=== PATIENT | female | born 1955 | race Caucasian/White ===

== ENCOUNTER → 2016-08-23 | Outpatient (CLI) | payer OTHER ==
[~2016-08-23] MED LIST: BACL10TA PO; DIPH25CA37 PO; DIPH25CA65 PO; LRT5 PO; NAPR-1169 PO
--- NOTE | 2016-08-23 15:37 | MAMMOGRAPHY REPORT ---
UNILATERAL RIGHT DIGITAL SCREENING MAMMOGRAM TOMOSYNTHESIS WITH CAD: 08/23/2016 CLINICAL HISTORY: Asymptomatic. Personal history of breast cancer. TECHNIQUE: Breast tomosynthesis in addition to standard 2D mammography was performed. Current study was also evaluated with a Computer Aided Detection (CAD) system. Right CC and MLO 2-D and tomosynthe sis images were obtained. COMPARISON: Comparison is made to exams dated: 08/19/2015 mammogram, 08/20/2014 mammogram, 08/14/2014 mamm ogram, 06/24/2013 mammogram, 06/13/2012 mammogram, and 05/17/2011 mammogram - [facility] . BREAST COMPOSITION: The tissue of the right breast is heterogeneously dense, which may obscure small masses. FINDINGS: There are no suspicious masses, calcifications, or areas of architectural distortion noted in the right breast. There has been no significant interval change compared to prior exams. IMPRESSION: ACR BI-RADS CATEGORY 1: NEGATIVE There is no mammographic evidence of malignancy. A 1 year screening mammogram is recommended. The pa tient will receive written notification of the results. Approximately 10% of breast cancers are not detected with mammography. A negative mammographic report should not delay biopsy if a clinically suggestive mass is present. Eda Zavala M.D. ah/:08/23/2016 07:44:38 Marine Architect: Joan SUNSHINE)([place]), [facility] letter sent: Normal 1/2 BI-RADS Code: ACR BI-RADS Category 1: Negative
== END | disposition home or self-care (01) ==
LOC: C.MAMM 07:22
PROVIDERS: ATTEND Internal Medicine Hematology
DX: Z12.31 Encounter for screening mammogram for malignant neoplasm of breast (principal); Z85.3 Personal history of malignant neoplasm of breast; Z90.12 Acquired absence of left breast and nipple

== ENCOUNTER 2023-03-21 00:29 | Inpatient (IN) ==
--- NOTE | 2023-03-21 00:58 | Emergency Department Note ---
History of Present Illness General Chief complaint: Shortness of Breath/Dyspnea Stated complaint: SHORTNESS OF BREATH,WHEEZING Time Seen by Provider: 03/21/23 00:46 History of Present Illness This 67-year-old female on Plaquenil for rheumatoid arthritis and takes naproxen presents ER complaining of cough and shortness of breath today. Patient denies chest pain, leg pain or swelling, fever, chills, flulike illness, recent travel, history of blood clots. She does not smoke. No family history of blood clots or heart disease. She states she is very healthy and exercises daily. Home Medications Medication Instructions Recorded Confirmed Type naproxen 500 mg tablet 500 mg PO BID PRN Pain #0 tabs 07/16/12 12/06/19 History cyclobenzaprine 5 mg tablet 5 mg PO DAILY 12/06/19 12/06/19 History oxycodone-acetaminophen 5 mg-325 1 tab PO Q6H PRN pain #30 tabs 12/06/19 Rx mg tablet (Percocet) hydroxychloroquine 200 mg tablet 200 mg PO UD 03/21/23 03/21/23 History Allergies Allergy/AdvReac Type Severity Reaction Status Date / Time No Known Allergies Allergy Unknown Verified 07/31/06 14:46 indomethacin AdvReac Unknown SEVERE SYLVESTER Verified 03/15/12 07:07 LOCALANESTHETIC AdvReac Unknown MARCAINE Uncoded 03/19/09 02:48 -STRANGE RXN TO IT? Past Med/Surg History Social History Smoking Status: Never smoker Tobacco Type: Cigarettes Preferred Language: Mongolian Feels Safe at Home: Yes Review of Systems A total of 10 systems reviewed and were otherwise negative Physical Exam Vital Signs Vital Signs - 24 hr 03/21/23 00:34 03/21/23 00:55 03/21/23 01:09 Temperature 36.5 C Temperature Source Temporal Artery Scan Pulse Rate 107 H 105 H Pulse Rate [Apical] Pulse Rhythm Pulse Rhythm [Apical] Pulse Strength [Apical] Respiratory Rate 20 Respiratory Effort / Characteristics Non-Labored Respiratory Depth Normal Respiratory Pattern Regular Blood Pressure 133/89 Blood Pressure [Right Arm] Blood Pressure Mean 103 Blood Pressure Mean [Right Arm] Pulse Oximetry 98 Oxygen Delivery Method Room Air Room Air Sepsis Recent Fever Within 48 Hours No Sepsis New/Unexplained Change in Mental Status No Sepsis Action Taken by Nursing No Action Required 03/21/23 01:09 03/21/23 01:09 03/21/23 01:09 Temperature Temperature Source Pulse Rate 99 H Pulse Rate [Apical] 100 H Pulse Rhythm Regular Pulse Rhythm [Apical] Regular Pulse Strength [Apical] Normal Respiratory Rate 18 16 Respiratory Effort / Characteristics Non-Labored Respiratory Depth Normal Respiratory Pattern Regular Blood Pressure Blood Pressure [Right Arm] 116/82 Blood Pressure Mean Blood Pressure Mean [Right Arm] 93 Pulse Oximetry 97 97 97 Oxygen Delivery Method Room Air Room Air Room Air Sepsis Recent Fever Within 48 Hours Sepsis New/Unexplained Change in Mental Status Sepsis Action Taken by Nursing VITALS: Vitals are noted on the nurse's note and reviewed by myself. Vital signs stable. GENERAL: Pleasant female with present, in no acute distress, nondiaphoretic, well-developed well-nourished. SKIN: Capillary reflex less than 2 seconds. HEENT: Normocephalic. PERRLA. EOMI. Nares patent. Mucous membranes moist. Neck is supple without nuchal rigidity. HEART: Regular rate and rhythm LUNGS: Mild diffuse end expiratory wheeze. No retractions or accessory muscle use. ABDOMEN: Positive bowel sounds x 4. Normal tympanic percussion. Soft, nontender, without masses or organomegaly. Thomas sign negative. No guarding or rebound tenderness. no CVA tenderness MUSCULOSKELETAL: No gross musculoskeletal defects. NEURO: Patient was alert and oriented to person place and time. No focal neurological deficits. Course Administered Medications Discontinued Medications Albuterol (Albut/Ipratrop 3mg/0.5mg Neb 3 Ml Vial) 3 ml INH NOW STA Stop: 03/21/23 00:55 Last Admin: 03/21/23 01:25 Dose: 3 ml Documented By: RINKU Furosemide (Furosemide 40 Mg/4 Ml Vial) 40 mg IV ONE ONE Stop: 03/21/23 01:39 Last Admin: 03/21/23 01:49 Dose: 40 mg Documented By: RINKU Ioversol (Optiray 320 125ml) 116 ml IV ONCE ONE Stop: 03/21/23 01:19 Last Admin: 03/21/23 01:20 Dose: 116 ml Documented By: SANTINO Medical Decision Making Medical Records Attestation: I reviewed the patient's medical records. Home Medications Current Medication List: was personally reviewed by nm Laboratory Data Attestation: I reviewed the patient's lab results. 03/21/23 01:00 03/21/23 01:00 Lab Results 03/21/23 03/21/23 Range/Units 01:00 01:04 WBC 5.49 (4.8-10.8) K/ul RBC 4.96 (4.20-5.40) M/uL Hgb 14.0 (12.0-16.0) g/dl POC Hgb 15.0 (12.0-16.0) g/dl Hct 44.3 (37.0-47.0) % POC Hct 44 (37-47) % MCV 89.3 (80.0-100.0) fL MCH 28.2 (25.0-34.0) pg MCHC 31.6 L (32.0-36.0) g/dL RDW Std Deviation 46.7 H (36.4-46.3) fL RDW Coeff of Laz 14.3 (11.5-14.5) % Plt Count 281 (130-400) K/uL MPV 9.8 (9.4-12.4) fL Immature Gran % (Auto) 0.2 % Neut % (Auto) 52.7 % Lymph % (Auto) 35.9 % Childress % (Auto) 7.7 % Eos % (Auto) 2.6 % Baso % (Auto) 0.9 % Neut # (Auto) 2.90 (1.40-6.50) K/uL Lymph # (Auto) 1.97 (1.20-3.40) K/uL Childress # (Auto) 0.42 (0.11-0.59) K/uL Eos # (Auto) 0.14 (0.00-0.50) K/uL Baso # (Auto) 0.05 (0.00-0.20) K/uL Immature Gran # (Auto) 0.01 (0.01-0.20) K/uL POC Sodium 141 (135-144) mmol/L Sodium 138 (136-145) mmol/L POC Potassium 4.5 (3.3-5.0) mmol/L Potassium 4.4 (3.5-5.1) mmol/L POC Chloride 106 (101-112) mmol/L Chloride 107 (98-107) mmol/L Carbon Dioxide 25 (21-32) mmol/L POC Total CO2 23 L (24-31) mmol/L Anion Gap 6 (3-11) POC Anion Gap 17.0 (16-25) mmol/L POC BUN 19 H (7-18) mg/dl BUN 19 (6-23) mg/dl Creatinine 0.80 (0.6-1.2) mg/dl POC Creatinine 0.7 (0.6-1.3) mg/dl Est Cr Clr Drug Dosing 67.3 ml/min Est GFR ( Amer) 89.0 ml/min Est GFR (Non-Af Amer) 76.8 ml/min BUN/Creatinine Ratio 23.8 H (10-20) Glucose 119 H (70-99(Fasting)) mg/dl POC Glucose (other) 118 H (70-99) mg/dl Calcium 9.3 (8.6-10.3) mg/dl POC Ioniz Calcium Edwin 1.18 (1.12-1.32) mmol/l Magnesium 2.1 (1.7-2.4) mg/dl Total Bilirubin 0.4 (0.2-1.0) mg/dl AST 26 (13-39) U/L ALT 10 (7-52) U/L Alkaline Phosphatase 63 (34-104) U/L Troponin I High Sens 19.7 H (0-14) pg/ml B-Natriuretic Peptide 726 H (0-100) pg/ml Total Protein 7.0 (6.0-8.3) gm/dl Albumin 4.2 (3.4-5.0) gm/dl Globulin 2.8 (2.5-4.0) gm/dl Albumin/Globulin Ratio 1.5 (0.9-2) Imaging Data Attestation: I personally reviewed and interpreted this imaging study as follows: Radiologist's Impression: Chest CTA 03/21/23 00:54 Exam(s): CTA CHEST IV Amt: 116 cc opti 320 EXAM: CT Angiography Chest With Intravenous Contrast CLINICAL HISTORY: Reason for exam: Dyspnea. TECHNIQUE: Axial computed tomographic angiography images of the chest with intravenous contrast. Automated exposure control was utilized for the study. A dose lowering technique was utilized adhering to the principles of ALARA. MIP reconstructed images were created and reviewed. COMPARISON: January 10, 2007 CT chest. FINDINGS: Pulmonary arteries: Unremarkable. No pulmonary embolism. Aorta: No acute findings. No thoracic aortic aneurysm. Lungs: Extensive peribronchial thickening, particularly in the lower lobes. There is also very extensive thickening of interlobular septa. No mass. No consolidation. Pleural space: Small bilateral pleural effusions. No pneumothorax. Heart: Unremarkable. No cardiomegaly. No significant pericardial effusion. No evidence of RV dysfunction. Bones/joints: No acute fracture. No dislocation. Soft tissues: Unremarkable. Lymph nodes: Unremarkable. No enlarged lymph nodes. IMPRESSION: No evidence of pulmonary emboli. Marked peribronchial thickening as well as a diffuse abnormal thickening of interlobular septa. These findings are nonspecific. Thickening of interlobular septa can sometimes be seen in CHF. Electronically signed by: Julius Corea MD 03/21/23 01:35 AM [facility] Narrative Prior records/ancillary studies reviewed. Triage Nursing notes reviewed. Additional history obtained from the family. The patient's history was concerning for respiratory difficulties. Differential diagnosis: Etiologies such as infections, reactive airway disease, pneumonia, pneumothorax, COPD, CHF, cardiac ischemia, pulmonary embolism, musculoskeletal, gastrointestinal, as well as others were entertained. Physical examination: As above. ER treatment provided: An order was placed for continuous cardiac monitoring. The monitor shows a rate of 60-1 20 with a sinus rhythm per my interpretation. Nebulizer, Lasix On reassessment the patient felt better. Diagnostic interpretation by me: The electrocardiogram was ordered for SOB. ECG: Normal sinus, left axis, T wave inversions in lead I and aVL, rate of 112. Impression sinus tachycardia with left axis independently interpreted by myself The labs Independently Interpreted by myself revealed elevated troponin and BNP Imaging studies: Chest x-ray with pulmonary congestion per my independent interpretation CT was reviewed and read by radiology as above. HEART SCORE: Hx: high/mod/low suspicion: 0 ECG: ST depression/nonspecific changes/normal: 1 Age: Greater than 65/45-64/less than 45: 2 Risk factors: (Hypertension, hyperlipidemia, diabetes, coronary disease, tobacco use, cocaine use): 0 Troponin: Greater than 2 times normal limits/1-2 times normal limits/normal: 1 Total: 4 Consultation: A consultation was placed with the hospitalist. The case was discussed and diagnostics were reviewed. The patient was evaluated in the ER for further treatment. This appears to be consistent with new onset heart failure. Patient was medicated as above. She was not hypoxic. Medicine is consulted and case was discussed. Patient will be admitted to the medical service for further evaluation and workup. By the evaluation outlined above emergent etiologies such as pulmonary embolism, reactive airway disease, pneumonia, pneumothorax, musculoskeletal, serious bacterial infections, as well as others were deemed relatively unlikely. The pt informed about the findings as listed above. All questions were answered and pleased with the treatment. The chart was completed utilizing [employer] Speech voice recognition software. Grammatical errors, random word insertions, pronoun errors, and incomplete sentences are an occassional consequence of this system due to software limitations, ambient noise, and hardware issues. Any formal questions or concerns about the content, text, or information contained within the body of this dictation should be directly addressed to the physician furniture removalist's assistant for clarification. Impression & Plan Acute congestive heart failure Discharge Plan Visit Data Chief Complaint: Shortness of Breath/Dyspnea Stated Complaint: SHORTNESS OF BREATH,WHEEZING ED Provider: [facility] ED Midlevel Provider: Albina Joyner Discharge Problem: Acute congestive heart failure Patient Disposition: Admitted As Inpatient Condition: Good Forms Stand Alone Forms: Trellise Prescriptions Prescriptions: No Action naproxen 500 mg Tablet 500 mg PO BID PRN (Reason: Pain) Qty: 0 Patient Comments: PRN PAIN cyclobenzaprine 5 mg tablet 5 mg PO DAILY oxycodone-acetaminophen [Percocet] 5-325 mg tablet 1 tab PO Q6H PRN (Reason: pain) Qty: 30 0RF Referrals Referrals: Jian Vaz MD [Primary Care Provider] - Discharge Problem: Acute congestive heart failure Qualifiers: Heart failure type: unspecified Qualified Code(s): I50.9 - Heart failure, unspecified
[2023-03-21 01:18] LABS: Basophils # (auto) 0.05 K/uL (0.00-0.20); Basophils % (auto) 0.9 %; Eosinophils # (auto) 0.14 K/uL (0.00-0.50); Eosinophils % (auto) 2.6 %; Hematocrit (blood only) 44.3 % (37.0-47.0); Immature Granulocytes # (auto) 0.01 K/uL (0.01-0.20); Immature Granulocytes % (auto) 0.2 %; Lymphocytes # (auto) 1.97 K/uL (1.20-3.40); Lymphocytes % (auto) 35.9 %; Mean Corpuscular Hemoglobin 28.2 pg (25.0-34.0); Mean Corpuscular Hgb Conc 31.6 g/dL (32.0-36.0); Mean Corpuscular Volume 89.3 fL (80.0-100.0); Mean Platelet Volume 9.8 fL (9.4-12.4); Monocytes # (auto) 0.42 K/uL (0.11-0.59); Monocytes % (auto) 7.7 %; Neutrophils % (auto) 52.7 %; Platelet Count 281 K/uL (130-400); RDW Coefficient of Variation 14.3 % (11.5-14.5); RDW Standard Deviation 46.7 fL (36.4-46.3); Red Blood Count 4.96 M/uL (4.20-5.40); White Blood Count 5.49 K/ul (4.8-10.8)
[2023-03-21 01:20] LABS: iSTAT Creatinine 0.7 mg/dl (0.6-1.3); iSTAT Ionized Calcium 1.18 mmol/l (1.12-1.32); iSTAT Potassium 4.5 mmol/L (3.3-5.0)
[2023-03-21] MEDS: OPTIRAY 320 125ml IV ONE (01:20)
[2023-03-21] MEDS: ALBUT/IPRATROP 3MG/0.5MG NEB 3 ML VIAL INH STA (01:25)
[2023-03-21 01:31] LABS: Albumin Globulin Ratio 1.5 (0.9-2); Albumin Level 4.2 gm/dl (3.4-5.0); BUN Creatinine Ratio 23.8 (10-20); Bilirubin,Total 0.4 mg/dl (0.2-1.0); Calcium 9.3 mg/dl (8.6-10.3); Creatinine Clr Calc Pharmacy 67.3 ml/min; Est GFR (Non-African American) 76.8 ml/min; Globulin 2.8 gm/dl (2.5-4.0); Magnesium 2.1 mg/dl (1.7-2.4); Potassium 4.4 mmol/L (3.5-5.1)
--- NOTE | 2023-03-21 01:36 | CT Scan Report ---
Exam(s): CTA CHEST IV Amt: 116 cc opti 320 EXAM: CT Angiography Chest With Intravenous Contrast CLINICAL HISTORY: Reason for exam: Dyspnea. TECHNIQUE: Axial computed tomographic angiography images of the chest with intravenous contrast. Automated exposure control was utilized for the study. A dose lowering technique was utilized adhering to the principles of ALARA. MIP reconstructed images were created and reviewed. COMPARISON: January 10, 2007 CT chest. FINDINGS: Pulmonary arteries: Unremarkable. No pulmonary embolism. Aorta: No acute findings. No thoracic aortic aneurysm. Lungs: Extensive peribronchial thickening, particularly in the lower lobes. There is also very extensive thickening of interlobular septa. No mass. No consolidation. Pleural space: Small bilateral pleural effusions. No pneumothorax. Heart: Unremarkable. No cardiomegaly. No significant pericardial effusion. No evidence of RV dysfunction. Bones/joints: No acute fracture. No dislocation. Soft tissues: Unremarkable. Lymph nodes: Unremarkable. No enlarged lymph nodes. IMPRESSION: No evidence of pulmonary emboli. Marked peribronchial thickening as well as a diffuse abnormal thickening of interlobular septa. These findings are nonspecific. Thickening of interlobular septa can sometimes be seen in CHF. Electronically signed by: Julius Corea MD 03/21/23 01:35 AM
[2023-03-21 01:37] LABS: Troponin I High Sensitivity 19.7 pg/ml (0-14)
--- NOTE | 2023-03-21 01:43 | Emergency Department Note ---
ED Visit Note I was consulted by the Advanced Practice Provider. I personally made/approved the management plan and take responsibility for the patient management. I performed a substantive portion of the visit. This includes the aspects of: [-History/Physical] [-MDM] .
[2023-03-21] MEDS: FUROSEMIDE 40 MG/4 ML VIAL IV ONE (01:49)
[2023-03-21 02:12] LABS: Adenovirus PCR Not Detected (NotDetected); Bordetella parapertussis PCR Not Detected (NotDetected); Bordetella pertussis PCR Not Detected (NotDetected); Chlamydia pneumoniae PCR Not Detected (NotDetected); Coronavirus 229E PCR Not Detected (NotDetected); Coronavirus CoV-2 (COVID19)PCR Not Detected (NotDetected); Coronavirus HKU1 PCR Not Detected (NotDetected); Coronavirus NL63 PCR Not Detected (NotDetected); Coronavirus OC43PCR Not Detected (NotDetected); Human Metapneumovirus PCR Not Detected (NotDetected); Influenza A PCR Not Detected (NotDetected); Influenza B PCR Not Detected (NotDetected); Mycoplasma pneumoniae PCR Not Detected (NotDetected); Parainfluenza Virus 1 PCR Not Detected (NotDetected); Parainfluenza Virus 2 PCR Not Detected (NotDetected); Parainfluenza Virus 3 PCR Not Detected (NotDetected); Parainfluenza Virus 4 PCR Not Detected (NotDetected); Respiratory Syncytial VirusPCR Not Detected (NotDetected); Rhinovirus/Enterovirus PCR Not Detected (NotDetected)
[2023-03-21 02:13] LABS: INR 0.9 (0.9-1.1); Partial Thromboplastin Ratio 1.1; Partial Thromboplastin Time 32 Seconds (21-31); Prothrombin Time 10.1 Seconds (9.0-12.0)
--- NOTE | 2023-03-21 02:45 | History & Physical Report ---
Date of Service March 21, 2023 Assessment & Plan (1) Acute congestive heart failure: Plan: 67-year-old female with past med history significant for thoracic outlet syndrome, left arm pain. Dupuytren disease of the right palm. Osteoarthritis. History of breast cancer. Rheumatoid arthritis diagnosed in fall 2022 comes with shortness of breath for last few days. Patient lately walking 1 flight of steps making her short of breath. Today sob was worse. Today when she laid down in the bed she felt very short of breath and when checked her pulse ox was 85%. It happened a couple of times and she decided come to the ER. Last couple of nights she woke up in the night gasping for breath. In the ER after Lasix is feeling slightly better. Denies any chest pain. No cough. No fevers. No nausea /vomiting. No abdominal pain. No headaches. No runny nose or sore throat. Appetite is okay. Normal bowel and bladder movements. Presents with shortness of breath Orthopnea and PND CTA chest possible CHF Possible acute CHF Received IV dose of Lasix 40 mg in the ER Will continue with IV Lasix 40 mg daily Daily weights and and I's and O's Will follow the response Will follow echo Telemetry Cardiology consult in a.m. Rheumatoid arthritis On Plaquenil on pain meds History of breast cancer left side s/p surgery and chemo Currently under observation with heme-onc DVT prophylaxis Lovenox Disposition Telemetry floor Full code History of Present Illness Chief Complaint: Shortness of breath Primary Care Provider: Jian Vaz MD 67-year-old female with past med history significant for thoracic outlet syndrome, left arm pain. Dupuytren disease of the right palm. Osteoarthritis. History of breast cancer. Rheumatoid arthritis diagnosed in fall 2022 comes with shortness of breath for last few days. Patient lately walking 1 flight of steps making her short of breath. Today sob was worse. Today when she laid down in the bed she felt very short of breath and when checked her pulse ox was 85%. It happened a couple of times and she decided come to the ER. Last couple of nights she woke up in the night gasping for breath. In the ER after Lasix is feeling slightly better. Denies any chest pain. No cough. No fevers. No nausea /vomiting. No abdominal pain. No headaches. No runny nose or sore throat. Appetite is okay. Normal bowel and bladder movements. Past medical history. As mentioned above Past surgical history. Breast biopsy. Bilateral breast reconstruction. Colonoscopy. Meniscal repair bilateral. Injection of lumbo cervical spine. Ligation oviducts. Left modified radical mastectomy. Appendectomy. Social history. . Quit smoking 1990s. Smoked half pack a day for 16 years. Alcohol wine daily. No drug use. Family history. Paternal aunt had breast cancer. Mother had breast cancer. Brother had prostate cancer. Father had prostate cancer. Father had idiopathic peripheral neuropathy. Mother had rheumatoid arthritis. Allergies Allergy/AdvReac Type Severity Reaction Status Date / Time indomethacin AdvReac Unknown SEVERE SYLVESTER Verified 03/15/12 07:07 [email or web address] [From Marcaine] AdvReac strange Verified 03/21/23 03:26 reaction Home Medications Medication Instructions Recorded Confirmed Type naproxen 500 mg tablet 500 mg PO BID PRN Pain #0 tabs 07/16/12 03/21/23 History cyclobenzaprine 5 mg tablet 5 mg PO DAILY 12/06/19 03/21/23 History oxycodone-acetaminophen 5 mg-325 1 tab PO Q6H PRN pain #30 tabs 12/06/19 03/21/23 Rx mg tablet (Percocet) hydroxychloroquine 200 mg tablet 200 mg PO UD 03/21/23 03/21/23 History Past Med/Surg History Social History Smoking Status: Never smoker Tobacco Type: Cigarettes Hx Alcohol Use: No Hx Substance Use: No Preferred Language: [place] Communication Ability: Effective 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 ENT- oropharynx clear Neck- supple, no JVD. Lungs- clear to auscultation mild bibasilar crackles, no wheezing. Heart- regular rhythm; no murmur, no gallop. Abdomen- normal bowel sounds, soft, nontender, no distension. Extremities- no pretibial edema, no erythema seen. Neuro- alert, oriented x 3; PERRL, no facial palsy; no dysarthria; moves extremities Skin- warm & dry Results & Data Results & Data Vital Signs (Past 12 Hours) Vital Signs Temp Pulse Pulse Resp BP BP Pulse Ox 03/21/23 02:20 102 H 19 106/68 98 03/21/23 02:00 96 03/21/23 01:30 98 H 15 118/82 100 03/21/23 01:24 74 H 122/85 98 03/21/23 01:09 99 H 16 97 03/21/23 01:09 100 H 18 116/82 97 03/21/23 01:09 97 03/21/23 01:09 03/21/23 00:55 105 H 03/21/23 00:34 36.5 C 107 H 20 133/89 98 O2 Del Method 03/21/23 02:20 Room Air 03/21/23 02:00 03/21/23 01:30 03/21/23 01:24 03/21/23 01:09 Room Air 03/21/23 01:09 Room Air 03/21/23 01:09 Room Air 03/21/23 01:09 Room Air 03/21/23 00:55 03/21/23 00:34 Room Air Diagnostic Findings Laboratory Results WBC 5.49 K/ul (4.8-10.8) 03/21/23 01:00 RBC 4.96 M/uL (4.20-5.40) 03/21/23 01:00 Hgb 14.0 g/dl (12.0-16.0) 03/21/23 01:00 POC Hgb 15.0 g/dl (12.0-16.0) 03/21/23 01:04 Hct 44.3 % (37.0-47.0) 03/21/23 01:00 POC Hct 44 % (37-47) 03/21/23 01:04 MCV 89.3 fL (80.0-100.0) 03/21/23 01:00 MCH 28.2 pg (25.0-34.0) 03/21/23 01:00 MCHC 31.6 g/dL (32.0-36.0) L 03/21/23 01:00 RDW Std Deviation 46.7 fL (36.4-46.3) H 03/21/23 01:00 RDW Coeff of Laz 14.3 % (11.5-14.5) 03/21/23 01:00 Plt Count 281 K/uL (130-400) 03/21/23 01:00 MPV 9.8 fL (9.4-12.4) 03/21/23 01:00 Immature Gran % (Auto) 0.2 % 03/21/23 01:00 Neut % (Auto) 52.7 % 03/21/23 01:00 Lymph % (Auto) 35.9 % 03/21/23 01:00 [place] % (Auto) 7.7 % 03/21/23 01:00 Eos % (Auto) 2.6 % 03/21/23 01:00 Baso % (Auto) 0.9 % 03/21/23 01:00 Neut # (Auto) 2.90 K/uL (1.40-6.50) 03/21/23 01:00 Lymph # (Auto) 1.97 K/uL (1.20-3.40) 03/21/23 01:00 [place] # (Auto) 0.42 K/uL (0.11-0.59) 03/21/23 01:00 Eos # (Auto) 0.14 K/uL (0.00-0.50) 03/21/23 01:00 Baso # (Auto) 0.05 K/uL (0.00-0.20) 03/21/23 01:00 Immature Gran # (Auto) 0.01 K/uL (0.01-0.20) 03/21/23 01:00 PT 10.1 Seconds (9.0-12.0) 03/21/23 01:00 INR 0.9 (0.9-1.1) 03/21/23 01:00 APTT 32 Seconds (21-31) H 03/21/23 01:00 PTT Ratio 1.1 03/21/23 01:00 POC Sodium 141 mmol/L (135-144) 03/21/23 01:04 Sodium 138 mmol/L (136-145) 03/21/23 01:00 POC Potassium 4.5 mmol/L (3.3-5.0) 03/21/23 01:04 Potassium 4.4 mmol/L (3.5-5.1) 03/21/23 01:00 POC Chloride 106 mmol/L (101-112) 03/21/23 01:04 Chloride 107 mmol/L (98-107) 03/21/23 01:00 Carbon Dioxide 25 mmol/L (21-32) 03/21/23 01:00 POC Total CO2 23 mmol/L (24-31) L 03/21/23 01:04 Anion Gap 6 (3-11) 03/21/23 01:00 POC Anion Gap 17.0 mmol/L (16-25) 03/21/23 01:04 POC BUN 19 mg/dl (7-18) H 03/21/23 01:04 BUN 19 mg/dl (6-23) 03/21/23 01:00 Creatinine 0.80 mg/dl (0.6-1.2) 03/21/23 01:00 POC Creatinine 0.7 mg/dl (0.6-1.3) 03/21/23 01:04 Est Cr Clr Drug Dosing 67.3 ml/min 03/21/23 01:00 Est GFR ( Amer) 89.0 ml/min 03/21/23 01:00 Est GFR (Non-Af Amer) 76.8 ml/min 03/21/23 01:00 BUN/Creatinine Ratio 23.8 (10-20) H 03/21/23 01:00 Glucose 119 mg/dl (70-99(Fasting)) H 03/21/23 01:00 POC Glucose (other) 118 mg/dl (70-99) H 03/21/23 01:04 Calcium 9.3 mg/dl (8.6-10.3) 03/21/23 01:00 POC Ioniz Calcium Edwin 1.18 mmol/l (1.12-1.32) 03/21/23 01:04 Magnesium 2.1 mg/dl (1.7-2.4) 03/21/23 01:00 Total Bilirubin 0.4 mg/dl (0.2-1.0) 03/21/23 01:00 AST 26 U/L (13-39) 03/21/23 01:00 ALT 10 U/L (7-52) 03/21/23 01:00 Alkaline Phosphatase 63 U/L (34-104) 03/21/23 01:00 Troponin I High Sens 19.7 pg/ml (0-14) H 03/21/23 01:00 B-Natriuretic Peptide 726 pg/ml (0-100) H 03/21/23 01:00 Total Protein 7.0 gm/dl (6.0-8.3) 03/21/23 01:00 Albumin 4.2 gm/dl (3.4-5.0) 03/21/23 01:00 Globulin 2.8 gm/dl (2.5-4.0) 03/21/23 01:00 Albumin/Globulin Ratio 1.5 (0.9-2) 03/21/23 01:00 Adenovirus (PCR) Not Detected (NotDetected) 03/21/23 01:09 B. pertussis DNA (PCR) Not Detected (NotDetected) 03/21/23 01:09 B.parapertussis DNA PCR Not Detected (NotDetected) 03/21/23 01:09 C. pneumoniae DNA (PCR) Not Detected (NotDetected) 03/21/23 01:09 Coronavirus OC43 (PCR) Not Detected (NotDetected) 03/21/23 01:09 Coronavirus HKU1 (PCR) Not Detected (NotDetected) 03/21/23 01:09 Coronavirus 229E (PCR) Not Detected (NotDetected) 03/21/23 01:09 SARS-CoV-2 (PCR) Not Detected (NotDetected) 03/21/23 01:09 Coronavirus NL63 (PCR) Not Detected (NotDetected) 03/21/23 01:09 Human Metapneumovir PCR Not Detected (NotDetected) 03/21/23 01:09 Influenza Type A (PCR) Not Detected (NotDetected) 03/21/23 01:09 Influenza Type B (PCR) Not Detected (NotDetected) 03/21/23 01:09 M. pneumoniae (PCR) Not Detected (NotDetected) 03/21/23 01:09 Parainfluenza 1 (PCR) Not Detected (NotDetected) 03/21/23 01:09 Parainfluenza 2 (PCR) Not Detected (NotDetected) 03/21/23 01:09 Parainfluenza 3 (PCR) Not Detected (NotDetected) 03/21/23 01:09 Parainfluenza 4 (PCR) Not Detected (NotDetected) 03/21/23 01:09 RSV (PCR) Not Detected (NotDetected) 03/21/23 01:09 Entero/Rhino (PCR) Not Detected (NotDetected) 03/21/23 01:09 Impressions Chest CTA 03/21/23 00:54 Exam(s): CTA CHEST IV Amt: 116 cc opti 320 EXAM: CT Angiography Chest With Intravenous Contrast CLINICAL HISTORY: Reason for exam: Dyspnea. TECHNIQUE: Axial computed tomographic angiography images of the chest with intravenous contrast. Automated exposure control was utilized for the study. A dose lowering technique was utilized adhering to the principles of ALARA. MIP reconstructed images were created and reviewed. COMPARISON: January 10, 2007 CT chest. FINDINGS: Pulmonary arteries: Unremarkable. No pulmonary embolism. Aorta: No acute findings. No thoracic aortic aneurysm. Lungs: Extensive peribronchial thickening, particularly in the lower lobes. There is also very extensive thickening of interlobular septa. No mass. No consolidation. Pleural space: Small bilateral pleural effusions. No pneumothorax. Heart: Unremarkable. No cardiomegaly. No significant pericardial effusion. No evidence of RV dysfunction. Bones/joints: No acute fracture. No dislocation. Soft tissues: Unremarkable. Lymph nodes: Unremarkable. No enlarged lymph nodes. IMPRESSION: No evidence of pulmonary emboli. Marked peribronchial thickening as well as a diffuse abnormal thickening of interlobular septa. These findings are nonspecific. Thickening of interlobular septa can sometimes be seen in CHF. Electronically signed by: Julius Corea MD 03/21/23 01:35 AM ECG Additional Comments: ECG. Sinus tachycardia 112. Possible left atrial enlargement. Left axis deviation. Code Status & VTE Plan VTE Prophylaxis Plan VTE Prophylaxis will be ordered: Yes (1) Acute congestive heart failure Heart failure type: unspecified Qualified Code(s): I50.9 - Heart failure, unspecified
[2023-03-21] MEDS ORDERED: LEVALBUTEROL 1.25 MG/3 ML NEB NEB PRN (03:19)
[2023-03-21] MEDS ORDERED: POLYETHYLENE (MIRALAX) 17 GM PACK PO PRN (03:19)
--- NOTE | 2023-03-21 06:46 | XRay Report ---
XR chest 1V portable CLINICAL HISTORY: Shortness of breath. COMPARISON STUDY: Chest radiograph and right rib series December 06, 2019. FINDINGS: Lung volumes are normal. No pneumothorax. Small bilateral pleural effusions. Moderate inter lobular septal thickening is evident. Mild cardiomegaly. No consolidation to suggest pneumonia. IMPRESSION: Cardiomegaly with moderate interstitial pulmonary edema and small bilateral pleural effu sions. ACT 112: Negative or not required by law. Electronically signed by: Harpreet Howell M.D. 03/21/2023 6:44 AM
[2023-03-21 07:19] LABS: Basophils # (auto) 0.06 K/uL (0.00-0.20); Basophils % (auto) 0.9 %; Eosinophils # (auto) 0.04 K/uL (0.00-0.50); Eosinophils % (auto) 0.6 %; Hematocrit (blood only) 40.1 % (37.0-47.0); Hemoglobin 13.3 g/dl (12.0-16.0); Immature Granulocytes # (auto) 0.01 K/uL (0.01-0.20); Immature Granulocytes % (auto) 0.2 %; Lymphocytes # (auto) 1.49 K/uL (1.20-3.40); Mean Corpuscular Hemoglobin 28.9 pg (25.0-34.0); Mean Corpuscular Hgb Conc 33.2 g/dL (32.0-36.0); Mean Corpuscular Volume 87.2 fL (80.0-100.0); Mean Platelet Volume 9.5 fL (9.4-12.4); Monocytes # (auto) 0.59 K/uL (0.11-0.59); Monocytes % (auto) 9.1 %; Neutrophils # (auto) 4.28 K/uL (1.40-6.50); Neutrophils % (auto) 66.2 %; Platelet Count 261 K/uL (130-400); RDW Coefficient of Variation 14.4 % (11.5-14.5); RDW Standard Deviation 46.1 fL (36.4-46.3); White Blood Count 6.47 K/ul (4.8-10.8)
[2023-03-21 07:34] LABS: BUN Creatinine Ratio 20.9 (10-20); Calcium 8.9 mg/dl (8.6-10.3); Creatinine Clr Calc Pharmacy 59.1 ml/min; Est GFR (African American) 76.2 ml/min; Est GFR (Non-African American) 65.7 ml/min; Potassium 4.2 mmol/L (3.5-5.1)
[2023-03-21 07:42] LABS: Troponin I High Sensitivity 20.8 pg/ml (0-14)
--- OUTSIDE RECORDS SUMMARY | 2023-03-21 08:15 | External Medical Summary | Summary of Care ---
Author Name Unknown Organization [facility] Address [address] [place] [address] Phone [phone] Care Team Providers Care Supply Chain Technician Name Role Phone Jian Vaz MD Primary Care Provider + Reason for Visit * Reason Onset Date Comments Physical-Exam 1 year physical exam. Patient denied any new concerns. Medication Administration 01/22/2023 Flu an d/or Pneumo Inj Encounter Details Date Type Department Care Team (Late st Contact Info) Description 01/22/2023 9:00 AM EST Office Visit General Internal Medicine [facility] [address] [facility] [address] [place], [place] [id number] Jian Vaz MD [address] [place] [address] Rheumatoid arthritis involving multiple sites with positive rheumatoid factor (HCC)*; DDD (degenerative disc disease), cervical; History of breast cancer; Need for prophylactic vaccination and inoculation against influenza; Risk and functional assessment; Chronic narcotic use; Encounter for screening mammogram for breast cancer Allergies Active Allergy Reactions Criticality Noted Date Comments Indomethacin 01/31/2002 Severe headache documented as of this encounter (statuses as of 01/22/2023) Medications Medication Sig Dispensed Refills Start Date End Date Status Naproxen 500 MG Oral Tablet (Naprosyn)Indic ations:Fall, initial encounter,Rib pain on left side 1 pill twice a day by mouth with food as needed for pain 180 Tablet 3 2 Active Cyclobenzaprine HCl 5 MG Oral Tablet (Flexeril)Indic ations:Left arm pain,Cervical spinal stenosis TAKE 1 TABLET BY MOUTH AT BEDTIME - may take an extra tablet at night for severe pain 120 Tablet 0 3 Active HYDROcodone-Jeyson taminophen 5-325 MG Oral Tablet Take 1 Tablet by mouth every 6 hours as needed for Pain, Mild. 0 Active Hydroxychloroqu ine Sulfate 200 MG Oral Tablet (Plaquenil)Dana cations:Rheumat oid arthritis involving multiple sites with positive rheumatoid factor (HCC) Take 2 Tablets by mouth daily. With food. 60 Tablet 11 3 Active Additional Information Patient taking differently:400 mg Oral Daily(Non-Specified),With food. Alternating every other 200mg and 400mg the next day., Reported on 01/22/2023 Doxycycline Hyclate 100 MG Oral CapsuleIndicati ons:Acute maxillary sinusitis, recurrence not specified Take 1 Capsule by mouth in the morning and 1 Capsule before bedtime. Do all this for 7 days. Take for 7 days. 14 Capsule 0 3 01/23/20 23 Discontinued(Pat ient preference/disco ntinuation) predniSONE 10 MG Oral Tablet (Deltasone)Dana cations:Acute maxillary sinusitis, recurrence not specified Take 4 Tablets by mouth daily, THEN 3 Tablets daily, THEN 2 Tablets daily, THEN 1 Tablet daily. 0 3 01/23/20 23 Discontinued documented as of this encounter (statuses as of 01/22/2023) Active Problems Problem Noted Date Diagnosed Date DDD (degenerative disc disease), cervical 2022 Encounter for long-term (current) use of medicat ions 11/07/2022 Rheumatoid arthritis involvi ng multiple sites with positive rheumatoid factor 10/20/2022 Dupuytren's disease of palm of right hand 2020 Primary osteoarthritis of fi rst carpometacarpal joint of right hand 04/16/2020 Fibrous cortical defect 04/16/2020 MEDICATION USE AGREEMENT 01/19/2020 History of breast cancer 01/15/2017 Left arm pain 12/28/2015 Family hx-breast malignancy 06/18/2007 THORACIC OUTLET SYNDROME 01/31/2002 documented as of this encounter (statuses as of 01/22/2023) Resolved Problems Problem Noted Date Diagnosed Date Resolved Date Prediabetes 05/20/2018 01/26/2022 Overview: Per Prediabetes protocol #1 ADVANCE DIRECTIVE INFORMATION 06/12/2007 01/18/2018 Overview: No, Advance Directive brochure offered , patient declined. Malignant neoplasm of lower- outer quadrant of female breast 05/02/2007 01/15/2017 Cancer Staging:Clinical: Unsigned Pathologic:Stage I(T1c, N0, M0) - Signed by Marc Chance MD on 01/27/2013 Overview: Left breast Giant cell arteritis 09/18/2002 003 Female genital symptoms 01/31/200212/13 Overview: ICD-10 update of inactive term BACK PAIN 01/31/2002 12/28/2015 documented as of this encounter (statuses as of 01/22/2023) Immunizations Name Administration Dates Next Due COVID-19 mRNA, LNP-s, No Pre serve, 2-Dose Series (Moderna) 04/17/2020,03/20/2020 Hepatitis B, 20+ yrs 11/20/1994,06/30/1994,06/01 Pneumococcal Conjugate Vacci ne, 20-valent ([id number]) 01/07/2022 SEASONAL INFLUENZA, PF, 6 M & Above, IM , (FLULAVAL or FLUZONE) 11/30/2020,12/03/2019 Seasonal Influenza Virus Vac cine, Unspecified Formulation 12/24/2013,11/27/2012 Seasonal Influenza, Quadriva lent Hd (Fluzone Hd) 01/22/2023,01/07/2022 Seasonal Influenza, Quadriva lent, No Preserve, IM 11/27/2018,12/17/2017 Seasonal Influenza, Split, I IV3, With Preserve, Inj 01/07/2022,11/23/2016,11/11/2015,2013,11/27/2012 TD - Tetanus/Diptheria (ADULT) 10/10/2005,2004,06/01/1994 TD, Preservative Free 08/06/2015 TDAP (age 11 and older)(Adacel) 12/13/2004 Tetanus Toxid Adsorbed 06/01/1994 Zoster Vaccine Recombinant (Shingrix) 04/23/2019 ,01/21/2019 documented as of this encounter Social History Tobacco Use Types Packs/Day Years Used Date Smoking Tobacco: Former Cigarettes 0.5 16 Q uit: 02/12/1989 Smokeless Tobacco: Never Tobacco Cessation:Counseling Given: Not Answered Alcohol Use Standard Drinks/Week Comments Yes 7 (1 standard drink = 0.6 oz pur e alcohol) wine daily PHQ-2 Answer Date Recorded PHQ Adult Total Score 0 01/07/2022 Hunger Vital Sign Answer Date Recorded Within the past 12 months, y ou worried that your food would run out before you got the money to buy more. Never true 07/20/19 23 Within the past 12 months, t he food you bought just didn't last and you didn't have money to get more. Never true 07/19/2022 Sex and Gender Information Value Date Recorded Sex Assigned at Female 01/21/2019 8:17 AM EST Gender Identity Female 01/21/2019 8:17 AM EST Sexual Orientation Straight 01/21/2019 8: 17 AM EST Job Start Date Occupation Industry Not on file Not on file Not on file documented as of this encounter Last Filed Vital Signs Vital Sign Reading Time Taken Comments Blood Pressure 100/68 01/22/2023 9:00 AM EST Pulse 88 01/22/2023 9:00 AM EST Temperature 36.7 C (98.1 F) 01/22/2023 9:00 AM ES T Respiratory Rate - - Oxygen Saturation 100% 01/22/2023 9:00 AM EST Inhaled Oxygen Concentration - - Weight 66.5 kg (146 lb 9.6 oz) 01/22/2023 9:00 A M EST Height 171.5 cm (5' 7.5") 01/22/2023 9:00 AM EST Body Mass Index 22.62 01/22/2023 9:00 AM EST documented in this encounter Patient Instructions * Patient Instructions* Karson Kunz CMA - 01/22/2023 9:02 AM EST Patient Instructions - Fall Prevention (This education is for all patients over 65 regardless of symptoms) Remember to take your current medications as prescribed. In order to prevent falls, you are encouraged to: Exercise Utilize assistive/adaptive devices Avoid multifocal lenses when walking Avoid hazards in home Maintain a regular toileting schedule Any questions please contact our office. Preventing Falls in the Home (This education is for all patients over 65 regardless of symptoms) As you get older, falls are more likely. Thats because your reaction time slows. Your muscles and joints may also get stiffer, making them less flexible. Illness, medications, and vision changes can also affect your balance. A fall could leave you unable to live on your own. To make your home safer, follow these tips: Floors Put nonskid pads under area rugs Remove throw rugs Replace worn floor coverings Tack carpets firmly to each step on carpeted stairs. Put nonskid strips on the edges of uncarpeted stairs Keep floors and stairs free of clutter and cords Arrange furniture so there are clear pathways Clean up any spills right away Bathrooms Install grab bars in the tub or shower Apply nonskid strips or put a nonskid rubber mat in the tub or shower Sit on a bath chair to bathe Use bathmats with nonskid backing Lighting Keep a flashlight in each room Put a nightlight along the pathway between the bedroom and the bathroom Leila Patient Education Copyright 2008 - 2010 Leila except where otherwise noted Preventing Falls: Exercises to Improve Balance, Flexibility, Strength, and Staying Power (This education is for all patients over 65 regardless of symptoms) Certain types of exercises may help make you less likely to fall. Try the ones below. Or do other exercises that your healthcare provider suggests. Depending on your health, you may need to start slowly. Dont let that stop you. Even small amounts of exercise can help you. Be sure to talk to yourhealthcare provider before starting any exercise program. Improve Balance Many types of exercise can help improve balance. Celestine chi and yoga are good examples. Heres another one to try. You can do it anytime and almost anywhere. Stand next to a counter or solid support. Push yourself up onto your tiptoes. Hold for 5 seconds. If you start to lose your balance, hold on to the counter. Rest and repeat 5 times. Work up to holding for 20 to 30 seconds, if you can. Increase Flexibility Being more flexible makes it easier for you to move around safely. Try exercises like the seated hamstring stretch. Sit in a chair and put one foot on a stool. Straighten your leg and reach with both hands down either side of your leg. Reach as far down your leg as you can. Hold for about 20 seconds. Go back to the starting position. Then repeat 5 times. Switch legs. Build Strength Resistance exercises help build strength. You can do them without equipment. Or you can use weights, elastic bands, or special machines. One such exercise is called the biceps curl. You can hold a 1 pound weight or even a can of soup. Do this exercise at least 3 times a week. Strive for everyday. Sit up straight in a chair. Keep your elbow close to your body and your wrist straight. Bend your arm, moving your hand up to your shoulder. Then slowly lower your arm. Repeat 5 times. Switch to the other arm. Build Your Staying Power Aerobic exercises make your heart and lungs stronger so you can keep moving longer. Walking and swimming are two of the best types of exercises you can do. Using a stationary bike is great, too. Find an aerobic exercise that you enjoy. Start slowly and build up. Even 5 minutes is helpful. Aimfor a goal of 30 minutes, at least 3 times a week. You dont have to do 30 minutes in one session. Break it up and walk a little throughout the day. More Helpful Tips Start easy. Slowly work up to doing more. Talk with your healthcare provider about the best exercises for you. Call senior centers or health clubs about exercise programs. If needed, have a family member watch you walk every so often to check your stability. Exercise with a friend. Choose an activity you both enjoy. Try exercises that you can do anytime, anywhere. Here are two examples. Have someone with you when you first try these: Practice walking by placing one foot right in front of the other. Stand up and sit down 10 times. Repeat this throughout the day. Leila Patient Education Copyright 2009 - 2010 Leila except where otherwise noted. Preventing Falls: Moving Safely Using a Cane or Walker (This education is for all patients over 65 regardless of symptoms) Keep the cane away from your feet so you dont trip. A walking aid, such as a cane or walker, can help you stay more independent and avoid falls. Remember to keep your walking aid within easy reach when youre in a chair or in bed. And learn how to use it safely so you dont injure yourself. Using a Cane If you have a stronger side, hold the cane on that side. Get your balance. Move the cane and your weaker leg forward. Support your weight on both the cane and your weaker side. Step with your stronger leg. Start again from step 1. If youre using a folding walker, be sure you know how to lock it open. Check that its locked open before each use. Using a Walker Roll the walker (or lift it, if youre using one without wheels) forward about 12 inches. Step forward with your weaker leg first. Use the walker to help keep your balance. Bring your other foot forward to the center of the walker. Start again from step 1. Helpful Tips Check with your healthcare provider about the right walking aid to use. Ask about a walker with a seat attached. Check the tips of your cane or walker to make sure they have nonskid covers. Move slowly from room to room. Dont day. Sit down to get dressed. Use a emmy pack or backpack to keep your hands free. Get help for jobs that mean climbing, even on a stepstool. Leila Patient Education Copyright 2008 - 2010 Leila except where otherwise noted. Urinary Incontinence Plan of Care Documentation: (This education is for all patients over 65 regardless of symptoms) Current medications reconciled. Patient encouraged to: Practice kegal exercises Provide education materials Use the restroom every 2 hours throughout the day Limit caffeine, alcohol, spicy foods and acidic foods Keep a bladder diary Limit fluid intake 3-4 hours before bed Lose weight Prevent constipation Take fluid pills at a time when you can get to the bathroom quickly Control sugar better if diabetic Limit fluid intake to 60 oz. per day Wear support stockings (TEDs)if you have edema Karson Kunz CMA 01/22/2023 Kegel Exercises Kegel exercises dont require special clothing or equipment. Theyre easy to learn and simple to do. And if you do them right, no one can tell youre doing them, so they can be done almost anywhere. Your doctor, nurse, or physical therapist can answer any questions you have and help you get started. A Weak Pelvic Floor The pelvic floor muscles may weaken due to aging, and vaginal childbirth, injury, surgery, chronic cough, or lack of exercise. If the pelvic floor is weak, your bladder and other pelvic organs may sag out of place. The urethra may also open too easily and allow urine to leak out. Kegel exercises can help you strengthen your pelvic floor muscles so they can better support the pelvic organs and control urine flow. How Kegel Exercises Are Done Try each of the Kegel exercises described below. When youre doing them, try not to move your leg, buttock, or stomach muscles. While youre urinating, try to stop the flow of urine. Start and stop it as often as you can. Contract as if you were stopping your urine stream, but do it when youre not urinating. Tighten your rectum as if trying not to pass gas. Contract your anus, but dont move your buttocks. Helpful Hints Do your Kegels as often as you can. The more you do them, the faster youll feel the results. Pick an activity you do often as a reminder. For instance, do your Kegels every time you sit down. Tighten your pelvic floor before you sneeze, get up from a chair, cough, laugh, or lift. This protects your pelvic floor from injury and can help prevent urine leakage. Try to hold each Kegel for a slow count to five. You probably wont be able to hold them for thatlong at first, but keep practicing. It will get easier as your pelvic floor gets stronger. Eventually, special weights that you place in your vagina may be recommended to help make your Kegels even more effective. Leila Patient Education Copyright 2008 - 2010 Leila except where otherwise noted. Here are some helpful tips for your urinary incontinence: (This education is for all patients over 65 regardless of symptoms) Practice Kegel exercises Use the restroom every 2 hours throughout the day Limit caffeine, alcohol, spicy foods, and acidic foods Keep a bladder diary Limit fluid intake 3-4 hours before bed Lose weight Prevent constipation Take fluid pills at a time when can get to the bathroom quickly Control sugar better if diabetic Limit fluid intake to 60 oz. per day Any questions, please feel free to contact our office. documented in this encounter Progress Notes * Jian Vaz MD - 01/22/2023 9:27 AM EST Chief Complaint Patient presents with Physical-Exam 1 year physical exam. Patient denied any new concerns. Medication Administration Flu and/or Pneumo Inj SUBJECTIVE: Elena Coulter is a 67 year old female with PMH as below who presents for yearly check, f/u RA, chronic neck pain. Feels well overall. Got over sinusitis fine, back to singing. No cp, sob, ring. Active on farm. Feels RA controlled overall, some pains in joints, hips, plans to discuss with rheum 02/01/23 when sees. Chronic neck pain to left arm stable, still can ride horse, throw hay bails. Mood isgood. Patient Active Problem List Diagnosis Code THORACIC OUTLET SYNDROME G54.0 Family hx-breast malignancy Z80.3 Left arm pain M79.602 History of breast cancer Z85.3 MEDICATION USE AGREEMENT [id number] Dupuytren's disease of palm of right hand M72.0 Primary osteoarthritis of first carpometacarpal joint of right hand M18.11 Fibrous cortical defect M89.8X9 Rheumatoid arthritis involving multiple sites with positive rheumatoid factor (HCC) M05.79 DDD (degenerative disc disease), cervical M50.30 Encounter for long-term (current) use of medications Z79.899 Current Outpatient Medications Medication Sig Dispense Refill Naproxen 500 MG Oral Tablet (Naprosyn) 1 pill twice a day by mouth with food as needed for pain 180Tablet 3 Cyclobenzaprine HCl 5 MG Oral Tablet (Flexeril) TAKE 1 TABLET BY MOUTH AT BEDTIME - may take an extra tablet at night for severe pain 120 Tablet 0 HYDROcodone-Acetaminophen 5-325 MG Oral Tablet Take 1 Tablet by mouth every 6 hours as needed for Pain, Mild. Hydroxychloroquine Sulfate 200 MG Oral Tablet (Plaquenil) Take 2 Tablets by mouth daily. With food.(Patient taking differently: Take 2 Tablets by mouth daily. With food. Alternating every other 200mg and 400mg the next day.) 60 Tablet 11 No current facility-administered medications for this visit. Review of patient's allergies indicates: Allergen Reactions Indomethacin Severe headache Health Maintenance Due Topic Date Due COVID-19 Vaccine (3 - Moderna risk series) 05/15/2020 Depression Screening 01/07/2023 ROS: CONSTITUTIONAL: No change in weight, No weakness, and No fevers, sweats, or chills EYE: No recent significant change in vision, No eye pain, redness, discharge, and No diplopia EARS: No ear pain, No drainage, No tinnitus or vertigo, and No recent change in hearing PULMONARY: No cough, sputum, or hemoptysis, No wheezing, No rales, No shortness of breath, and No recent change in breathing CARDIOVASCULAR: No chest pain, No shortness of breath, No dyspnea on exertion, No orthopnea, No paroxysmal nocturnal dyspnea, No edema, No palpitations, and No syncope GASTROINTESTINAL: No abdominal pain, No change in bowel habits, No significant heartburn, No significant change in appetite, No nausea, vomiting, diarrhea, or constipation, No hematemesis, No blood in stools or black tarry stools, No abdominal bloating or early satiety, and No dysphagia ALL OTHER SYSTEMS NEGATIVE I reviewed social, PMH, PSH, and family history and updated where needed. Social History Socioeconomic History Marital status: Spouse name: Not on file Number of children: 3 Years of education: Not on file Highest education level: Not on file Occupational History Occupation: retired! Tobacco Use Smoking status: Former Packs/day: 0.50 Years: 16.00 Additional pack years: 0.00 Total pack years: 8.00 Types: Cigarettes Quit date: 02/12/1989 Years since quittin.9 Smokeless tobacco: Never Vaping Use Vaping Use: Never used Substance and Sexual Activity Alcohol use: Yes Alcohol/week: 7.0 standard drinks of alcohol Types: 7 5 oz of wine per week Comment: wine daily Drug use: No Sexual activity: Yes Other Topics Concern Not on file Social History Narrative Not on file Social Determinants of Health Financial Resource Strain: Not on file Food Insecurity: No Food Insecurity (07/19/2022) Hunger Vital Sign Worried About Running Out of Food in the Last Year: Never true Ran Out of Food in the Last Year: Never true Transportation Needs: Not on file Physical Activity: Not on file Stress: Not on file Social Connections: Not on file Intimate Partner Violence: Not on file Housing Stability: Not on file Past Medical History: Diagnosis Date BRCA1 gene mutation negative 2007 BRCA2 gene mutation negative 2007 Breast cancer (HCC) 2007 left breast with mastectomy DDD (degenerative disc disease), cervical Giant cell arteritis (HCC) 09/18/2002 History of breast cancer 01/15/2017 Left arm pain 12/28/2015 MEDICATION USE AGREEMENT 01/19/2020 OTHER breast cancer Rheumatoid arthritis involving multiple sites with positive rheumatoid factor (HCC) 10/20/2022 THORACIC OUTLET SYNDROME Past Surgical History: Procedure Laterality Date BREAST BIOPSY Left 03/09/2006 Malignant BREAST RECONSTRUCTION Bilateral 2009 gluteal flap COLONOSCOPY, DIAGNOSTIC (RECTUM) 12/18/2022 diverticulosis/biopsies normal/recall 10 years/COLONOSCOPY FLEXIBLE PROXIMAL DIAGNOSTIC performed by Katt Lujan DO at [facility] INFORMATION Bilateral mensical repair INJECT DX/THER SUBSTANCE INTERLAMINAR CERVICAL/THORACIC W IMAGE GUIDE 05/09/2018 INJECTION SPINE LUMBAR CERVICAL OR THORACIC performed by Eleno Aguilar, DO at OR [facility] INJECT DX/THER SUBSTANCE INTERLAMINAR CERVICAL/THORACIC W IMAGE GUIDE 03/01/2020 INJECTION SPINE LUMBAR CERVICAL OR THORACIC performed by Eleno Aguilar, DO at OR [facility] INJECT DX/THER SUBSTANCE INTERLAMINAR CERVICAL/THORACIC W IMAGE GUIDE 12/23/2020 INJECTION SPINE LUMBAR CERVICAL OR THORACIC performed by Eleno Aguilar, DO at OR [facility] LIGATE/CUT OVIDUCT(S) 1993 MASTECTOMY, MODIFIED RADICAL Left 03/2006 Mast, Mod Rad,inc axil lymph no, Left breast REMOVAL OF APPENDIX 1968 SENTINEL LYMPH NODE BIOPSY PERFORMED Left 2006 negative Family History Problem Relation Age of Onset Breast Cancer Mother Rheum arthritis Mother Neurological Disorder Father Idiopathic peripheral neuropathy-- also 2 aunts and 1 uncle have same problem Cancer Father prostate Other (MSA) Brother Cancer Brother prostate cancer No Known Problems Daughter No Known Problems Daughter No Known Problems Daughter Breast Cancer Aunt (Paternal) Breast Cancer Aunt (Paternal) Breast Cancer Aunt (Paternal) OBJECTIVE: PHYSICAL EXAM: BP 100/68 | Pulse 88 | Temp 36.7 C (98.1 F) | Ht 1.715 m (5' 7.5") | Wt 66.5 kg (146 lb 9.6 oz)| LMP 04/12/2006 | SpO2 100% | BMI 22.62 kg/m | BSA 1.78 m General: alert, healthy, and no distress Head: Normocephalic, No masses, lesions, or abnormalities Eye Exam: conjunctiva are pink and non-injected, sclera clear Ears: External ears normal, Canals clear, TM's Normal Heart: regular rate & rhythm, no murmur, no gallops, PMI non-displaced, S-1 normal, and S-2 normal Lungs: normal respiratory rate and rhythm, lungs clear to auscultation Extremities: no edema, no clubbing, no cyanosis Neuro Exam: alert with fluent speech, gait normal Psych: normal affect, no flight of ideas or tangential thought, good eye contact, no pressured speech Neck: supple, full rom, no masses 11/07/2022 rheum: She is a new diagnosis of rheumatoid arthritis and was started on hydroxychloroquine by an outside provider. Reasonable thing continue with this treatment and would take 200 mg alternating with 400 mg daily. Will update labs in 1 month. Await eye exam. Return to clinic in 3 months and 9 months. I reviewed last lipid, gfr, glucose, lft ASSESSMENT: M05.79 Rheumatoid arthritis involving multiple sites with positive rheumatoid factor (HCC) (primaryencounter diagnosis) M50.30 DDD (degenerative disc disease), cervical Z85.3 History of breast cancer Z23 Need for prophylactic vaccination and inoculation against influenza Z13.9 Risk and functional assessment F11.90 Chronic narcotic use Z12.31 Encounter for screening mammogram for breast cancer PLAN: Rheumatoid arthritis involving multiple sites with positive rheumatoid factor (HCC) (Primary) Cnt med per rheum DDD (degenerative disc disease), cervical Has hydrocodone, flexeril which still help, takes prior at night sparingly, no ill effects History of breast cancer Cnt mammo Need for prophylactic vaccination and inoculation against influenza - INFLUENZA VACC, QUAD, HIGH DOSE (FLUZONE HD) Risk and functional assessment Chronic narcotic use - PAIN MANAGEMENT DRUG PANEL, URINE W/ INTERPRETATION; Future; Expected date: 01/22/2023 Encounter for screening mammogram for breast cancer - MAMMOGRAM SCREENING MARY RIGHT; Future; Expected date: 09/13/2023 Follow Up: Return in about 1 year (around 01/23/2024), or if symptoms worsen or fail to improve, for Labs Today. | For: Labs Today Discussed rsv vaccine Jian Vaz MD * Karson Kunz CMA - 01/22/2023 8:57 AM EST PRE - ADMINISTRATION DOCUMENTATION Are you experiencing any cold symptoms or fever? No Have you had Guillain-Firestone Syndrome (an illness that causes paralysis) within the last 6 weeks? No Have you had the flu shot in the past? YES Have you ever had a reaction to the flu shot? No Karson Kunz CMA, 01/22/2023 8:57 AM Immunization Administration Documentation Time Out Procedure Performed: Yes Patient Identified (Ask Name/Date of ): Yes Does the patient have a fever greater than 101 degrees today? No Patient allergic to latex? No VFC Stock: Yes, Does this patient qualify for immunization through the [facility] program because he/she (check only one): No-this child does not qualify for [facility] program; refer patient to a [facility] Immunization(s) verified: Yes, Immunization Name: Flu, VIS Sheet(s) given: Yes Verified Side and Site: Yes Verified Shot(s) with Parent(s)/Patient: Yes Fall Risk Plan of Care Documentation: - Current medications reconciled Patient encouraged to: - Exercise - Provide education materials for Core strengthening - Utilize assistive/adaptive devices - Provide education materials - Avoid multifocal lenses when walking - Avoid hazards in home - Provide education materials - Maintain a regular toileting schedule Karson Kunz CMA 01/22/2023 Urinary Incontinence Plan of Care Documentation: (This education is for all patients over 65 regardless of symptoms) Current medications reconciled. Patient encouraged to: Practice kegal exercises Provide education materials Use the restroom every 2 hours throughout the day Limit caffeine, alcohol, spicy foods and acidic foods Keep a bladder diary Limit fluid intake 3-4 hours before bed Lose weight Prevent constipation Take fluid pills at a time when you can get to the bathroom quickly Control sugar better if diabetic Limit fluid intake to 60 oz. per day Wear support stockings (TEDs)if you have edema Karson Kunz CMA 01/22/2023 documented in this encounter Nursing Notes * Karson Kunz CMA - 01/22/2023 8:58 AM EST Chief Complaint Patient presents with Physical-Exam 1 year physical exam. Patient denied any new concerns. Medication Administration Flu and/or Pneumo Inj documented in this encounter Plan of Treatment Upcoming Encounters Date Type Department Care Team (Late st Contact Info) Description 01/22/2023 10:00 AM EST Laboratory Laboratory [facility] [place] [address] [place] [id number] [facility] [address] [place] [address] Chronic narcotic use 02/01/2023 9:40 AM EST Office Visit Rheumatology [address] [place] [address] Javi Sexton MD [address] [place] [address] [place] [address] [address] 04/05/2023 2:30 PM EST Office Visit Ophthalmology, [facility] [address] [address] Servando Rdz MD [address] [address] Nurse [facility] Ophthalmology [address] [place] [address] [address] 08/01/2023 8:40 AM EDT Office Visit Rheumatology [place] [address] [place] [address] Javi Sexton MD [address] [place] [address] [place] [address] [address] 10/11/2023 9:00 AM EDT Imaging Radiology [address], [place] [address] [facility] [place] [address] 01/24/2024 8:40 AM EST Office Visit General Internal Medicine [facility] [place] [address] [place] [address] [address] Jian Vaz MD [address] [place] [address] Pending Results Name Type Priority Associated Diagnoses Date /Time PAIN MANAGEMENT DRUG PANEL, URINE W/ INTERPRETATION Lab Routine Chronic narcotic use 01/22/2023 9:31 AM EST Scheduled Orders Name Type Priority Associated Diagnoses Order Schedule PAIN MANAGEMENT DRUG PANEL, URINE W/ INTERPRETATION Lab Routine Chronic narcotic use Expected: 01/22/2023, Expires: 01/23/2024 MAMMOGRAM SCREENING MARY RIGHT Medical Imaging Routine Encounter for screening mammogram for breast cancer Expected: 09/13/2023, Expires: 02/23/2024 Scheduled Procedures Name Priority Associated Diagnoses Date/Ti me COLONOSCOPY FLEXIBLE PROXIMA L DIAGNOSTIC Recall Screening for colon cancer Health Maintenance Due Date Last Done Comments Cologuard 2001 Fecal Occult Blood Test 2001 Sigmoidoscopy 2001 COVID-19 Vaccine (3 - Moderna risk series) 05/15/2020 04/17/2020, 03/20/2020 Depression Screening 01/07/2023 01/07/2022 Mammogram 10/10/2023 10/09/2022, 08/12, 08/12/2020, Additional history exists DXA Scan 11/07/2024 11/07/2021 DTaP,Tdap,and Td Vaccines (4 - Td or Tdap) 08/05/2025 08/06/2015, 10/10/2005, 12/13/2004, Additional history exists Lipid Panel 10/20/2027 10/19/2022, 09/2021, 02/09/2021, Additional history exists Colonoscopy 12/18/2032 12/18/2022, 07/2022, 07/17/2012 Colorectal Cancer Screening 12/18/2032 Hepatitis B Completed 11/20/1994, 06/12, 06/01/1994 Pap Smear Discontinued 02/02/2017, 06/11/2008 Zoster Vaccines Completed 04/23/2019, 01/21/2019 Pneumococcal Vaccine: 65+ Years Completed 01/07/2022 Influenza Vaccine (FLU shot) Completed 01/22/2023, 01/07/2022, 01/07/2022, Additional history exists GARDASIL-HPV IMMUNIZATION SERIES Aged Out No longer eligible based on patient's age to complete this topic MENINGOCOCCAL (MENACTRA/MENVEO) Aged Out No longer eligible based on patient's age to complete this topic documented as of this encounter Medical Devices Not on filedocumented as of this encounter Visit Diagnoses Diagnosis Rheumatoid arthritis involving multiple sites with positive rheumatoid factor (HCC)- Primary DDD (degenerative disc disease), cervical Degeneration of cervical intervertebral disc History of breast cancer Personal history of malignant neoplasm of breast Need for prophylactic vaccination and inoculation against influenza Risk and functional assessment Screening for unspecified condition Chronic narcotic use Encounter for screening mammogram for breast cancer Chronic narcotic use documented in this encounter Care Teams Supply Chain Technician Relationship Specialty Start Date End Date Jian Vaz MD [address] [place] [id number] PCP - General Internal Medicine 01/15/17 documented as of this encounter
--- OUTSIDE RECORDS SUMMARY | 2023-03-21 08:15 | External Medical Summary | Summary of Care ---
Author Name Unknown Organization [facility] Address [address] [place] [address] Phone [phone] Care Team Providers Care Director Foundation Name Role Phone Jian Teran MD Primary Care Provider + Reason for Visit * Reason Onset Date Comments Medication Refill 01/24/2023 Encounter Details Date Type Department Care Team (Late st Contact Info) Description 01/24/2023 Refill General Internal Medicine [facility] [place] [address] [facility] [place] [address] Jian Teran MD [address] [place] [address] Fall, initial encounter; Rib pain on left side Allergies Active Allergy Reactions Criticality Noted Date Comments Indomethacin 01/31/2002 Severe headache documented as of this encounter (statuses as of 01/24/2023) Medications Medication Sig Dispensed Refills Start Date End Date Status Cyclobenzaprine HCl 5 MG Oral Tablet (Flexeril)Indica tions:Left arm pain,Cervical spinal stenosis TAKE 1 TABLET BY MOUTH AT BEDTIME - may take an extra tablet at night for severe pain 120 Tablet 0 05/11/2022 Active HYDROcodone-Acet aminophen 5-325 MG Oral Tablet Take 1 Tablet by mouth every 6 hours as needed for Pain, Mild. 0 Active Hydroxychloroqui ne Sulfate 200 MG Oral Tablet (Plaquenil)Indic ations:Rheumatoi d arthritis involving multiple sites with positive rheumatoid factor (HCC) Take 2 Tablets by mouth daily. With food. 60 Tablet 11 10/23/2022 Active Additional Information Patient taking differently:400 mg Oral Daily(Non-Specified),With food. Alternating every other 200mg and 400mg the next day., Reported on 01/22/2023 Naproxen 500 MG Oral Tablet (Naprosyn)Indica tions:Fall, initial encounter,Rib pain on left side 1 pill twice a day by mouth with food as needed for pain 180 Tablet 3 01/24/2023 Active Naproxen 500 MG Oral Tablet (Naprosyn)Indica tions:Fall, initial encounter,Rib pain on left side 1 pill twice a day by mouth with food as needed for pain 180 Tablet 3 05/19/2021 Discontinue d(Refill) documented as of this encounter (statuses as of 01/24/2023) Active Problems Problem Noted Date Diagnosed Date [...] as of this encounter (statuses as of 01/24/2023) Resolved Problems Problem Noted Date Diagnosed Date [...] as of this encounter (statuses as of 01/24/2023) Immunizations Name Administration Dates Next Due COVID-19 mRNA, LNP-s, No Pre serve, 2-Dose Series (Moderna) 04/17/2020,03/20/2020 Hepatitis B, 20+ yrs 11/20/1994,06/30/1994,06/01 Pneumococcal Conjugate Vacci ne, 20-valent ([id number]) 01/07/2022 Seasonal Influenza Virus Vac cine, Unspecified Formulation 12/24/2013,11/27/2012 Seasonal Influenza, PF, 6 M & above, IM , (FluLaval or Fluzone) 11/30/2020,12/03/2019 Seasonal Influenza, Quadriva lent Hd (Fluzone Hd) [...] 16 Q uit: 02/12/1989 Smokeless Tobacco: Never Alcohol Use Standard Drinks/Week Comments Yes 7 (1 standard drink = 0.6 oz pur e alcohol) wine daily PHQ-2 Answer Date Recorded PHQ Adult Total Score 0 01/22/2023 Hunger Vital Sign Answer Date Recorded Within [...] on file documented as of this encounter Miscellaneous Notes * Telephone Encounter - Jayson Santos [facility] - 01/24/2023 5:08 PM ESTSigned Prescriptions: Disp Refills Naproxen 500 MG Oral Tablet (Naprosyn) 180 Ta*3 Si pill twice a day by mouth with food as needed for painAuthorizing Provider: JIAN TERAN User: JAYSON SANTOS documented in this encounter Plan of Treatment Upcoming Encounters Date Type Department Care Team (Late st Contact Info) Description 02/01/2023 9:40 AM EST Office Visit Rheumatology [address] [place], [place] [address] Jayson Sexton MD [address] [place] [address] [place] [address] 04/05/2023 2:30 PM EST Office Visit OphthalmologyJah [address] [address] Servando Rdz MD [address] [address] Nurse Jah Ophthalmology [address] [place] [address] 08/01/2023 8:40 AM EDT Office Visit Rheumatology [facility] [address] [place] [address] Jayson Sexton MD [address] [email or web address] [place] [address] 10/11/2023 9:00 AM EDT Imaging Radiology [address] [place] [address] 01/24/2024 8:40 AM EST Office Visit General Internal Medicine [facility] [address] [facility] [place] [address] Jian Teran MD [address] [facility] [place] [address] Scheduled Procedures Name Priority Associated Diagnoses Date/Ti me COLONOSCOPY FLEXIBLE PROXIMA L DIAGNOSTIC Recall Screening for colon cancer Health Maintenance Due Date Last Done Comments Cologuard 2001 Fecal Occult Blood Test 2001 Sigmoidoscopy 2001 COVID-19 Vaccine (3 - Moderna risk series) 05/15/2020 04/17/2020, 03/20/2020 Mammogram 10/10/2023 10/09/2022, 08/12, 08/12/2020, Additional history exists Depression Screening 01/23/2024 01/22/2023 DXA Scan 11/07/2024 11/07/2021 DTaP,Tdap,and Td Vaccines [...] as of this encounter Visit Diagnoses Diagnosis Fall, initial encounter Rib pain on left side Chest pain, unspecified documented in this encounter Care Teams Director Foundation Relationship Specialty Start Date End Date Jian Teran MD [address] [facility] [address] PCP - General Internal Medicine 01/15/17 documented as of this encounter
--- OUTSIDE RECORDS SUMMARY | 2023-03-21 08:15 | External Medical Summary | Summary of Care ---
Author Name Unknown Organization [facility] Address [address] [place] [address] Phone [phone] Care Team Providers Care Fixture Repairer Fabricator Name Role Phone Jian Vaz MD Primary Care Provider + Reason for Visit * Auth/Cert Specialty Diagnoses / Procedures Referred By Cornelius t Referred To Contact Diagnoses Screen for colon cancer Screen for colon cancer [Z12.11] Procedures COLONOSCOPY, DIAGNOSTIC (RECTUM) COLONOSCOPY FLEXIBLE PROXIMAL DIAGNOSTIC Referral ID Status Reason Start Date Expiration Date Visits Re quested Visits Authorized [id number] Encounter Details Date Type Department Care Team (Latest Contact Info) Description 12/18/2022 9:21 AM [facility] - 12/18/2022 11:12 AM [facility] Hospital Encounter ENDO [facility], Endoscopy Room [facility] [address] [place] [place] [id number] Katt Lujan DO [address] [place] [address] Colonoscopy Discharge Disposition: Home - Self Care Allergies Active Allergy Reactions Criticality Noted Date Comments Amitriptyline 11/07/2022 Other Reaction(s): "fuzzy brained" Gabapentin 11/07/2022 Other Reaction(s): forgetfulness Indomethacin 01/31/2002 Severe headache Nortriptyline 11/07/2022 Other Reaction(s): disorganized Trazodone 11/07/2022 Other Reaction(s): 'thick-headed" documented as of this encounter (statuses as of 12/18/2022) Medications Medication Sig Dispensed Refills Start Date End Date Status Naproxen 500 MG Oral Tablet (Naprosyn)Indication s:Fall, initial encounter,Rib pain on left side 1 pill twice a day by mouth with food as needed for pain 180 Tablet 3 05/19/2021 Active Cyclobenzaprine HCl 5 MG Oral Tablet (Flexeril)Indication s:Left arm pain,Cervical spinal stenosis TAKE 1 TABLET BY MOUTH AT BEDTIME - may take an extra tablet at night for severe pain 120 Tablet 0 05/11/2022 Active HYDROcodone-Acetamin ophen 5-325 MG Oral Tablet Take 1 Tablet by mouth every 6 hours as needed for Pain, Mild. 0 Active Hydroxychloroquine Sulfate 200 MG Oral Tablet (Plaquenil)Indicatio ns:Rheumatoid arthritis involving multiple sites with positive rheumatoid factor (HCC) Take 2 Tablets by mouth daily. With food. 60 Tablet 11 10/23/2022 Active Amoxicillin-Pot Clavulanate 875-125 MG Oral Tablet (Augmentin)Indicatio ns:Acute maxillary sinusitis, recurrence not specified Take 1 Tablet by mouth in the morning and 1 Tablet before bedtime. Do all this for 7 days. 14 Tablet 0 12/11/2022 12/18/2022 Active documented as of this encounter (statuses as of 12/18/2022) Active Problems Problem Noted Date Diagnosed Date [...] as of this encounter (statuses as of 12/18/2022) Resolved Problems Problem Noted Date Diagnosed Date [...] as of this encounter (statuses as of 12/18/2022) Immunizations Name Administration Dates Next Due COVID-19 mRNA, LNP-s, No Pre serve, 2-Dose Series (Moderna) 04/17/2020,03/20/2020 Hepatitis B, 20+ yrs 11/20/1994,06/30/1994,06/01 Pneumococcal Conjugate Vacci ne, 20-valent ([id number]) 01/07/2022 SEASONAL INFLUENZA, PF, 6 M & Above, IM , (FLULAVAL or FLUZONE) 11/30/2020,12/03/2019 Seasonal Influenza Virus Vac cine, Unspecified Formulation 12/24/2013,11/27/2012 Seasonal Influenza, Quadriva lent Hd (Fluzone Hd) 01/07/2022 Seasonal Influenza, Quadriva lent, No Preserve, IM [...] Sign Reading Time Taken Comments Blood Pressure 106/69 12/18/2022 10:45 AM EST Pulse 84 12/18/2022 10:45 AM EST Temperature 36.1 C (97 F) 12/18/2022 10:21 AM EST Respiratory Rate 16 12/18/2022 10:45 AM EST Oxygen Saturation 100% 12/18/2022 10:45 AM EST Inhaled Oxygen Concentration - - Weight 62.6 kg (138 lb) 12/18/2022 9:50 AM EST Height 170.2 cm (5' 7.01") 12/18/2022 9:50 AM ES T Body Mass Index 21.61 12/18/2022 9:50 AM EST documented in this encounter H&P Notes * Katt Lujan DO - 12/18/2022 9:39 AM EST Endoscopy Pre-Procedure Assessment Name: Elena Coulter Date: 12/18/2022 Time: 9:39 AM Procedure: Colonoscopy; with Indication(s) of average risk screening Endoscopy Pre-Procedure Assessment: Prior to the procedure, the patient was identified. The patient's history, medications and allergies were reviewed as per the Anesthesia Assessment. The patient is competent. The risks and benefits of the proposed procedure and the planned sedation were discussed with the patient. All questions were answered and informed consent for the procedure was obtained. This patient has undergone a preprocedural evaluation. A determination has been made to proceed with the planned procedure under [facility] procedural guidelines and the [facility] Non-Emergent, Elective Medical Services and Treatment Recommendations (published on 05-20-19). The community and hospital prevalence of COVID-19 has been discussed as well as this patient's specific risks associated with SARS-CoV-19 infection. Based upon the clinical acuity and patient-specific care considerations, this procedure is deemed a Tier II - Intermediate acuity treatment or service with either progression or the threat of progressive disease related to the delay in treatment. Not providing the service has the potential for increasing morbidity or mortality. Ht 1.702 m (5' 7") | Wt 62.6 kg (138 lb) | LMP 04/12/2006 | BMI 21.61 kg/m | BSA 1.72 m Prior to Admission medications Medication Sig Last Dose Discont. Amoxicillin-Pot Clavulanate 875-125 MG Oral Tablet (Augmentin) Take 1 Tablet by mouth in the morning and 1 Tablet before bedtime. Do all this for 7 days. 12/17/2022 Hydroxychloroquine Sulfate 200 MG Oral Tablet (Plaquenil) Take 2 Tablets by mouth daily. With food.12/17/2022 HYDROcodone-Acetaminophen 5-325 MG Oral Tablet Take 1 Tablet by mouth every 6 hours as needed for Pain, Mild. Past Week Cyclobenzaprine HCl 5 MG Oral Tablet (Flexeril) TAKE 1 TABLET BY MOUTH AT BEDTIME - may take an extra tablet at night for severe pain 12/17/2022 Naproxen 500 MG Oral Tablet (Naprosyn) 1 pill twice a day by mouth with food as needed for pain Past Week predniSONE 10 MG Oral Tablet (Deltasone) Take 4 Tablets by mouth daily for 3 days, THEN 3 Tablets daily for 3 days, THEN 2 Tablets daily for 3 days, THEN 1 Tablet daily for 3 days. Review of patient's allergies indicates: Allergen Reactions Amitriptyline Other Reaction(s): "fuzzy brained" Gabapentin Other Reaction(s): forgetfulness Indomethacin Severe headache Nortriptyline Other Reaction(s): disorganized Trazodone Other Reaction(s): 'thick-headed" Physical Exam: Mental Status Examination: alert and oriented. General: nad, calm Airway Examination: normal oropharyngeal airway and neck mobility. Respiratory Examination: symmetrical excursion Abd:soft/ntd ASA Grade: II - A patient with mild systemic disease. After reviewing the risks and benefits, the patient was deemed in satisfactory condition to undergothe procedure. The anesthesia plan was to use general anesthesia. Katt Lujan DO Gastroenterology and Hepatology 12/18/2022 documented in this encounter Procedure Notes * Jian Vaz MD - 12/18/2022 9:46 AM ESTAssociated Order(s): COLONOSCOPY [facility] Patient Name: Elena Coulter Procedure Date: 12/18/2022 9:46 AM Date of : 1955 Admit Type: Outpatient Note Status: Finalized Date of : 1955 Admit Type: Outpatient Age: 67 Room: [facility] Gender: Female Note Status: Finalized Procedure: Colonoscopy Indications: Screening for colorectal malignant neoplasm Providers: Katt Lujan DO (Doctor) Patient Profile: This is a 67 year old female. Refer to note in patient chart for documentation of history and physical. Referring MD: Jian Vaz MD (Referring MD) Medicines: General Anesthesia Complications: No immediate complications. Procedure: Pre-Anesthesia Assessment: - Prior to the procedure, a History and Physical was performed, and patient medications and allergies were reviewed. The risks and benefits of the procedure and the sedation options and risks were discussed with the patient. All questions were answered and informed consent was obtained. Patient identification and proposed procedure were verified by the physician, the nurse and the typesetting machine operator/tender in the procedure room. Mental Status Examination: alert and oriented. Airway Examination: Mallampati Class II (the uvula but not tonsillar pillars visualized). Respiratory Examination: clear to auscultation. CV Examination: RRR, no murmurs, no S3 or S4. Prophylactic Antibiotics: The patient does not require prophylactic antibiotics. Prior Anticoagulants: The patient has taken no anticoagulant or antiplatelet agents. ASA Grade Assessment: II - A patient with mild systemic disease. After reviewing the risks and benefits, the patient was deemed in satisfactory condition to undergo the procedure. The anesthesia plan was to use general anesthesia. Immediately prior to administration of medications, the patient was re-assessed for adequacy to receive sedatives. The physical status of the patient was re-assessed after the procedure. After I obtained informed consent, the scope was passed under direct vision. All instruments were visually inspected immediately before and after removal from the patient to ensure they are fully intact. Throughout the procedure, the patient's blood pressure, pulse, and oxygen saturations were monitored continuously. The [id number]-H180AL [id number] was introduced through the anus and advanced to the cecum, identified by appendiceal orifice and ileocecal valve. The colonoscopy was performed without difficulty. The patient tolerated the procedure well. The quality of the bowel preparation was good. Findings & Specimens: The perianal and digital rectal examinations were normal. Multiple small-mouthed diverticula were found in the sigmoid colon. A 2 mm polyp was found in the cecum. The polyp was sessile. The polyp was removed with a cold snare. Resection and retrieval were complete. Verification of patient identification for the specimen was done by the physician and nurse using the patient's name and date. The pathology specimen was placed into Bottle Number 1. Anal papilla(e) were hypertrophied. Impression: - Diverticulosis in the sigmoid colon. - One 2 mm polyp in the cecum, removed with a cold snare. Resected and retrieved. - Anal papilla(e) were hypertrophied and seen during retroflexion in the rectum. Recommendation: - Patient has a contact number available for emergencies. The signs and symptoms of potential delayed complications were discussed with the patient. Return to normal activities tomorrow. Written discharge instructions were provided to the patient. - The patient will be observed post-procedure, until all discharge criteria are met. - Discharge patient to home (with escort). - Resume previous diet. - Continue present medications. - Await pathology results. - Repeat colonoscopy date to be determined after pending pathology results are reviewed for surveillance. Katt Lujan DO 12/18/2022 10:17:44 AM This report has been signed electronically. documented in this encounter Nursing Notes * Peters, Rachael, RN - 12/18/2022 10:52 AM EST Patient is alert, pain free, passing flatus and tolerating po fluids prior to discharge. Patient has been visited by Dr. Lujan. Patient has received and demonstrates understanding of discharge instructions. Patient is transported via w/c to private auto accompanied by endo staff. * Rachael Peters RN - 12/18/2022 10:44 AM EST D/C instructions given to pt verbalized understanding. * Rachael Peters RN - 12/18/2022 10:30 AM EST Pt sitting up tolerating PO fluids. Dr Lujan in with pt discussing results of procedure. * Rachael Peters RN - 12/18/2022 10:21 AM EST Received pt awake, VSS, CM shows NSR. Report given by Juan ZUNIGA. * Christie Hutchinson RN - 12/18/2022 10:20 AM EST Mid abdominal pressure given per Dr. Lujan to assist with scope advancement. Pt tolerated well Specimen(s) and location(s) verified with physician post procedure 10:20 AM Christie Hutchinson RN See anesthesia record for medication administered during procedure. Christie Hutchinson RN Post-procedure scope cleaning began at bedside by endo gas plant technician Pt. Tolerated colonoscopy well, no complications, soundly asleep, abdomen soft, transported to postendoscopy via stretcher by POWDER SHOVELER. * Letty Ferrara RN - 12/18/2022 9:52 AM EST The following pt discharge instructions reviewed with pt prior to prodedure: No driving today. No alcohol today. No signing of legal documents. Rest as much as possible today and can return to normal activities tomorrow. No operating any heavy equipment today. Diet as tolerated. Pt verbalized understanding. Patient prepped, call rivera within reach of patient. documented in this encounter Plan of Treatment Upcoming Encounters Date Type Department Care Team (Late st Contact Info) Description 12/20/2022 9:15 AM EST [place] [place] [address] Servando Rdz MD [address] [place] [address] 01/22/2023 9:00 AM EST Office Visit General Internal Medicine [facility] [address] [place] [address] Jian Vaz MD [address] [place] [address] 02/01/2023 9:40 AM EST Office Visit Rheumatology [place] [address] [place] [address] Javi Sexton MD [facility] [place] [address] 08/01/2023 8:40 AM EDT Office Visit Rheumatology [place] [address] [place] [address] Javi Sexton MD [facility] [place] [address] Pending Results Name Type Priority Associated Diagnoses Date /Time SURGICAL PATHOLOGY Pathology Routine Screen for colon cancer 12/18/2022 10:19 AM EST Scheduled Orders Name Type Priority Associated Diagnoses Orde r Schedule SURGICAL PATHOLOGY Pathology Routine Screen for colon cancer Release Upon Ordering for 1 Occurrences starting 12/18/2022, 1 completed Scheduled Procedures Name Priority Associated Diagnoses Date/Ti me COLONOSCOPY FLEXIBLE PROXIMAL DIAGNOSTIC Screen for colon cancer 12/18/2022 9:59 AM EST Health Maintenance Due Date Last Done Comments Cologuard 2001 Fecal Occult Blood Test 2001 Sigmoidoscopy 2001 COVID-19 Vaccine (3 - Moderna risk series) 05/15/2020 04/17/2020, 03/20/2020 Influenza Vaccine (FLU shot) (#1) 2022 01/07/2022, 01/07/2022, 11/30/2020, Additional history exists Depression Screening 01/07/2023 01/07/2022 Mammogram 10/10/2023 10/09/2022, 08/12, 08/12/2020, Additional history exists DXA Scan 11/07/2024 11/07/2021 DTaP,Tdap,and Td Vaccines (4 - Td or Tdap) 08/05/2025 08/06/2015, 10/10/2005, 12/13/2004, Additional history exists Lipid Panel 10/20/2027 10/19/2022, 09/2021, 02/09/2021, Additional history exists Colonoscopy 12/18/2032 12/18/2022, 07/17/2012 Colorectal Cancer Screening 12/18/2032 Hepatitis B Completed 11/20/1994, 06/12, 06/01/1994 Pap Smear Discontinued 02/02/2017, 06/11/2008 Zoster Vaccines Completed 04/23/2019, 01/21/2019 Pneumococcal Vaccine: 65+ Years Completed 01/07/2022 GARDASIL-HPV IMMUNIZATION SERIES Aged Out No longer eligible based on patient's age to complete this topic MENINGOCOCCAL (MENACTRA/MENVEO) Aged Out No longer eligible based on patient's age to complete this topic documented as of this encounter Medical Devices Not on filedocumented as of this encounter Procedures Procedure Name Priority Date/Time Associated Diagnosis Comments COLONOSCOPY 12/18/2022 9:46 AM EST documented in this encounter Results * COLONOSCOPY (12/18/2022 9:46 AM EST) 12/18/2022 9:46 AM EST Narrative Procedure Note Jian Vaz MD - 12/18/2022 9:46 AM EST [facility] Patient Name: Elena Coulter Procedure Date: 12/18/2022 9:46 AM Date of : 1955 Admit Type: Outpatient Note Status:Finalized Date of : 1955 Admit Type: Outpatient Age: 67 Room: Endo 4 Gender: Female Note Status: Finalized Procedure: Colonoscopy Indications: Screening for colorectal malignant neoplasm Providers: Katt Lujan DO (Doctor) Patient Profile: This is a 67 year old female. Refer to note inpatient chart for documentation of history and physical. Referring MD: Jian Vaz MD (Referring MD) Medicines: General Anesthesia Complications: No immediate complications. Procedure: Pre-Anesthesia Assessment: - Prior to the procedure, a History and Physicalwas performed, and patient medications and allergies were reviewed. The risksand benefits of the procedure and the sedation options and risks were discussed withthe patient. All questions were answered and informed consent was obtained. Patientidentification and proposed procedure were verified by the physician, the nurseand the typesetting machine operator/tender in the procedure room. Mental Status Examination: alertand oriented. Airway Examination: Mallampati Class II (the uvula but not tonsillarpillars visualized). Respiratory Examination: clear to auscultation. CV Examination:RRR, no murmurs, no S3 or S4. Prophylactic Antibiotics: The patient does notrequire prophylactic antibiotics. Prior Anticoagulants: The patient has taken noanticoagulant or antiplatelet agents. ASA Grade Assessment: II - A patient with mildsystemic disease. After reviewing the risks and benefits, the patient was deemed insatisfactory condition to undergo the procedure. The anesthesia plan was to use generalanesthesia. Immediately prior to administration of medications, the patient wasre-assessed for adequacy to receive sedatives. The physical status of the patient wasre-assessed after the procedure. After I obtained informed consent, the scope waspassed under direct vision. All instruments were visually inspected immediatelybefore and after removal from the patient to ensure they are fully intact. Throughout the procedure, the patient's bloodpressure, pulse, and oxygen saturations were monitored continuously. The PCF-H180AL [id number] introduced through the anus and advanced to the cecum, identified byappendiceal orifice and ileocecal valve. The colonoscopy was performed without difficulty. Thepatient tolerated the procedure well. The quality of the bowel preparation wasgood. Findings & Specimens: The perianal and digital rectal examinations were normal. Multiple small-mouthed diverticula were found in the sigmoid colon. A 2 mm polyp was found in the cecum. The polyp was sessile. The polypwas removed with a cold snare. Resection and retrieval were complete. Verification of patientidentification for the specimen was done by the physician and nurse using the patient's name and date.The pathology specimen was placed into Bottle Number 1. Anal papilla(e) were hypertrophied. Impression: - Diverticulosis in the sigmoid colon. - One 2 mm polyp in the cecum, removed with a coldsnare. Resected and retrieved. - Anal papilla(e) were hypertrophied and seenduring retroflexion in the rectum. Recommendation: - [facility] The signs and symptoms of potential delayed complications were discussed withthe patient. Return to normal activities tomorrow. Written discharge instructionswere provided to the patient. - The patient will be observed post-procedure,until all discharge criteria are met. - Discharge patient to home (with escort). - Resume previous diet. - Continue present medications. - Await pathology results. - Repeat colonoscopy date to be determined afterpending pathology results are reviewed for surveillance. Katt Lujan DO 12/18/2022 10:17:44 AM This report has been signed electronically. Jian Vaz MD [facility] documented in this encounter Visit Diagnoses Diagnosis Screen for colon cancer Special screening for malignant neoplasms, colon documented in this encounter Administered Medications Inactive Administered Medications - up to 3 most recent administrations Medication Order MAR Action Action Date Dose Rate Site Acetaminophen (Tylenol) tab 650 mg 650 mg, Oral, PRN Pain, Mild, Starting on Sun12/18/22 at 1030, Until Sun12/18/22 at 1513, For 1 dose, Maximum of 4 grams (4000 mg) per day., Post-op isolyte-S pH 7.4 infusion Intravenous, at 100 mL/hr, Plasma-LYTE 148, isolyte-S, and isolyte-S pH 7.4 are considered equivalent - including for MAR barcode scanning., CONTINUOUS, Starting on Sun12/18/22 at 1000, Until 12/18/22 at 1513, Pre-Op Continue from Pre-Op 12/18/2022 9:57 AM EST 100 mL/hr New Bag 12/18/2022 9:53 AM EST 100 mL/hr documented in this encounter Active and Recently Administered Medications Due to Daylight Saving Time, this section may contain times in both EDT and EST. Continuous Medication Order 12/16/2022 12/17/2022 12/18/2022 isolyte-S pH 7.4 infusion Intravenous, at 100 mL/hr, Plasma-LYTE 148, isolyte-S, and isolyte-S pH 7.4 are considered equivalent - including for MAR barcode scanning., CONTINUOUS, Starting on Sun12/18/22 at 1000, Until Sun12/18/22 at 1513, Pre-Op 0953 (New Bag - Prov ider: Letty Ferrara RN)0957 (Continue from Pre-Op - Provider: Jaun Simon CRNA)1000 (Due)1016 (Anes Intra-Op Fluid - Provider: Juan Simon CRNA) PRN Medication Order 12/16/2022 12/17/2022 12/18/2022 Acetaminophen (Tylenol) tab 650 mg 650 mg, Oral, PRN Pain, Mild, Starting on Sun12/18/22 at 1030, Until Sun12/18/22 at 1513, For 1 dose, Maximum of 4 grams (4000 mg) per day., Post-op documented in this encounter Care Teams Fixture Repairer Fabricator Relationship Specialty Start Date End Date Jian Vaz MD [address] [place] [address] PCP - General Internal Medicine 01/15/17 documented as of this encounter
--- OUTSIDE RECORDS SUMMARY | 2023-03-21 08:15 | External Medical Summary | Summary of Care ---
Author Name Unknown Organization [facility] Address [address] [place] [address] Phone [phone] Care Team Providers Care [employer] Flatbed Driver Name Role Phone Jian Vaz MD Primary Care Provider + Reason for Visit * Reason Comments Rheum Follow Up Recheck RA Encounter Details Date Type Department Care Team (Late st Contact Info) Description 02/01/2023 9:40 AM EST Office Visit Rheumatology [place] [id number] [place] [address] Javi Sexton MD [facility] [email or web address] [address] Rheumatoid arthritis involving multiple sites with positive rheumatoid factor (HCC)*; Encounter for long-term (current) use of medications Allergies Active Allergy Reactions Criticality Noted Date Comments Indomethacin 01/31/2002 Severe headache documented as of this encounter (statuses as of 02/01/2023) Medications Medication Sig Dispensed Refills Start Date End Date Status Cyclobenzaprine HCl 5 MG Oral Tablet (Flexeril)Indicat ions:Left arm pain,Cervical spinal stenosis TAKE 1 TABLET BY MOUTH AT BEDTIME - may take an extra tablet at night for severe pain 120 Tablet 0 05/11/2022 Active HYDROcodone-Aceta minophen 5-325 MG Oral Tablet Take 1 Tablet by mouth every 6 hours as needed for Pain, Mild. 0 Active Hydroxychloroquin e Sulfate 200 MG Oral Tablet (Plaquenil)Indica tions:Rheumatoid arthritis involving multiple sites with positive rheumatoid factor (HCC) Take 2 Tablets by mouth daily. With food. 60 Tablet 11 10/23/2022 Active Additional Information Patient taking differently:400 mg Oral Daily(Non-Specified),With food. Alternating every other 200mg and 400mg the next day., Reported on 01/22/2023 Naproxen 500 MG Oral Tablet (Naprosyn)Indicat ions:Fall, initial encounter,Rib pain on left side 1 pill twice a day by mouth with food as needed for pain 180 Tablet 3 01/24/2023 Active predniSONE 10 MG Oral Tablet (Deltasone) Take 4 Tablets by mouth daily for 4 days, THEN 3 Tablets daily for 4 days, THEN 2 Tablets daily for 4 days, THEN 1 Tablet daily for 4 days. 40 Tablet 0 02/01/2023 02/17/2023 Active documented as of this encounter (statuses as of 02/01/2023) Active Problems Problem Noted Date Diagnosed Date [...] as of this encounter (statuses as of 02/01/2023) Resolved Problems Problem Noted Date Diagnosed Date [...] as of this encounter (statuses as of 02/01/2023) Immunizations Name Administration Dates Next Due COVID-19 mRNA, LNP-s, No Pre serve, 2-Dose Series (Moderna) 04/17/2020,03/20/2020 Hepatitis B, 20+ yrs 11/20/1994,06/30/1994,06/01 Pneumococcal Conjugate Vacci ne, 20-valent ([id number]) 01/07/2022 Seasonal Influenza Virus Vac cine, Unspecified [...] Sign Reading Time Taken Comments Blood Pressure 104/60 02/01/2023 9:39 AM EST Pulse - - Temperature 36.6 C (97.8 F) 02/01/2023 9:39 AM ES T Respiratory Rate - - Oxygen Saturation - - Inhaled Oxygen Concentration - - Weight 66.2 kg (146 lb) 02/01/2023 9:39 AM EST Height - - Body Mass Index 22.53 01/22/2023 9:00 AM EST documented in this encounter Progress Notes * Javi Sexton MD - 02/01/2023 9:48 AM EST Images from the original note were not included. Assessment and Plan Rheumatoid arthritis involving multiple sites with positive rheumatoid factor (HCC) Encounter for long-term (current) use of medications Has had a flare of her rheumatoid arthritis after flu vaccine. First will treat with a longer prednisone taper and follow. If symptoms start to flare again after this prednisone taper will need to add methotrexate to Plaquenil. Will keep appointment in July. Rheumatology Synopsis: [facility] RA SYNOPSIS Date of RA Diagnosis: 09/12/22 (11/07/2022 10:00 AM) Current Treatment: HCQ (11/07/2022 10:00 AM) 2009 Classification Criteria: Y (11/07/2022 10:00 AM) Seropositive or seronegative: Seropositive (11/07/2022 10:00 AM) RF and/or CCP: Dual Positive (11/07/2022 10:00 AM) Disease activity: Uncontrolled Patient History History of Present Illness HPI:67 year old female presented to rheumatology clinic for Rheum Follow Up (Recheck RA) She has had increased arthritis over the last 1 week. Prior to that she was dong better. She has been on plaquenil 200mg x 3 days and 400mg x 4 days each week. She reports that prior to this recent flare she had the flu vaccine. She started pred 15mg on Sunday with some benefit. She has pictures onher phone with more dactylitis of the 2-3 left fingers then today. Her left hand is worse than right ROS: Review of Systems was asked and the following other significant symptoms are present: joint pain, swelling, fatigue Rheumatology History Subjective Patient's past history, medications, and allergies were reviewed. Objective Physical Exam BP 104/60 | Temp 36.6 C (97.8 F) (Infrared ) | Wt 66.2 kg (146 lb) | LMP 04/12/2006 | BMI 22.53kg/m | BSA 1.78 m Constitutional: no acute distress HEENT: normal: normocephalic, atraumatic; no masses, tenderness, or adenopathy Eyes: PERRLA, sclera and conjunctiva normal Neck: supple, no adenopathy CV: normal rate and rhythm, no murmur, gallops or rub Chest: normal respiratory effort, lungs clear to auscultation and percussion Abdomen: normal: soft, bowel sounds normal, no masses, tenderness or organomegaly Musculoskeletal: Synovitis noted at the left 2nd and 3rd PIP and right 3rd PIP with tenderness at all PIP ease, right 3rd MCP and bilateral thumb MCP. MSK/Joint exam (Homunculus) MSK Exam findings: Homunculus exam Studies: Labs and Imaging studies reviewed with pertinent findings noted below: Disease Treatment Response CDAI Scoring Patient Global: 50 mm Provider Global: 40 mm Tender (WILSON-28): Swollen (WILSON-28): CDAI: 23 CDAI (Clinical Disease Activity Index) [facility] Outcomes measures: Serial CDAI: Synopsis SmartLink 02/01/2023 09:40 11/07/2022 10:00 CDAI CDAI 23 22 - Serial CDAI: - Yes - Remission: - No - low disease activity Currently on csDMARD: Yes Currently on Biologic DMARD: No Vaccination status: COVID: Vaccine and/or Health maintenance status Incomplete Influenza:Vaccine complete for this season Pneumococcal:Vaccine Series complete Zoster:Vaccine Series Complete Last Hepatitis and TB testing: Hepatitis B: Tested, result reviewed Hepatitis C: Tested, result reviewed PPD or TB-Gold: Tested, result reviewed Lab Results Component Value Date HBSAG Negative 10/25/2022 HEPB Negative 10/25/2022 HEPB 23.5 10/25/2022 HEPB Positive 10/25/2022 HEPB Immune to Hepatitis B Virus 10/25/2022 HCVAB Negative 10/25/2022 QUANTIFERON-TB PLUS,1T Date/Time Value Ref Range Status 10/25/2022 10:10 AM NEGATIVE NEGATIVE Final Comment: Negative test result. M. tuberculosis complex infection unlikely. Wrap-Up documented in this encounter Plan of Treatment Upcoming Encounters Date Type Department Care Team (Late st Contact Info) Description 04/05/2023 2:30 PM EST Office Visit Ophthalmology, [place] [address] [place] [address] [id number] Servando Rdz MD [address] [place] [address] Nurse Jah Ophthalmology [address] [place] [address] [address] 08/01/2023 8:40 AM EDT Office Visit Rheumatology [address] [place] [address] Javi Sexton MD [facility][note 3] [employer] [place] [address] 10/11/2023 9:00 AM EDT Imaging Radiology [facility] [address] [place] [address] 01/24/2024 8:40 AM EST Office Visit General Internal Medicine [facility] [address] [facility] [place] [address] Jian Vaz MD 200 [facility] [place] [address] Scheduled Procedures Name Priority Associated Diagnoses Date/Ti [...] sites with positive rheumatoid factor (HCC)- Primary Encounter for long-term (current) use of medications Encounter for long-term (current) use of other medications documented in this encounter Care Teams [employer] Flatbed Driver Relationship Specialty Start Date End Date Jian Vaz MD [address] [place] [address] PCP - General Internal Medicine 01/15/17 documented as of this encounter"
--- OUTSIDE RECORDS SUMMARY | 2023-03-21 08:15 | External Medical Summary | Summary of Care ---
Author Name Unknown Organization [facility] Address [address] [place] [address] Phone [phone] Care Team Providers Care Labor Supervisor Name Role Phone Jian Vaz MD Primary Care Provider + Reason for Visit * Reason Comments Outpatient Testing Encounter Details Date Type Department Care Team (Late st Contact Info) Description 01/02/2023 10:00 AM EST Laboratory Laboratory [facility] [address] [place] [id number] [place] [address] [place] [address] Rheumatoid arthritis involving multiple sites with positive rheumatoid factor (HCC) Allergies Active Allergy Reactions Criticality Noted Date Comments Indomethacin 01/31/2002 Severe headache documented as of this encounter (statuses as of 01/02/2023) Medications Medication Sig Dispensed Refills Start Date [...] With food. 60 Tablet 11 10/23/2022 Active predniSONE 10 MG Oral Tablet (Deltasone)Indicatio ns:Acute maxillary sinusitis, recurrence not specified Take 4 Tablets by mouth daily, THEN 3 Tablets daily, THEN 2 Tablets daily, THEN 1 Tablet daily. 0 12/25/2022 Active documented as of this encounter (statuses as of 01/02/2023) Active Problems Problem Noted Date Diagnosed Date [...] as of this encounter (statuses as of 01/02/2023) Resolved Problems Problem Noted Date Diagnosed Date [...] as of this encounter (statuses as of 01/02/2023) Immunizations Name Administration Dates Next Due COVID-19 mRNA, LNP-s, No Pre serve, 2-Dose Series (Moderna) 04/17/2020,03/20/2020 Hepatitis B, 20+ yrs 11/20/1994,06/30/1994,06/01 Pneumococcal Conjugate Vacci ne, 20-valent ([id number]) 01/07/2022 SEASONAL INFLUENZA, PF, 6 M & [...] on file documented as of this encounter Plan of Treatment Upcoming Encounters Date Type Department Care Team (Late st Contact Info) Description 01/22/2023 9:00 AM EST Office Visit General Internal Medicine [facility] 200 [facility] [place] [address] Jian Vaz MD 200 [facility] [place] [address] 02/01/2023 9:40 AM EST Office Visit Rheumatology [address] [place] [address] Javi Sexton MD [facility] [employer] [place] [address] 04/05/2023 2:30 PM EST Office Visit OphthalmologyJah [address] [place] [address] [address] Servando Rdz MD [address] [place] [address] Nurse Jah Ophthalmology [address] [place] [address] 08/01/2023 8:40 AM EDT Office Visit Rheumatology [address] [place] [address] Javi Sexton MD [facility] [employer] [place] [address] Scheduled Procedures Name Priority Associated Diagnoses Date/Ti [...] Procedure Name Priority Date/Time Associated Diagnosis Comments DIFFERENTIAL, AUTOMATED Routine 01/02/2023 9:37 AM EST Rheumatoid arthritis involving multiple sites with positive rheumatoid factor (HCC) CBC Routine 01/02/2023 9:37 AM EST Rheumatoid arthritis involving multiple sites with positive rheumatoid factor (HCC) CBC Routine 01/02/2023 9:37 AM EST Rheumatoid arthritis involving multiple sites with positive rheumatoid factor (HCC) documented in this encounter Results * DIFFERENTIAL, AUTOMATED (01/02/2023 9:37 AM EST) WBC 5.79 4.00 - 10.80 K/uL 01/02/2023 9:43 AM EST [facility] 56-02 Neutrophils % 52.4 40.0 - 75.0 % 01/02/2023 9:43 AM EST [facility] 56-02 Lymphocytes % 34.5 18.0 - 42.0 % 01/02/2023 9:43 AM EST [facility] 56-02 Monocytes % 10.9 1.0 - 11.0 % 01/02/2023 9:43 AM EST [facility] 56-02 Eosinophils % 1.7 0.0 - 6.0 % 01/02/2023 9:43 AM [facility] 56-02 Basophils % 0.5 0.0 - 2.0 % 01/02/2023 9:43 AM [facility] 56-02 Absolute Neutrophils 3.03 1.80 - 7.70 K/uL 01/02/2023 9:43 AM [facility] 56-02 Absolute Lymphocytes 2.00 1.00 - 4.80 K/ul 01/02/2023 9:43 AM [facility] 56-02 Absolute Monocytes 0.63 0.00 - 1.10 K/uL 01/02/2023 9:43 AM [facility] 56-02 Absolute Eosinophils 0.10 0.00 - 0.70 K/uL 01/02/2023 9:43 AM [facility] 56-02 Absolute Basophils 0.03 0.00 - 0.20 K/uL 01/02/2023 9:43 AM [facility] 56-02 Blood Venous blood specimen / Unknown Venipuncture / Unknown 01/02/2023 9:37 AM EST 01/02/2023 9:38 AM EST Javi Sexton MD LAB BLOOD ORDERABLE S [facility] 56-[address] [place] [address] * CBC (01/02/2023 9:37 AM EST) WBC 5.79 4.00 - 10.80 K/uL 01/02/2023 9:43 AM [facility] 56 RBC 4.50 3.85 - 5.15 M/uL 01/02/2023 9:43 AM [facility] 56- HGB 13.1 12.0 - 15.3 g/dL 01/02/2023 9:43 AM [facility] 56 HCT 40.1 36.0 - 45.2 % 01/02/2023 9:43 AM [facility] 56 MCV 89.1 81.5 - 97.5 fL 01/02/2023 9:43 AM [facility] 56 MCH 29.1 27.0 - 34.0 pg 01/02/2023 9:43 AM [facility] 56 MCHC 32.7 32.0 - 36.0 g/dL 01/02/2023 9:43 AM [facility] 56 RDW 14.1 11.5 - 15.5 % 01/02/2023 9:43 AM [facility] 56 PLT 310 140 - 400 K/uL 01/02/2023 9:43 AM [facility] 56 MPV 8.9 6.6 - 11.1 fL 01/02/2023 9:43 AM [facility] 56 Blood Venous blood specimen / Unknown Venipuncture / Unknown 01/02/2023 9:37 AM EST 01/02/2023 9:38 AM EST Javi Sexton MD LAB BLOOD ORDERABLE S [facility] 56 [facility] [address] documented in this encounter Visit Diagnoses Diagnosis Rheumatoid arthritis involving multiple sites with positive rheumatoid factor (HCC) documented in this encounter Care Teams Labor Supervisor Relationship Specialty Start Date End Date [facility] [address] PCP - General Internal Medicine 01/15/17 documented as of this encounter
--- OUTSIDE RECORDS SUMMARY | 2023-03-21 08:15 | External Medical Summary | Summary of Care ---
Author Name Unknown Organization [facility] Address [address] [place] [address] Phone [phone] Care Team Providers Care Manager Image Name Role Phone Jian Vaz MD Primary Care Provider + Reason for Visit * Reason Comments Acute Encounter Details Date Type Department Care Team (Late st Contact Info) Description 12/25/2022 3:00 PM EST Telemedicine General Internal Medicine [facility] [address] [place] [address] Jian Vaz MD [address] [place] [address] Acute maxillary sinusitis, recurrence not specified*; Rheumatoid arthritis involving multiple sites with positive rheumatoid factor (HCC) Allergies Active Allergy Reactions Criticality Noted Date Comments Indomethacin 01/31/2002 Severe headache documented as of this encounter (statuses as of 12/25/2022) Medications Medication Sig Dispensed Refills Start Date End Date Status Naproxen 500 MG Oral Tablet (Naprosyn)Indicati ons:Fall, initial encounter,Rib pain on left side 1 pill twice a day by mouth with food as needed for pain 180 Tablet 3 05/19/2021 Active Cyclobenzaprine HCl 5 MG Oral Tablet (Flexeril)Indicati ons:Left arm pain,Cervical spinal stenosis TAKE 1 TABLET BY MOUTH AT BEDTIME - may take an extra tablet at night for severe pain 120 Tablet 0 05/11/2022 Active HYDROcodone-Acetam inophen 5-325 MG Oral Tablet Take 1 Tablet by mouth every 6 hours as needed for Pain, Mild. 0 Active Hydroxychloroquine Sulfate 200 MG Oral Tablet (Plaquenil)Indicat ions:Rheumatoid arthritis involving multiple sites with positive rheumatoid factor (HCC) Take 2 Tablets by mouth daily. With food. 60 Tablet 11 10/23/2022 Active Doxycycline Hyclate 100 MG Oral CapsuleIndications :Acute maxillary sinusitis, recurrence not specified Take 1 Capsule by mouth in the morning and 1 Capsule before bedtime. Do all this for 7 days. Take for 7 days. 14 Capsule 0 12/25/2022 01/01/2023 Active predniSONE 10 MG Oral Tablet (Deltasone)Indicat ions:Acute maxillary sinusitis, recurrence not specified Take 4 Tablets by mouth daily, THEN 3 Tablets daily, THEN 2 Tablets daily, THEN 1 Tablet daily. 0 12/25/2022 Active predniSONE 10 MG Oral Tablet (Deltasone)Indicat ions:Rheumatoid arthritis involving multiple sites with positive rheumatoid factor (HCC) Take 4 Tablets by mouth daily for 3 days, THEN 3 Tablets daily for 3 days, THEN 2 Tablets daily for 3 days, THEN 1 Tablet daily for 3 days. 30 Tablet 0 10/23/2022 12/25/2022 Discontinued (Refill) Amoxicillin-Pot Clavulanate 875-125 MG Oral Tablet (Augmentin)Indicat ions:Acute maxillary sinusitis, recurrence not specified Take 1 Tablet by mouth in the morning and 1 Tablet before bedtime. Do all this for 7 days. 14 Tablet 0 12/11/2022 12/25/2022 Discontinued (Patient preference/d iscontinuati on) documented as of this encounter (statuses as of 12/25/2022) Active Problems Problem Noted Date Diagnosed Date [...] as of this encounter (statuses as of 12/25/2022) Resolved Problems Problem Noted Date Diagnosed Date [...] as of this encounter (statuses as of 12/25/2022) Immunizations Name Administration Dates Next Due COVID-19 mRNA, LNP-s, No Pre serve, 2-Dose Series (Moderna) 04/17/2020,03/20/2020 Hepatitis B, 20+ yrs 11/20/1994,06/30/1994,06/01 Pneumococcal Conjugate Vacci ne, 20-valent ([id number]) 01/07/2022 SEASONAL INFLUENZA, PF, 6 M & [...] on file documented as of this encounter Progress Notes * Jian Vaz MD - 12/25/2022 2:42 PM EST Patient location: HOME. I was in a hospital or clinic location. After connecting through televideo,patient was verified with two unique identifiers. Patient (or authorized legal outside sales representative) was then informed that this was a Telemedicine visit and being conducted confidentially over secure lines. Methods to assure confidentiality were taken. Patient acknowledged consent and understanding of pr ivacy and security of the Telemedicine visit. The patient agreed to participate. Chief Complaint Patient presents with Acute SUBJECTIVE: Elena Coulter is a 67 year old female with PMH as below who presents for acute. Has ongoing sinus congestion. She was seen 12/11/22 for this, given abx. Symptoms improved, but not gone. Has lingering nasal congestion, discharge from left nare that is green. 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 Do all this for 7 days. Take for 7 days. 14 Capsule 0 predniSONE 10 MG Oral Tablet (Deltasone) Take 4 Tablets by mouth daily, THEN 3 Tablets daily, THEN 2 Tablets daily, THEN 1 Tablet daily. Naproxen 500 MG Oral Tablet (Naprosyn) 1 [...] Take 2 Tablets by mouth daily. With food.60 Tablet 11 No current facility-administered medications for this visit. Review of patient's allergies indicates: Allergen Reactions Indomethacin Severe headache Health Maintenance Due Topic Date Due COVID-19 Vaccine (3 - Moderna risk series) 05/15/2020 Influenza Vaccine (FLU shot) (1) 10/13/2022 Depression Screening 01/07/2023 ROS: CONSTITUTIONAL: No change in weight, No weakness, and No fevers, sweats, or chills EYE: No recent significant change in vision, No eye pain, redness, discharge, and No diplopia EARS: No ear pain, No drainage, No tinnitus or vertigo, and No recent change in hearing NOSE: No significant epistaxis MOUTH: No bleeding gums or No thrush ALL OTHER SYSTEMS NEGATIVE I reviewed social, [...] Types: Cigarettes Quit date: 02/12/1989 Years since quittin.8 Smokeless tobacco: Never Vaping Use Vaping Use: [...] History: Diagnosis Date BRCA1 gene mutation negative 2008 BRCA2 gene mutation negative 2008 Breast cancer (HCC) 2007 left breast with mastectomy DDD (degenerative disc disease), cervical Giant cell arteritis (HCC) 09/18/2002 History of breast cancer 01/15/2017 Left arm pain 12/28/2015 MEDICATION USE AGREEMENT 01/19/2020 OTHER breast cancer Rheumatoid arthritis involving multiple sites with positive rheumatoid factor (HCC) 10/20/2022 THORACIC OUTLET SYNDROME Past Surgical History: Procedure Laterality Date BREAST BIOPSY Left 03/09/2006 Malignant BREAST RECONSTRUCTION Bilateral 2010 gluteal flap COLONOSCOPY, DIAGNOSTIC (RECTUM) 12/18/2022 diverticulosis/biopsies normal/recall 10 years/COLONOSCOPY FLEXIBLE PROXIMAL DIAGNOSTIC performed by Katt Lujan DO at ENDOSCOPY [facility] INFORMATION Bilateral mensical repair INJECT DX/THER SUBSTANCE INTERLAMINAR CERVICAL/THORACIC W IMAGE GUIDE 05/09/2018 INJECTION SPINE LUMBAR CERVICAL OR THORACIC performed by Eleno Aguilar DO at OR [facility] INJECT DX/THER SUBSTANCE INTERLAMINAR CERVICAL/THORACIC W IMAGE GUIDE 03/01/2020 INJECTION SPINE LUMBAR CERVICAL OR THORACIC performed by Eleno Aguilar DO at OR [facility] INJECT DX/THER SUBSTANCE INTERLAMINAR CERVICAL/THORACIC W IMAGE GUIDE 12/23/2020 INJECTION SPINE LUMBAR CERVICAL OR THORACIC performed by Eleno Caldwell Cousins, DO at OR [facility] LIGATE/CUT OVIDUCT(S) 1993 MASTECTOMY, MODIFIED RADICAL Left 03/2006 Mast, Mod Rad,inc axil lymph no, Left breast REMOVAL OF APPENDIX 1969 SENTINEL LYMPH NODE BIOPSY PERFORMED Left 2006 [...] Breast Cancer Aunt (Paternal) OBJECTIVE: PHYSICAL EXAM: LMP 04/12/2006 General: alert, healthy, and no distress Head: Normocephalic, No masses, lesions, or abnormalities Eye Exam: conjunctiva are pink and non-injected, sclera clear Lungs: normal respiratory rate and rhythm ASSESSMENT: J01.00 Acute maxillary sinusitis, recurrence not specified (primary encounter diagnosis) M05.79 Rheumatoid arthritis involving multiple sites with positive rheumatoid factor (HCC) PLAN: Acute maxillary sinusitis, recurrence not specified (Primary) - Doxycycline Hyclate 100 MG Oral Capsule; Take 1 Capsule by mouth in the morning and 1 Capsule before bedtime. Do all this for 7 days. Take for 7 days. Perhaps lingering infection, immunosuppressed with autoimmune. Start doxy discussed how to take med Start prednisone, has at home, added to chart Add nasal saline Rheumatoid arthritis involving multiple sites with positive rheumatoid factor (HCC) Sees rheum Follow Up: Return if symptoms worsen or fail to improve and as scheduled.. Jian Vaz MD documented in this encounter Plan of Treatment Upcoming Encounters Date Type Department Care Team (Late st Contact Info) Description 01/22/2023 9:00 AM EST Office Visit General Internal Medicine [facility] [place] [address] [place] [address] Jian Vaz MD [address] [place] [address] 02/01/2023 9:40 AM EST Office Visit Rheumatology [address] [place], [place] [address] Javi Sexton MD [address] [place] [address] [place] [address] 04/05/2023 2:30 PM EST Office Visit Ophthalmology, [place] [address] [place] [address] [address] Servando Rdz MD [address] [place] [address] [address] Nurse Jah Ophthalmology [address] [place] [address] [address] 08/01/2023 8:40 AM EDT Office Visit Rheumatology [address] [place] [address] Javi Sexton MD [address] [place] [place] [address] [place] [address] Scheduled Procedures Name Priority Associated Diagnoses Date/Ti [...] as of this encounter Visit Diagnoses Diagnosis Acute maxillary sinusitis, recurrence not specified- Primary Rheumatoid arthritis involving multiple sites with positive rheumatoid factor (HCC) documented in this encounter Care Teams Manager Image Relationship Specialty Start Date End Date Jian Vaz MD [address] [place] [address] PCP - General Internal Medicine 01/15/17 documented as of this encounter
--- OUTSIDE RECORDS SUMMARY | 2023-03-21 08:15 | External Medical Summary ---
Author Name Unknown Address Unknown Organization [id number]:[facility] - [address] [facility] [address] Laboratory Report Ordering Provider Test Date Status STEFANJEFFRY 01/22/2023 09:31:38 Final Drugs that require complianc e testing:

Opioids:
Hydrocodone: Sunday

Benzodiazepines
None

Cutoff Concentrations:
Drug Level
Amphetamines 500 ng/mL
Benzodiazepines 100 ng/mL
Cannabinoids 50 ng/mL
Cocaine Metabolite 150 ng/mL
Fentanyl 1 ng/mL
Hydrocodone / Hydromorphone 300 ng/mL
Methadone Metabolite 100 ng/mL
Morphine / Codeine 300 ng/mL
Oxycodone / Oxymorphone 100 ng/mL

Screening results are presumptive and can only be used for medical purposes. Confirmatory testing is available upon request. Observation Date Value Abnormality Reference (Units) Status COMPLIANCE INTERPRETATION 01/22/2023 09:31:38 Based on the medication information provided: Final COMPLIANCE INTERPRETATION 01/22/2023 09:31:38 The negative hydrocodone screening result is CONSISTENT with hydrocodone last taken a few days prior to urine drug testing. If clinically indicated, confirmatory testing is available upon request. Final Changed Report: Previously r eported on 01/23/2023 at 1225 EST. See Results History in EPIC for previous versions of the report. Amphetamines, Urine screen 01/22/2023 09:31:38 Negative Negative Final Benzodiazepines, Urine screen 01/22/2023 09:31:38 Negative Negative Final Cannabinoids, Urine screen 01/22/2023 09:31:38 Negative Negative Final Cocaine Metabolite, Urine screen 01/22/2023 09:31:38 Negativ e Negative Final fentaNYL [Presence] in Urine by Screen method 01/22/2023 09:31:38 Negative Negative Final HYDROcodone [Presence] in Ur ine by Screen method 01/22/2023 09:31:38 Negative Negative Final 9-Jequdaeggg-8,2-Uwukchda-5, 3-Diphenylp yrrolidine (EDDP) [Presence] in Urine 01/22/2023 09:31:38 Negative Negative Final Opiates, Urine screen 01/22/2023 09:31:38 Negative Negative Final oxyCODONE [Presence] in Urin e by Screen method 01/22/2023 09:31:38 Negative Negative Final FORENSIC VALID INTERPRETATION 01/22/2023 09:31:38 Normal Final Creatinine, Urine 01/22/2023 09:31:38 48 (m g/dL) Final Performing Location [facility] - [facility] [address]. [facility] [address]
--- OUTSIDE RECORDS SUMMARY | 2023-03-21 08:15 | External Medical Summary | Summary of Care ---
Author Name Unknown Organization [facility] Address [address] [place] [address] Phone [phone] Care Team Providers Care Mainstreaming Facilitator Name Role Phone Jian Vaz MD Primary Care Provider + Reason for Visit * Reason Comments Outpatient Testing Encounter Details Date Type Department Care Team (Late st Contact Info) Description 01/22/2023 10:00 AM EST Laboratory Laboratory [facility] [address] [place] [phone] [place], Lab Scenery [address] [place] [address] Chronic narcotic use Allergies Active Allergy Reactions Criticality Noted Date [...] yrs 11/20/1994,06/30/1994,06/01 Pneumococcal Conjugate Vacci ne, 20-valent ([id number]) 01/07/2022 Seasonal Influenza Virus Vac cine, Unspecified [...] 02/01/2023 9:40 AM EST Office Visit Rheumatology [place] [address] [place] [address] Javi Sexton MD [address] [place] [address] [place] [address] 04/05/2023 2:30 PM EST Office Visit Ophthalmology, Jah 21 [facility] [place] [address] Servando Rdz MD 21 [place] [address] Nurse Jah Ophthalmology [address] [place] [address] 08/01/2023 8:40 AM EDT Office Visit Rheumatology [place] [address] [place] [address] Javi Sexton MD [facility] [place] [address] 10/11/2023 9:00 AM EDT Imaging Radiology [address] [facility] [address] 01/24/2024 8:40 AM EST Office Visit General Internal Medicine [place] [address] [place] [address] Jian Vaz MD [address] [place] [address] Scheduled Procedures Name Priority Associated Diagnoses Date/Ti [...] Procedure Name Priority Date/Time Associated Diagnosis Comments PAIN MANAGEMENT DRUG PANEL, URINE W/ INTERPRETATION Routine 01/22/2023 9:31 AM EST Chronic narcotic use documented in this encounter Results * PAIN MANAGEMENT DRUG PANEL, URINE W/ INTERPRETATION (01/22/2023 9:31 AM EST) Compliance Interpretation Based on the medication information provided: The negative hydrocodone screening result is CONSISTENT with hydrocodone last taken a few days prior to urine drug testing. If clinically indicated, confirmatory testing is available upon request. 01/23/2023 2:09 PM EST [facility] Comment:Changed Report: Prev iously reported on 01/23/2023 at 1225 EST. See Results History in EPIC for previous versions of the report. Amphetamine Negative Negative 01/23/2023 2:09 PM EST [facility] Benzodiazepines Negative Negative 2:09 PM EST [facility] Cannabinoids Negative Negative 01/23/2023 2:09 PM EST [facility] Cocaine Metabolite Negative Negative 2022 2:09 PM EST [facility] Fentanyl Negative Negative 01/23/2023 2:09 PM EST [facility] Hydrocodone / Hydromorphone Negative Negative 01/23/2023 2:09 PM EST [facility] Methadone Metabolite Negative Negative 01/23/2023 2:09 PM EST [facility] Morphine / Codeine Negative Negative 2022 2:09 PM EST [facility] Oxycodone / Oxymorphone Negative Negative 01/23/2023 2:09 PM EST [facility] Valid Interpretation Normal 01/23/2023 2:09 PM EST [facility] Creatinine JOCELINE 48 mg/dL 01/23/2023 2:09 PM EST [facility] Urine Urine specimen obtained by clean catch procedure / Unknown Non-blood Collection / Unknown 01/22/2023 9:31 AM EST 01/22/2023 9:31 AM EST Narrative [facility] - 01/23/2023 2:09 PM EST Cutoff Concentrations: Drug Level Amphetamines 500 ng/mL Benzodiazepines 100 ng/mL Cannabinoids 50 ng/mL Cocaine Metabolite 150 ng/mL Fentanyl 1 ng/mL Hydrocodone / Hydromorphone 300 ng/mL Methadone Metabolite 100 ng/mL Morphine / Codeine 300 ng/mL Oxycodone / Oxymorphone 100 ng/mL Screening results are presumptive and can only be used for medical purposes. Confirmatory testing is available upon request. Jian Vaz MD LAB URINE ORDERA BLES [facility] [address] [place] [address] documented in this encounter Visit Diagnoses Diagnosis Chronic narcotic use documented in this encounter Care Teams Mainstreaming Facilitator Relationship Specialty Start Date End Date Jian Vaz MD 200 [place] [address] PCP - General Internal Medicine 01/15/17 documented as of this encounter
--- OUTSIDE RECORDS SUMMARY | 2023-03-21 08:15 | External Medical Summary | Summary of Care ---
Author Name Unknown Organization [facility] Address [address] [place] [address] Phone [phone] Care Team Providers Care Taco Maker Name Role Phone Jian Vaz MD Primary Care Provider + Reason for Visit * Reason Comments Outpatient Testing Encounter Details Date Type Department Care Team (Late st Contact Info) Description 01/22/2023 10:00 AM EST Laboratory Laboratory [facility] [address] [place] [id number] [place], Lab Scenery [address] [place] [address] Chronic narcotic use Allergies Active Allergy Reactions [...] 400mg the next day., Reported on 01/22/2023 documented as of this encounter (statuses as [...] yrs 11/20/1994,06/30/1994,06/01 Pneumococcal Conjugate Vacci ne, 20-valent ([id number]) 01/07/2022 SEASONAL INFLUENZA, PF, 6 M & [...] 02/01/2023 9:40 AM EST Office Visit Rheumatology [place] [address] [place] [address] Javi Sexton MD [address] [place] [address] [place] [address] 04/05/2023 2:30 PM EST Office Visit Ophthalmology, Jah 21 [place] [address] Servando Rdz MD [address] [place] [address] Nurse Jah [facility] [place] [address] 08/01/2023 8:40 AM EDT Office Visit Rheumatology [place] [address] [place] [address] Javi Sexton MD [address] [place] [address] [place] [address] 10/11/2023 9:00 AM EDT Imaging Radiology [address] 132 [facility] [place] [address] 01/24/2024 8:40 AM EST Office Visit General Internal Medicine [facility] Shanika [place] [address] [place] [address] Jian Vaz MD [address] [place] [address] Pending Results Name Type Priority Associated Diagnoses Date /Time PAIN MANAGEMENT DRUG PANEL, URINE W/ INTERPRETATION Lab Routine Chronic narcotic use 01/22/2023 9:31 AM EST Scheduled Procedures Name Priority Associated Diagnoses Date/Ti [...] as of this encounter Visit Diagnoses Diagnosis Chronic narcotic use documented in this encounter Care Teams Taco Maker Relationship Specialty Start Date End Date Jian Vaz MD [address] [place] [address] PCP - General Internal Medicine 01/15/17 documented as of this encounter
--- OUTSIDE RECORDS SUMMARY | 2023-03-21 08:15 | External Medical Summary | Summary of Care ---
Author Name Unknown Organization [facility] Address [address] [place] [address] Phone [phone] Care Team Providers Care Plate Glass Grinder Name Role Phone Jian Vaz MD Primary Care Provider + Reason for Visit * Reason Onset Date Comments Patient Instructions 12/12/2022 colonoscopy Encounter Details Date Type Department Care Team (Late st Contact Info) Description 12/12/2022 Telephone OR [facility], Operating Room [facility] [address] [place] [address] Fiona Stern, RN Patient Instructions (colonoscopy) Allergies Active Allergy Reactions Criticality Noted Date Comments Amitriptyline 11/07/2022 Other Reaction(s): "fuzzy brained" Gabapentin 11/07/2022 Other Reaction(s): forgetfulness Indomethacin 01/31/2002 Severe headache Nortriptyline 11/07/2022 Other Reaction(s): disorganized Trazodone 11/07/2022 Other Reaction(s): 'thick-headed" documented as of this encounter (statuses as of 12/12/2022) Medications Medication Sig Dispensed Refills Start Date [...] as of this encounter (statuses as of 12/12/2022) Active Problems Problem Noted Date Diagnosed Date [...] as of this encounter (statuses as of 12/12/2022) Resolved Problems Problem Noted Date Diagnosed Date [...] as of this encounter (statuses as of 12/12/2022) Immunizations Name Administration Dates Next Due COVID-19 mRNA, LNP-s, No Pre serve, 2-Dose Series (Moderna) 04/17/2020,03/20/2020 Hepatitis B, 20+ yrs 11/20/1994,06/30/1994,06/01 Pneumococcal Conjugate Vacci ne, 20-valent ([id number]) 01/07/2022 SEASONAL INFLUENZA, PF, 6 M & [...] Care Team (Late st Contact Info) Description 12/18/2022 10:15 AM EST Hospital Encounter ENDO [facility], Endoscopy Room [facility] [address] [place] [phone] Katt Lujan DO [address] [place] [address] 12/18/2022 10:15 AM EST - 12/18/2022 10:45 AM EST Surgery ENDO [facility], Endoscopy Room [facility] [address] [place] [phone] Katt Lujan DO [address] [place] [address] COLONOSCOPY FLEXIBLE PROXIMAL DIAGNOSTIC 12/20/2022 9:15 AM EST Office Visit OphthalmologyJah 21 [place] [address] Servando Rdz MD [address] [place] [address] 01/22/2023 9:00 AM EST Office Visit General Internal Medicine [place] [address] [place] [address] Jian Vaz MD [address] [place] [address] 02/01/2023 9:40 AM EST Office Visit Rheumatology [place] [address] [place], [place] [address] Javi Sexton MD [facility] [place] [address] 08/01/2023 8:40 AM EDT Office Visit Rheumatology [place] [address] [place] [address] Javi Sexton MD [facility]0 [address] [place] [address] Scheduled Procedures Name Priority Associated Diagnoses Date/Ti me COLONOSCOPY FLEXIBLE PROXIMAL DIAGNOSTIC Screen for colon cancer 12/18/2022 10:15 AM EST Health Maintenance Due Date Last Done Comments Cologuard 2001 Fecal Occult Blood Test 2001 Sigmoidoscopy 2001 COVID-19 Vaccine (3 - Moderna risk series) 05/15/2020 04/17/2020, 03/20/2020 Colonoscopy 07/17/2022 07/17/2012 Colorectal Cancer Screening 07/17/2022 Influenza Vaccine (FLU shot) (#1) 2022 01/07/2022, 01/07/2022, 11/30/2020, Additional history exists Depression Screening 01/07/2023 01/07/2022 Mammogram 10/10/2023 10/09/2022, 08/12, 08/12/2020, Additional history exists DXA Scan 11/07/2024 11/07/2021 DTaP,Tdap,and Td Vaccines (4 - Td or Tdap) 08/05/2025 08/06/2015, 10/10/2005, 12/13/2004, Additional history exists Lipid Panel 10/20/2027 10/19/2022, 12/09/2021, 02/09/2021, Additional history exists Hepatitis B Completed 11/20/1994, 06/12, 06/01/1994 Pap [...] Not on filedocumented as of this encounter Care Teams Plate Glass Grinder Relationship Specialty Start Date End Date Jian Vaz MD 200 [place] [address] PCP - General Internal Medicine 01/15/17 documented as of this encounter
--- OUTSIDE RECORDS SUMMARY | 2023-03-21 08:15 | External Medical Summary ---
Author Name Unknown Address Unknown Organization K09:[facility] [place] [address] Laboratory Report Ordering Provider Test Date Status JAYSONLUCIA 01/02/2023 09:37:24 Final Observation Date Value Abnormality Reference (Units ) Status SYNC LEUKOCYTES IN BLOOD BY AUTOMATED COUNT 01/02/2023 09:37:24 5.79 4.00-10.80 (K/uL) Final Segs 01/02/2023 09:37:24 52.4 40.0-75.0 (%) Final Lymphs % 01/02/2023 09:37:24 34.5 18.0-42.0 (%) Final Monos 01/02/2023 09:37:24 10.9 1.0-11.0 (%) Final Eosinophils 01/02/2023 09:37:24 1.7 0.0-6.0 (%) Final Basos 01/02/2023 09:37:24 0.5 0.0-2.0 (%) Final Absolute Segs 01/02/2023 09:37:24 3.03 1.80-7.70 (K/uL) Final Lymphs, absolute 01/02/2023 09:37:24 2.00 1.00-4.80 (K/ul) Final Monos, Abs 01/02/2023 09:37:24 0.63 0.00-1.10 (K/uL) Final Eos, Abs 01/02/2023 09:37:24 0.10 0.00-0.70 (K/uL) Final Basos, Abs 01/02/2023 09:37:24 0.03 0.00-0.20 (K/uL) Final Performing Location [facility] [place] [address]
--- OUTSIDE RECORDS SUMMARY | 2023-03-21 08:15 | External Medical Summary | Summary of Care ---
Author Name Unknown Organization [facility] Address [address] [place] [address] Phone [phone] Care Team Providers Care Vinyl Dipper Name Role Phone Jian Vaz MD Primary Care Provider + Reason for Visit * Reason Comments NEW PATIENT * Evaluate & Treat - Unlimited Visits (Within 30 days (routine)) - Authorized Specialty Diagnoses / Procedures Referred By Cornelius more Referred To Contact Ophthalmology Diagnoses Rheumatoid arthritis involving multiple sites with positive rheumatoid factor (HCC) Jian Vaz MD [address] [place] [address] Referral ID Status Reason Start Date Expiration Date Visits Requested Visits Authorized [id number] Authorized Specialty Services Required 10/31/2022 11/01/2023 [id number] Encounter Details Date Type Department Care Team (Late st Contact Info) Description 12/20/2022 9:15 AM EST Office Visit Ophthalmology, Jah [place] [address] Servando Rdz MD 21 [place] [address] Long-term use of Plaquenil*; Diplopia; Presbyopia Allergies Active Allergy Reactions Criticality Noted Date Comments Indomethacin 01/31/2002 Severe headache documented as of this encounter (statuses as of 12/20/2022) Medications Medication Sig Dispensed Refills Start Date [...] With food. 60 Tablet 11 10/23/2022 Active documented as of this encounter (statuses as of 12/20/2022) Active Problems Problem Noted Date Diagnosed Date [...] as of this encounter (statuses as of 12/20/2022) Resolved Problems Problem Noted Date Diagnosed Date [...] as of this encounter (statuses as of 12/20/2022) Immunizations Name Administration Dates Next Due COVID-19 mRNA, LNP-s, No Pre serve, 2-Dose Series (Moderna) 04/17/2020,03/20/2020 Hepatitis B, 20+ yrs 11/20/1994,06/30/1994,06/01 Pneumococcal Conjugate Vacci ne, 20-valent ([id number]) 01/07/2022 SEASONAL INFLUENZA, PF, 6 M & [...] as of this encounter Progress Notes * Servando Rdz MD - 12/20/2022 9:41 AM EST [facility] DEPARTMENT OF OPHTHALMOLOGY OUTPATIENT CLINIC NOTES PATIENT NAME: Elena Coulter (67 year old female) PRIMARY CARE PHYSICIAN: Jian Vaz MD CC: Plaquenil HPI: here for above; taking 400/200 QD in alternation ROS: no eye pain POH: see below Past Medical History: Diagnosis Date BRCA1 gene mutation negative 2007 BRCA2 gene mutation negative 2008 Breast cancer ([facility]) 2006 left breast with mastectomy DDD (degenerative disc disease), cervical Giant cell arteritis ([facility]) 09/18/2002 History of breast cancer 01/15/2017 Left arm pain 12/28/2015 MEDICATION USE AGREEMENT 01/19/2020 OTHER breast cancer Rheumatoid arthritis involving multiple sites with positive rheumatoid factor ([facility]) 10/20/2022 THORACIC OUTLET SYNDROME MEDS: Current Outpatient Medications Medication Sig Dispense Refill [...] No current facility-administered medications for this visit. ALL: Review of patient's allergies indicates: Allergen Reactions Indomethacin Severe headache PSH: Past Surgical History: Procedure Laterality Date BREAST BIOPSY Left 03/09/2006 Malignant BREAST RECONSTRUCTION Bilateral 2009 gluteal flap COLONOSCOPY, DIAGNOSTIC (RECTUM) 12/18/2022 COLONOSCOPY FLEXIBLE PROXIMAL DIAGNOSTIC performed by Katt Lujan [...] LYMPH NODE BIOPSY PERFORMED Left 2006 negative FH: Family History Problem Relation Age of Onset Breast Cancer Mother Rheum arthritis Mother Neurological Disorder Father Idiopathic peripheral neuropathy-- also 2 aunts and 1 uncle have same problem Cancer Father prostate Other (MSA) Brother Cancer Brother prostate cancer No Known Problems Daughter No Known Problems Daughter No Known Problems Daughter Breast Cancer Aunt (Paternal) Breast Cancer Aunt (Paternal) Breast Cancer Aunt (Paternal) SH: Social History Tobacco Use Smoking status: Former Packs/day: 0.50 Years: 16.00 Additional pack years: 0.00 Total pack years: 8.00 Types: Cigarettes Quit date: 02/12/1989 Years since quittin.8 Smokeless tobacco: Never Substance Use Topics Alcohol use: Yes Alcohol/week: 7.0 standard drinks of alcohol Types: 7 5 oz of wine per week Comment: wine daily Vaping/E-Cigarette Use Vaping/E-Cigarette Use Never User Vaping/E-Cigarette Substances Nicotine No Other No Flavoring No THC No Cannabidiol (CBD) No Vaping/E-Cigarette Devices Disposable No Pre-filled or Refillable Cartridge No Refillable Tank No Pre-filled Pod No EXAM VA cc OD (D) 20/20; VA cc OD (N) 20/40 VA cc OS (D) 20/20; VA cc OS (N) 20/40 PC OD: sph +0.75 cyl +0.25 axis 9 PC OS: sph plano cyl +0.50 axis 168 Add OD +2.50 Add OS +2.50 Prism: 2 down OD; 1 up OS (for left hypo) MR OD: sph +0.50 cyl +0.50 axis 180 20/25 MR OS: sph -0.25 cyl +0.25 axis 170 20/20 EXTERNAL: CVF: Full OU Lids: WNL Conjunctiva: WNL OU Pupils: PERRL; no APD EOM: Full; subtle left hypo by ACT SLIT LAMP Cornea: clear OU Tear Film: WNL OU A/C: D/Q OU Lens: trace NS OD; trace NS OS Iris: WNL OU TA OD:14; OS: 12; 9:41 AM DILATED EXAM: Dilated with Mydriacyl 1% and Mydfrin 2.5%; advised re driving Lens used: 28 D and 90 D Vitreous: clear OU C/D: 0.5 OD; 0.4 OS Macula: WNL OD; WNL OS Periphery: WNL OD; WNL OS ASSESSMENT/PLAN Plaquenil - no overt toxicity --schedule VF and OCT Left hypophoria - prism in glasses RTC: 6 mo Servando Rdz MD 12/20/2022 9:41 AM documented in this encounter Nursing Notes * Maritza Shelton COA - 12/20/2022 9:13 AM EST Pt presents to the clinic today as a new patient. Last eye exam in May at [facility] Pt recently started plaquenil and has cataracts. VA cc OD (D) 20/20; VA cc OD (N) 20/40 VA cc OS (D) 20/20; VA cc OS (N) 20/40 PC OD: sph +0.75 cyl +0.25 axis 9 PC OS: sph plano cyl +0.50 axis 168 Add OD +2.50 Add OS +2.50 documented in this encounter Plan of Treatment Upcoming Encounters Date Type Department Care Team (Late st Contact Info) Description 01/22/2023 9:00 AM EST Office Visit General Internal Medicine [facility] [address] [facility] [facility] [place] [address] Jian Vaz MD 200 [facility] [place] [address] 02/01/2023 9:40 AM EST Office Visit Rheumatology [place] [address] [facility] [place] [address] Javi Sexton MD [facility] [place], [place] [address] 04/05/2023 2:30 PM EST Office Visit Ophthalmology, [place] [address] Servando Rdz MD [address] [place] [address] Nurse Jah Ophthalmology [address] [place] [address] 08/01/2023 8:40 AM EDT Office Visit Rheumatology [facility] [address] [place] [address] Javi Sexton MD [address] [place] [address] Scheduled Orders Name Type Priority Associated Diagnoses Orde r Schedule DETERMINATION OF REFRACTIVE STATE Procedures Routine Presbyopia Ordered: 12/20/2022 Health Maintenance Due Date Last Done Comments [...] as of this encounter Visit Diagnoses Diagnosis Long-term use of Plaquenil- Primary Encounter for long-term (current) use of other medications Diplopia Presbyopia documented in this encounter Care Teams Vinyl Dipper Relationship Specialty Start Date End Date Jian Vaz MD 200 [facility] [place] [address] PCP - General Internal Medicine 01/15/17 documented as of this encounter
--- OUTSIDE RECORDS SUMMARY | 2023-03-21 08:15 | External Medical Summary ---
Author Name Unknown Address Unknown Organization K09:[facility] [place] [address] Laboratory Report Ordering Provider Test Date Status LUCIA TYLER 01/02/2023 09:37:24 Final Observation Date Value Abnormality Reference (Units ) Status WBC, Total 01/02/2023 09:37:24 5.79 4.00-10.8 0 (K/uL) Final RBC 01/02/2023 09:37:24 4.50 3.85-5.15 (M/uL) Final Hemoglobin 01/02/2023 09:37:24 13.1 12.0-15.3 (g/dL) Final HCT 01/02/2023 09:37:24 40.1 36.0-45.2 (%) Final MCV 01/02/2023 09:37:24 89.1 81.5-97.5 (fL) Final MCH 01/02/2023 09:37:24 29.1 27.0-34.0 (pg) Final MCHC 01/02/2023 09:37:24 32.7 32.0-36.0 (g/dL) Final RDW 01/02/2023 09:37:24 14.1 11.5-15.5 (%) Final Platelets 01/02/2023 09:37:24 310 140-400 (K /uL) Final MPV 01/02/2023 09:37:24 8.9 6.6-11.1 ( fL) Final Performing Location [facility] [place] [address]
--- OUTSIDE RECORDS SUMMARY | 2023-03-21 08:15 | External Medical Summary | Summary of Care ---
Author Name Unknown Organization [facility] Address [address] [place] [address] Phone [phone] Care Team Providers Care Practical Nursing Faculty Name Role Phone Jian Vaz MD Primary Care Provider + Reason for Visit * Reason Comments Acute Pt being seen for ba ck injury, had fall and someone fell on her and still has back pain. Is already on prednisone and has flexeril as well. Encounter Details Date Type Department Care Team (Late st Contact Info) Description 02/03/2023 2:40 PM EST Office Visit Family Practice [facility] [address] [place] [address] JuneCas MD [address], [place] [id number] Fall, initial encounter*; Lumbar back pain Allergies Active Allergy Reactions Criticality Noted Date Comments Indomethacin 01/31/2002 Severe headache documented as of this encounter (statuses as of 02/03/2023) Medications Medication Sig Dispensed Refills Start Date [...] as of this encounter (statuses as of 02/03/2023) Active Problems Problem Noted Date Diagnosed Date [...] as of this encounter (statuses as of 02/03/2023) Resolved Problems Problem Noted Date Diagnosed Date [...] as of this encounter (statuses as of 02/03/2023) Immunizations Name Administration Dates Next Due COVID-19 mRNA, LNP-s, No Pre serve, 2-Dose Series (Moderna) 04/17/2020,03/20/2020 Hepatitis B, 20+ yrs 11/20/1994,06/30/1994,06/01 Pneumococcal Conjugate Vacci ne, 20-valent ([id number]) 01/07/2022 Seasonal Influenza Virus Vac cine, Unspecified [...] the money to buy more. Never true 02/04/20 Within the past 12 months, t he food you bought just didn't last and you didn't have money to get more. Never true 02/03/2023 Sex and Gender Information Value Date Recorded Sex Assigned at Female 01/21/2019 8:17 AM EST Gender Identity Female 01/21/2019 8:17 AM EST Sexual Orientation Straight 01/21/2019 8: 17 AM EST Job Start Date Occupation Industry Not on file Not on file Not on file documented as of this encounter Last Filed Vital Signs Vital Sign Reading Time Taken Comments Blood Pressure 110/68 02/03/2023 2:31 PM EST Pulse 93 02/03/2023 2:31 PM EST Temperature 36.9 C (98.5 F) 02/03/2023 2:31 PM ES T Respiratory Rate 16 02/03/2023 2:31 PM EST Oxygen Saturation - - Inhaled Oxygen Concentration - - Weight 66.2 kg (146 lb) 02/03/2023 2:31 PM EST Height - - Body Mass Index 22.53 01/22/2023 9:00 AM EST documented in this encounter Progress Notes * Cas Jenkins MD - 02/03/2023 2:56 PM EST Images from the original note were not included. Assessment and Plan Patient's seems to be optimized on her pain regimen. I do not believe based on exam today she needsany type of imaging. Continue prednisone taper, Flexeril, naproxen, as needed Vicodin. Can add heat/ice, lidocaine patch, Voltaren gel. 1. Fall, initial encounter 2. Lumbar back pain Wrap-Up Follow up as needed. History of Present Illness The patient is a 67 year old female with past medical history of primary OA, DDD, rheumatoid arthritis who presents for follow up of fall. The patient is a 67-year-old female who presents to be evaluated after a fall. She was assisting a friend who was ill and required to assist when this person fell over and landed on her right leg andabdomen. She would immediate pain in the lumbar spine and the right leg. The day prior to this incident she was put on a prednisone taper for rheumatoid arthritis in addition to naproxen and Flexeril. She notes that pain has been about stable over the last few days. She denies any saddle anesthesiaor new incontinence of urine or stool. Physical Exam Vitals: 02/03/23 1431 Temp: 36.9 C (98.5 F) Pulse: 93 Resp: 16 BP: 110/68 Physical Exam Physical Exam Vitals reviewed. Constitutional: General: She is not in acute distress. Pulmonary: Effort: Pulmonary effort is normal. No respiratory distress. Musculoskeletal: Comments: No pain to palpation over the thoracic or lumbar spinous processes. There is no bruising noted. She was ambulating with minimal difficulty. Neurological: General: No focal deficit present. Mental Status: She is alert. Psychiatric: Mood and Affect: Mood normal. Behavior: Behavior normal. documented in this encounter Plan of Treatment Upcoming Encounters Date Type Department Care Team (Late st Contact Info) Description 04/05/2023 2:30 PM EST Office Visit Ophthalmology, Jah [address] [place] [address] Servando Rdz MD [address] [address] Nurse Jah Ophthalmology [address] [place] [address] 08/01/2023 8:40 AM EDT Office Visit Rheumatology [place] [address] [place] [address] Javi Sexton MD [address] [place] [address] 10/11/2023 9:00 AM EDT Imaging Radiology [address] 132 [facility] [place] [address] 01/24/2024 8:40 AM EST Office Visit General Internal Medicine [facility] [address] [facility] [address] [address] [place] [address] Jian Vaz MD [address] [facility] [place] [address] Scheduled Procedures Name Priority Associated Diagnoses Date/Ti [...] this encounter Visit Diagnoses Diagnosis Fall, initial encounter- Primary Lumbar back pain Lumbago documented in this encounter Care Teams Practical Nursing Faculty Relationship Specialty Start Date End Date Jian Vaz MD 200 [facility], [place] [phone] PCP - General Internal Medicine 01/15/17 documented as of this encounter
--- OUTSIDE RECORDS SUMMARY | 2023-03-21 08:15 | External Medical Summary | Summary of Care ---
Author Name Unknown Organization [facility] Address [address] [place] [address] Phone [phone] Care Team Providers Care Watch Guard Gate Name Role Phone Jian Vaz MD Primary Care Provider + Reason for Visit * Reason Onset Date Comments Health Maintenance 01/02/2023 Encounter Details Date Type Department Care Team (Late st Contact Info) Description 01/02/2023 Telephone General Internal Medicine [facility] 200 [facility] [place] [address] Jian Vaz MD [address] [place] [address] Health Maintenance Allergies Active Allergy Reactions Criticality Noted Date [...] yrs 11/20/1994,06/30/1994,06/01 Pneumococcal Conjugate Vacci ne, 20-valent ([id number]) 01/07/2022 SEASONAL INFLUENZA, PF, 6 M & [...] encounter Miscellaneous Notes * Telephone Encounter - Marina Ramirez LPN - 01/02/2023 10:38 AM EST Care Gaps Comprehensive Care Outreach Last Office/Telemedicine Visit: 12/11/2022 (in office), 12/25/2022 (telemedicine) Next Office Visit: 01/22/2023 Hemoglobin AIC Results: Lab Results Component Value Date/Time HEMOGLOBIN A1C - [facility] 5.6 01/19/2022 09:22 AM HEMOGLOBIN A1C - [facility] 5.6 02/24/2019 07:51 AM HEMOGLOBIN A1C - [facility] 5.7 (H) 05/03/2018 10:07 AM HEMOGLOBIN A1C - [facility] 5.6 01/18/2018 08:24 AM Reviewed Health Maintenance below: Health Maintenance Topic Date Due COVID-19 Vaccine (3 - Moderna risk series) 05/15/2020 Influenza Vaccine (FLU shot) (1) 10/13/2022 Depression Screening 01/07/2023 Care Gap Outreach Action Taken: Outreach not indicated documented in this encounter Plan of Treatment Upcoming Encounters Date Type Department Care Team (Late st Contact Info) Description 01/22/2023 9:00 AM EST Office Visit General Internal Medicine [facility] [place] [address] [facility] [address] [place] [address] Jian Vaz MD 200 [facility] [place], [place] [address] 02/01/2023 9:40 AM EST Office Visit Rheumatology [place] [address] [place] [address] Javi Sexton MD [facility] [place] [address] 04/05/2023 2:30 PM EST Office Visit OphthalmologyJah [address] [address] Servando Rdz MD [address] [place] [address] Nurse Jah Ophthalmology [address] [address] 08/01/2023 8:40 AM EDT Office Visit Rheumatology [place] [phone] [employer] [place] [address] Javi Sexton MD [address] [facility] [place] [address] Scheduled Procedures Name Priority Associated Diagnoses Date/Ti [...] filedocumented as of this encounter Care Teams Watch Guard Gate Relationship Specialty Start Date End Date Jian Vaz MD 200 [facility] [place] [address] PCP - General Internal Medicine 01/15/17 documented as of this encounter
--- OUTSIDE RECORDS SUMMARY | 2023-03-21 08:16 | External Medical Summary ---
Author Name Unknown Address Unknown Organization [id number][place] [facility] [place] [address] [facility] [address] Laboratory Report Ordering Provider Test Date Status SCOT MEDEIROS 10/25/2022 10:28:48 Final Observation Date Value Abnormality Reference (Units ) Status Color of Urine by Auto 10/25/2022 10:28:48 Colorless Colorless, Light Yellow, Yellow, Dark Yellow Final Clarity, Urine 10/25/2022 10:28:48 Clear Clear Final Glucose [Mass/volume] in Urine by Automated test strip 10/25/2022 10:28:48 Negative Negative (mg/dL) Final Bilirubin.total [Presence] in Urine by Automated test strip 10/25/2022 10:28:48 Negative Negative Final Ketones [Mass/volume] in Urine by Automated test strip 10/25/2022 10:28:48 Negative Negative (mg/dL) Final Specific gravity, Urine 10/25/2022 10:28:48 1.008 1.003-1.030 Final Hemoglobin [Presence] in Urine by Automated test strip 10/25/2022 10:28:48 Negative Negative Final pH, Urine 10/25/2022 10:28:48 6.0 5.0-7.5 (Units) Final Protein [Mass/volume] in Urine by Automated test strip 10/25/2022 10:28:48 Negative Negative (mg/dL) Final Urobilinogen [Mass/volume] in Urine by Automated test strip 10/25/2022 10:28:48 Normal Normal (mg/dL) Final Nitrite [Presence] in Urine by Automated test strip 10/25/2022 10:28:48 Negative Negative Final Leukocyte esterase [Presence] in Urine by Automated test strip 10/25/2022 10:28:48 Negative Negative Final RBC, Urine 10/25/2022 10:28:48 0-2 0-2 (/HPF) Final WBC, Urine 10/25/2022 10:28:48 0-2 0-2 (/HPF) Final Bacteria [#/area] in Urine sediment by Microscopy high power field 10/25/2022 10:28:48 0-25 0-25 (/HPF) Final Performing Location [place] [facility] [place] [facility] [place] [address] [facility] [address]
--- OUTSIDE RECORDS SUMMARY | 2023-03-21 08:16 | External Medical Summary ---
Author Name Unknown Address Unknown Organization [id number][place] [facility] [place] [facility] [place] [address] Laboratory Report Ordering Provider Test Date Status JEFFRY AVILES 10/19/2022 09:42:09 Final Observation Date Value Abnormality Reference (Units ) Status Cyclic citrullinated peptide IgG Ab [Presence] in Serum 10/19/2022 09:42:09 Positive Abnormal Negative Final Cyclic citrullinated peptide IgA+IgG Ab [Units/volume] in Serum or Plasma by Immunoassay 10/19/2022 09:42:09 96.0 <7 (U/mL) Final Performing Location [place] [facility] [place] [facility] [place] [address]
--- OUTSIDE RECORDS SUMMARY | 2023-03-21 08:16 | External Medical Summary | Summary of Care ---
Author Name Unknown Organization [facility] Address [address] [facility] [place] [address] Care Team Providers Care [employer] Officer Name Role Phone Jian Vaz MD Primary Care Provider + Reason for Visit * Reason Comments Rheum Consultation Encounter Details Date Type Department Care Team Description 10/23/2022 [facility] [address] [facility] [address] [place] [phone] Kyra Morales CRNP [address] [facility] [place] [address] Rheumatoid arthritis involving multiple sites with positive rheumatoid factor (HCC)* Allergies Active Allergy Reactions Severity Noted Date Comments Indomethacin 01/31/2002 Severe headache documented as of this encounter (statuses as of 10/23/2022) Medications Medication Sig Dispensed Refills Start Date End Date Status Naproxen 500 MG Oral Tablet (Naprosyn)Indicatio ns:Fall, initial encounter,Rib pain on left side 1 pill twice a day by mouth with food as needed for pain 180 Tablet 3 05/19/2021 Active Cyclobenzaprine HCl 5 MG Oral Tablet (Flexeril)Indicatio ns:Left arm pain,Cervical spinal stenosis TAKE 1 TABLET BY MOUTH AT BEDTIME - may take an extra tablet at night for severe pain 120 Tablet 0 05/11/2022 Active HYDROcodone-Acetami nophen 5-325 MG Oral Tablet Take 1 Tablet by mouth every 6 hours as needed for Pain, Mild. 0 Active Hydroxychloroquine Sulfate 200 MG Oral Tablet (Plaquenil)Indicati ons:Rheumatoid arthritis involving multiple sites with positive rheumatoid factor (HCC) Take 2 Tablets by mouth daily. With food. 60 Tablet 11 10/23/2022 Active predniSONE 10 MG Oral Tablet (Deltasone)Indicati ons:Rheumatoid arthritis involving multiple sites with positive rheumatoid factor (HCC) Take 4 Tablets by mouth daily for 3 days, THEN 3 Tablets daily for 3 days, THEN 2 Tablets daily for 3 days, THEN 1 Tablet daily for 3 days. 30 Tablet 0 10/23/2022 11/03/2022 Active predniSONE 5 MG Oral Tablet (Deltasone)Indicati ons:Rheumatoid arthritis involving multiple sites with positive rheumatoid factor (HCC) Take one tablet daily 100 Tablet 2 10/23/2022 Active documented as of this encounter (statuses as of 10/23/2022) Active Problems Problem Noted Date Rheumatoid arthritis involvi ng multiple sites with positive rheumatoid factor 10/20/2022 Dupuytren's disease of palm of right lamar d 04/16/2020 Primary osteoarthritis of first carpomet acarpal joint of right hand 04/16/2020 Fibrous cortical defect 04/16/2020 MEDICATION USE AGREEMENT 01/19/2020 History of breast cancer 01/15/2017 Left arm pain 12/28/2015 Family hx-breast malignancy 06/18/2007 THORACIC OUTLET SYNDROME 01/31/2002 documented as of this encounter (statuses as of 10/23/2022) Resolved Problems Problem Noted Date Resolved Date Prediabetes 05/20/2018 01/26/2022 Overview: Per Prediabetes protocol #1 ADVANCE DIRECTIVE INFORMATION 06/12/2007 Overview: No, Advance Directive brochure offered , patient declined. Malignant neoplasm of lower-outer quadrant of fe male breast 05/02/2007 01/15/2017 Cancer Staging:Clinical: Unsigned Pathologic:Stage I(T1c, N0, M0) - Signed by Marc Chance MD on 01/27/2013 Overview: Left breast Giant cell arteritis 09/18/2002 09/25/2002 Female genital symptoms 01/31/2002 12/28/19 16 Overview: ICD-10 update of inactive term BACK PAIN 01/31/2002 12/28/2015 documented as of this encounter (statuses as of 10/23/2022) Immunizations Name Administration Dates Next Due COVID-19 mRNA, LNP-s, No Pre serve, 2-Dose Series (Moderna) 04/17/2020,03/20/2020 Hepatitis B, 20+ yrs 11/20/1994,06/30/1994,06/01 Pneumococcal Conjugate Vacci ne, 20-valent ([id number]) 01/07/2022 Seasonal Influenza Virus Vac cine, Unspecified Formulation 12/24/2013,11/27/2012 Seasonal Influenza, PF, 6 mo ns & Above, IM , (Flulaval) 11/30/2020,12/03/2019 Seasonal Influenza, Quadriva lent Hd (Fluzone [...] 0.6 oz pur e alcohol) wine daily Food Insecurity Answer Date Recorded Within the past 12 months, y ou worried that your food would run out before you got money to buy more. Never true 07/19/2022 Within the past 12 months, t he food you bought just didn't last and you didn't have money to get more. Never true 07/19/2022 Sex Assigned at Date Recorded Female 01/21/2019 8:[address] Job Start Date Occupation Industry Not on file Not on file Not on file documented as of this encounter Last Filed Vital Signs Vital Sign Reading Time Taken Comments Blood Pressure 120/70 10/23/2022 3:04 PM EDT Pulse - - Temperature - - Respiratory Rate - - Oxygen Saturation - - Inhaled Oxygen Concentration - - Weight 69.4 kg (153 lb) 10/23/2022 3:04 PM EDT Height - - Body Mass Index 23.61 07/20/2022 11:18 AM EDT documented in this encounter Nursing Notes * JERO Barragan - 10/23/2022 3:04 PM EDT Patient stated she is having stiffness and swelling in both hands. Patient stated she also had a recent elevated SATNAM results. documented in this encounter Plan of Treatment Upcoming Encounters Date Type Specialty Care Team Description 12/18/2022 Hospital Encounter Endoscopy Katt Lujan DO [address] [place] [address] 12/18/2022 Surgery Endoscopy Katt Lujan DO [address] [place] [address] COLONOSCOPY FLEXIBLE PROXIMAL DIAGNOSTIC 01/22/2023 Office Visit Internal Medicine Jian Vaz MD [address] [place], [place] [address] [address] 02/26/2023 Office Visit Rheumatology Kyra Morales CRNP [address] [place] [address] Scheduled Orders Name Type Priority Associated Diagnoses Orde r Schedule XR C SPINE 4-5 VIEWS Medical Imaging Routine Rheumatoid arthritis involving multiple sites with positive rheumatoid factor (HCC) Ordered: 10/23/2022 Scheduled Procedures Name Priority Associated Diagnoses Date/Ti me COLONOSCOPY FLEXIBLE PROXIMAL DIAGNOSTIC Screen for colon cancer 12/18/2022 10:15 AM EST Health Maintenance Due Date Last Done Comments Cologuard 2001 Fecal Occult Blood Test 2001 Sigmoidoscopy 2001 COVID-19 Vaccine (3 - Moderna series) 06/12/2020 04/17/2020, 03/20/2020 Colonoscopy 07/17/2022 07/17/2012 Colorectal Cancer Screening 07/17/2022 Influenza Vaccine (FLU shot) (#1) 2022 01/07/2022, 01/07/2022, 11/30/2020, Additional history exists Depression Screening 01/07/2023 01/07/2022 Mammogram 10/10/2023 10/09/2022, 08/12, 08/12/2020, Additional history exists DXA Scan 11/07/2024 11/07/2021 DTaP,Tdap,and Td Vaccines (4 - Td or Tdap) 08/05/2025 08/06/2015, 10/10/2005, 12/13/2004, Additional history exists Lipid Panel 10/20/2027 10/19/2022, 1209/2021, 02/09/2021, Additional history exists Hepatitis B Completed [...] sites with positive rheumatoid factor (HCC)- Primary Screen for colon cancer Special screening for malignant neoplasms, colon documented in this encounter Care Teams Special Forces Officer Relationship Specialty Start Date End Date Jian Vaz MD [address] [facility] [place] [address] PCP - General Internal Medicine 01/15/17 documented as of this encounter
--- OUTSIDE RECORDS SUMMARY | 2023-03-21 08:16 | External Medical Summary ---
Author Name Unknown Address Unknown Organization [id number]:[place] [facility] [place] [address] [facility] [facility] [address] [place] [address] Laboratory Report Ordering Provider Test Date Status SCOT MEDEIROS 10/25/2022 10:10:01 Final Observation Date Value Abnormality Reference (Units ) Status Hepatitis B virus core Ab [Presence] in Serum 10/25/2022 10:10:01 Negative Negative Final Performing Location [facility] [facility] [place] [address] [place] [address]
--- OUTSIDE RECORDS SUMMARY | 2023-03-21 08:16 | External Medical Summary ---
Author Name Unknown Address Unknown Organization [id number][place] [facility] [place] [address] [place] [address] Laboratory Report Ordering Provider Test Date Status QAMAR LESLIE 10/25/2022 10:10:01 Final Observation Date Value Abnormality Reference (Units ) Status MYCODE SPECIMEN-SST 10/25/2022 10:10:01 Freezing of extracted DNA, whole blood and/or serum. Final Performing Location [place] [facility] [place] [address] [facility] [address]
--- OUTSIDE RECORDS SUMMARY | 2023-03-21 08:16 | External Medical Summary ---
Author Name Unknown Address Unknown Organization [id number]:[facility] [facility] [place] [address] [place] [address] Laboratory Report Ordering Provider Test Date Status SCOT MEDEIROS 10/19/2022 09:42:09 Final Observation Date Value Abnormality Reference (Units ) Status CRP, low-sensitivity 10/19/2022 09:42:09 <3 <=5 (mg/L) Final Performing Location LABORATORY [facility] - [address] [place] [address]
--- OUTSIDE RECORDS SUMMARY | 2023-03-21 08:16 | External Medical Summary ---
Author Name Unknown Address Unknown Organization [id number]:[place] [facility] [place] [address] [place] [address] Laboratory Report Ordering Provider Test Date Status SCOT MEDEIROS 10/25/2022 10:10:01 Final Observation Date Value Abnormality Reference (Units ) Status Hep C Ab 10/25/2022 10:10:01 Negative Negative Final Further HCV quantitative lilly ting not performed per protocol. Performing Location [facility] [place] [address] [place] [address]
--- OUTSIDE RECORDS SUMMARY | 2023-03-21 08:16 | External Medical Summary | Summary of Care ---
Author Name Unknown Organization [facility] Address [address] [place] [address] Phone [phone] Care Team Providers Care Entry Level Manager Name Role Phone Jian Vaz MD Primary Care Provider + Reason for Visit * Reason Comments Acute Patient presents wit h concerns for coughing, sore throat, sinus congestions, and body aches. Patient states sx's have been on going for 1 week but seems to worsen. Patient took home covid test 3 days after sx's began and states it was negative. Encounter Details Date Type Department Care Team (Late st Contact Info) Description 12/11/2022 12:00 PM EDT Office Visit General Internal Medicine [facility] [address] [place] [address] Jian Vaz MD [address] [place] [address] Acute maxillary sinusitis, recurrence not specified*; Rheumatoid arthritis involving multiple sites with positive rheumatoid factor (HCC) Allergies Active Allergy Reactions Criticality Noted Date Comments Amitriptyline 11/07/2022 Other Reaction(s): "fuzzy brained" Gabapentin 11/07/2022 Other Reaction(s): forgetfulness Indomethacin 01/31/2002 Severe headache Nortriptyline 11/07/2022 Other Reaction(s): disorganized Trazodone 11/07/2022 Other Reaction(s): 'thick-headed" documented as of this encounter (statuses as of 12/11/2022) Medications Medication Sig Dispensed Refills Start Date End Date Status Naproxen 500 MG Oral Tablet (Naprosyn)Indicat ions:Fall, initial encounter,Rib pain on left side 1 pill twice a day by mouth with food as needed for pain 180 Tablet 3 05/19/2021 Active Cyclobenzaprine HCl 5 MG Oral Tablet (Flexeril)Indicat [...] Active Amoxicillin-Pot Clavulanate 875-125 MG Oral Tablet (Augmentin)Indica tions:Acute maxillary sinusitis, recurrence not specified Take 1 Tablet by mouth in the morning and 1 Tablet before bedtime. Do all this for 7 days. 14 Tablet 0 12/11/2022 12/18/2022 Active predniSONE 5 MG Oral Tablet (Deltasone)Indica tions:Rheumatoid arthritis involving multiple sites with positive rheumatoid factor (HCC) Take one tablet daily 100 Tablet 2 10/23/2022 12/11/2022 Discontinued documented as of this encounter (statuses as of 12/11/2022) Active Problems Problem Noted Date Diagnosed Date [...] as of this encounter (statuses as of 12/11/2022) Resolved Problems Problem Noted Date Diagnosed Date [...] as of this encounter (statuses as of 12/11/2022) Immunizations Name Administration Dates Next Due COVID-19 mRNA, LNP-s, No Pre serve, 2-Dose Series (Moderna) 04/17/2020,03/20/2020 Hepatitis B, 20+ yrs 11/20/1994,06/30/1994,06/01 Pneumococcal Conjugate Vacci ne, 20-valent ([id number]) 01/07/2022 SEASONAL INFLUENZA, PF, 6 M & [...] Sign Reading Time Taken Comments Blood Pressure 108/68 12/11/2022 11:59 AM EDT Pulse 94 12/11/2022 11:59 AM EDT Temperature 37.3 C (99.2 F) 12/11/2022 11:59 AM E DT Respiratory Rate - - Oxygen Saturation 100% 12/11/2022 11:59 AM EDT Inhaled Oxygen Concentration - - Weight 65.3 kg (144 lb) 12/11/2022 11:59 AM EDT Height 171.5 cm (5' 7.5") 12/11/2022 11:59 AM ED T Body Mass Index 22.22 12/11/2022 11:59 AM EDT documented in this encounter Progress Notes * Jian Vaz MD - 12/11/2022 12:14 PM EDT Chief Complaint Patient presents with Acute Patient presents with concerns for coughing, sore throat, sinus congestions, and body aches. Patient states sx's have been on going for 1 week but seems to worsen. Patient took home covid test 3 daysafter sx's began and states it was negative. SUBJECTIVE: Elena Coulter is a 67 year old female with PMH as below who presents for 1 week sinus pressure, pain, green thick nasal drip, low grade temp. Covid negative day 3-4. Grandkids ill. 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 With food.60 Tablet 11 Amoxicillin-Pot Clavulanate 875-125 MG Oral Tablet (Augmentin) Take 1 Tablet by mouth in the morning and 1 Tablet before bedtime. Do all this for 7 days. 14 Tablet 0 No current facility-administered medications for this visit. Review of patient's allergies indicates: Allergen Reactions Amitriptyline Other Reaction(s): "fuzzy brained" Gabapentin Other Reaction(s): forgetfulness Indomethacin Severe headache Nortriptyline Other Reaction(s): disorganized Trazodone Other Reaction(s): 'thick-headed" Health Maintenance Due Topic Date Due COVID-19 Vaccine (3 - Moderna risk series) 05/15/2020 Colorectal Cancer Screening 07/17/2022 Influenza Vaccine (FLU shot) (1) 10/13/2022 Depression Screening 01/07/2023 ROS: CONSTITUTIONAL: No change in weight and No weakness EYE: No recent significant change in vision, No eye pain, redness, discharge, and No diplopia EARS: No ear pain, No drainage, No tinnitus or vertigo, and No recent change in hearing NOSE: No significant epistaxis PULMONARY: No wheezing, No rales, No shortness of breath, and No recent change in breathing CARDIOVASCULAR: No chest pain, No shortness of breath, No dyspnea on exertion, No orthopnea, No paroxysmal nocturnal dyspnea, No edema, No palpitations, and No syncope ALL OTHER SYSTEMS NEGATIVE I reviewed social, [...] with mastectomy DDD (degenerative disc disease), cervical History of breast cancer 01/15/2017 Left arm pain 12/28/2015 MEDICATION USE AGREEMENT 01/19/2020 OTHER breast cancer Rheumatoid arthritis involving multiple sites with positive rheumatoid factor (HCC) 10/20/2022 THORACIC OUTLET SYNDROME Past Surgical History: Procedure Laterality Date BREAST BIOPSY Left 03/09/2006 Malignant BREAST RECONSTRUCTION Bilateral 2010 gluteal flap INFORMATION Bilateral mensical repair INJECT DX/THER SUBSTANCE INTERLAMINAR CERVICAL/THORACIC W IMAGE GUIDE 05/09/2018 INJECTION SPINE LUMBAR CERVICAL OR THORACIC performed by Eleno Mendezs, DO at OR [facility] INJECT DX/THER SUBSTANCE INTERLAMINAR CERVICAL/THORACIC W IMAGE GUIDE 03/01/2020 INJECTION SPINE LUMBAR CERVICAL OR THORACIC performed by Eleno Bustossins, DO at OR [facility] INJECT DX/THER SUBSTANCE INTERLAMINAR CERVICAL/THORACIC W IMAGE GUIDE 12/23/2020 INJECTION SPINE LUMBAR CERVICAL OR THORACIC performed by Eleno Mendezs, DO at OR [facility] LIGATE/CUT OVIDUCT(S) 1993 [...] Cancer Aunt (Paternal) OBJECTIVE: PHYSICAL EXAM: BP 108/68 | Pulse 94 | Temp 37.3 C (99.2 F) | Ht 1.715 m (5' 7.5") | Wt 65.3 kg (144 lb) | LMP 04/12/2006 | SpO2 100% | BMI 22.22 kg/m | BSA 1.76 m General: alert, healthy, and no distress Head: Normocephalic, No masses, lesions, tenderness or abnormalities Eye Exam: conjunctiva are pink and non-injected, sclera clear Ears: External ears normal, Canals clear, TM's Normal Nose: no purulent discharge, mucosal edema, mucosal erythema Oropharynx: no exudate, no erythema, lips, buccal mucosa, and tongue normal, and mucous membranes are moist Lungs: CTAB I reviewed last gfr, glucose ASSESSMENT: J01.00 Acute maxillary sinusitis, recurrence not specified (primary encounter diagnosis) M05.79 Rheumatoid arthritis involving multiple sites with positive rheumatoid factor (HCC) PLAN: Acute maxillary sinusitis, recurrence not specified (Primary) - Amoxicillin-Pot Clavulanate 875-125 MG Oral Tablet (Augmentin); Take 1 Tablet by mouth in the morning and 1 Tablet before bedtime. Do all this for 7 days. Fluids, rest Rheumatoid arthritis involving multiple sites with positive rheumatoid factor (HCC) Cont f/u rheum Follow Up: Return if symptoms worsen or fail to improve and as scheduled.. Jian Vaz MD documented in this encounter Nursing Notes * Karson Kunz CMA - 12/11/2022 11:58 AM EDT Chief Complaint Patient presents with Acute Patient presents with concerns for coughing, sore throat, sinus congestions, and body aches. Patient states sx's have been on going for 1 week but seems to worsen. Patient took home covid test 3 daysafter sx's began and states it was negative. documented in this encounter Plan of Treatment Upcoming Encounters Date Type Department Care Team (Late st Contact Info) Description 12/18/2022 10:15 AM EST Hospital Encounter [facility]O [facility], Endoscopy Room [facility] [address] [place] [phone] Katt Lujan DO [address] [place] [address] 12/18/2022 10:15 AM EST - 12/18/2022 10:45 AM EST Surgery ENDO [facility], Endoscopy Room [facility] [address] [place] [phone] Katt Lujan DO [address] [place] [address] COLONOSCOPY FLEXIBLE PROXIMAL DIAGNOSTIC 12/20/2022 9:15 AM EST Office Visit Ophthalmology, [address] [place] [phone] Servando Rdz MD [address] [place] [address] 01/22/2023 9:00 AM EST Office Visit General Internal Medicine [facility] [address] [facility] [place], [place] [address] Jian Vaz MD [address] [facility] [place] [address] 02/01/2023 9:40 AM EST Office Visit Rheumatology [place] [address] [employer] [place] [address] Javi Sexton MD [facility] [employer] [place] [address] 08/01/2023 8:40 AM EDT Office Visit Rheumatology [place] [address] [employer] [place] [address] Javi Sexton MD [facility] [employer] [place], [place] [address] Scheduled Procedures Name Priority Associated Diagnoses Date/Ti [...] 10/20/2027 10/19/2022, 09/2021, 02/09/2021, Additional history exists Hepatitis B Completed [...] multiple sites with positive rheumatoid factor (HCC) Screen for colon cancer Special screening for malignant neoplasms, colon documented in this encounter Care Teams Entry Level Manager Relationship Specialty Start Date End Date Jian Vaz MD [address] [place] [address] PCP - General Internal Medicine 01/15/17 documented as of this encounter
--- OUTSIDE RECORDS SUMMARY | 2023-03-21 08:16 | External Medical Summary | Summary of Care ---
Author Name Unknown Organization [facility] Address [address] [place] [address] Phone [phone] Care Team Providers Care Waste Handling Technician Name Role Phone Jian Vaz MD Primary Care Provider + Reason for Visit * Reason Comments Outpatient Testing Encounter Details Date Type Department Care Team Description 10/25/2022 Laboratory Laboratory, [facility] [address] [place] [address] [facility] [address] [place], [place] [id number] [employer] Other*[id number]; Rheumatoid arthritis involving multiple sites with positive rheumatoid factor (HCC) Allergies Active Allergy Reactions Severity Noted Date Comments Indomethacin 01/31/2002 Severe headache documented as of this encounter (statuses as of 10/25/2022) Medications Medication Sig Dispensed Refills Start Date [...] as of this encounter (statuses as of 10/25/2022) Active Problems Problem Noted Date Rheumatoid arthritis [...] as of this encounter (statuses as of 10/25/2022) Resolved Problems Problem Noted Date Resolved Date [...] as of this encounter (statuses as of 10/25/2022) Immunizations Name Administration Dates Next Due COVID-19 mRNA, LNP-s, No Pre serve, 2-Dose Series (Moderna) 04/17/2020,03/20/2020 Hepatitis B, 20+ yrs 11/20/1994,06/30/1994,06/01 Pneumococcal Conjugate Vacci ne, 20-valent ([id number]) 01/07/2022 Seasonal Influenza Virus Vac cine, Unspecified [...] Lujan DO [address] [place] [address] 12/18/2022 Surgery Endoscopy Katt Lujan DO [address] [place] [address] COLONOSCOPY FLEXIBLE PROXIMAL DIAGNOSTIC 01/22/2023 Office Visit Internal Medicine Jian Vaz MD [address] [place], [place] [address] [address] 02/26/2023 Office Visit Rheumatology Kyra Morales CRNP [address] [place] [address] [place] [phone] Pending Results Name Type Priority Associated Diagnoses Date /Time MYCODE SUBSEQUENT ADULT Lab Routine [employer] Other*[id number] 10/25/2022 10:10 AM EDT CBC WITH WBC DIFFERENTIAL Lab Routine Rheumatoid arthritis involving multiple sites with positive rheumatoid factor ([facility]) 10/25/2022 10:10 AM EDT ERYTHROCYTE SEDIMENTATION RATE (ESR) Lab Routine Rheumatoid arthritis involving multiple sites with positive rheumatoid factor ([facility]) 10/25/2022 10:10 AM EDT HEPATITIS B CORE ANTIBODIES IGG AND IGM Lab Routine Rheumatoid arthritis involving multiple sites with positive rheumatoid factor ([facility]) 10/25/2022 10:10 AM EDT HEPATITIS B SURFACE ANTIBODY Lab Routine Rheumatoid arthritis involving multiple sites with positive rheumatoid factor ([facility]) 10/25/2022 10:10 AM EDT HEPATITIS B SURFACE ANTIGEN Lab Routine Rheumatoid arthritis involving multiple sites with positive rheumatoid factor ([facility]) 10/25/2022 10:10 AM EDT HEPATITIS C ANTIBODY SCREEN WITH PROGRESSION TO HEPATITIS C RNA QUANTITATIVE Lab Routine Rheumatoid arthritis involving multiple sites with positive rheumatoid factor ([facility]) 10/25/2022 10:10 AM EDT QUANTIFERON TB GOLD PLUS Lab Routine Rheumatoid arthritis involving multiple sites with positive rheumatoid factor ([facility]) 10/25/2022 10:10 AM EDT MYCODE SST1 Lab Routine [employer] Other*[id number] 10/25/2022 10:10 AM EDT MYCODE SST2 Lab Routine [employer] Other*[id number] 10/25/2022 10:10 AM EDT CBC Lab Routine Rheumatoid arthritis involving multiple sites with positive rheumatoid factor (HCC) 10/25/2022 10:10 AM EDT DIFFERENTIAL, AUTOMATED Lab Routine Rheumatoid arthritis involving multiple sites with positive rheumatoid factor (HCC) 10/25/2022 10:10 AM EDT HEPATITIS C ANTIBODY Lab Routine Rheumatoid arthritis involving multiple sites with positive rheumatoid factor (HCC) 10/25/2022 10:10 AM EDT HEPATITIS C RNA ADD ON Lab Routine Rheumatoid arthritis involving multiple sites with positive rheumatoid factor ([facility]) 10/25/2022 10:10 AM EDT URINALYSIS WITH MICROSCOPIC EXAM Lab Routine Rheumatoid arthritis involving multiple sites with positive rheumatoid factor ([facility]) 10/25/2022 10:28 AM EDT PROTEIN/ CREATININE RATIO, URINE Lab Routine Rheumatoid arthritis involving multiple sites with positive rheumatoid factor ([facility]) 10/25/2022 10:28 AM EDT Scheduled Procedures Name Priority Associated Diagnoses Date/Ti [...] as of this encounter Visit Diagnoses Diagnosis [employer] Other*[id number] Rheumatoid arthritis involving multiple sites with positive rheumatoid factor (HCC) Screen for colon cancer Special screening for malignant neoplasms, colon documented in this encounter Care Teams Waste Handling Technician Relationship Specialty Start Date End Date Jian Vaz MD [address] [place] [address] PCP - General Internal Medicine 01/15/17 documented as of this encounter
--- OUTSIDE RECORDS SUMMARY | 2023-03-21 08:16 | External Medical Summary ---
Author Name Unknown Address Unknown Organization K01:[facility] [address] [place] [address] Laboratory Report Ordering Provider Test Date Status SCOT MEDEIROS 10/25/2022 10:10:01 Final Observation Date Value Abnormality Reference (Units) Status Hepatitis B virus surface Ab [Units/volume] in Serum or Plasma by Immunoassay 10/25/2022 10:10:01 23.5 (mIU/mL) Final Hepatitis B virus surface Ab [Presence] in Serum by Immunoassay 10/25/2022 10:10:01 Positive Final HEPATITIS B SURFACE ANTIBODY, INTERPRETATION 10/25/2022 10:10:01 Immune to Hepatitis B Virus Final POSITIVE: >=11.5 mIU/mL
INDETERMINATE: 8.5-<11.5 mIU/mL
NEGATIVE: <8.5 mIU/mL Performing Location [facility] [address] [place] [address]
--- OUTSIDE RECORDS SUMMARY | 2023-03-21 08:16 | External Medical Summary ---
Author Name Unknown Address Unknown Organization K01:[facility] - [address] [place] [address] Laboratory Report Ordering Provider Test Date Status JEFFRY AVILES 10/19/2022 09:42:09 Final Observation Date Value Abnormality Reference (Units ) Status Rheumatoid Factor 10/19/2022 09:42:09 20 Above high normal <14 (IU/mL) Final Performing Location [facility] - [address] [place] [address]
--- OUTSIDE RECORDS SUMMARY | 2023-03-21 08:16 | External Medical Summary | Summary of Care ---
Author Name Unknown Organization [facility] Address [address] [place] [address] Phone [phone] Care Team Providers Care President [employer] Name Role Phone Jian Vaz MD Primary Care Provider + Reason for Visit * Reason Onset Date Comments Referral 10/20/2022 rheum Encounter Details Date Type Department Care Team Description 10/20/2022 Telephone General Internal Medicine [facility] [place] [address] [facility] [place], [place] [phone] Jian Vaz MD [address] [place] [address] Referral (rheum) Allergies Active Allergy Reactions Severity Noted Date Comments Indomethacin 01/31/2002 Severe headache documented as of this encounter (statuses as of 10/20/2022) Medications Medication Sig Dispensed Refills Start Date [...] as needed for Pain, Mild. 0 Active documented as of this encounter (statuses as of 10/20/2022) Active Problems Problem Noted Date Rheumatoid arthritis [...] as of this encounter (statuses as of 10/20/2022) Resolved Problems Problem Noted Date Resolved Date [...] as of this encounter (statuses as of 10/20/2022) Immunizations Name Administration Dates Next Due COVID-19 mRNA, LNP-s, No Pre serve, 2-Dose Series (Moderna) 04/17/2020,03/20/2020 Hepatitis B, 20+ yrs 11/20/1994,06/30/1994,06/01 Pneumococcal Conjugate Vacci ne, 20-valent ([id number]) 01/07/2022 Seasonal Influenza Virus Vac cine, Unspecified Formulation 12/24/2013,11/27/2012 Seasonal Influenza, PF, 6 mo ns & Above, IM , (Flulaval) 11/30/2020,12/03/2019 Seasonal Influenza, Quadriva lent Hd (Fluzone Hd) 01/07/2022 Seasonal Influenza, Quadriva lent, No Preserve, IM 11/27/2018,12/17/2017 Seasonal Influenza, Split, I IV3, With Preserve, Inj 11/23/2016,11/11/2015,12/24/2013,2012 TD - Tetanus/Diptheria (ADULT) 10/10/2005,2004,06/01/1994 TD, Preservative [...] encounter Miscellaneous Notes * Telephone Encounter - BIBI Mendoza - 10/20/2022 11:47 AM EDT Faxed rheum ref to Dr Grace per laron 10/20 ZACHT documented in this encounter Plan of Treatment Upcoming Encounters Date Type Specialty Care Team Description 12/18/2022 Hospital Encounter Endoscopy Katt Lujan DO [address] [place] [address] 12/18/2022 Surgery Endoscopy Katt Lujan, DO [address] [place] [address] COLONOSCOPY FLEXIBLE PROXIMAL DIAGNOSTIC 01/22/2023 Office Visit Internal Medicine Jian Vaz MD [address] [facility] [place] [address] Scheduled Procedures Name Priority Associated Diagnoses Date/Ti [...] Additional history exists Lipid Panel 10/20/2027 10/19/2022, 12/0 09/2021, 02/09/2021, Additional history exists Hepatitis B [...] filedocumented as of this encounter Care Teams President [employer] Relationship Specialty Start Date End Date Jian Vaz MD [address] [place] [address] PCP - General Internal Medicine 01/15/17 documented as of this encounter
--- OUTSIDE RECORDS SUMMARY | 2023-03-21 08:16 | External Medical Summary | Summary of Care ---
Author Name Unknown Organization [facility] Address [address] [place] [address] Phone [phone] Care Team Providers Care Critical Care Cns Name Role Phone Jian Teran MD Primary Care Provider + Reason for Referral * Evaluate & Treat - Unlimited Visits (Within 10 days (routine)) - Pending Review Specialty Diagnoses / Procedures Referred By Cornelius more Referred To Contact Rheumatology Diagnoses Bilateral hand pain Rheumatoid arthritis involving multiple sites with positive rheumatoid factor (HCC) Jian Teran MD [address] [place] [facility] [address] Referral ID Status Reason Start Date Expiration Date Visits Requested Visits Authorized [id number] Pending Review Specialty Services Required 10/20/[phone] Question Answer Referral Priority Within 10 days (routine) Reason for referral: Inflammatory arthritis/Autoimmune or Connective Tissue Diseases Comments New onset ra Reason for Visit * Reason Comments Acute Patient presents wit h concerns for arthritis in both hands, right is worse than left. States when she wakes up in the morning they are stiff and hard to move. Encounter Details Date Type Department Care Team Description 10/18/2022 Telemedicine General Internal Medicine [place] [employer] [facility] [address] Jian Teran MD [address] [place] [address] Bilateral hand pain*; Rheumatoid arthritis involving multiple sites with positive [...] as needed for Pain, Mild. 0 Active Benzonatate 100 MG Oral Capsule (Testy Bunch)Indication s:Lung infection Take 1 Capsule by mouth 3 times a day as needed for Cough. Do not cut, crush, or chew. 50 Capsule 1 07/20/2022 10/18/2022 Discontinued Mucinex DM 30-600 MG Oral Tablet Extended Release 12 HourIndications:L karlos infection Take 1 Tablet by mouth 2 times a day as needed for Cough. Take with plenty of water. Do not cut, crush or chew 40 Tablet 2 07/20/2022 10/18/2022 Discontinued documented as of this encounter (statuses [...] (Moderna) 04/17/2020,03/20/2020 Hepatitis B, 20+ yrs 11/20/1994,06/30/1994,06/01 PPD 07/05/1999 Pneumococcal Conjugate Vacci ne, 20-valent ([id number]) 01/07/2022 Seasonal Influenza Virus Vac cine, Unspecified Formulation 12/24/2013,11/27/2012 Seasonal Influenza, PF, 6 mo ns & Above, IM , (Flulaval) 11/30/2020,12/03/2019 Seasonal Influenza, Quadriva lent Hd (Fluzone Hd) 01/07/2022 Seasonal Influenza, Quadriva lent, No Preserve, IM 11/27/2018,12/17/2017 Seasonal Influenza, Split, I IV3, With Preserve, Inj 11/23/2016,11/11/2015,12/24/2013,2012,11/22/1998 TD - Tetanus/Diptheria (ADULT) 10/10/2005,2004,06/01/1994 TD, Preservative [...] Sign Reading Time Taken Comments Blood Pressure - - Pulse - - Temperature - - Respiratory Rate - - Oxygen Saturation - - Inhaled Oxygen Concentration - - Weight 61.7 kg (136 lb) 10/18/2022 5:53 PM EDT Height - - Body Mass Index 20.99 07/20/2022 11:18 AM EDT documented in this encounter Progress Notes * Jian Teran MD - 10/18/2022 6:41 PM EDT Patient location: HOME. I was in a hospital or clinic location. After connecting through [facility] [employer],patient was verified with two unique identifiers. Patient (or authorized legal new accounts banking representative) was then informed that this was a Telemedicine visit and being conducted confidentially over secure lines. Methods to assure confidentiality were taken. Patient acknowledged consent and understanding of pr ivacy and security of the Telemedicine visit. The patient agreed to participate. Chief Complaint Patient presents with Acute Patient presents with concerns for arthritis in both hands, right is worse than left. States when she wakes up in the morning they are stiff and hard to move. SUBJECTIVE: Elena Coulter is a 67 year old female with PMH as below who presents for acute. C/o bilateral hands stiffness and pain which is markedly worse past week. Usually worse in am when awakens usually PIPhurts, taking aleve for this. Fingers also swell. No fevers, chills, rash. 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 No current facility-administered medications for this visit. Review of patient's allergies indicates: Allergen Reactions Indomethacin Severe headache Health Maintenance Due Topic Date Due COVID-19 Vaccine (3 - Moderna series) 06/12/2020 Colorectal Cancer Screening 07/17/2022 Influenza Vaccine (FLU shot) (1) 10/13/2022 ROS: CONSTITUTIONAL: No change in weight, No weakness, and No fevers, sweats, or chills EXTREMITIES: as per hpi ALL OTHER SYSTEMS NEGATIVE I reviewed social, PMH, PSH, and family history and updated where needed. Social History Socioeconomic History Marital status: Spouse name: Not on file Number of children: 3 Years of education: Not on file Highest education level: Not on file Occupational History Occupation: retired! Tobacco Use Smoking status: Former Packs/day: 0.50 Years: 16.00 Pack years: 8.00 Types: Cigarettes Quit date: 02/12/1989 Years since quittin.7 Smokeless tobacco: Never Vaping Use Vaping Use: Never used Substance and Sexual Activity Alcohol use: Yes Alcohol/week: 7.0 standard drinks Types: 7 5 oz of wine per week Comment: wine daily Drug use: No Sexual activity: Yes Other Topics Concern Not on file Social History Narrative Not on file Social Determinants of Health Financial Resource Strain: Not on file Food Insecurity: No Food Insecurity Worried About Running Out of Food in [...] gene mutation negative 2008 Breast cancer (HCC) 2006 left breast with mastectomy History of breast cancer 01/15/2017 Left arm pain 12/28/2015 MEDICATION USE AGREEMENT 01/19/2020 OTHER breast cancer THORACIC OUTLET SYNDROME Past Surgical History: Procedure [...] Relation Age of Onset Breast Cancer Mother Other (MSA) Brother Cancer Brother prostate cancer Neurological Disorder Father Idiopathic peripheral neuropathy-- also 2 aunts and 1 uncle have same problem Cancer Father prostate Breast Cancer Aunt (Paternal) Breast Cancer Aunt (Paternal) Breast Cancer Aunt (Paternal) OBJECTIVE: PHYSICAL EXAM: Wt 61.7 kg (136 lb) | LMP 04/12/2006 | BMI 20.99 kg/m | BSA 1.71 m General: alert, healthy, and no distress Head: Normocephalic, No masses, lesions, or abnormalities Extremities: no edema, no clubbing, no cyanosis +swelling bilateral digits ASSESSMENT: M79.641,M79.642 Bilateral hand pain (primary encounter diagnosis) PLAN: Bilateral hand pain (Primary) - RHEUMATOID FACTOR; Future; Expected date: 10/18/2022 - CYCLIC CITRULLINATED PEPTIDE IGG ANTIBODY; Future; Expected date: 10/18/2022 - XR HAND 3 OR MORE VIEWS - LYME DISEASE ANTIBODY SCREEN WITH REFLEX TO CONFIRMATION; Future; Expected date: 10/18/2022 Check labs as above, would try to exclude ra, has fh of this. Will also update x-rays Further recs pending labs, image Follow Up: Return if symptoms worsen or fail to improve and as scheduled.. Jian Teran MD documented in this encounter Nursing Notes * Karson Kunz CMA - 10/18/2022 5:52 PM EDT Chief Complaint Patient presents with Acute Patient presents with concerns for arthritis in both hands, right is worse than left. States when she wakes up in the morning they are stiff and hard to move. documented in this encounter Miscellaneous Notes * Addendum Note - Jian Teran MD - 10/20/2022 11:26 AM EDTAddended by: JIAN TERAN on: 10/20/2022 11:26 AM Modules accepted: Orders documented in this encounter Plan of Treatment Upcoming Encounters Date Type Specialty Care Team Description 12/18/2022 Hospital Encounter Endoscopy Katt Lujan DO [address] [place] [address] 12/18/2022 Surgery Endoscopy Katt Lujan DO [address] [place] [address] COLONOSCOPY FLEXIBLE PROXIMAL DIAGNOSTIC 01/22/2023 Office Visit Internal Medicine Jian Teran MD [address] [place], [place] [address] [address] Pending Results Name Type Priority Associated Diagnoses Date /Time XR HAND 3 OR MORE VIEWS Medical Imaging Routine Bilateral hand pain 10/19/2022 9:37 AM EDT Scheduled Procedures Name Priority Associated Diagnoses Date/Ti md COLONOSCOPY FLEXIBLE PROXIMAL DIAGNOSTIC Screen for colon cancer 12/18/2022 10:15 AM EST Scheduled Referrals Name Type Priority Associated Diagnoses Order Schedule RHEUMATOLOGY REFERRAL OP Referral Within 10 days (routine) Bilateral hand pain Rheumatoid arthritis involving multiple sites with positive rheumatoid factor (HCC) Ordered: 10/20/2022 Health Maintenance Due Date Last Done Comments [...] Not on filedocumented as of this encounter Results * (ABNORMAL) CYCLIC CITRULLINATED PEPTIDE IGG ANTIBODY (10/19/2022 9:42 AM EDT) Pathologist [facility] Cyclic Citrullinated Peptide IgG Antibody Interpretation Positive( A) Negative 10/20/2022 11:16 AM EDT [facility] Cyclic Citrullinated Peptide IgG Antibody Value 96.0 <7 U/mL 10/20/2022 11:16 AM EDT [facility] Blood Venous blood specimen / Unknown Venipuncture / Unknown 10/19/2022 9:42 AM EDT 10/19/2022 9:42 AM EDT Jian Teran MD LAB BLOOD ORDERA BLES [facility] [address] [place] [address] * (ABNORMAL) RHEUMATOID FACTOR (10/19/2022 9:42 AM EDT) Rheumatoid Factor 20(H) <14 IU/mL 10/19/2022 7:28 PM EDT [facility] Blood Venous blood specimen / Unknown Venipuncture / Unknown 10/19/2022 9:42 AM EDT 10/19/2022 9:42 AM EDT Jian Teran MD LAB BLOOD ORDERA BLES Performing Organization Address City/[facility]/ZIP Co de Phone Number [facility] [place] [address] [place] [address] documented in this encounter Visit Diagnoses Diagnosis Bilateral hand pain- Primary Pain in limb Rheumatoid arthritis involving multiple sites with positive rheumatoid factor (HCC) Screen for colon cancer Special screening for malignant neoplasms, colon documented in this encounter Care Teams Critical Care Cns Relationship Specialty Start Date End Date Jian Teran MD [address] [place] [address], [place] [address] PCP - General Internal Medicine 01/15/17 documented as of this encounter"
--- OUTSIDE RECORDS SUMMARY | 2023-03-21 08:16 | External Medical Summary ---
Author Name Unknown Address Unknown Organization [id number]:[facility] [place] [address] [place] [address] Laboratory Report Ordering Provider Test Date Status SCOT MEDEIROS 10/25/2022 10:10:01 Final Observation Date Value Abnormality Reference (Units ) Status Erythrocyte sedimentation rate by Photometric method 10/25/2022 10:10:01 10 <30 (mm/hour) Final Performing Location [facility] [place] [address] [facility] [address]
--- OUTSIDE RECORDS SUMMARY | 2023-03-21 08:16 | External Medical Summary ---
Author Name Unknown Address Unknown Organization [id number]:LABORATORY [facility] [place] - [address] [place] [address] Laboratory Report Ordering Provider Test Date Status SCOT MEDEIROS 10/25/2022 10:10:01 Final Observation Date Value Abnormality Reference (Units ) Status Hep B surface Ag 10/25/2022 10:10:01 Negative Neg ative Final Performing Location [facility] - [address] [place] [address]
--- OUTSIDE RECORDS SUMMARY | 2023-03-21 08:16 | External Medical Summary | Summary of Care ---
Author Name Unknown Organization [facility] Address [address] [place] [address] Phone [phone] Care Team Providers Care Interlocking Machine Operator Name Role Phone Jian Vaz MD Primary Care Provider + Reason for Visit * Reason Comments NEW PATIENT Referred by Dr. Blaise huff for possible RA * Evaluate & Treat - Unlimited Visits (Within 10 days (routine)) - Pending Review Specialty Diagnoses / Procedures Referred By Cornelius more Referred To Contact Rheumatology Diagnoses Bilateral hand pain Rheumatoid arthritis involving multiple sites with positive rheumatoid factor (HCC) Jian Vaz MD [address] [place] [address] Referral ID Status Reason Start Date Expiration Date Visits Requested Visits Authorized [id number] Pending Review Specialty Services Required 10/20/[phone] Encounter Details Date Type Department Care Team Description 11/07/2022 Office Visit Rheumatology [address] [place] [address] [facility] [place], [place] [address] Rheumatoid arthritis involving multiple sites with positive rheumatoid factor (HCC)*; Encounter for long-term (current) use of medications Allergies Active Allergy Reactions Severity Noted Date Comments Amitriptyline 11/07/2022 Other Reaction(s): "fuzzy brained" Gabapentin 11/07/2022 Other Reaction(s): forgetfulness Indomethacin 01/31/2002 Severe headache Nortriptyline 11/07/2022 Other Reaction(s): disorganized Trazodone 11/07/2022 Other Reaction(s): 'thick-headed" documented as of this encounter (statuses as of 11/07/2022) Medications Medication Sig Dispensed Refills Start Date [...] food. 60 Tablet 11 10/23/2022 Active predniSONE 5 MG Oral Tablet (Deltasone)Indicatio ns:Rheumatoid arthritis involving multiple sites with positive rheumatoid factor (HCC) Take one tablet daily 100 Tablet 2 10/23/2022 Active documented as of this encounter (statuses as of 11/07/2022) Active Problems Problem Noted Date DDD (degenerative disc disease), cervica l 11/07/2022 Encounter for long-term (current) use of medications 11/07/2022 Rheumatoid arthritis involvi ng multiple sites [...] as of this encounter (statuses as of 11/07/2022) Resolved Problems Problem Noted Date Resolved Date [...] 09/18/2002 09/25/2002 Female genital symptoms 01/31/2002 12/28/19 Overview: ICD-10 update of inactive term BACK PAIN 01/31/2002 12/28/2015 documented as of this encounter (statuses as of 11/07/2022) Immunizations Name Administration Dates Next Due COVID-19 mRNA, LNP-s, No Pre serve, 2-Dose Series (Moderna) 04/17/2020,03/20/2020 Hepatitis B, 20+ yrs 11/20/1994,06/30/1994,06/01 Pneumococcal Conjugate Vacci ne, 20-valent ([id number]) 01/07/2022 Seasonal Influenza Virus Vac cine, Unspecified [...] Pressure - - Pulse - - Temperature 36.8 C (98.2 F) 11/07/2022 10:23 AM E DT Respiratory Rate - - Oxygen Saturation - - Inhaled Oxygen Concentration - - Weight - - Height - - Body Mass Index - - documented in this encounter Progress Notes * Javi Sexton MD - 11/07/2022 10:25 AM EDT Images from the original note were not included. Assessment and Plan Rheumatoid arthritis involving multiple sites with positive rheumatoid factor (HCC) - CBC with WBC Differential; Future Encounter for long-term (current) use of medications She is a new diagnosis of rheumatoid arthritis and was started on hydroxychloroquine by an outside provider. Reasonable thing continue with this treatment and would take 200 mg alternating with 400 mg daily. Will update labs in 1 month. Await eye exam. Return to clinic in 3 months and 9 months. Rheumatology Synopsis: [facility] RA SYNOPSIS Date of RA Diagnosis: 09/12/22 (11/07/2022 10:00 AM) Current Treatment: HCQ (11/07/2022 10:00 AM) 2009 Classification Criteria: Y (11/07/2022 10:00 AM) Seropositive or seronegative: Seropositive (11/07/2022 10:00 AM) RF and/or CCP: Dual Positive (11/07/2022 10:00 AM) Disease activity: Uncontrolled-just started treatment Patient History History of Present Illness HPI:67 year old female presented to rheumatology clinic for NEW PATIENT (Referred by Dr. Vazfor possible RA) She reports that in September started to note issues with her hands that was new. She had pain, swelling, stiffness. She saw her PCP and had labs that showed RF 20 and CCP 96. She reports that the pain and stiffness lasted for several hrs. Dr Vaz sent an ask a doc and Dr Snyder stated likely RA. Esr/crp were noted elevated/. She was given steroid taper But did not take it. She could not get in here so was seen at [facility]. I can see that note. She reports her mother had severe RA that started in her 30's. No other family members with RA. Her mother was on MTX as well. She was started on hydroxychloroquine at 400 mg daily and has been taking this for a few weeks. She is tolerating it. Her PCP is getting her set up with Ophthalmology for Plaquenil toxicity screen. No other joints are involved like her hands. Prior this she she did deal with [facility]MC arthritis as well as neck disease. ROS: Review of Systems was asked and the following other significant symptoms are present: joint pains, swelling, no other issues Subjective Patient's past history, medications, and allergies were reviewed. Medications: Current Outpatient Medications Medication Instructions Cyclobenzaprine HCl 5 MG Oral Tablet (Flexeril) TAKE 1 TABLET BY MOUTH AT BEDTIME - may take an extra tablet at night for severe pain HYDROcodone-Acetaminophen 5-325 MG Oral Tablet 1 Tablet, Oral, Q6H PRN hydroxychloroquine (PLAQUENIL) 400 mg, Oral, Daily(Non-Specified), With food. Naproxen 500 MG Oral Tablet (Naprosyn) 1 pill twice a day by mouth with food as needed for pain predniSONE 5 MG Oral Tablet (Deltasone) Take one tablet daily Objective Physical Exam Temp 36.8 C (98.2 F) (Tympanic) | LMP 04/12/2006 Constitutional: no acute distress HEENT: normal: normocephalic, atraumatic; no masses, tenderness, or adenopathy Eyes: PERRLA, sclera and conjunctiva normal Neck: supple, no adenopathy CV: normal rate and rhythm, no murmur, gallops or rub Chest: normal respiratory effort, lungs clear to auscultation and percussion Abdomen: normal: soft, bowel sounds normal, no masses, tenderness or organomegaly Musculoskeletal: Trace synovitis at the PIPs 2 through 5 both hands with tenderness. Mildly decreased bmx rider strength bilaterally MSK/Joint exam (Homunculus) MSK Exam findings: Homunculus exam Studies: Labs and other studies reviewed with pertinent findings noted below: Disease Treatment Response CDAI Scoring - Patient Global: 20 mm Provider Global: 40 mm Tender: 8 Swollen: 8 CDAI: 22 CDAI (Clinical Disease Activity Index) [facility] [place] Outcomes measures: Serial CDAI: Synopsis SmartLink 11/07/2022 10:00 CDAI CDAI 22 - Serial CDAI: - No - Remission: - No - low disease activity - Disease Activity: Worse/Uncontrolled On csDMARD: Yes On Biologic DMARD: No Vaccination status: COVID: Vaccine and/or Health maintenance status Incomplete Influenza:Flu Vaccine pending for this season Pneumococcal:Vaccine Series complete Zoster:Vaccine Series Complete Last Hepatitis and TB testing: Hepatitis B: Tested, result reviewed Hepatitis C: Tested, result reviewed PPD or TB-Gold: Not Tested, results not available Lab Results Component Value Date HBSAG Negative 10/25/2022 HEPB Negative 10/25/2022 HEPB 23.5 10/25/2022 HEPB Positive 10/25/2022 HEPB Immune to Hepatitis B Virus 10/25/2022 HCVAB Negative 10/25/2022 No results found for: TB GOLD AG NIL, TB GOLD MITOGEN NIL, PPD INDURATION - Follow Up: Return in about 6 months (around 05/08/2023). documented in this encounter Nursing Notes * Brooklynn Guevara LPN - 11/07/2022 10:22 AM EDT Chief Complaint Patient presents with NEW PATIENT Referred by Dr. Vaz for possible RA documented in this encounter Plan of Treatment Upcoming Encounters Date Type Specialty Care Team Description 12/18/2022 Hospital Encounter Endoscopy Katt Lujan DO [address] [place] [address] 12/18/2022 Surgery Endoscopy Katt Lujan, [address] [place] [address] COLONOSCOPY FLEXIBLE PROXIMAL DIAGNOSTIC 12/20/2022 Office Visit Ophthalmology Servando Rdz MD [address] [facility] [place] [id number] 01/22/2023 Office Visit Internal Medicine Jian Vaz MD [address] [place] [address] 02/01/2023 Office Visit Rheumatology Javi Sexton MD [address] [place] [address] 02/26/2023 Office Visit Rheumatology Kyra Morales CRNP [address] [place] [address] 08/01/2023 Office Visit Rheumatology Javi Sexton MD [address] [place] [address] Scheduled Orders Name Type Priority Associated Diagnoses Orde r Schedule CBC WITH WBC DIFFERENTIAL Lab Routine Rheumatoid arthritis involving multiple sites with positive rheumatoid factor (HCC) Expected: 11/07/2022, Expires: 11/08/2023 Scheduled Procedures Name Priority Associated Diagnoses Date/Ti [...] for long-term (current) use of other medications Screen for colon cancer Special screening for malignant neoplasms, colon documented in this encounter Care Teams Interlocking Machine Operator Relationship Specialty Start Date End Date Jian Vaz MD [address] [place] [address] [place] [address] PCP - General Internal Medicine 01/15/17 documented as of this encounter
--- OUTSIDE RECORDS SUMMARY | 2023-03-21 08:16 | External Medical Summary ---
Author Name Unknown Address Unknown Organization [id number][facility] [address] [place] [address] Laboratory Report Ordering Provider Test Date Status SCOT MEDEIROS 10/25/2022 10:10:01 Final Observation Date Value Abnormality Reference (Units ) Status WBC, Total 10/25/2022 10:10:01 4.61 4.00-10.8 0 (K/uL) Final RBC 10/25/2022 10:10:01 4.71 3.85-5.15 (M/uL) Final Hemoglobin 10/25/2022 10:10:01 13.6 12.0-15.3 (g/dL) Final HCT 10/25/2022 10:10:01 42.0 36.0-45.2 (%) Final MCV 10/25/2022 10:10:01 89.2 81.5-97.5 (fL) Final MCH 10/25/2022 10:10:01 28.9 27.0-34.0 (pg) Final MCHC 10/25/2022 10:10:01 32.4 32.0-36.0 (g/dL) Final RDW 10/25/2022 10:10:01 14.4 11.5-15.5 (%) Final Platelets 10/25/2022 10:10:01 285 140-400 (K /uL) Final MPV 10/25/2022 10:10:01 9.5 6.6-11.1 ( fL) Final Performing Location [facility]ORY [facility] - [address] [place] [address]
--- OUTSIDE RECORDS SUMMARY | 2023-03-21 08:16 | External Medical Summary ---
Author Name Unknown Address Unknown Organization K0G:[facility]ATORY [facility] [address] - [address] [place] [address] Laboratory Report Ordering Provider Test Date Status SCOT MEDEIROS 10/25/2022 10:10:01 Final Observation Date Value Abnormality Reference (Units ) Status SYNC LEUKOCYTES IN BLOOD BY AUTOMATED COUNT 10/25/2022 10:10:01 4.61 4.00-10.80 (K/uL) Final Segs 10/25/2022 10:10:01 54.0 40.0-75.0 (%) Final Lymphs % 10/25/2022 10:10:01 37.3 18.0-42.0 (%) Final Monos 10/25/2022 10:10:01 7.2 1.0-11.0 (%) Final Eosinophils 10/25/2022 10:10:01 1.3 0.0-6.0 (%) Final Basos 10/25/2022 10:10:01 0.2 0.0-2.0 (%) Final Absolute Segs 10/25/2022 10:10:01 2.49 1.80-7.70 (K/uL) Final Lymphs, absolute 10/25/2022 10:10:01 1.72 1.00-4.80 (K/ul) Final Monos, Abs 10/25/2022 10:10:01 0.33 0.00-1.10 (K/uL) Final Eos, Abs 10/25/2022 10:10:01 0.06 0.00-0.70 (K/uL) Final Basos, Abs 10/25/2022 10:10:01 0.01 0.00-0.20 (K/uL) Final Performing Location [facility] [address] - [address] [place] [address]
--- OUTSIDE RECORDS SUMMARY | 2023-03-21 08:16 | External Medical Summary ---
Author Name Unknown Address Unknown Organization [id number]:[place] [facility] [place] [address] [place] [address] Laboratory Report Ordering Provider Test Date Status DO STEFANKENDY 10/19/2022 09:42:09 Final Observation Date Value Abnormality Reference (Units ) Status Triglyceride 10/19/2022 09:42:09 88 <=174 ( mg/dL) Final Triglyceride Reference Range s (mg/dL):
<150 Acceptable
150-174 Borderline high
175-499 High
>=500 Very high Cholesterol 10/19/2022 09:42:09 262 Above high normal <200 (mg/dL) Final Total Cholesterol Reference Ranges (mg/dL):
<200 Desirable
200-239 Borderline high
>=240 High HDL 10/19/2022 09:42:09 95 >49 (mg/dL ) Final HDL Cholesterol Reference Ra nges (mg/dL):
>=60 High (Desirable)
<50 Low (Undesirable) For Females
<40 Low (Undesirable) For Males NON-HDL CHOLESTEROL 10/19/2022 09:42:09 167 Above high normal <=159 (mg/dL) Final Non-HDL Cholesterol Referenc e Range (mg/dL):
<100 Target level for high risk ASCVD patient
<130 Optimal for general population
130-159 Near optimal for general population
160-189 Borderline High
190-219 High
>=220 Very High LDL, (calculated) 10/19/2022 09:42:09 149 Above high n ormal <=129 (mg/dL) Final LDL Cholesterol Reference Ra nges (mg/dL):
<70 Target level for high risk ASCVD patient
<100 Optimal for general population
100-129 Near optimal for general population
130-159 Borderline high
160-189 High
>=190 Very high Performing Location [facility] [place] [place] [address] [facility] [address]
--- OUTSIDE RECORDS SUMMARY | 2023-03-21 08:16 | External Medical Summary ---
Author Name Unknown Address Unknown Organization [id number]:[facility] [place] [address] [place] [address] Laboratory Report Ordering Provider Test Date Status JEFFRY AVILES 10/19/2022 09:42:09 Final Observation Date Value Abnormality Reference (Units ) Status Borrelia burgdorferi IgG and IgM [Interpretation] in Serum by Immunoassay 10/19/2022 09:42:09 Negative Negative Final Performing Location [facility] [place] [address] [place] [address]
--- OUTSIDE RECORDS SUMMARY | 2023-03-21 08:16 | External Medical Summary | Summary of Care ---
Author Name Unknown Organization [facility] Address [address] [place] [address] Phone [phone] Care Team Providers Care Orthotic Fitter Name Role Phone Jian Vaz MD Primary Care Provider + Reason for Visit * Reason Onset Date Comments Test Results Imaging Study 11/16/2022 Encounter Details Date Type Department Care Team Description 11/16/2022 Telephone Radiology Film File [address] [place], [place] [id number] Kyra Morales CRNP [address] [place] [address] Test Results Imaging Study Allergies Active Allergy Reactions Severity Noted Date Comments Amitriptyline 11/07/2022 Other Reaction(s): "fuzzy brained" Gabapentin 11/07/2022 Other Reaction(s): forgetfulness Indomethacin 01/31/2002 Severe headache Nortriptyline 11/07/2022 Other Reaction(s): disorganized Trazodone 11/07/2022 Other Reaction(s): 'thick-headed" documented as of this encounter (statuses as of 11/16/2022) Medications Medication Sig Dispensed Refills Start Date [...] as of this encounter (statuses as of 11/16/2022) Active Problems Problem Noted Date DDD (degenerative [...] as of this encounter (statuses as of 11/16/2022) Resolved Problems Problem Noted Date Resolved Date [...] as of this encounter (statuses as of 11/16/2022) Immunizations Name Administration Dates Next Due COVID-19 mRNA, LNP-s, No Pre serve, 2-Dose Series (Moderna) 04/17/2020,03/20/2020 Hepatitis B, 20+ yrs 11/20/1994,06/30/1994,06/01 Pneumococcal Conjugate Vacci ne, 20-valent ([id number]) 01/07/2022 SEASONAL INFLUENZA, PF, 6 M & [...] encounter Miscellaneous Notes * Telephone Encounter - BIIB Gatica - 11/16/2022 3:24 PM EDT [facility] requesting 04/05/21 through 10/25/22 Spine Xray report(s). [place] Authorization to Release on file. Report(s) faxed to [phone]. Successful fax confirmation received. documented in this encounter Plan of Treatment Upcoming Encounters Date Type Specialty Care Team Description 12/18/2022 Hospital Encounter Endoscopy Katt Lujan, [address] [place] [address] 12/18/2022 Surgery Endoscopy Katt Lujan DO [address] [place] [address] COLONOSCOPY FLEXIBLE PROXIMAL DIAGNOSTIC 12/20/2022 Office Visit Ophthalmology Servando Rdz MD [address] [facility] [place] [address] 01/22/2023 Office Visit Internal Medicine Jian Vaz MD [address] [place] [address] 02/01/2023 Office Visit Rheumatology Javi Sexton MD [address] [place] [address] 02/26/2023 Office Visit Rheumatology Kyra Morales CRNP [address] [place] [address] 08/01/2023 Office Visit Rheumatology Javi Sexton MD [address] [place], [place] [id number] Scheduled Procedures Name Priority Associated Diagnoses Date/Ti [...] filedocumented as of this encounter Care Teams Orthotic Fitter Relationship Specialty Start Date End Date Jian Vaz MD [address] [facility] [place], [place] [id number] PCP - General Internal Medicine 01/15/17 documented as of this encounter
--- OUTSIDE RECORDS SUMMARY | 2023-03-21 08:16 | External Medical Summary ---
Author Name Unknown Address Unknown Organization K01:[facility] [place] [address] [place] [address] Laboratory Report Ordering Provider Test Date Status SCOT MEDEIROS 10/25/2022 10:28:48 Final Normal: <150 mg/ g creatinine
High: 150-500 mg/g creatinine
Very High: >500 mg/g creatinine
Nephrotic: >3000 mg/g creatinine Observation Date Value Abnormality Reference (Units) Status Protein, Urine 10/25/2022 10:28:48 <4 (mg/dL) Final Creatinine, Urine 10/25/2022 10:28:48 23 (mg/dL) Final PROTEIN/CREATININE RATIO, HIDE 10/25/2022 10:28:48 Uninterpretable Protein/Creatinine ratio due to very low protein and creatinine values. (mg/g) Final Performing Location [facility] [place] [address] [place] [address]
--- OUTSIDE RECORDS SUMMARY | 2023-03-21 08:16 | External Medical Summary ---
Author Name Unknown Address Unknown Organization : Laboratory Report Ordering Provider Test Date Status SCOT MEDEIROS 10/25/2022 10:10:01 Final Observation Date Value Abnormality Reference (Units ) Status Mycobacterium tuberculosis stimulated gamma interferon [Interpretation] in Blood Qualitative 10/25/2022 10:10:01 NEGATIVE NEGATIVE Final Negative test result. M. tub erculosis complex
infection unlikely. Gamma interferon background [Units/volume] in Blood by Immunoassay 10/25/2022 10:10:01 0.03 (IU/mL) Final Mitogen stimulated gamma int erferon [Units/volume] corrected for background in Blood 10/25/2022 10:10:01 9.78 (IU/mL) Final Mycobacterium tuberculosis s timulated gamma interferon release by CD4+ T-cells [Units/volume] corrected for background in Blood 10/25/2022 10:10:01 0.00 (IU/mL) Final Mycobacterium tuberculosis s timulated gamma interferon release by CD4+ and CD8+ T-cells [Units/volume] corrected for background in Blood 10/25/2022 10:10:01 0.00 (IU/mL) Final The Nil tube value reflects the background interferon
gamma immune response of the patient's blood sample.
This value has been subtracted from the patient's
displayed TB and Mitogen results.
Lower than expected results with the Mitogen tube
prevent false-negative Quantiferon readings by detect-
ing a patient with a potential immune suppressive
condition and/or suboptimal pre-analytical specimen
handling.
The TB1 Antigen tube is coated with the M.
tuberculosis-specific antigens designed to elicit
responses from TB antigen primed CD4+ helper
T-lymphocytes.
The TB2 Antigen tube is coated with the M.
tuberculosis-specific antigens designed to elicit
responses from TB antigen primed CD4+ helper and CD8+
cytotoxic T-lymphocytes.
For additional information, please refer to
http://education.[employer].TrendBent/faq/TNZ590
(This link is being provided for information/
educational purposes only.)

Test Performed at:
[address] [facility]
[address] [facility]
[place] [address]
Jose David Griffiths M.D., Ph.D.,Director of Laboratories Performing Location
--- OUTSIDE RECORDS SUMMARY | 2023-03-21 08:16 | External Medical Summary ---
Author Name Unknown Address Unknown Organization K01:[facility] [place] [address] [place] [address] Laboratory Report Ordering Provider Test Date Status QAMAR LESLIE 10/25/2022 10:10:01 Final Observation Date Value Abnormality Reference (Units ) Status MYCODE SPECIMEN-SST 10/25/2022 10:10:01 Freezing of extracted DNA, whole blood and/or serum. Final Performing Location [facility] [place] [address] [facility] [address]
--- OUTSIDE RECORDS SUMMARY | 2023-03-21 08:16 | External Medical Summary ---
Author Name Unknown Address Unknown Organization K01:[place] [facility] [place] [address] [facility] [place] [address] Laboratory Report Ordering Provider Test Date Status SCOT MEDEIROS 10/19/2022 09:42:09 Final Observation Date Value Abnormality Reference (Units ) Status BUN 10/19/2022 09:42:09 17 6-20 (mg/dL) Final Creatinine 10/19/2022 09:42:09 0.9 0.5-1.0 (mg/dL) Final Glomerular filtration rate/1.73 sq M.predicted [Volume Rate/Area] in Serum, Plasma or Blood by Creatinine-based formula (CKD-EPI) 10/19/2022 09:42:09 70 >=60 (mL/min) Final eGFR is calculated based on the CKD-EPI 2020 equation SODIUM 10/19/2022 09:42:09 141 135-146 (m mol/L) Final Potassium 10/19/2022 09:42:09 4.8 3.5-5.1 (m mol/L) Final Cl 10/19/2022 09:42:09 103 98-107 (mm ol/L) Final CO2 10/19/2022 09:42:09 17 Below low normal 22- 32 (mmol/L) Final Anion gap 10/19/2022 09:42:09 21 Above high normal 7- 15 (mmol/L) Final Glucose 10/19/2022 09:42:09 97 70-120 (mg /dL) Final Albumin 10/19/2022 09:42:09 4.8 3.8-5.0 (g /dL) Final AST (Aspartate aminotransferase) 10/19/2022 09:42:09 24 10-35 (U/L) Fin al Alk Phos 10/19/2022 09:42:09 82 35-130 (U/ L) Final Bilirubin, Total 10/19/2022 09:42:09 0.4 <=1 .2 (mg/dL) Final Calcium 10/19/2022 09:42:09 9.8 8.4-10.2 ( mg/dL) Final Protein 10/19/2022 09:42:09 7.1 6.0-8.3 (g /dL) Final ALT (Alanine aminotransferase) 10/19/2022 09:42:09 12 10-35 (U/L) Adi soler Performing Location [facility] [place] [address] [facility] [address]
--- OUTSIDE RECORDS SUMMARY | 2023-03-21 08:16 | External Medical Summary | Summary of Care ---
Author Name Unknown Organization [facility] Address [address] [place] [address] Phone [phone] Care Team Providers Care Pals Specialist Name Role Phone Jian Vaz MD Primary Care Provider + Reason for Visit * Reason Comments Outpatient Testing Encounter Details Date Type Department Care Team Description 10/19/2022 Laboratory Laboratory, [facility] [address] [facility] [place] [address] [facility] [address] [facility] [place] [id number] Mixed hyperlipidemia; Bilateral hand pain Allergies Active Allergy Reactions Severity Noted Date Comments Indomethacin 01/31/2002 Severe headache documented as of this encounter (statuses as of 10/19/2022) Medications Medication Sig Dispensed Refills Start Date [...] as of this encounter (statuses as of 10/19/2022) Active Problems Problem Noted Date Dupuytren's disease of palm of right lamar d 04/16/2020 Primary osteoarthritis of first carpomet acarpal joint of right hand 04/16/2020 Fibrous cortical defect 04/16/2020 MEDICATION USE AGREEMENT 01/19/2020 History of breast cancer 01/15/2017 Left arm pain 12/28/2015 Family hx-breast malignancy 06/18/2007 THORACIC OUTLET SYNDROME 01/31/2002 documented as of this encounter (statuses as of 10/19/2022) Resolved Problems Problem Noted Date Resolved Date [...] as of this encounter (statuses as of 10/19/2022) Immunizations Name Administration Dates Next Due COVID-19 mRNA, LNP-s, No Pre serve, 2-Dose Series (Moderna) 04/17/2020,03/20/2020 Hepatitis B, 20+ yrs 11/20/1994,06/30/1994,06/01 Pneumococcal Conjugate Vacci ne, 20-valent ([id number]) 01/07/2022 Seasonal Influenza Virus Vac cine, Unspecified [...] Lujan DO [address] [place] [address] 12/18/2022 Surgery Endoscopy Katt Lujan DO [address] [place] [address] COLONOSCOPY FLEXIBLE PROXIMAL DIAGNOSTIC 01/22/2023 Office Visit Internal Medicine Jina Vaz MD [address] [place] [address], [place] [address] Pending Results Name Type Priority Associated Diagnoses Date /Time LIPID PANEL WITH DIRECT LDL IF TG IS HIGH Lab Routine Mixed hyperlipidemia 10/19/2022 9:42 AM EDT RHEUMATOID FACTOR Lab Routine Bilateral hand pain 10/19/2022 9:42 AM EDT CYCLIC CITRULLINATED PEPTIDE IGG ANTIBODY Lab Routine Bilateral hand pain 10/19/2022 9:42 AM EDT LYME DISEASE ANTIBODY SCREEN WITH REFLEX TO CONFIRMATION Lab Routine Bilateral hand pain 10/19/2022 9:42 AM EDT LYME DISEASE ANTIBODY SCREEN Lab Routine Bilateral hand pain 10/19/2022 9:42 AM EDT Scheduled Procedures Name Priority Associated [...] 01/07/2022, 01/07/2022, 11/30/2020, Additional history exists Depression Screening, Annual for Pts 12 and Over 01/07/2023 01/07/2022 Mammogram 10/10/2023 10/09/2022, 08/12, 08/12/2020, Additional history exists DXA Scan 11/07/2024 11/07/2021 DTaP,Tdap,and Td Vaccines (4 - Td or Tdap) 08/05/2025 08/06/2015, 10/10/2005, 12/13/2004, Additional history exists Lipid Panel 01/19/2027 01/19/2022, 01/13, 02/17/2020, Additional history exists Hepatitis B Completed 11/20/1994, [...] as of this encounter Visit Diagnoses Diagnosis Mixed hyperlipidemia Bilateral hand pain Pain in limb Screen for colon cancer Special screening for malignant neoplasms, colon documented in this encounter Care Teams Pals Specialist Relationship Specialty Start Date End Date Jian Vaz MD [address] [place] [address] PCP - General Internal Medicine 01/15/17 documented as of this encounter
--- OUTSIDE RECORDS SUMMARY | 2023-03-21 08:17 | External Medical Summary | Summary of Care ---
Author Name Unknown Organization [facility] Address [address] [place] [address] Phone [phone] Care Team Providers Care Black Top Roller Name Role Phone Jian Vaz MD Primary Care Provider + Encounter Details Date Type Department Care Team Description 10/04/2022 Orders Only Outcomes Research Department [address] [place] [address] Albina Santiago CHRA [employer] Other*[id number] Allergies Active Allergy Reactions Severity Noted Date Comments Indomethacin 01/31/2002 Severe headache documented as of this encounter (statuses as of 10/04/2022) Medications Medication Sig Dispensed Refills Start Date [...] severe pain 120 Tablet 0 05/11/2022 Active Benzonatate 100 MG Oral Capsule (Tessalon Perles)Indications:L karlos infection Take 1 Capsule by mouth 3 times a day as needed for Cough. Do not cut, crush, or chew. 50 Capsule 1 07/20/2022 Active Mucinex DM 30-600 MG Oral Tablet Extended Release 12 HourIndications:Lung infection Take 1 Tablet by mouth 2 times a day as needed for Cough. Take with plenty of water. Do not cut, crush or chew 40 Tablet 2 07/20/2022 Active documented as of this encounter (statuses as of 10/04/2022) Active Problems Problem Noted Date Dupuytren's disease of palm of right lamar d 04/16/2020 Primary osteoarthritis of first carpomet acarpal joint of right hand 04/16/2020 Fibrous cortical defect 04/16/2020 MEDICATION USE AGREEMENT 01/19/2020 History of breast cancer 01/15/2017 Left arm pain 12/28/2015 Family hx-breast malignancy 06/18/2007 THORACIC OUTLET SYNDROME 01/31/2002 documented as of this encounter (statuses as of 10/04/2022) Resolved Problems Problem Noted Date Resolved Date [...] as of this encounter (statuses as of 10/04/2022) Immunizations Name Administration Dates Next Due COVID-19 mRNA, LNP-s, No Pre serve, 2-Dose Series (Moderna) 04/17/2020,03/20/2020 Hepatitis B, 20+ yrs 11/20/1994,06/30/1994,06/01 Pneumococcal Conjugate Vacci ne, 20-valent ([id number]) 01/07/2022 Seasonal Influenza Virus Vac cine, Unspecified [...] Encounters Date Type Specialty Care Team Description 10/09/2022 Imaging Radiology 12/18/2022 Hospital Encounter Endoscopy Katt Lujan DO [address] [place] [address] 12/18/2022 Surgery Endoscopy Katt Lujan, [address] [place] [address] COLONOSCOPY FLEXIBLE PROXIMAL DIAGNOSTIC 01/22/2023 Office Visit Internal Medicine [facility], Jian Gutierrez MD [address] [facility], [place] [address] Scheduled Orders Name Type Priority Associated Diagnoses Orde r Schedule MYCODE SUBSEQUENT ADULT Lab Routine [employer] Research Other*[id number] Every 6 Months for 2 Occurrences starting 10/04/2022 until 10/24/2023 Scheduled Procedures Name Priority Associated Diagnoses Date/Ti me COLONOSCOPY FLEXIBLE PROXIMAL DIAGNOSTIC Screen for colon cancer 12/18/2022 10:15 AM EST Health Maintenance Due Date Last Done Comments Cologuard 2001 Fecal Occult Blood Test 2001 Sigmoidoscopy 2001 COVID-19 Vaccine (3 - Moderna series) 06/12/2020 04/17/2020, 03/20/2020 Colonoscopy 07/17/2022 07/17/2012 Colorectal Cancer Screening 07/17/2022 Mammogram 08/30/2022 08/30/2021, 07/0 02/2020, 09/04/2019, Additional history exists Influenza Vaccine (FLU shot) (#1) 2022 01/07/2022, 01/07/2022, 11/30/2020, Additional history exists Depression Screening, Annual for Pts 12 and Over 01/07/2023 01/07/2022 DXA Scan 11/07/2024 11/07/2021 DTaP,Tdap,and Td Vaccines [...] this encounter Visit Diagnoses Diagnosis [employer] Research Other*[id number] Screen for colon cancer Special screening for malignant neoplasms, colon documented in this encounter Care Teams Black Top Roller Relationship Specialty Start Date End Date Jian Vaz MD [address] [place] [address] PCP - General Internal Medicine 01/15/17 documented as of this encounter
--- OUTSIDE RECORDS SUMMARY | 2023-03-21 08:17 | External Medical Summary | Summary of Care ---
Author Name Unknown Organization [facility] Address [address] [place] [address] Phone [phone] Care Team Providers Care Cloth Finishing Range Back Tender Name Role Phone Jian Vaz MD Primary Care Provider + Reason for Visit * Reason Onset Date Comments Test Results 07/21/2022 Encounter Details Date Type Department Care Team Description 07/21/2022 Telephone General Internal Medicine [facility] [address] [place] [address] Jian Vaz MD [address] [place] [address] Test Results Allergies Active Allergy Reactions Severity Noted Date Comments Indomethacin 01/31/2002 Severe headache documented as of this encounter (statuses as of 10/05/2022) Medications Medication Sig Dispensed Refills Start Date [...] Active Benzonatate 100 MG Oral Capsule (Tessalon Perles)Indications: Lung infection Take 1 Capsule by mouth 3 times a day as needed for Cough. Do not cut, crush, or chew. 50 Capsule 1 07/20/2022 Active Mucinex DM 30-600 MG Oral Tablet Extended Release 12 HourIndications:Blair g infection Take 1 Tablet by mouth 2 times a day as needed for Cough. Take with plenty of water. Do not cut, crush or chew 40 Tablet 2 07/20/2022 Active Oseltamivir Phosphate 75 MG Oral Capsule (Tamiflu)Indication s:Influenza A Take 1 Capsule by mouth in the morning and 1 Capsule before bedtime. Do all this for 5 days. For 5 days.. 10 Capsule 0 07/21/2022 07/26/2022 documented as of this encounter (statuses as of 10/05/2022) Active Problems Problem Noted Date Dupuytren's disease of palm of right lamar d 04/16/2020 Primary osteoarthritis of first carpomet acarpal joint of right hand 04/16/2020 Fibrous cortical defect 04/16/2020 MEDICATION USE AGREEMENT 01/19/2020 History of breast cancer 01/15/2017 Left arm pain 12/28/2015 Family hx-breast malignancy 06/18/2007 THORACIC OUTLET SYNDROME 01/31/2002 documented as of this encounter (statuses as of 10/05/2022) Resolved Problems Problem Noted Date Resolved Date [...] as of this encounter (statuses as of 10/05/2022) Immunizations Name Administration Dates Next Due COVID-19 mRNA, LNP-s, No Pre serve, 2-Dose Series (Moderna) 04/17/2020,03/20/2020 Hepatitis B, 20+ yrs 11/20/1994,06/30/1994,06/01 Pneumococcal Conjugate Vacci ne, 20-valent ([id number]) 01/07/2022 Seasonal Influenza Virus Vac cine, Unspecified [...] encounter Miscellaneous Notes * Telephone Encounter - Karson Kunz CMA - 07/21/2022 9:28 AM EDT Patient aware and verbalized understanding agreeable to tamiflu, requesting [facility] * Telephone Encounter - Karson Kunz CMA - 07/21/2022 9:26 AM EDT ----- Message from Jian Vaz MD sent at 07/21/2022 8:26 AM EDT ----- Please let her know she is positive for both Rhinovirus and bad strain Influenza A. We can start Tamiflu 75 mg bid for 5 days if she'd like. Stay home, rest, isolate push fluids. should call his doc to see if needs proph for flu. Rare flu here now, wonder if picked up from someone on [place]. documented in this encounter Plan of Treatment Upcoming Encounters Date Type Specialty Care Team Description 10/09/2022 Imaging Radiology 12/18/2022 Hospital Encounter Endoscopy Katt Lujan DO [address] [place] [address] 12/18/2022 Surgery Endoscopy Katt Lujan DO [address] [place] [address] COLONOSCOPY FLEXIBLE PROXIMAL DIAGNOSTIC 01/22/2023 Office Visit Internal Medicine Jian Vaz MD [address] [place] [address] Scheduled Procedures Name Priority Associated Diagnoses Date/Ti [...] as of this encounter Visit Diagnoses Diagnosis Influenza A- Primary Influenza with other respiratory manifestations Screen for colon cancer Special screening for malignant neoplasms, colon documented in this encounter Additional Health Concerns Infection Onset Date Last Indicated Resolved Time Influenza (seasonal) 07/20/2022 07/20/2022 023 12:21 AM EDT Enterovirus (resp)/Rhinovirus 07/20/2022 07/20/2022 08/10/2022 12:21 AM EDT documented as of this encounter Care Teams Cloth Finishing Range Back Tender Relationship Specialty Start Date End Date Jian Vaz MD [address] [place] [address], [place] [address] PCP - General Internal Medicine 01/15/17 documented as of this encounter
--- OUTSIDE RECORDS SUMMARY | 2023-03-21 08:17 | External Medical Summary | Summary of Care ---
Author Name Unknown Organization [facility] Address [address] [place] [address] Phone [phone] Care Team Providers Care Inspector Conveyor Line Name Role Phone Jian Vaz MD Primary Care Provider + Reason for Visit * Reason Comments Acute Patient presents wit h concerns for arthritis in both hands, right is worse than left. States when she wakes up in the morning they are stiff and hard to move. Encounter Details Date Type Department Care Team Description 10/18/2022 Telemedicine General Internal Medicine [facility] [address] [place], [place] [id number] Jian Vaz MD [address] [place] [address] Bilateral hand pain* Allergies Active Allergy Reactions Severity Noted Date Comments Indomethacin 01/31/2002 Severe headache documented as of this encounter (statuses as of 10/18/2022) Medications Medication Sig Dispensed Refills Start Date [...] 0 Active Benzonatate 100 MG Oral Capsule (Nilay Bunch)Indication s:Lung infection Take 1 Capsule by [...] as of this encounter (statuses as of 10/18/2022) Active Problems Problem Noted Date Dupuytren's disease of palm of right lamar d 04/16/2020 Primary osteoarthritis of first carpomet acarpal joint of right hand 04/16/2020 Fibrous cortical defect 04/16/2020 MEDICATION USE AGREEMENT 01/19/2020 History of breast cancer 01/15/2017 Left arm pain 12/28/2015 Family hx-breast malignancy 06/18/2007 THORACIC OUTLET SYNDROME 01/31/2002 documented as of this encounter (statuses as of 10/18/2022) Resolved Problems Problem Noted Date Resolved Date [...] as of this encounter (statuses as of 10/18/2022) Immunizations Name Administration Dates Next Due COVID-19 mRNA, LNP-s, No Pre serve, 2-Dose Series (Moderna) 04/17/2020,03/20/2020 Hepatitis B, 20+ yrs 11/20/1994,06/30/1994,06/01 Pneumococcal Conjugate Vacci ne, 20-valent ([id number]) 01/07/2022 Seasonal Influenza Virus Vac cine, Unspecified [...] Progress Notes * Jian Vaz MD - 10/18/2022 6:41 PM EDT Patient location: HOME. I was in a hospital or clinic location. After connecting through [facility],patient was verified with two unique identifiers. Patient (or authorized legal customer service representative teller) was then informed that this was a [...] of breast cancer Z85.3 MEDICATION USE AGREEMENT [id number] Dupuytren's disease of palm of right hand [...] CERVICAL OR THORACIC performed by Eleno Aguilar, at OR [facility] LIGATE/CUT OVIDUCT(S) 1993 MASTECTOMY, [...] hard to move. documented in this encounter Plan of Treatment Upcoming Encounters Date Type Specialty Care Team Description 12/18/2022 Hospital Encounter [facility] [place] Kattcarlos Haney, DO [address] [place] [address] 12/18/2022 [place] [facility] [place] [address] [place] [address] COLONOSCOPY FLEXIBLE PROXIMAL DIAGNOSTIC 01/22/2023 [facility] [address] [place] [address] Scheduled Orders Name Type Priority Associated Diagnoses Orde r Schedule RHEUMATOID FACTOR Lab Routine Bilateral hand pain Expected: 10/18/2022 (Approximate), Expires: 10/18/2023 CYCLIC CITRULLINATED PEPTIDE IGG ANTIBODY Lab Routine Bilateral hand pain Expected: 10/18/2022, Expires: 10/19/2023 XR HAND 3 OR MORE VIEWS Medical Imaging Routine Bilateral hand pain Ordered: 10/18/2022 LYME DISEASE ANTIBODY SCREEN WITH REFLEX TO CONFIRMATION Lab Routine Bilateral hand pain Expected: 10/18/2022 (Approximate), Expires: 10/18/2023 Scheduled Procedures Name Priority Associated Diagnoses Date/Ti [...] as of this encounter Visit Diagnoses Diagnosis Bilateral hand pain- Primary Pain in limb Screen for colon cancer Special screening for malignant neoplasms, colon documented in this encounter Care Teams Inspector Conveyor Line Relationship Specialty Start Date End Date Jian Vaz MD [address] [place] [address] PCP - General Internal Medicine 01/15/17 documented as of this encounter"
[2023-03-21] MEDS: ENOXAPARIN INJ 40 MG/0.4 ML SYR SQ SCH (08:39)
[2023-03-21] MEDS: HYDROXYCHLOROQUINE SULFATE 200 MG TAB PO SCH (08:40)
[2023-03-21] MEDS: FUROSEMIDE 40 MG/4 ML VIAL IV SCH (08:41)
[2023-03-21] MEDS ORDERED: CYCLOBENZAPRINE HCL 5 MG TAB PO SCH (09:00)
[2023-03-21] MEDS ORDERED: Nursing to Pharmacy Communication SCH (09:00)
--- NOTE | 2023-03-21 09:32 | Cardiology Consultation ---
Date of Consultation March 21, 2023 Assessment & Plan (1) Acute congestive heart failure: (2) Rheumatoid arthritis: Plan Patient presents with acute, newly diagnosed heart failure with reduced ejection fraction. Echocardiogram reviewed rest severe diffuse left ventricular hypokinesis, LVEF less than 20%, with moderate dilatation of the left ventricular chamber and at least moderate mitral regurgitation. Chamber dilatation on echocardiogram suggests some degree of chronicity. The etiology of the mitral regurgitation appears to be related to the dilated cardiomyopathy rather than a primary valve problem. Coronary artery disease is certainly a consideration given her age, family history, risk factors otherwise including rheumatoid arthritis. The echocardiogram however is likely more suggestive of a nonischemic process, and at present I would state that she has a probable nonischemic cardiomyopathy. She denies any recent viral illnesses. She did have a flare of her rheumatoid arthritis after having had a flu vaccine. She has a history of breast carcinoma diagnosed in 2006. She received chemotherapy including doxorubicin. She had a single echocardiogram performed at that time in 2006 with normal LVEF. She did not receive radiation therapy. Although chemotherapy related cardiomyopathy is a consideration, I would have expected for this to have been recognized before now. The patient was diagnosed with rheumatoid arthritis in October, and has been on hydroxychloroquine and prednisone. Hydroxychloroquine can be associated with cardiomyopathy and will be held at present. I called and discussed her case with Dr. Sexton of rheumatology by phone, and we are both in agreement that a cardiomyopathy related to hydroxychloroquine therapy has rare and typically related to prolonged exposure which does not fit with her presentation however it is still most prudent to hold the medication in the short-term. Future considerations include transitioning her to prednisone plus methotrexate and he asked that he be updated when the patient is ready for discharge from a cardiology standpoint with regards to advice for her rheumatoid arthritis medications. A fasting lipid panel has been added to her laboratory studies for tomorrow. Will hold off on adding statin at present due to concerns of her arthritis aches and pains which may already flare with regards to holding her hydroxychloroquine as send above, and will reassess need for statin therapy after the lab results are available tomorrow. Continue furosemide 40 mg IV daily. The patient's heart rate is just about 100, this is likely a compensatory mechanism due to her low stroke-volume. Will start metoprolol succinate 25 mg by mouth daily. Aspirin 81 mg daily has also been ordered. Future considerations include adding Entresto next if blood pressure allows. Invasive coronary angiography recommended during this hospital stay to determine if this is an ischemic versus nonischemic cardiomyopathy. Patient will be made n.p.o. after midnight for possible procedure on 03/22/2023 at which time her volume status will be reassessed to determine if she is compensated enough to lie supine for the procedure. I briefly touch base with her with regards to proceeding with a Zoll Life Vest pending trial of medical therapy and revascularization if indicated and she is agreeable. Kavya Christianson DO. 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 Patient is seen in the emergency department, room C10. She is accompanied by her , Luis Carlos. 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 She notes that a month ago she had been on a cruise vacation and noted that she struggled physically while on a snorkeling excursion. Last evening she had been out to dinner with friends and noted shortness of breath after climbing a flight of stairs, this was followed by orthopnea when she went to go to bed and she had audible wheezing. When she felt short of breath when she tried to lie down she used her home pulse oximeter and noted that her pulse oximetry was 86%. This prompted her to seek treatment in the emergency room. She was found to have a mildly elevated proBNP level of 726 PG per mL, and a mild elevation in the high-sensitivity troponin with a flat trend levels of 19.7 and 20.8 PG per mL x 2 thus far. Chest x-ray and CT angiogram were consistent with pulmonary edema with small bilateral pleural effusions. [place] and [place] and in retrospect she feels like may be she has had decreased endurance while walking on the farm for several months. At the time my assessment she was in no acute distress having received 40 mg of IV furosemide overnight. An echocardiogram was performed with results as outlined. Past Medical History: The patient's past medical history is notable for left breast carcinoma diagnosed in 2006 she was treated with chemotherapy including doxorubicin and cyclophosphamide followed by paclitaxel. She had undergone left modified radical mastectomy in March,. 16 lymph nodes were negative at that time with resection margin negative. In 2022 she was diagnosed with rheumatoid arthritis and was treated with prednisone, hydroxychloroquine naproxen. History is otherwise notable for thoracic outlet syndrome, Dupuytren's disease of the palm of the right hand degenerative disc disease of the cervical spine Family History: Mother of the age of 89 due to dementia Father at the age of 88, he did have a history of coronary stents and due to complications of a brain aneurysm which ruptured Social History: Retired, registered nurse Former smoker having smoked for 16 years 1/2 to 1 pack of cigarettes per day and quit in the . She has a glass of wine daily Allergies Allergy/AdvReac Type Severity Reaction Status Date / Time indomethacin AdvReac Unknown SEVERE SYLVESTER Verified 03/15/12 07:07 bupivacaine [From Marcaine] AdvReac strange Verified 03/21/23 03:26 reaction Home Medications Medication Instructions Recorded Confirmed Type naproxen 500 mg tablet 500 mg PO BID PRN Pain #0 tabs 07/16/12 03/21/23 History cyclobenzaprine 5 mg tablet 5 mg PO DAILY 12/06/19 03/21/23 History oxycodone-acetaminophen 5 mg-325 1 tab PO Q6H PRN pain #30 tabs 12/06/19 03/21/23 Rx mg tablet (Percocet) hydroxychloroquine 200 mg tablet 200 mg PO UD 03/21/23 03/21/23 History Patient History Social History Smoking Status: Never smoker Tobacco Type: Cigarettes Hx Alcohol Use: No Hx Substance Use: No Preferred Language: Trinidadian Communication Ability: Effective Facility Assistant Required: No Beliefs That Will Affect Care: None Current Living Situation: Spouse Feels Safe at Home: Yes Review of Systems Review of Systems: All systems reviewed & are unremarkable except as noted in HPI & below Physical Exam Constitutional: WD/WN, vitals as above Neck: trachea midline, no thyromegaly Respiratory: no respiratory distress Auscultation: + diminished lung sounds (Mildly decreased breath sounds bilaterally at the bases); no crackles and no wheezes Cardiovascular: Rate/Rhythm: regular rate, regular rhythm and + tachycardic Heart Sounds: + murmur (1/6 systolic murmur heard best at left apex) Vessels: no JVD Extremities: no edema Gastrointestinal (Abdomen): normal bowel sounds, soft, nontender, no hepatosplenomegaly Skin: no rashes, warm and dry Neurologic: PERRL, EOMI, accommodation nl, no face palsy, no dysarthria Psychiatric: A+Ox3, euthymic affect Results & Data Vital Signs (Past 12 Hours) Vital Signs Temp Pulse Pulse Resp BP BP Pulse Ox 03/21/23 07:27 97 H 03/21/23 03:46 98 H 18 106/77 98 03/21/23 03:00 100 03/21/23 02:20 106/68 92 03/21/23 02:20 102 H 19 106/68 98 03/21/23 02:00 96 03/21/23 01:30 98 H 15 118/82 100 03/21/23 01:24 74 H 122/85 98 03/21/23 01:09 99 H 16 97 03/21/23 01:09 100 H 18 116/82 97 03/21/23 01:09 97 03/21/23 01:09 03/21/23 00:55 105 H 03/21/23 00:34 36.5 C 107 H 20 133/89 98 O2 Del Method 03/21/23 07:27 03/21/23 03:46 Room Air 03/21/23 03:00 03/21/23 02:20 03/21/23 02:20 Room Air 03/21/23 02:00 03/21/23 01:30 03/21/23 01:24 03/21/23 01:09 Room Air 03/21/23 01:09 Room Air 03/21/23 01:09 Room Air 03/21/23 01:09 Room Air 03/21/23 00:55 03/21/23 00:34 Room Air Laboratory Results Cardiac Enzymes 03/21/23 03/21/23 Range/Units 01:00 07:05 AST 26 (13-39) U/L Troponin I High Sens 19.7 H 20.8 H (0-14) pg/ml B-Natriuretic Peptide 726 H (0-100) pg/ml Coagulation 03/21/23 Range/Units 01:00 PT 10.1 (9.0-12.0) Seconds APTT 32 H (21-31) Seconds B-Natriuretic Peptide 726 H (0-100) pg/ml CBC 03/21/23 03/21/23 Range/Units 01:00 07:05 WBC 5.49 6.47 (4.8-10.8) K/ul RBC 4.96 4.60 (4.20-5.40) M/uL Hgb 14.0 13.3 (12.0-16.0) g/dl Hct 44.3 40.1 (37.0-47.0) % Plt Count 281 261 (130-400) K/uL Neut # (Auto) 2.90 4.28 (1.40-6.50) K/uL Lymph # (Auto) 1.97 1.49 (1.20-3.40) K/uL Gregg # (Auto) 0.42 0.59 (0.11-0.59) K/uL Eos # (Auto) 0.14 0.04 (0.00-0.50) K/uL Baso # (Auto) 0.05 0.06 (0.00-0.20) K/uL Comprehensive Metabolic Panel 03/21/23 03/21/23 Range/Units 01:00 07:05 Sodium 138 140 (136-145) mmol/L Potassium 4.4 4.2 (3.5-5.1) mmol/L Chloride 107 106 (98-107) mmol/L Carbon Dioxide 25 27 (21-32) mmol/L BUN 19 19 (6-23) mg/dl Creatinine 0.80 0.91 (0.6-1.2) mg/dl Glucose 119 H 99 (70-99(Fasting)) mg/dl Calcium 9.3 8.9 (8.6-10.3) mg/dl AST 26 (13-39) U/L ALT 10 (7-52) U/L Alkaline Phosphatase 63 (34-104) U/L Total Protein 7.0 (6.0-8.3) gm/dl Albumin 4.2 (3.4-5.0) gm/dl Intake and Output 03/20/23 03/21/23 03/21/23 22:59 06:59 14:59 Output Total 1200 / 1200 500 / 500 Balance -1200 / -1200 -500 / -500 Output: Urine 1200 / 1200 500 / 500 Other: Weight 67 kg Weight Measurement Method Built in [facility] Diagnostic Findings Summary of transthoracic echocardiogram performed today 03/21/2023 and interpreted independently: The study was technically adequate for the evaluation of the referral indication. The left ventricle is moderately dilated. Left ventricular systolic function is severely reduced. There is severe global hypokinesis of the left ventricle however there appears to be a subtle degree of focal anterior hypokinesis. The qualitative left ventricular ejection fraction =< 20%. Mitral regurgitation is present that is at least moderate and perhaps severe. There is a centrally directed mitral regurgitation jet. The etiology of the mitral regurgitation appears to be due to the underlying cardiomyopathy with tethering of the mitral valve leaflets. Doppler findings do not suggest pulmonary hypertension. Compared to the report of the previous study performed in 2017, 12 ventricular ejection fraction=60% at that time. (1) Acute congestive heart failure Heart failure type: unspecified Qualified Code(s): I50.9 - Heart failure, unspecified
[2023-03-21] MEDS: ASPIRIN 81 MG ECTAB PO SCH (11:15)
[2023-03-21] MEDS: METOPROLOL SUCC 25MG EXT REL TAB PO SCH (11:16)
--- NOTE | 2023-03-21 11:33 | Electrocardiogram Report ---
Test Reason : Blood Pressure : / mmHG Vent. Rate : 112 BPM Atrial Rate : 112 BPM P-R Int : 154 ms QRS Dur : 100 ms QT Int : 362 ms P-R-T Axes : 067 -34 102 degrees QTc Int : 494 ms Sinus tachycardia Left atrial enlargement Left axis deviation Probable Left ventricular hypertrophy with repolarization abnormality Possible Old Septal infarct Abnormal ECG When compared with ECG of 22-FEB-2012 14:48, Vent. rate has increased BY 50 BPM Borderline Criteria for Septal infarct is now Present ST now depressed in Lateral leads T wave inversion now evident in Lateral leads Confirmed by Suhas Jones ([id number]) on 03/21/2023 11:33:06 AM Referred By: REFERRED SELF Confirmed By:Suhas Jones
[2023-03-21] MEDS: ACETAMINOPHEN 325 MG TAB PO PRN (13:32)
[2023-03-21] MEDS: oxyCODONE/ACETAMINOPHEN 5mg/325mg TAB PO PRN (18:23)
[2023-03-21] MEDS: CYCLOBENZAPRINE HCL 5 MG TAB PO SCH (19:56)
--- NOTE | 2023-03-21 22:27 | Communication Note ---
Date of Service: March 21, 2023 Pt was seen while still down in the ED. Noted that she was still having SOB with ambulation to the bathroom. On exam noted fine crackles and lower extremity edema. No wheezing at the time of exam. Echo noting the following: -EF <20%, LV mod dilatated, severe global hypokinesis, mod-severe mitral regurgitation, no pulm HTN Cardiology consulted- appreciate recs -possible nonischemic cardiomyopathy possibly related to past use of doxorubicin or hydroxychloroquine. The latter currently on hold -cardiac cath on 03/22 to r/o ischemic cause -Continue IV Lasix 40mg, metoprolol succinate 25mg daily, aspirin 81mg daily. Holding off on statin in setting of RA aches -Possible Entresto addition based on BP For further information, please refer to History and Physical from the same date of service.
[2023-03-22] MEDS: ALBUMIN 25% 25 GM/100 ML VIAL IV ONE ×2 (05:08→23:35)
[2023-03-22 06:01] LABS: Hematocrit (blood only) 41.1 % (37.0-47.0); Hemoglobin 13.8 g/dl (12.0-16.0); Mean Corpuscular Hemoglobin 28.9 pg (25.0-34.0); Mean Corpuscular Hgb Conc 33.6 g/dL (32.0-36.0); Mean Platelet Volume 9.8 fL (9.4-12.4); Platelet Count 275 K/uL (130-400); RDW Coefficient of Variation 14.3 % (11.5-14.5); RDW Standard Deviation 45.1 fL (36.4-46.3); Red Blood Count 4.78 M/uL (4.20-5.40); White Blood Count 4.76 K/ul (4.8-10.8)
[2023-03-22 06:16] LABS: Albumin Globulin Ratio 1.8 (0.9-2); Albumin Level 4.2 gm/dl (3.4-5.0); BUN Creatinine Ratio 19.6 (10-20); Bilirubin,Total 0.6 mg/dl (0.2-1.0); Calcium 9.2 mg/dl (8.6-10.3); Chol HDL Ratio 2.3 (0-5); Creatinine Clr Calc Pharmacy 55.5 ml/min; Est GFR (African American) 70.5 ml/min; Est GFR (Non-African American) 60.9 ml/min; Globulin 2.4 gm/dl (2.5-4.0); Potassium 4.1 mmol/L (3.5-5.1); Total Protein 6.6 gm/dl (6.0-8.3)
[2023-03-22 06:34] LABS: Ferritin 55.5 ng/ml (8-388)
[2023-03-22] MEDS ORDERED: HYDROXYCHLOROQUINE SULFATE 200 MG TAB PO SCH (09:00)
--- NOTE | 2023-03-22 14:41 | Hospitalist Progress Note ---
Date of Service March 22, 2023 Assessment & Plan (1) Acute congestive heart failure: Plan Pt is a 67yoF with PMHx significant for thoracic outlet syndrome, left arm pain, Dupuytren disease of the right palm, Osteoarthritis, History of breast cancer, Rheumatoid arthritis diagnosed in fall 2022 presenting with shortness of breath for the last few days. Noting ALBA and orthopnea at home. HFrEF Cardiomyopathy Presented with shortness of breath, orthopnea and PND BNP of 726, EKG with sinus tachycardia Chest XRAY showed cardiomegaly with moderate interstitial pulmonary edema and small bilateral pleural effusions CTA chest noted no PE, but noted thickening of interlobular septa that can sometimes be seen in CHF. Echo with EF <20%, LV mod dilatated, severe global hypokinesis, mod-severe mitral regurgitation, no pulm HTN Received IV Lasix 40 mg in the ER, continue with IV Lasix 40 mg daily- to be held tomorrow in anticipation of cath Daily weights and I's and O's Cardiology consulted, appreciate recs: -possible nonischemic cardiomyopathy possibly related to past use of doxorubicin or hydroxychloroquine. The latter currently on hold -cardiac cath to r/o ischemic cause -Continue IV Lasix 40mg, metoprolol succinate 25mg daily, aspirin 81mg daily. Holding off on statin currently. -Possible Entresto addition based on BP -Zoll Life Vest on dc Rheumatoid arthritis On Plaquenil, currently on hold as a possible cause of her heart failure On pain meds/muscle relaxer Flexeril Flexeril on hold as contraindicated in setting of CHF Continue with prn oxycodone and tylenol History of breast cancer left side s/p surgery and chemo Currently under observation with heme-onc DVT prophylaxis: Lovenox Diet: Low sodium, HH Dispo: PT/OT ordered, anticipate d/c home with life vest Admission and Anticipated Discharge Date Admission Date: March 21, 2023 Subjective Pt was seen sitting up in bed. Visiting friends/family at bedside. Per nursing, pt concerned about her BP and receiving her AM meds. Due for cath tomorrow. States she had an episode of SOB while sitting. Review of Systems Review of Systems: All systems reviewed & are unremarkable except as noted in Subjective Physical Exam Physical Exam: General: Alert, oriented. No acute distress Skin: No noted rashes or bruises Psych: Appropriate mood and affect Neuro: No gross deficits HEENT: NC/AT Chest: Nontender to palpation. CV: RRR Resp: Breath sounds clear bilaterally, no increased effort of breathing. Abdomen: soft, nontender, nondistended Extremities: Trace edema in lower extremities bilaterally. Results & Data Results & Data Vital Signs (Past 12 Hours) Vital Signs Temp Pulse Resp BP Pulse Ox O2 Del Method 03/22/23 13:30 37.2 C 03/22/23 12:15 91 H 16 102/62 99 Room Air 03/22/23 08:21 36.6 C 85 14 106/67 96 Room Air 03/22/23 08:00 Room Air 03/22/23 03:07 36.5 C 76 20 90/60 L 91 Room Air (1) Acute congestive heart failure Heart failure type: unspecified Qualified Code(s): I50.9 - Heart failure, unspecified
--- NOTE | 2023-03-22 16:02 | Cardiology Progress Note ---
Date of Service March 22, 2023 Assessment & Plan (1) Acute congestive heart failure: (2) Rheumatoid arthritis: Plan 03/21/23 - per Dr. Christianson's notes Patient presents with acute, newly diagnosed heart failure with reduced ejection fraction. Echocardiogram reviewed rest severe diffuse left ventricular hypokinesis, LVEF less than 20%, with moderate dilatation of the left ventricular chamber and at least moderate mitral regurgitation. Chamber dilatation on echocardiogram suggests some degree of chronicity. The etiology of the mitral regurgitation appears to be related to the dilated cardiomyopathy rather than a primary valve problem. Coronary artery disease is certainly a consideration given her age, family history, risk factors otherwise including rheumatoid arthritis. The echocardiogram however is likely more suggestive of a nonischemic process, and at present I would state that she has a probable nonischemic cardiomyopathy. She denies any recent viral illnesses. She did have a flare of her rheumatoid arthritis after having had a flu vaccine. She has a history of breast carcinoma diagnosed in 2006. She received chemotherapy including doxorubicin. She had a single echocardiogram performed at that time in 2006 with normal LVEF. She did not receive radiation therapy. Although chemotherapy related cardiomyopathy is a consideration, I would have expected for this to have been recognized before now. The patient was diagnosed with rheumatoid arthritis in October, and has been on hydroxychloroquine and prednisone. Hydroxychloroquine can be associated with cardiomyopathy and will be held at present. I called and discussed her case with Dr. Sexton of rheumatology by phone, and we are both in agreement that a cardiomyopathy related to hydroxychloroquine therapy has rare and typically related to prolonged exposure which does not fit with her presentation however it is still most prudent to hold the medication in the short-term. Future considerations include transitioning her to prednisone plus methotrexate and he asked that he be updated when the patient is ready for discharge from a cardiology standpoint with regards to advice for her rheumatoid arthritis medications. A fasting lipid panel has been added to her laboratory studies for tomorrow. Will hold off on adding statin at present due to concerns of her arthritis aches and pains which may already flare with regards to holding her hydroxychloroquine as send above, and will reassess need for statin therapy after the lab results are available tomorrow. Continue furosemide 40 mg IV daily. The patient's heart rate is just about 100, this is likely a compensatory mechanism due to her low stroke-volume. Will start metoprolol succinate 25 mg by mouth daily. Aspirin 81 mg daily has also been ordered. Future considerations include adding Entresto next if blood pressure allows. Invasive coronary angiography recommended during this hospital stay to determine if this is an ischemic versus nonischemic cardiomyopathy. Patient will be made n.p.o. after midnight for possible procedure on 03/22/2023 at which time her volume status will be reassessed to determine if she is compensated enough to lie supine for the procedure. I briefly touch base with her with regards to proceeding with a Zoll Life Vest pending trial of medical therapy and revascularization if indicated and she is agreeable. 03/22/23: Patient diuresed approx 4 L since admission. She reports interval improvement in her dyspnea. Able to ambulate in room without significant symptoms. Tolerating metoprolol and IV lasix. Plan for diagnostic cardiac cath morning of 03/23. NPO after midnight. Morning furosemide on hold. Continue ASA. Consider statin based on results of cath tomorrow. Consider Entresto if BP allows. Will likely need Zoll Life Vest and will arrange prior to discharge. Case man agement aware. Case discussed with Dr. Cuenca I spent a total of 30 minutes on the date of service in preparation, delivery, and documentation of the care provided to this patient, excluding any time spent in the performance of separately billed services. Cleo Hoskins PA-C Department of Cardiology, [facility] This chart was completed in part utilizing Speech Voice Recognition Software. Grammatical errors, random word insertions, pronoun errors, and incomplete sentences are an occasional consequence of this system due to software limitations, ambient noise, and hardware issues. Any formal questions or concerns about the content, text, or information contained within the body of this dictation should be directly addressed to the provider for clarification. Admission and Anticipated Discharge Date Admission Date: March 21, 2023 Supervising Physician Co-Signing Physician Notes I have reviewed the advance practitioner's documentation, and I agree with, and take responsibility for the plan of care. Patient seen and examined at the bed side. Denies CP or SOB at rest. Sinus rhythm on telemetry. Orthopnea improving. Denies PND. PE: VSS with borderline resting hypotension. Heart: Regular rhythm. Normal S1S2. No murmur. Lungs: Scant rales at bases B/L. No wheeze, Ext: No edema. A/P: 67 y/o female with acute heart failure with reduced EF. NICM suspected, possibly chemotherapy induced. Recommend cardiac catheterization in AM. Patient agreeable. NPO except medications after midnight. Continue beta ruben. Addition of evidence-based heart failure therapy limited by resting hypotension. Subjective Patient resting in bed. Family/friends at bedside. She reports improvement in her dyspnea since yesterday. No orthopnea last night. Slept well. She had one episode this morning of acute SOB but only lasted a few minutes. Occurred at rest. No chest pain. Tolerating medications. Review of Systems Review of Systems: All systems reviewed & are unremarkable except as noted in HPI & below Physical Exam Constitutional: WD/WN, vitals as above well nourished; no acute distress Respiratory: no respiratory distress and no labored breathing Auscultation: + crackles (faint bibasilar rales) Cardiovascular: Rate/Rhythm: regular rate and regular rhythm Heart Sounds: no murmur Vessels: + JVD Extremities: + edema (trace pretibial edema) Gastrointestinal (Abdomen): normal bowel sounds, soft, nontender, no hepatosplenomegaly Neurologic: PERRL, EOMI, accommodation nl, no face palsy, no dysarthria Results & Data Vital Signs (Past 12 Hours) Vital Signs Temp Pulse Resp BP Pulse Ox O2 Del Method 03/22/23 13:30 37.2 C 03/22/23 12:15 91 H 16 102/62 99 Room Air 03/22/23 08:21 36.6 C 85 14 106/67 96 Room Air 03/22/23 08:00 Room Air Laboratory Results Cardiac Enzymes 03/22/23 Range/Units 05:33 AST 18 (13-39) U/L Lipids 03/22/23 Range/Units 05:33 Triglycerides 115 (0-150) mg/dl Cholesterol 220 H (0-200) mg/dl HDL Cholesterol 94 mg/dl Cholesterol/HDL Ratio 2.3 (0-5) CBC 03/22/23 Range/Units 05:33 WBC 4.76 L (4.8-10.8) K/ul RBC 4.78 (4.20-5.40) M/uL Hgb 13.8 (12.0-16.0) g/dl Hct 41.1 (37.0-47.0) % Plt Count 275 (130-400) K/uL Comprehensive Metabolic Panel 03/22/23 Range/Units 05:33 Sodium 139 (136-145) mmol/L Potassium 4.1 (3.5-5.1) mmol/L Chloride 106 (98-107) mmol/L Carbon Dioxide 24 (21-32) mmol/L BUN 19 (6-23) mg/dl Creatinine 0.97 (0.6-1.2) mg/dl Glucose 110 H (70-99(Fasting)) mg/dl Calcium 9.2 (8.6-10.3) mg/dl AST 18 (13-39) U/L ALT 8 (7-52) U/L Alkaline Phosphatase 52 (34-104) U/L Total Protein 6.6 (6.0-8.3) gm/dl Albumin 4.2 (3.4-5.0) gm/dl Intake and Output 03/22/23 03/22/23 03/22/23 06:59 14:59 22:59 Intake Total 100 / 100 Output Total 925 / 925 Balance -825 / -825 Intake: IV 100 / 100 Albumin 25% 25 gm In 100 ml @ 100 / 100 50 mls/hr IV ONE ONE Rx#: [id number] Output: Urine 925 / 925 Other: Other Intake Source Patient is NPO Weight 66.7 kg Weight Measurement Method Built in [facility] Diagnostic Findings Telemetry reviewed: NSR in the 80-100's. One run of atrial tach around 7:33 this morning, lasting about 10 seconds. Echo reviewed from yesterday: Moderately dilated LV LV systolic function is severely reduced. global hypokinesis. LVEF < 20% Moderate/severe MR Medications Administered Current Inpatient Medications Acetaminophen (Acetaminophen 325 Mg Tab) 650 mg PO Q4H PRN PRN Reason: Pain or Fever Stop: 04/20/23 03:18 Last Admin: 03/22/23 08:37 Dose: 650 mg Aspirin (Aspirin 81 Mg Ectab) [facility] [place] [facility] Stop: 04/20/23 10:29 Last Admin: 03/22/23 08:38 Dose: 81 mg Cyclobenzaprine HCl (Cyclobenzaprine Hcl 5 Mg Tab) 5 mg PO HS [facility] Stop: 04/20/23 08:59 Last Admin: 03/21/23 19:56 Dose: 5 mg Enoxaparin Sodium (Enoxaparin Inj 40 Mg/0.4 Ml Syr) 40 mg SQ Q24H [facility] Stop: 04/20/23 08:59 Last Admin: 03/21/23 08:39 Dose: 40 mg Furosemide (Furosemide 40 Mg/4 Ml Vial) 40 mg IV DAILY [facility] Stop: 04/20/23 08:59 Last Admin: 03/22/23 08:37 Dose: 40 mg Levalbuterol HCl (Levalbuterol 1.25 Mg/3 Ml Neb) 1.25 mg NEB Q4H PRN; Protocol PRN Reason: Shortness Of Breath Or Wheezing Stop: 04/20/23 03:18 Metoprolol Succinate (Metoprolol Succ 25mg Ext Rel Tab) 25 mg PO QAM [facility] Stop: 04/20/23 10:29 Last Admin: 03/22/23 08:37 Dose: 25 mg Oxycodone/Acetaminophen (Oxycodone/Acetaminophen 5mg/325mg Tab) 1 tab PO Q6H PRN PRN Reason: pain Stop: 04/04/23 03:18 Last Admin: 03/21/23 18:23 Dose: 1 tab Polyethylene Glycol (Polyethylene (Miralax) 17 Gm Pack) 17 gm PO DAILY PRN PRN Reason: Constipation Stop: 04/20/23 03:18 (1) Acute congestive heart failure Heart failure type: unspecified Qualified Code(s): I50.9 - Heart failure, unspecified
[2023-03-23 02:44] LABS: Hematocrit (blood only) 40.4 % (37.0-47.0); Hemoglobin 13.2 g/dl (12.0-16.0); Mean Corpuscular Hemoglobin 28.7 pg (25.0-34.0); Mean Corpuscular Hgb Conc 32.7 g/dL (32.0-36.0); Mean Corpuscular Volume 87.8 fL (80.0-100.0); Mean Platelet Volume 9.6 fL (9.4-12.4); Platelet Count 241 K/uL (130-400); White Blood Count 5.22 K/ul (4.8-10.8)
[2023-03-23 03:03] LABS: BUN Creatinine Ratio 23.7 (10-20); Calcium 9.5 mg/dl (8.6-10.3); Creatinine Clr Calc Pharmacy 55.5 ml/min; Est GFR (African American) 70.5 ml/min; Est GFR (Non-African American) 60.9 ml/min; Magnesium 2.1 mg/dl (1.7-2.4); Phosphorus 3.6 mg/dl (2.5-4.9); Potassium 3.8 mmol/L (3.5-5.1)
--- NOTE | 2023-03-23 11:13 | Pre Anesthesia Assessment ---
Date of Service March 23, 2023 Pre Sedation Assessment Vital Signs Temp Pulse Pulse Resp BP Pulse Ox O2 Del Method 03/23/23 10:17 83 16 116/70 100 Room Air 03/23/23 09:30 103 H 03/23/23 09:30 Room Air 03/23/23 08:09 36.4 C L 92 H 18 112/74 99 Room Air 03/23/23 07:35 36.7 C 89 19 106/66 99 Room Air 03/23/23 02:15 36.5 C 86 20 104/66 97 Room Air 03/23/23 01:22 75 89/58 L 03/23/23 00:24 75 03/22/23 23:07 36.6 C 91 H 20 83/58 L 95 Room Air 03/22/23 21:00 Room Air 03/22/23 19:27 36.9 C 83 20 96/73 L 96 Room Air 03/22/23 16:33 89 03/22/23 15:37 36.9 C 88 18 95/62 L 93 Room Air 03/22/23 13:30 37.2 C 03/22/23 12:15 91 H 16 102/62 99 Room Air Cardiovascular + regular rate and + regular rhythm + S1 normal and + S2 normal; no murmur + femoral pulses present and + radial pulses present; no JVD no edema Respiratory + respiratory effort normal; no respiratory distress and no labored breathing no crackles, no rales, no rhonchi and no wheezes Pre-Sedation Airway Assessment Smoking Status: Never smoker Hx Sleep Apnea: No Short, Thick Neck: No Thyromental Distance: > or= 3.5 Finger Breadths Oral Cavity: + WNL Mallampati Class: II ASA: ASA3 NPO Status Date of Last Intake of Fluids: 03/23/23 Time of Last Intake of Fluids: 07:00 Last Oral Intake of Fluids Comment: sips Date of Last Intake of Solid Food: 03/22/23 Time of Last Intake of Solid Foods: 22:00 Procedure Planning Contraindications for Sedation: none Current Medications Reviewed: No Notes The planned sedation has been discussed with the patient. Informed Consent was obtained. I have identified the patient, determined the appropriateness of sedation and have assessed the patient immediately prior to the procedure. All medicine(s) and interventions are by my order.
[2023-03-23] MEDS: niCARdipine HCL INJ 2.5 MG/ML 10 ML AMP ONE (11:52)
[2023-03-23] MEDS: fentaNYL citrate PF 100 MCG/2 ML VIAL ONE (11:58)
[2023-03-23] MEDS: MIDAZOLAM HCL 1 MG/ML 2ML VIAL ONE (11:58)
[2023-03-23] MEDS: HEPARIN (PORCINE) 1000 UNIT/ML 10 ML (CATH LAB USE ONLY) ONE (11:58)
[2023-03-23] MEDS: NITROGLYCERIN/D5W 100MCG/ML 20ML SYR ONE (11:59)
[2023-03-23] MEDS: OPTIRAY 350 ONE (11:59)
--- NOTE | 2023-03-23 12:34 | Post Anesthesia Assessment ---
Date of Service March 23, 2023 Post Sedation Assessment Vital Signs Temp Pulse Pulse Resp BP BP Pulse Ox 03/23/23 12:30 88 18 120/72 95 03/23/23 12:10 88 18 124/70 95 03/23/23 10:17 83 16 116/70 100 03/23/23 09:30 103 H 03/23/23 09:30 03/23/23 08:09 36.4 C L 92 H 18 112/74 99 03/23/23 07:35 36.7 C 89 19 106/66 99 03/23/23 02:15 36.5 C 86 20 104/66 97 03/23/23 01:22 75 89/58 L 03/23/23 00:24 75 03/22/23 23:07 36.6 C 91 H 20 83/58 L 95 03/22/23 21:00 03/22/23 19:27 36.9 C 83 20 96/73 L 96 03/22/23 16:33 89 03/22/23 15:37 36.9 C 88 18 95/62 L 93 03/22/23 13:30 37.2 C O2 Del Method 03/23/23 12:30 Room Air 03/23/23 12:10 Room Air 03/23/23 10:17 Room Air 03/23/23 09:30 03/23/23 09:30 Room Air 03/23/23 08:09 Room Air 03/23/23 07:35 Room Air 03/23/23 02:15 Room Air 03/23/23 01:22 03/23/23 00:24 03/22/23 23:07 Room Air 03/22/23 21:00 Room Air 03/22/23 19:27 Room Air 03/22/23 16:33 03/22/23 15:37 Room Air 03/22/23 13:30 Recovery Score Activity: Moves 4 extremities Respiration: Deep Breath/Cough Circulation: +/-20% PreAnes Value Consciousness: Fully Awake Oxygen Saturation: > 92% On Room Air Post Anesthesia Score: 10 Discharge Sedation Level of Care: Phase I Post Sedation Plan On clinical assessment, the patient appears to have tolerated the sedation without complications. Patient is recovering as anticipated. Patient will continue to be monitored by nursing and may be discharged when sedation discharge criteria are met per below protocol. Upon Completions of procedure up to 15 minutes continue every 5 minute vital signs and the P.A.R. score; then discharge to a Phase I or Fast Track to Phase II per the following guidelines: * Discharge Patient to appropriate Phase II area if PAR is 8 or greater or return to pre- procedure baseline. The post - procedure orders will be as directed. * If PAR score is less than 8 or not return to pre-procedure baseline then patient will follow Phase I monitoring till PAR is reached for Phase II. The Phase I may be done in procedure room or may call to secure a Phase I area. * If naloxone or flumazenil are used for reversal, hold in Phase I for continued monitoring from when last reversal dose was given for a minimum of 60 minutes or longer pending the nurse and/or physician discretion of patient condition before discharge to Phase II. Please call the Sedation Physician to re-evaluate and complete post-note for discharge to Phase II area. Do NOT discharge from procedure sedation or Phase 1 until post- sedation evaluation note is complete by procedure /sedation MD Sedation Discharge Instructions to be given to the patient at discharge to home.
--- NOTE | 2023-03-23 12:43 | Cardiac Catheterization ---
Cardiac Cath Procedure Full Procedure Date March 23, 2023 Pre-Procedure Diagnosis Pre-Procedure Diagnosis: CHF and Cardiomyopathy AUC Score AUC Score: 7 Post-Procedure Diagnosis Post-Procedure Diagnosis: Mild CAD and Elevated Intracardiac Pressures Procedure(s) Performed Procedure(s) Performed: Coronary Angiography and Left Heart Cath [employer] Dipesh Cuenca DO Respiratory Therapist Assistant(s) David RTR Estimated Blood Loss Estimated Blood Loss: 5cc Medication(s) Medication(s): Fentanyl, Heparin, Lidocaine 1%, Nicardipine, Nitroglycerin and Versed Summary of Findings Mild, 10% proximal LAD plaque. Otherwise, normal coronary arteries. Hemodynamics Rest Ao:: 93/58/81 Final Ao: 99/59/77 LV: 98/3/17 Recommendations Recommendations: Medical Therapy and/or Counseling Specimens Specimens: None Radiation Exposure (mGy) 297 Contrast (mls) 30 Fluids (cc crystalloids) Fluids (cc crystalloids): 70 Nss Drains Drains: N/A Anesthesia Moderate sedation. Start 1148. End 1203. Sedation monitor: Showers RN Procedural Complication(s) None I attest to the content of the Intraoperative Record and any orders documented therein. Any exceptions are noted below. ACC Data: Lead Data Entry Operator Cardiac Status Clinical evaluation leading to the procedure 67-year-old female presents with acute decompensated heart failure with reduced ejection fraction. CAD Presenation: Unstable angina Anginal Classification: CCS III Heart Failure: Yes Coronary Anatomy Dominant: Right Left Main (% Stenosis): Normal LAD (% Stenosis): Proximal (10%) D1 (% Stenosis): Normal Circumflex (% Stenosis): Normal OM1 (% Stenosis): Normal RCA (% Stenosis): Normal R PDA (% Stenosis): Normal R PL1 (% Stenosis): Normal R PL2 (% Stenosis): Normal Ramus (% Stenosis): Normal Diagnostic Physicians Name: Dipesh Cuenca DO Closure Device Percutaneous Entry Location: Radial Closure Device: Radial Band Recommendations: Medical Therapy and/or Counseling Intraprocedure Events Significant Disection: No Perforation: No
--- NOTE | 2023-03-23 14:51 | Cardiology Progress Note ---
Date of Service March 23, 2023 Assessment & Plan (1) Acute heart failure with reduced ejection fraction and diastolic dysfunction: (2) NICM (nonischemic cardiomyopathy): (3) Rheumatoid arthritis: (4) Hypotension: Plan 67 y/o female with acute heart failure with reduced EF. Cardiac catheterization demonstrating minimal nonobstructive coronary disease. History of chemotherapy with doxorubicin and treatment of rheumatoid arthritis with hydroxychloroquine. Hydroxychloroquine discontinued due to potential association with nonischemic cardiomyopathy. Patient fitted for LifeVest today. Addition of evidence-based heart failure therapy limited by resting hypotension. Recommend titration of Toprol-XL to 25 mg twice daily. Transition to oral furosemide 20 mg daily with 20 mEq of potassium chloride daily. Consider addition of low-dose Entresto, SHELIA inhibitor, or ARB on follow-up. Patient instructed to weigh herself on a daily basis. Diuretic protocol reviewed: Take additional 20 mg of oral furosemide if weight increases more than 2 pounds in a 48-hour period, or 5 pounds in 1 week. Sodium restriction advised. Repeat basic metabolic panel as outpatient in 1 week. I will arrange for outpatient cardiology follow-up within 1 week. No further inpatient cardiac testing or intervention recommended at this time. All questions answered to satisfaction of both the patient and her . Postcardiac catheterization activity restrictions listed below. I spent a total of 52 minutes on the date of service in preparation, delivery, and documentation of the care provided to this patient, excluding any time spent in the performance of separately billed services. POST CARDIAC CATHETERIZATION ACTIVITY RECOMMENDATIONS: Excess manipulation of the wrist should be avoided for the next 24-48 hours. * No lifting over 2 pounds (approximately a 1/2 gallon of milk) with the utilized arm for 24 hours. * No strenuous activity such as bowling or tennis for 3 days. * Keep the site of the procedure covered with a bandage for 24 hours. *You may shower the day after the procedure. Do not take a tub bath or submerge the puncture site in water for the next 3 days. *Do not operate any motorized equipment for 3 days. SPECIAL CARE INSTRUCTIONS: The site may be slightly bruised and sore following your procedure. Should any of the following occur, contact the Dr. who performed your procedure. 1. Redness/inflammation, swelling, chills, or fever, or colored drainage at procedure site within 3-7 days after your procedure. 2. Coldness, discoloration, ongoing numbness, severe pain, or swelling. Expect mild tingling of hand and tenderness at the puncture site for up to three days. If this persists beyond three days, or other symptoms develop, notify the Dr. who performed your procedure. BLEEDING: If the procedure site on your wrist begins to bleed, do not panic 1. Place 1 or 2 fingers firmly just slightly above the insertion site to stop the bleeding. You may be able to feel your pulse as you hold pressure. 2. Lift your finger after 5 minutes to see if the bleeding has stopped. 3. Once the bleeding has stopped, gently wipe the wrist area clean with a b andage. * If the bleeding from your wrist does not stop after 10 minutes, or if there is a large amount of bleeding or spurting, call 911 (do not drive yourself to the hospital). SKIN IRRITATION: * You may experience some redness and/or swelling in the area where radiation was administered. If any skin irritation occurs, please contact your family physician. Admission and Anticipated Discharge Date Admission Date: March 21, 2023 Subjective 67-year-old female seen and examined at the bedside after cardiac catheterization. Patient and want to discuss possible discharge versus additional 24 hours of hospitalization. Coronary angiography demonstrating minimal, nonobstructive coronary disease. Left ventricular end-diastolic pressure 17 mmHg. Denies orthopnea or PND. Voices concern regarding shortness of breath noted in a.m. Heart rate remains borderline elevated on telemetry. Remains in sinus rhythm. Fitted for LifeVest earlier today. Review of Systems Review of Systems: All systems reviewed & are unremarkable except as noted in Subjective Physical Exam Constitutional: well nourished; no acute distress Respiratory: normal respiratory effort; no respiratory distress and no labored breathing Auscultation: no crackles, no rales, no rhonchi and no wheezes Cardiovascular: Rate/Rhythm: regular rate and regular rhythm Heart Sounds: normal S1 and normal S2; no murmur Vessels: femoral pulses present and radial pulses present; no JVD Extremities: no edema Gastrointestinal (Abdomen): Inspection/Auscultation: normal bowel sounds; abdomen not distended Percussion/Palpation: abdomen soft; abdomen nontender, no guarding and abdomen not rigid Neurologic: CN's II-XI intact bilaterally and moves all extremities; no focal motor deficits Results & Data Vital Signs (Past 12 Hours) Vital Signs Temp Pulse Pulse Pulse Resp BP BP 03/23/23 14:32 36.4 C L 95 H 20 156/122 H 03/23/23 14:01 90 18 130/97 03/23/23 13:23 91 H 16 133/82 03/23/23 12:52 37.1 C 90 18 157/111 H 03/23/23 12:30 88 18 120/72 03/23/23 12:10 88 18 124/70 03/23/23 10:17 83 16 116/70 03/23/23 09:30 103 H 03/23/23 09:30 03/23/23 08:09 36.4 C L 92 H 18 112/74 03/23/23 07:35 36.7 C 89 19 106/66 Pulse Ox O2 Del Method 03/23/23 14:32 99 Room Air 03/23/23 14:01 99 Room Air 03/23/23 13:23 99 Room Air 03/23/23 12:52 97 Room Air 03/23/23 12:30 95 Room Air 03/23/23 12:10 95 Room Air 03/23/23 10:17 100 Room Air 03/23/23 09:30 03/23/23 09:30 Room Air 03/23/23 08:09 99 Room Air 03/23/23 07:35 99 Room Air Laboratory Results CBC 03/23/23 Range/Units 02:16 WBC 5.22 (4.8-10.8) K/ul RBC 4.60 (4.20-5.40) M/uL Hgb 13.2 (12.0-16.0) g/dl Hct 40.4 (37.0-47.0) % Plt Count 241 (130-400) K/uL Comprehensive Metabolic Panel 03/23/23 Range/Units 02:16 Sodium 136 (136-145) mmol/L Potassium 3.8 (3.5-5.1) mmol/L Chloride 103 (98-107) mmol/L Carbon Dioxide 24 (21-32) mmol/L BUN 23 (6-23) mg/dl Creatinine 0.97 (0.6-1.2) mg/dl Glucose 107 H (70-99(Fasting)) mg/dl Calcium 9.5 (8.6-10.3) mg/dl Intake and Output 03/22/23 03/23/23 03/23/23 22:59 06:59 14:59 Intake Total 200 / 400 100 / 400 Output Total 400 / 1325 550 / 550 Balance -200 / -925 100 / -925 -550 / -550 Intake: IV 100 / 200 Albumin 25% 25 gm In 100 ml @ 100 / 100 50 mls/hr IV ONE ONE Rx#: [id number] Oral 200 / 200 Output: Urine 400 / 1325 550 / 550 Other: # Unmeasured Voids 1 1 1 Weight 63.3 kg Weight Measurement Method Standing Scale (4) Hypotension Hypotension type: idiopathic hypotension Qualified Code(s): I95.0 - Idiopathic hypotension
--- NOTE | 2023-03-23 15:11 | Electrocardiogram Report ---
Test Reason : Blood Pressure : / mmHG Vent. Rate : 097 BPM Atrial Rate : 097 BPM P-R Int : 146 ms QRS Dur : 098 ms QT Int : 396 ms P-R-T Axes : 078 -59 088 degrees QTc Int : 502 ms Sinus rhythm with occasional ventricular-paced complexes Left axis deviation Minimal voltage criteria for LVH, may be normal variant Nonspecific T wave abnormality Prolonged QT Abnormal ECG When compared with ECG of 21-MAR-2023 00:43, Electronic ventricular pacemaker has replaced Sinus rhythm Confirmed by Heriberto Lozano ([id number]) on 03/23/2023 3:11:02 PM Referred By: REFERRED SELF Confirmed By:Heriberto Lozano
[2023-03-23] MEDS: POTASSIUM CHLORIDE CRTAB 20 MEQ TABCR PO SCH (15:33)
--- NOTE | 2023-03-23 16:40 | Discharge Summary ---
Discharge Summary Date of Service March 23, 2023 Notes For Next Care Provider Pt with congestive heart failure in the setting of nonischemic cardiomyopathy, s/p cardiac catheterization on 03/23/22 demonstrating minimal nonobstructive coronary disease. Past use of doxorubicin and current hydroxychloroquine as suspected culprits. Per Cardiology: -medication changes noted below (Toprol, Lasix, KCl) -Patient fitted for LifeVest with which she was discharged -Addition of evidence-based heart failure therapy limited by resting hypotension. Considering addition of low-dose Entresto, SHELIA/ARB on follow-up -Patient instructed to weigh herself on a daily basis with instructions to "Take additional 20 mg of oral furosemide if weight increases more than 2 pounds in a 48-hour period, or 5 pounds in 1 week. Sodium restriction advised." -Repeat basic metabolic panel as outpatient in 1 week -Outpatient cardiology follow-up within 1 week Pt noting anxiety about using LifeVest, especially at night. Notes she is up worrying. Discharged with Hydroxyzine 25mg qhs prn. Please follow-up. Please ensure close followup with Rheumatology (Dr. Good) for further RA medication management after discharge. Please ensure close Cardiology followup as noted above in 1 week. Medication Changes From Visit START: -Metoprolol succinate 25mg BID -Furosemide 20mg daily -KCl 20mEq daily -Hydroxyzine 25mg qhs prn STOP: -Hydroxychloroquine due to association with cardiomyopathy -Flexeril as contraindicated in setting of heart failure CONTINUE: -Home Vicodin for pain needs until Rheumatology followup Admission HPI Per Admitting Provider 67-year-old female with past med history significant for thoracic outlet syndrome, left arm pain. Dupuytren disease of the right palm. Osteoarthritis. History of breast cancer. Rheumatoid arthritis diagnosed in fall 2022 comes with shortness of breath for last few days. Patient lately walking 1 flight of steps making her short of breath. Today sob was worse. Today when she laid down in the bed she felt very short of breath and when checked her pulse ox was 85%. It happened a couple of times and she decided come to the ER. Last couple of nights she woke up in the night gasping for breath. In the ER after Lasix is feeling slightly better. Denies any chest pain. No cough. No fevers. No nausea /vomiting. No abdominal pain. No headaches. No runny nose or sore throat. Appetite is okay. Normal bowel and bladder movements. Past medical history. As mentioned above Past surgical history. Breast biopsy. Bilateral breast reconstruction. Colonoscopy. Meniscal repair bilateral. Injection of lumbo cervical spine. Ligation oviducts. Left modified radical mastectomy. Appendectomy. Social history. . Quit smoking 1990s. Smoked half pack a day for 16 years. Alcohol wine daily. No drug use. Family history. Paternal aunt had breast cancer. Mother had breast cancer. Brother had prostate cancer. Father had prostate cancer. Father had idiopathic peripheral neuropathy. Mother had rheumatoid arthritis. Admission Exam Per Admitting Provider General- Not in distress Head- atraumatic Eyes- PERRL. ENT- oropharynx clear Neck- supple, no JVD. Lungs- clear to auscultation mild bibasilar crackles, no wheezing. Heart- regular rhythm; no murmur, no gallop. Abdomen- normal bowel sounds, soft, nontender, no distension. Extremities- no pretibial edema, no erythema seen. Neuro- alert, oriented x 3; PERRL, no facial palsy; no dysarthria; moves extremities Skin- warm & dry Principal Dx & Hospital Course #1 = Principal Diagnosis (1) Acute heart failure with reduced ejection fraction and diastolic dysfunction: (2) NICM (nonischemic cardiomyopathy): (3) Hypotension: (4) Rheumatoid arthritis: Plan Pt is a 67yoF with PMHx significant for thoracic outlet syndrome, left arm pain, Dupuytren disease of the right palm, Osteoarthritis, History of breast cancer, Rheumatoid arthritis diagnosed in fall 2022 presenting with shortness of breath for the last few days. Noting ALBA and orthopnea at home. Acute systolic and diastolic heart failure Cardiomyopathy Presented with shortness of breath, orthopnea and PND BNP of 726, EKG with sinus tachycardia Chest XRAY showed cardiomegaly with moderate interstitial pulmonary edema and small bilateral pleural effusions CTA chest noted no PE, but noted thickening of interlobular septa that can sometimes be seen in CHF. Echo with EF <20%, LV moderately dilated, severe global hypokinesis, mod-severe mitral regurgitation, no pulm HTN Received IV Lasix 40 mg in the ER, was treated with IV Lasix 40 mg daily Daily weights and I's and O's Cardiology was consulted, they recommended the following: -Cardiac catheterization on 03/23/22 demonstrating minimal nonobstructive coronary disease, ruling out an ischemic cause of her cardiomyopathy - nonischemic cardiomyopathy possibly related to past use of doxorubicin (for Hx of breast cancer) or current use of hydroxychloroquine for RA. Hydroxychloroquine was held during the hospitalization. -medications Toprol XL 25mg BID, Lasix 25mg daily, KCl 20mEq were started -Patient fitted for LifeVest with which she was discharged -Addition of evidence-based heart failure therapy limited by resting hypotension. Considering addition of low-dose Entresto, SHELIA/ARB on follow-up -Patient instructed to weigh herself on a daily basis with instructions to "Take additional 20 mg of oral furosemide if weight increases more than 2 pounds in a 48-hour period, or 5 pounds in 1 week. Sodium restriction advised." -Repeat basic metabolic panel as outpatient in 1 week -Outpatient cardiology follow-up within 1 week Rheumatoid arthritis On Plaquenil (hydroxychloroquine), currently on hold as a possible cause of her cardiomyopathy On pain meds/muscle relaxer Flexeril Flexeril held and discontinued on discharge as contraindicated in setting of CHF Continue with prn Vicodin at home with close PCP and Rheumatology follow up. Please ensure close followup with Rheumatology (Dr. Good) for further RA medication management after discharge. History of breast cancer left side s/p surgery and chemotherapy treatment Treatment included use of doxorubicin which could have been a potential cause of current symptoms. Currently under observation with heme-onc Anxiety Pt noting anxiety about using LifeVest, especially at night. Notes she is up at nighttime worrying Discharged with Hydroxyzine 25mg qhs prn for anxiety Given increased need for Vicodin to help control her RA pain at this time, would defer on use of concurrent benzo. Close PCP follow up after discharge Discharge Exam General: Alert, oriented. No acute distress Skin: No noted rashes or bruises Psych: Appropriate mood and affect Neuro: No gross deficits HEENT: NC/AT Chest: Nontender to palpation. CV: RRR Resp: Breath sounds clear bilaterally, no increased effort of breathing. Abdomen: soft, nontender, nondistended Extremities: Trace edema in lower extremities bilaterally. Updated Medication List Medication Instructions Recorded Confirmed Type naproxen 500 mg tablet 500 mg PO BID PRN Pain #0 tabs 07/16/12 03/21/23 History oxycodone-acetaminophen 5 mg-325 1 tab PO Q6H PRN pain #30 tabs 12/06/19 03/21/23 Rx mg tablet (Percocet) furosemide 20 mg tablet 20 mg PO QAM #30 tabs 03/23/23 Rx hydroxyzine HCl 25 mg tablet 25 mg PO HS PRN anxiety #30 tabs 03/23/23 Rx metoprolol succinate 25 mg 25 mg PO BID #60 tabs 03/23/23 Rx tablet,extended release 24 hr potassium chloride 20 mEq 20 meq PO QAM #30 tabs 03/23/23 Rx tablet,extended release(part/cryst) Hospital Stay Data Consultations 03/21/23 01:56 ED Decision to Admit Stat 03/21/23 08:00 Consult Cardiology Routine Procedures Performed Operation Date: 03/23/23 09:30 Actual Procedures p Cineradiography w/Routine Exam - Dipesh Cuenca DO p Cath, Left with Cors and Vent - Dipesh Cuenca DO Diagnostic Imagining Performed 03/21/23 00:54 CT angio chest PE protocol Stat 03/22/23 07:07 CL Cath Imgs for PACS use only Routine 03/23/23 06:58 CL Cath Imgs for PACS use only Routine Chest X-Ray 03/21/23 00:48 XR chest 1V portable CLINICAL HISTORY: Shortness of breath. COMPARISON STUDY: Chest radiograph and right rib series December 06, 2019. FINDINGS: Lung volumes are normal. No pneumothorax. Small bilateral pleural effusions. Moderate interlobular septal thickening is evident. Mild cardiomegaly. No consolidation to suggest pneumonia. IMPRESSION: Cardiomegaly with moderate interstitial pulmonary edema and small bilateral pleural effusions. ACT 112: Negative or not required by law. Electronically signed by: Harpreet Howell M.D. 03/21/2023 6:44 AM Chest CTA 03/21/23 00:54 Exam(s): CTA CHEST IV Amt: 116 cc opti 320 EXAM: CT Angiography Chest With Intravenous Contrast CLINICAL HISTORY: Reason for exam: Dyspnea. TECHNIQUE: Axial computed tomographic angiography images of the chest with intravenous contrast. Automated exposure control was utilized for the study. A dose lowering technique was utilized adhering to the principles of ALARA. MIP reconstructed images were created and reviewed. COMPARISON: January 10, 2007 CT chest. FINDINGS: Pulmonary arteries: Unremarkable. No pulmonary embolism. Aorta: No acute findings. No thoracic aortic aneurysm. Lungs: Extensive peribronchial thickening, particularly in the lower lobes. There is also very extensive thickening of interlobular septa. No mass. No consolidation. Pleural space: Small bilateral pleural effusions. No pneumothorax. Heart: Unremarkable. No cardiomegaly. No significant pericardial effusion. No evidence of RV dysfunction. Bones/joints: No acute fracture. No dislocation. Soft tissues: Unremarkable. Lymph nodes: Unremarkable. No enlarged lymph nodes. IMPRESSION: No evidence of pulmonary emboli. Marked peribronchial thickening as well as a diffuse abnormal thickening of interlobular septa. These findings are nonspecific. Thickening of interlobular septa can sometimes be seen in CHF. Electronically signed by: Julius Corea MD 03/21/23 01:35 AM Pending Results Patient Have Any Pending Studies at Discharge: No Discharge Instructions Given to Patient (Per Discharging Provider) Elena, You were admitted and it was noted that you had congestive heart failure. You were seen by Cardiology and underwent a cardiac catheterization to help determine a cause and it was noted that you had minimal nonobstructive coronary disease. Cardiology diagnosed you with nonischemic cardiomyopathy as a result. They recommend discharge home with the following medications: metoprolol succinate 25mg BID, furosemide 20mg daily and potassium supplements of 20mEq daily. They are also discharging you home with a lifevest. Please use as directed. Please STOP taking your home hydroxychloroquine as that could be contributing to your symptoms as well. Your home flexeril is also contraindicated in the setting of heart failure so we recommend discontinuing that medication as well. Since we are discontinuing both of these medications, we recommend close followup with your primary care provider and chalk cutter after discharge to help with replacements or alternative therapies. Continue with your home oxycodone/Percocet until then. Please also keep close followup with cardiology after discharge as there are other medications they would like to add to your regimen once your vitals are more stable. Cardiology further recommends the following: -weigh yourself on a daily basis. -Diuretic protocol: Take additional 20 mg of oral furosemide if weight increases more than 2 pounds in a 48-hour period, or 5 pounds in 1 week. -Sodium restriction advised Again, please keep close follow up with your primary care provider, Rheumatology and Cardiology after discharge. Please do not hesitate to come back to the emergency room if your symptoms worsen or return. It was a pleasure taking care of you while you were here. Total Time Total Time Spent Total Time Spent (In Minutes): > 30 minutes
[2023-03-23] MEDS ORDERED: METOPROLOL SUCC 25MG EXT REL TAB PO SCH (21:00)
[2023-03-24] MEDS ORDERED: FUROSEMIDE 20 MG TAB PO SCH (09:00)
[2023-03-26 11:46] LABS: Alpha 1 Globulin 0.2 g/dL (0.2-0.3); Alpha 2 Globulin 0.7 g/dL (0.5-0.9); Beta-1-Globulin 0.4 g/dL (0.4-0.6); Beta-2-Globulin 0.3 g/dL (0.2-0.5); Creatinine Ur 36 mg/dL (20-275); Free Kappa 16.1 mg/L (3.3-19.4); Free Kappa/Lambda Ratio 1.59 (0.26-1.65); Free Lambda 10.1 mg/L (5.7-26.3); Gamma Globulin 0.8 g/dL (0.8-1.7); Monoclonal Protein Band 1 DNR g/dL (NONE DETECTED); Monoclonal Protein Band 2 DNR g/dL (NONE DETECTED); Monoclonal Protein Band 3 DNR g/dL (NONE DETECTED); Protein, Urine Random 4 mg/dL (5-24); Total Protein 6.5 g/dL (6.1-8.1); Ur Protein/Creat Ratio mg/g 111 mg/g creat (24-184); Urine Abnormal Protein Band 1 DNR mg/dL (NONE DETECTED); Urine Abnormal Protein Band 2 DNR mg/dL (NONE DETECTED); Urine Abnormal Protein Band 3 DNR mg/dL (NONE DETECTED); Urine Protein/Creatinine Ratio 0.111 (0.024-0.184)
== END 2023-03-23 17:49 | disposition home or self-care (01) | DRG 287 ==
LOC: ED 00:29 → EDINP 02:40 → 2E 15:26

== ENCOUNTER 2024-06-19 18:47 | Inpatient (IN) ==
[2024-06-19] MEDS: SODIUM CHLORIDE 0.9% 500 ML IV ONE (19:11)
[2024-06-19 19:16] LABS: Hematocrit (blood only) 38.1 % (37.0-47.0); Hemoglobin 12.6 g/dl (12.0-16.0); Mean Corpuscular Hemoglobin 28.8 pg (25.0-34.0); Mean Corpuscular Hgb Conc 33.1 g/dL (32.0-36.0); Mean Corpuscular Volume 87.2 fL (80.0-100.0); Mean Platelet Volume 9.3 fL (9.4-12.4); Platelet Count 136 K/uL (130-400); RDW Coefficient of Variation 12.9 % (11.5-14.5); RDW Standard Deviation 40.5 fL (36.4-46.3); Red Blood Count 4.37 M/uL (4.20-5.40); White Blood Count 11.87 K/ul (4.8-10.8)
[2024-06-19 19:34] LABS: Albumin Globulin Ratio 1.7 (0.9-2); Basophils # (auto) 0.05 K/uL (0.00-0.20); Basophils % (auto) 0.4 %; Bilirubin,Total 1.4 mg/dl (0.2-1.0); Calcium 8.5 mg/dl (8.6-10.3); Creatinine Clr Calc Pharmacy 51.7 ml/min; Eosinophils # (auto) 0.03 K/uL (0.00-0.50); Eosinophils % (auto) 0.3 %; Globulin 2.4 gm/dl (2.5-4.0); Immature Granulocytes # (auto) 0.04 K/uL (0.01-0.20); Immature Granulocytes % (auto) 0.3 %; Lymphocytes # (auto) 0.39 K/uL (1.20-3.40); Lymphocytes % (auto) 3.3 %; Magnesium 1.7 mg/dl (1.7-2.4); Monocytes # (auto) 0.36 K/uL (0.11-0.59); Neutrophils % (auto) 92.7 %; Potassium 4.3 mmol/L (3.5-5.1); Total Protein 6.4 gm/dl (6.0-8.3)
[2024-06-19 19:39] LABS: Troponin I High Sensitivity 18.8 pg/ml (0-14)
[2024-06-19] MEDS: cefTRIAXone SODIUM 2,000 MG/50 ML BAG IV STA (19:50)
[2024-06-19 19:54] LABS: Partial Thromboplastin Ratio 1.1; Partial Thromboplastin Time 30 Seconds (21-31); Prothrombin Time 10.8 Seconds (9.0-12.0)
[2024-06-19 20:45] LABS: Appearance Urine Clear (Clear); Bacteria Urine Automated None Seen (None Seen); Bilirubin Urine Negative (Negative); Blood Urine Negative (Negative); Cast Urine Automated 0-2 /lpf (0-2); Color Urine Yellow; Epithelial Cell Urine Auto 0-2 /hpf (0-2); Glucose Urine UA 3+ (Negative); Ketones Urine 3+ (Negative); Leukocyte Esterase Urine Negative (Negative); Nitrite Urine Negative (Negative); Protein Urine 1+ (Negative); RBC Urine Automated 0-2 /hpf (0-2); Specific Gravity Urine 1.043 (1.000-1.030); Urobilinogen Urine Negative (Negative); WBC Urine Automated 0-5 /hpf (0-5)
[2024-06-19] MEDS: SODIUM CHLORIDE 0.9% 1,000 ML IV ONE (21:17)
--- NOTE | 2024-06-19 22:55 | History & Physical Report ---
Date of Service June 19, 2024 Assessment & Plan (1) Bacteremia: Plan: 69-year-old female with past medical history significant for nonischemic cardiomyopathy, status post AICD, history of thoracic outlet syndrome, osteoarthritis, degenerative disease, history of rheumatoid arthritis involving multiple sites with positive rheumatoid factor, history of breast cancer presents with ongoing abdominal pain and diarrhea and found to have diverticulitis and also bacteremia. Patient is having on and off abdominal pain and diarrhea going on for last several weeks. Went to see PCP and there was plan for CAT scan. But last night had severe abdominal pain and associated with fever and chills and nausea and vomiting and came to the ER in the morning. When she came to the ER in the morning she was somewhat confused. She was found to have diverticulitis. And she improved and was discharged on Augmentin. After going home again she started to have fever/chills and abdominal pain again and blood pressure was low and not feeling well and came to the ER. Her blood cultures came back positive for gram negative bacilli. In the ER her systolic blood pressure was in 80s, improved with the fluids. Currently having headache. Denies any chest pain. When the pain was severe she was feeling short of breath. Vision is okay. Has some cough. No runny nose. No sore throat. Micturating okay. Appetite is down today. Feeling weak. Patient says she is also having on and off low blood pressures at home for some time now. When the blood pressure drops she does not feel good and she drinks water and when the systolic blood pressure improves to 90s she feels better. She follows the [facility] for her heart and [facility]. Patient states digoxin was stopped but was again recently restarted. Bacteremia Sepsis with hypotension and tachycardia and leukocytosis and elevated procalcitonin. Lactate is okay at 1.5 Hypotension improved with the fluids CAT scan done in the morning showed diverticulitis Blood cultures showing gram-negative bacilli N.p.o., IV fluids IV Zosyn Will follow final cultures Closely monitor hemodynamics Surgery consult Close monitoring telemetry History of chronic systolic CHF Nonischemic cardiomyopathy Status post AICD EF less than 20% March 2023 Improved to 42% in October 2023 Continue digoxin and Jardiance Follow digoxin level Currently holding losartan and spironolactone for sepsis Currently also holding metoprolol succinate for now and restart as soon as possible Patient on Lasix as needed which will be held for now Because of hypotension and CHF will consult cardio in a.m. Getting gentle fluids. Close monitor for volume overload Close monitor on telemetry Hypertension Holding losartan, metoprolol succinate and spironolactone We will monitor Rheumatoid arthritis Holding leflunomide Holding Vicodin as needed for now Hyperlipidemia On statin DVT prophylaxis Lovenox Disposition Telemetry Full code. History of Present Illness Chief Complaint: Bacteremia and sepsis Primary Care Provider: Jian Vaz MD 69-year-old female with past medical history significant for nonischemic cardiomyopathy, status post AICD, history of thoracic outlet syndrome, osteoarthritis, degenerative disease, history of rheumatoid arthritis involving multiple sites with positive rheumatoid factor, history of breast cancer presents with ongoing abdominal pain and diarrhea and found to have diverticulitis and also bacteremia. Patient is having on and off abdominal pain and diarrhea going on for last several weeks. Went to see PCP and there was plan for CAT scan. But last night had severe abdominal pain and associated with fever and chills and nausea and vomiting and came to the ER in the morning. When she came to the ER in the morning she was somewhat confused. She was found to have diverticulitis. And she improved and was discharged on Augmentin. After going home again she started to have fever/chills and abdominal pain again and blood pressure was low and not feeling well and came to the ER. Her blood cultures came back positive for gram negative bacilli. In the ER her systolic blood pressure was in 80s, improved with the fluids. Currently having headache. Denies any chest pain. When the pain was severe she was feeling short of breath. Vision is okay. Has some cough. No runny nose. No sore throat. Micturating okay. Appetite is down today. Feeling weak. Patient says she is also having on and off low blood pressures at home for some time now. When the blood pressure drops she does not feel good and she drinks water and when the systolic blood pressure improves to 90s she feels better. She follows the [facility] for her heart and [facility]. Patient states digoxin was stopped but was again recently restarted. Past medical history. As mentioned above Past surgical history. Breast biopsy. Breast reconstruction. Colonoscopy. Meniscal repair bilateral. Injection of lumbosacral cervical spine. Ligation of oviducts. Left modified radical mastectomy. Dual-chamber pacemaker. Appendectomy. [place] lymph node biopsy left side. Social history. . Quit smoking 1989. Smoked 0.5 pack a day for 16 years. Alcohol drinks wine daily. No drug use. Family history. Paternal aunt had breast cancer. Paternal cousin had breast cancer. Mother had breast cancer. Rheumatoid arthritis. Paternal uncle had colon cancer. Father had neuropathy. Prostate cancer. Sister had seizures. Maternal uncle had stroke. Allergies Allergy/AdvReac Type Severity Reaction Status Date / Time indomethacin AdvReac Unknown SEVERE SYLVESTER Verified 06/19/24 22:24 bupivacaine [From Marcaine] AdvReac strange Verified 06/19/24 22:24 reaction Home Medications Medication Instructions Recorded Confirmed Type empagliflozin 10 mg tablet 10 mg PO QAM 07/06/23 06/19/24 History (Jardiance) folic acid 1 mg tablet 2 mg PO QAM 07/06/23 06/19/24 History furosemide 20 mg tablet 20 mg PO DAILY PRN as directed 07/06/23 06/19/24 History losartan 25 mg tablet 25 mg PO DAILY 07/06/23 06/19/24 History metoprolol succinate 25 mg 37.5 mg PO QAM 07/06/23 06/19/24 History tablet,extended release 24 hr digoxin 125 mcg (0.125 mg) tablet 125 mcg PO QAM 06/19/24 06/19/24 History hydrocodone 5 mg-acetaminophen 325 1 tab PO Q6 PRN pain,mild 06/19/24 06/19/24 History mg tablet hydroxyzine HCl 25 mg tablet 25 mg PO HS PRN Sleep 06/19/24 06/19/24 History leflunomide 10 mg tablet 10 mg PO QAM 06/19/24 06/19/24 History rosuvastatin 10 mg tablet 10 mg PO HS 06/19/24 06/19/24 History spironolactone 25 mg tablet 25 mg PO QAM 06/19/24 06/19/24 History Past Med/Surg History Problem List (Updated 06/20/24 @ 01:58 by Mary Chance MD) Gram-negative bacteremia (Acute) Diverticulitis (Acute) Bacteremia (Acute) Bacteremia Diverticulitis (Acute) Status post placement of cardiac pacemaker Sinus node dysfunction History of breast cancer No significant past surgical history Rheumatoid arthritis Acute heart failure with reduced ejection fraction and diastolic dysfunction NICM (nonischemic cardiomyopathy) Hypotension Acute congestive heart failure (Acute) Social History Smoking Status: Unknown if ever smoked Tobacco Type: Cigarettes Hx Alcohol Use: Yes Alcohol type: wine Hx Substance Use: No Preferred Language: Marshallese Communication Ability: Effective Cot Assembler Required: No Beliefs That Will Affect Care: None Current Living Situation: Spouse current occupation: Retired Other Information That Helps Us Care for You: No Feels Safe at Home: Yes Safety Concerns: Feels Safe At This Time Assistive Devices: Glasses Review of Systems Review of Systems: All systems reviewed & are unremarkable except as noted in HPI & below Physical Exam Physical Exam: General- Not in distress Head- atraumatic Eyes- PERRL. ENT- oropharynx clear Neck- supple, no JVD. Lungs- clear to auscultation no wheezing or crackles Heart- regular rhythm; no murmur, no gallop. Abdomen- normal bowel sounds, soft, LLQ tenderness present Extremities- trace pretibial edema, no erythema seen Neuro- alert, oriented PERRL, no facial palsy; no dysarthria; moves extremities Results & Data Results & Data Vital Signs (Past 12 Hours) Vital Signs Temp Pulse Resp BP Pulse Ox O2 Del Method 06/19/24 21:30 92 H 18 105/63 100 Room Air 06/19/24 21:15 92 H 22 107/65 99 Room Air 06/19/24 20:45 96 H 19 98/57 L 99 Room Air 06/19/24 20:30 95 H 20 90/54 L 99 Room Air 06/19/24 20:03 94 H 16 106/66 97 Room Air 06/19/24 19:45 89 18 89/52 L 99 Room Air 06/19/24 19:27 100 Room Air 06/19/24 19:27 100 Room Air 06/19/24 18:50 37.4 C 109 H 18 80/48 L 97 Room Air Diagnostic Findings Laboratory Results WBC 11.87 K/ul (4.8-10.8) H 06/19/24 19:03 RBC 4.37 M/uL (4.20-5.40) 06/19/24 19:03 Hgb 12.6 g/dl (12.0-16.0) 06/19/24 19:03 Hct 38.1 % (37.0-47.0) 06/19/24 19:03 MCV 87.2 fL (80.0-100.0) 06/19/24 19:03 MCH 28.8 pg (25.0-34.0) 06/19/24 19:03 MCHC 33.1 g/dL (32.0-36.0) 06/19/24 19:03 RDW Std Deviation 40.5 fL (36.4-46.3) 06/19/24 19:03 RDW Coeff of Laz 12.9 % (11.5-14.5) 06/19/24 19:03 Plt Count 136 K/uL (130-400) 06/19/24 19:03 MPV 9.3 fL (9.4-12.4) L 06/19/24 19:03 Immature Gran % (Auto) 0.3 % 06/19/24 19:03 Neut % (Auto) 92.7 % 06/19/24 19:03 Lymph % (Auto) 3.3 % 06/19/24 19:03 Weld % (Auto) 3.0 % 06/19/24 19:03 Eos % (Auto) 0.3 % 06/19/24 19:03 Baso % (Auto) 0.4 % 06/19/24 19:03 Neut # (Auto) 11.00 K/uL (1.40-6.50) H 06/19/24 19:03 Lymph # (Auto) 0.39 K/uL (1.20-3.40) L 06/19/24 19:03 Weld # (Auto) 0.36 K/uL (0.11-0.59) 06/19/24 19:03 Eos # (Auto) 0.03 K/uL (0.00-0.50) 06/19/24 19:03 Baso # (Auto) 0.05 K/uL (0.00-0.20) 06/19/24 19:03 Immature Gran # (Auto) 0.04 K/uL (0.01-0.20) 06/19/24 19:03 PT 10.8 Seconds (9.0-12.0) 06/19/24 19:03 INR 1.0 (0.9-1.1) 06/19/24 19:03 APTT 30 Seconds (21-31) 06/19/24 19:03 PTT Ratio 1.1 06/19/24 19:03 Sodium 135 mmol/L (136-145) L 06/19/24 19:03 Potassium 4.3 mmol/L (3.5-5.1) 06/19/24 19:03 Chloride 105 mmol/L (98-107) 06/19/24 19:03 Carbon Dioxide 23 mmol/L (21-32) 06/19/24 19:03 Anion Gap 7 (3-11) 06/19/24 19:03 BUN 20 mg/dl (6-23) 06/19/24 19:03 Creatinine 1.05 mg/dl (0.6-1.2) 06/19/24 19:03 Est Cr Clr Drug Dosing 51.7 ml/min 06/19/24 19:03 eGFR 57.88 06/19/24 19:03 BUN/Creatinine Ratio 19.0 (10-20) 06/19/24 19:03 Glucose 106 mg/dl (70-99(Fasting)) H 06/19/24 19:03 Lactate 1.5 mmol/L (0.4-2.0) 06/19/24 19:03 Calcium 8.5 mg/dl (8.6-10.3) L 06/19/24 19:03 Magnesium 1.7 mg/dl (1.7-2.4) 06/19/24 19:03 Total Bilirubin 1.4 mg/dl (0.2-1.0) H 06/19/24 19:03 AST 44 U/L (13-39) H 06/19/24 19:03 ALT 20 U/L (7-52) 06/19/24 19:03 Alkaline Phosphatase 77 U/L (34-104) 06/19/24 19:03 Troponin I High Sens 18.8 pg/ml (0-14) H 06/19/24 19:03 Total Protein 6.4 gm/dl (6.0-8.3) 06/19/24 19:03 Albumin 4.0 gm/dl (3.4-5.0) 06/19/24 19:03 Globulin 2.4 gm/dl (2.5-4.0) L 06/19/24 19:03 Albumin/Globulin Ratio 1.7 (0.9-2) 06/19/24 19:03 Procalcitonin 25.00 ng/ml (0-0.5) H 06/19/24 19:03 Urine Color Yellow 06/19/24 Unknown Urine Appearance Clear (Clear) 06/19/24 Unknown Urine pH 7.0 (4.5-7.5) 06/19/24 Unknown Ur Specific [place] 1.043 (1.000-1.030) H 06/19/24 Unknown Urine Protein 1+ (Negative) H 06/19/24 Unknown Urine Glucose (UA) 3+ (Negative) H 06/19/24 Unknown Urine Ketones 3+ (Negative) H 06/19/24 Unknown Urine Blood Negative (Negative) 06/19/24 Unknown Urine Nitrite Negative (Negative) 06/19/24 Unknown Urine Bilirubin Negative (Negative) 06/19/24 Unknown Urine Urobilinogen Negative (Negative) 06/19/24 Unknown Ur Leukocyte Esterase Negative (Negative) 06/19/24 Unknown Urine WBC (Auto) 0-5 /hpf (0-5) 06/19/24 Unknown Urine RBC (Auto) 0-2 /hpf (0-2) 06/19/24 Unknown U Hyaline Cast (Auto) 0-2 /lpf (0-2) 06/19/24 Unknown U Epithel Cells (Auto) 0-2 /hpf (0-2) 06/19/24 Unknown Urine Bacteria (Auto) None Seen (None Seen) 06/19/24 Unknown ECG Additional Comments: ECG. Sinus tachycardia rate of 101. Nonspecific T wave abnormality. QTc 409. Code Status & VTE Plan VTE Prophylaxis Plan VTE Prophylaxis will be ordered: Yes
[2024-06-19] MEDS: ROSUVASTATIN CALCIUM 10 MG TAB PO STA (23:22)
[2024-06-19] MEDS: hydrOXYzine HCl 25 MG TAB PO STA (23:22)
[2024-06-19] MEDS: SODIUM CHLORIDE 0.9% 1,000 ML IV SCH (23:24)
[2024-06-19] MEDS: ACETAMINOPHEN 1,000 MG/100 ML VIAL IV STA (23:27)
[2024-06-20] MEDS: 4.5GM X1 IV STA (00:12)
[2024-06-20] MEDS ORDERED: ONDANSETRON INJ 2 MG/ML 2 ML VIAL IV PRN (00:13)
[2024-06-20] MEDS ORDERED: NITROGLYCERIN SL 0.4 MG/TAB TAB SL PRN (00:13)
[2024-06-20] MEDS: ENOXAPARIN INJ 40 MG/0.4 ML SYR SQ SCH (00:48)
--- NOTE | 2024-06-20 01:09 | Emergency Department Note ---
Impression & Plan Bacteremia, Diverticulitis, Gram-negative bacteremia ED Provider Note NAME: STERLING RAHMAN AGE: 69 SEX: F : 1955 ARRIVES VIA: Walk-In INFORMANT: Patient, ED PROVIDER(S): Mary Chance MD CHIEF COMPLAINT: Positive blood culture HPI: This is a 69-year-old female presented with positive blood cultures. Patient was seen this morning and was diagnosed with diverticulitis. She was sent home on Augmentin. Had blood culture sent prior and these resulted with 4/4 positive for gram-negative bacteria. She was vies come back to the ER. Since being discharged, she has noted continued rigors and chills. Reports persistent abdominal pain as well. ROS: See above HPI for pertinent positives & negatives. A total of 10 systems reviewed and were otherwise negative. PAST MEDICAL HISTORY: See Below PAST SURGICAL HISTORY: See Below FAMILY HISTORY: See Below SOCIAL HISTORY: See Below HOME MEDICATIONS: See Below ALLERGIES: See Below VITALS: See Below PHYSICAL EXAMINATION: General: resting comfortably in no acute distress Head: Normocephalic and atraumatic Eyes: Normal inspection, extraocular muscles intact Ear, nose, throat: Normal external exam Neck: Normal range of motion Respiratory: lungs clear to auscultation bilaterally Cardiovascular: Regular rate/rhythm, no murmur GI: soft, nontender, no guarding or rebound Extremities: nontender, moves all extremities Neuro: The patient awake and alert, appropriately conversive, no focal deficits, symmetric faces Skin: Warm, dry, and intact MEDICAL DECISION MAKING: This is a 69-year-old female presenting for positive blood cultures. Patient with diverticulosis morning. With positive blood cultures, will give ceftriaxone currently. Will repeat blood work. Patient is hypotensive and tachycardic. Patient given 1 L normal saline with improvement in blood pressure. Otherwise we will get the patient admitted. -Patient's white count increased from 4-11.87. Lactic acid is continually negative. -Patient was mated to the inpatient team at this time Differential diagnosis: Sepsis, bacteremia, diverticulitis Independent History obtained from: Diagnostics interpreted by me: ECG: None Cardiac Monitoring: An order was placed for continuous cardiac monitoring. The monitor shows a rate of 92 with sinus rhythm. Past Med/Surg History Problem List (Updated 06/20/24 @ 01:58 by Mary Chance MD) Gram-negative bacteremia (Acute) Diverticulitis (Acute) Bacteremia (Acute) Bacteremia Diverticulitis (Acute) Status post placement of cardiac pacemaker Sinus node dysfunction History of breast cancer No significant past surgical history Rheumatoid arthritis Acute heart failure with reduced ejection fraction and diastolic dysfunction NICM (nonischemic cardiomyopathy) Hypotension Acute congestive heart failure (Acute) Social History Smoking Status: Unknown if ever smoked Tobacco Type: Cigarettes Hx Alcohol Use: Yes Alcohol type: wine Hx Substance Use: No Preferred Language: Jordanian Communication Ability: Effective Display Department Manager Required: No Beliefs That Will Affect Care: None Current Living Situation: Spouse current occupation: Retired Other Information That Helps Us Care for You: No Feels Safe at Home: Yes Safety Concerns: Feels Safe At This Time Assistive Devices: Glasses Allergies Allergies Allergy/AdvReac Type Severity Reaction Status Date / Time indomethacin AdvReac Unknown SEVERE SYLVESTER Verified 06/19/24 22:24 bupivacaine [From Marcaine] AdvReac strange Verified 06/19/24 22:24 reaction Home Meds Home Medications Medication Instructions Recorded Confirmed empagliflozin 10 mg tablet 10 mg PO QAM 07/06/23 06/19/24 (Jardiance) folic acid 1 mg tablet 2 mg PO QAM 07/06/23 06/19/24 furosemide 20 mg tablet 20 mg PO DAILY PRN as directed 07/06/23 06/19/24 losartan 25 mg tablet 25 mg PO DAILY 07/06/23 06/19/24 metoprolol succinate 25 mg 37.5 mg PO QAM 07/06/23 06/19/24 tablet,extended release 24 hr digoxin 125 mcg (0.125 mg) tablet 125 mcg PO QAM 06/19/24 06/19/24 hydrocodone 5 mg-acetaminophen 325 1 tab PO Q6 PRN pain,mild 06/19/24 06/19/24 mg tablet hydroxyzine HCl 25 mg tablet 25 mg PO HS PRN Sleep 06/19/24 06/19/24 leflunomide 10 mg tablet 10 mg PO QAM 06/19/24 06/19/24 rosuvastatin 10 mg tablet 10 mg PO HS 06/19/24 06/19/24 spironolactone 25 mg tablet 25 mg PO QAM 06/19/24 06/19/24 Results & Data (ED) Vital Signs Vital Signs - 24 hr 06/19/24 18:50 06/19/24 19:27 06/19/24 19:27 Temperature 37.4 C Temperature Source Oral Pulse Rate 109 H Pulse Rate from SpO2 Sensor Respiratory Rate 18 Respiratory Effort / Characteristics Non-Labored Spontaneous Respiratory Depth Normal Blood Pressure 80/48 L Blood Pressure Mean 58 Pulse Oximetry 97 100 100 Oxygen Delivery Method Room Air Room Air Room Air Sepsis Recent Fever Within 48 Hours No Sepsis New/Unexplained Change in Mental Status No Sepsis Action Taken by Nursing No Action Required 06/19/24 19:45 06/19/24 20:03 06/19/24 20:30 Temperature Temperature Source Pulse Rate 89 94 H 95 H Pulse Rate from SpO2 Sensor 90 94 H Respiratory Rate 18 16 20 Respiratory Effort / Characteristics Respiratory Depth Blood Pressure 89/52 L 106/66 90/54 L Blood Pressure Mean 64 79 69 Pulse Oximetry 99 97 99 Oxygen Delivery Method Room Air Room Air Room Air Sepsis Recent Fever Within 48 Hours Sepsis New/Unexplained Change in Mental Status Sepsis Action Taken by Nursing 06/19/24 20:45 06/19/24 21:15 06/19/24 21:30 Temperature Temperature Source Pulse Rate 96 H 92 H 92 H Pulse Rate from SpO2 Sensor 95 H 91 H Respiratory Rate 19 22 18 Respiratory Effort / Characteristics Respiratory Depth Blood Pressure 98/57 L 107/65 105/63 Blood Pressure Mean 70 80 77 Pulse Oximetry 99 99 100 Oxygen Delivery Method Room Air Room Air Room Air Sepsis Recent Fever Within 48 Hours Sepsis New/Unexplained Change in Mental Status Sepsis Action Taken by Nursing 06/19/24 21:30 06/19/24 21:45 06/19/24 22:00 Temperature Temperature Source Pulse Rate 93 H 90 Pulse Rate from SpO2 Sensor 91 H Respiratory Rate 18 17 Respiratory Effort / Characteristics Respiratory Depth Blood Pressure 105/63 101/60 99/58 L Blood Pressure Mean 72 76 71 Pulse Oximetry 97 99 Oxygen Delivery Method Room Air Room Air Sepsis Recent Fever Within 48 Hours Sepsis New/Unexplained Change in Mental Status Sepsis Action Taken by Nursing 06/19/24 22:15 06/19/24 22:24 Temperature Temperature Source Pulse Rate 94 H Pulse Rate from SpO2 Sensor 94 H Respiratory Rate 18 Respiratory Effort / Characteristics Respiratory Depth Blood Pressure 94/52 L 98/57 L Blood Pressure Mean 59 70 Pulse Oximetry 99 Oxygen Delivery Method Room Air Sepsis Recent Fever Within 48 Hours Sepsis New/Unexplained Change in Mental Status Sepsis Action Taken by Nursing Laboratory Data 06/19/24 19:03 06/19/24 19:03 Lab Results 06/19/24 Range/Units 19:03 WBC 11.87 H (4.8-10.8) K/ul RBC 4.37 (4.20-5.40) M/uL Hgb 12.6 (12.0-16.0) g/dl Hct 38.1 (37.0-47.0) % MCV 87.2 (80.0-100.0) fL MCH 28.8 (25.0-34.0) pg MCHC 33.1 (32.0-36.0) g/dL RDW Std Deviation 40.5 (36.4-46.3) fL RDW Coeff of Laz 12.9 (11.5-14.5) % Plt Count 136 (130-400) K/uL MPV 9.3 L (9.4-12.4) fL Immature Gran % (Auto) 0.3 % Neut % (Auto) 92.7 % Lymph % (Auto) 3.3 % [place] % (Auto) 3.0 % Eos % (Auto) 0.3 % Baso % (Auto) 0.4 % Neut # (Auto) 11.00 H (1.40-6.50) K/uL Lymph # (Auto) 0.39 L (1.20-3.40) K/uL [place] # (Auto) 0.36 (0.11-0.59) K/uL Eos # (Auto) 0.03 (0.00-0.50) K/uL Baso # (Auto) 0.05 (0.00-0.20) K/uL Immature Gran # (Auto) 0.04 (0.01-0.20) K/uL PT 10.8 (9.0-12.0) Seconds INR 1.0 (0.9-1.1) APTT 30 (21-31) Seconds PTT Ratio 1.1 Sodium 135 L (136-145) mmol/L Potassium 4.3 (3.5-5.1) mmol/L Chloride 105 (98-107) mmol/L Carbon Dioxide 23 (21-32) mmol/L Anion Gap 7 (3-11) BUN 20 (6-23) mg/dl Creatinine 1.05 (0.6-1.2) mg/dl Est Cr Clr Drug Dosing 51.7 ml/min eGFR 57.88 BUN/Creatinine Ratio 19.0 (10-20) Glucose 106 H (70-99(Fasting)) mg/dl Lactate 1.5 (0.4-2.0) mmol/L Calcium 8.5 L (8.6-10.3) mg/dl Magnesium 1.7 (1.7-2.4) mg/dl Total Bilirubin 1.4 H (0.2-1.0) mg/dl AST 44 H (13-39) U/L ALT 20 (7-52) U/L Alkaline Phosphatase 77 (34-104) U/L Troponin I High Sens 18.8 H (0-14) pg/ml Total Protein 6.4 (6.0-8.3) gm/dl Albumin 4.0 (3.4-5.0) gm/dl Globulin 2.4 L (2.5-4.0) gm/dl Albumin/Globulin Ratio 1.7 (0.9-2) Procalcitonin 25.00 H (0-0.5) ng/ml Administered Medications Enoxaparin Sodium (Enoxaparin Inj 40 Mg/0.4 Ml Syr) 40 mg SQ PM MATT Stop: 07/20/24 00:12 Last Admin: 06/20/24 00:48 Dose: 40 mg Documented By: STEPHANIE Sodium Chloride (Nss) 1,000 mls @ 50 mls/hr IV .Q20H MATT Stop: 06/22/24 22:14 Last Admin: 06/20/24 00:18 Dose: 50 mls/hr Documented By: Infusion: 06/20/24 00:18 Dose: Infused Documented By: Admin: 06/19/24 23:24 Dose: 50 mls/hr Documented By: Discontinued Medications Hydroxyzine HCl (Hydroxyzine Hcl 25 Mg Tab) 25 mg PO NOW STA Stop: 06/19/24 22:37 Last Admin: 06/19/24 23:22 Dose: 25 mg Documented By: Sodium Chloride (Nss) 500 mls @ 999 mls/hr IV .Q31M ONE Stop: 06/19/24 19:38 Last Infusion: 06/19/24 19:54 Dose: Infused Documented By: Admin: 06/19/24 19:11 Dose: 999 mls/hr Documented By: ORLY Ceftriaxone Sodium (Rocephin) 2,000 mg in 50 mls @ 100 mls/hr IV NOW STA Stop: 06/19/24 20:12 Last Infusion: 06/19/24 20:28 Dose: Infused Documented By: Admin: 06/19/24 19:50 Dose: 100 mls/hr Documented By: MEERA Sodium Chloride (Nss) 1,000 mls @ 999 mls/hr IV .Q1H1M ONE Stop: 06/19/24 22:17 Last Infusion: 06/19/24 22:39 Dose: Infused Documented By: Admin: 06/19/24 21:17 Dose: 999 mls/hr Documented By: MEERA Acetaminophen (Ofirmev) 1,000 mg in 100 mls @ 400 mls/hr IV NOW STA Stop: 06/19/24 22:49 Last Infusion: 06/19/24 23:44 Dose: Infused Documented By: Admin: 06/19/24 23:27 Dose: 400 mls/hr Documented By: Piperacillin Sod/Tazobactam Sod (Zosyn) 4.5 gm in 100 mls @ 200 mls/hr IV NOW STA; Protocol Stop: 06/19/24 23:08 Last Infusion: 06/20/24 00:42 Dose: Infused Documented By: Admin: 06/20/24 00:12 Dose: 200 mls/hr Documented By: STEPHANIE Rosuvastatin Calcium (Rosuvastatin Calcium 10 Mg Tab) 10 mg PO NOW STA Stop: 06/19/24 22:37 Last Admin: 06/19/24 23:22 Dose: 10 mg Documented By: Discharge Plan Visit Data Chief Complaint: Illness Stated Complaint: FEVER, CHILLS, DIARRHEA, ABD PAIN, HYPOTENSION ED Provider: Mary Chance Discharge Problem: Bacteremia, Diverticulitis, Gram-negative bacteremia Patient Disposition: Admitted As Inpatient Condition: Fair Discharge Instructions Interventions: ED Discharge Assessment Last Done: 06/19/24 23:45
--- OUTSIDE RECORDS SUMMARY | 2024-06-20 02:42 | External Medical Summary ---
Author Name Unknown Address Unknown Organization [id number]:[facility] [place] [address] [place] [address] Laboratory Report Ordering Provider Test Date Status QAMAR LESLIE 06/18/2024 11:16:59 Final Observation Date Value Abnormality Reference (Units ) Status MYCODE SPECIMEN-SST 06/18/2024 11:16:59 Freezing of extracted DNA, whole blood and/or serum. Final Performing Location [facility] [place] [address] [place] [address]
--- OUTSIDE RECORDS SUMMARY | 2024-06-20 02:42 | External Medical Summary ---
Author Name Unknown Address Unknown Organization [id number]:[facility] [place] [address] [address] [facility] [address] Laboratory Report Ordering Provider Test Date Status JEFFRY AVILES 06/18/2024 11:16:59 Final Observation Date Value Abnormality Reference (Units ) Status Tissue transglutaminase IgA Ab [Presence] in Serum by Immunoassay 06/18/2024 11:16:59 Negative Negative Final Tissue transglutaminase IgA Ab [Units/volume] in Serum by Immunoassay 06/18/2024 11:16:59 <0.2 <7 (U/mL) Final Performing Location [facility] [place] [facility] [address] [facility] [address]
--- OUTSIDE RECORDS SUMMARY | 2024-06-20 02:42 | External Medical Summary ---
Author Name Unknown Address Unknown Organization [id number][place] [place] [address] [place] [address] Laboratory Report Ordering Provider Test Date Status QAMAR LESLIE 06/18/2024 11:16:59 Final Observation Date Value Abnormality Reference (Units ) Status MYCODE SPECIMEN-SST 06/18/2024 11:16:59 Freezing of extracted DNA, whole blood and/or serum. Final Performing Location [facility] [place] [address] [place] [address]
[2024-06-20] MEDS: PIPERACILLIN/TAZOBACTAM 4.5 GM/100 ML BAG IV SCH (05:56)
[2024-06-20 06:48] LABS: Basophils % (auto) 0.6 %; Eosinophils % (auto) 0.1 %; Hemoglobin 11.6 g/dl (12.0-16.0); Immature Granulocytes % (auto) 0.3 %; Lymphocytes % (auto) 7.2 %; Mean Corpuscular Hemoglobin 29.7 pg (25.0-34.0); Mean Corpuscular Hgb Conc 33.1 g/dL (32.0-36.0); Mean Corpuscular Volume 89.5 fL (80.0-100.0); Mean Platelet Volume 9.2 fL (9.4-12.4); Monocytes % (auto) 2.8 %; Platelet Count 110 K/uL (130-400); RDW Coefficient of Variation 13.2 % (11.5-14.5); RDW Standard Deviation 43.2 fL (36.4-46.3); Red Blood Count 3.91 M/uL (4.20-5.40); White Blood Count 8.84 K/ul (4.8-10.8)
[2024-06-20 06:49] LABS: Basophils # (auto) 0.05 K/uL (0.00-0.20); Eosinophils # (auto) 0.01 K/uL (0.00-0.50); Immature Granulocytes # (auto) 0.03 K/uL (0.01-0.20); Lymphocytes # (auto) 0.64 K/uL (1.20-3.40); Monocytes # (auto) 0.25 K/uL (0.11-0.59); Neutrophils # (auto) 7.86 K/uL (1.40-6.50)
[2024-06-20 07:06] LABS: BUN Creatinine Ratio 17.3 (10-20); Calcium 7.5 mg/dl (8.6-10.3); Creatinine Clr Calc Pharmacy 52.2 ml/min; Magnesium 1.9 mg/dl (1.7-2.4); Potassium 4.1 mmol/L (3.5-5.1)
[2024-06-20 07:13] LABS: Troponin I High Sensitivity 18.8 pg/ml (0-14)
[2024-06-20 08:11] LABS: Toxic Vacuolation 3+
[2024-06-20] MEDS: ACETAMINOPHEN 1,000 MG/100 ML VIAL IV PRN (08:11)
--- NOTE | 2024-06-20 08:36 | Cardiology Consultation ---
Date of Consultation June 20, 2024 Assessment & Plan (1) Diverticulitis: (2) Bacteremia: * Bowel rest * antibiotic therapy with Zosyn as per primary service * Tylenol PRN fever (3) NICM (nonischemic cardiomyopathy): * chronic HFrEF due to non ischemic cardiomyopathy. Perhaps related to prior remote treatment for breast carcinoma * genetic testing negative * has dual chamber Medtronic AICD. Pocket with stable findings * LVEF < 20% at diagnosis in March, with moderate to severe MR at that time. Most recent echo at [facility] /, LVEF 42%, trace MR * GDMT limited due to baseline hypotension. Baseline SBP 90s to low 100s * Hold Jardiance and losartan. * Continue digoxin * Resume metoprolol succinate 25 mg daily for now (rather than home dose of 37.5 mg, with holf for SBP < 90 mm Hg) * Continue rosuvastatin * Repeat echocardiogram (4) Rheumatoid arthritis: * Hold leflunomide I spent a total of 55 minutes on the date of service in preparation, delivery, and documentation of the care provided to this patient, excluding any time spent in the performance of separately billed services. 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 Patient well known to the undersigned as I have followed her previously as an inpatient and outpatient . In addition to following with id , she follows with cardiology at the [facility]. At the time of her most recent outpatient cardiology visit with me on 05/20/2024 relatively stable cardiac signs and symptoms were noted. Patient felt that her heart rate had been slightly elevated prompting reinitiation of digoxin. She is scheduled for a repeat echocardiogram in [place] in July. She had recently been seen by primary care with complaint of loose stools and generalized abdominal discomfort. C. difficile testing on 06/10/2024 was negative. Digoxin level was 0.5 NG per mL 06/01/24. Her abdominal symptoms had progressed prompting evaluation in the emergency department in the forensic psychiatrist of 06/19/24. CT of the abdomen pelvis has revealed acute diverticulitis in the proximal sigmoid colon without free air or abscess. She was discharged to home from the ED with plan for a course of Augmentin. She however developed subjective fever and rigors. Blood cultures x 2 obtained the morning of 06/19/2024 revealed E. coli. Given the abnormal blood cultures and progression of her symptoms she returned to the hospital and was admitted. Chest x-ray was without evidence of interstitial edema. At present she is comfortable. T max was 39.7 last night but improved on antibiotics and Tylenol. Past Medical History: The patient presented via the emergency department in March, with shortness of breath and findings of small pleural effusions on chest x-ray. An echocardiogram revealed severe diffuse left ventricular hypokinesis, LVEF 20% with [id number] mitral regurgitation noted. The etiology of the mitral regurgitation felt to be the underlying dilated cardiomyopathy with tethering of the mitral valve leaflets and resultant central malcoaptation. She underwent invasive coronary angiography on 03/23/2023 that revealed angiographically normal coronary arteries. The left ventricular end-diastolic pressure was normal at the time of cardiac catheterization. Implantation of dual-chamber Medtronic AICD 07/13/2023 after follow-up MRI revealed ongoing severe left ventricular systolic dysfunction after over 3 months of medical therapy. left breast carcinoma diagnosed in 2006 she was treated with chemotherapy including doxorubicin and cyclophosphamide followed by paclitaxel. She had undergone left modified radical mastectomy in March,. 16 lymph nodes were negative at that time with resection margin negative. In 2022 she was diagnosed with rheumatoid arthritis and was treated with prednisone, hydroxychloroquine naproxen. 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 Allergies Allergy/AdvReac Type Severity Reaction Status Date / Time indomethacin AdvReac Unknown SEVERE SYLVESTER Verified 06/19/24 22:24 bupivacaine [From Marcaine] AdvReac strange Verified 06/19/24 22:24 reaction Home Medications Medication Instructions Recorded Confirmed Type empagliflozin 10 mg tablet 10 mg PO QAM 07/06/23 06/19/24 History (Jardiance) folic acid 1 mg tablet 2 mg PO QAM 07/06/23 06/19/24 History furosemide 20 mg tablet 20 mg PO DAILY PRN as directed 07/06/23 06/19/24 History losartan 25 mg tablet 25 mg PO DAILY 07/06/23 06/19/24 History metoprolol succinate 25 mg 37.5 mg PO QAM 07/06/23 06/19/24 History tablet,extended release 24 hr digoxin 125 mcg (0.125 mg) tablet 125 mcg PO QAM 06/19/24 06/19/24 History hydrocodone 5 mg-acetaminophen 325 1 tab PO Q6 PRN pain,mild 06/19/24 06/19/24 History mg tablet hydroxyzine HCl 25 mg tablet 25 mg PO HS PRN Sleep 06/19/24 06/19/24 History leflunomide 10 mg tablet 10 mg PO QAM 06/19/24 06/19/24 History rosuvastatin 10 mg tablet 10 mg PO HS 06/19/24 06/19/24 History spironolactone 25 mg tablet 25 mg PO QAM 06/19/24 06/19/24 History Patient History Social History Smoking Status: Unknown if ever smoked Tobacco Type: Cigarettes Hx Alcohol Use: Yes Alcohol type: wine Hx Substance Use: No Preferred Language: Chinese Communication Ability: Effective Ripsaw Operator Required: No Beliefs That Will Affect Care: None Current Living Situation: Spouse current occupation: Retired Other Information That Helps Us Care for You: No Feels Safe at Home: Yes Safety Concerns: Feels Safe At This Time Assistive Devices: Glasses Physical Exam Constitutional: WD/WN, vitals as above Eyes: PERRL, conjunctivae normal, anicteric sclerae Respiratory: normal respiratory effort, lungs clear to auscultation Cardiovascular: RRR, no murmur, no edema Vessels: no JVD Chest (Breasts): Chest: + pacemaker (left infraclavicular AICD pocket CDI , no erythema, no erosion) Gastrointestinal (Abdomen): Inspection/Auscultation: abdomen not distended Percussion/Palpation: + abdomen tender (mild lower quadrant tenderness on palpation) Neurologic: PERRL, EOMI, accommodation nl, no face palsy, no dysarthria Psychiatric: A+Ox3, euthymic affect Results & Data Vital Signs (Past 12 Hours) Vital Signs Temp Pulse Pulse Resp BP BP Pulse Ox 06/20/24 07:53 37.1 C 74 18 95/53 L 98 06/20/24 03:41 36.9 C 79 18 92/53 L 98 06/20/24 00:00 37.9 C H 116 H 18 94/55 L 96 06/19/24 23:45 88 18 101/55 L 96 06/19/24 22:57 90 22 93/54 L 97 06/19/24 22:24 94 H 18 98/57 L 99 06/19/24 22:15 94/52 L 06/19/24 22:00 90 17 99/58 L 99 06/19/24 21:45 101/60 06/19/24 21:30 93 H 18 105/63 97 06/19/24 21:30 92 H 18 105/63 100 06/19/24 21:15 92 H 22 107/65 99 06/19/24 20:45 96 H 19 98/57 L 99 O2 Del Method 06/20/24 07:53 Room Air 06/20/24 03:41 Room Air 06/20/24 00:00 Room Air 06/19/24 23:45 Room Air 06/19/24 22:57 Room Air 06/19/24 22:24 Room Air 06/19/24 22:15 06/19/24 22:00 Room Air 06/19/24 21:45 06/19/24 21:30 Room Air 06/19/24 21:30 Room Air 06/19/24 21:15 Room Air 06/19/24 20:45 Room Air Laboratory Results Cardiac Enzymes 06/19/24 06/20/24 Range/Units 19:03 05:52 AST 44 H (13-39) U/L Troponin I High Sens 18.8 H 18.8 H (0-14) pg/ml Coagulation 06/19/24 Range/Units 19:03 PT 10.8 (9.0-12.0) Seconds APTT 30 (21-31) Seconds CBC 06/19/24 06/20/24 Range/Units 19:03 05:52 WBC 11.87 H 8.84 (4.8-10.8) K/ul RBC 4.37 3.91 L (4.20-5.40) M/uL Hgb 12.6 11.6 L (12.0-16.0) g/dl Hct 38.1 35.0 L (37.0-47.0) % Plt Count 136 110 L (130-400) K/uL Neut # (Auto) 11.00 H 7.86 H (1.40-6.50) K/uL Lymph # (Auto) 0.39 L 0.64 L (1.20-3.40) K/uL [place] # (Auto) 0.36 0.25 (0.11-0.59) K/uL Eos # (Auto) 0.03 0.01 (0.00-0.50) K/uL Baso # (Auto) 0.05 0.05 (0.00-0.20) K/uL Comprehensive Metabolic Panel 06/19/24 06/20/24 Range/Units 19:03 05:52 Sodium 135 L 137 (136-145) mmol/L Potassium 4.3 4.1 (3.5-5.1) mmol/L Chloride 105 111 H (98-107) mmol/L Carbon Dioxide 23 24 (21-32) mmol/L BUN 20 18 (6-23) mg/dl Creatinine 1.05 1.04 (0.6-1.2) mg/dl Glucose 106 H 86 (70-99(Fasting)) mg/dl Calcium 8.5 L 7.5 L (8.6-10.3) mg/dl AST 44 H (13-39) U/L ALT 20 (7-52) U/L Alkaline Phosphatase 77 (34-104) U/L Total Protein 6.4 (6.0-8.3) gm/dl Albumin 4.0 (3.4-5.0) gm/dl Intake and Output 06/19/24 06/20/24 06/20/24 22:59 06:59 14:59 Intake Total 1550 / 1795 245 / 1795 100 / 100 Output Total / 2 / 2 Balance 1550 / 1790 240 / 1790 98 / 98 Intake: IV 1550 / 1795 245 / 1795 100 / 100 Acetaminophen 1,000 mg In 100 100 / 100 100 / 100 ml @ 400 mls/hr IV Q8H PRN Rx#: [id number] Piperacillin/Tazobactam 4.5 gm 100 / 100 In 100 ml @ 200 mls/hr IV NOW STA Rx#:[id number] Sodium Chloride 0.9% 1,000 ml @ 1000 / 1045 45 / 1045 50 mls/hr IV .Q20H MATT Rx#: [id number] Sodium Chloride 0.9% 500 ml @ 500 / 500 999 mls/hr IV .Q31M ONE Rx#: [id number] cefTRIAXone SODIUM 2,000 mg In 50 / 50 50 ml @ 100 mls/hr IV NOW STA Rx#:[id number] Output: # Bowel Movements 5 / 5 2 / 2 Other: # Unmeasured Voids 5 Weight 65.4 kg 65.4 kg Weight Measurement Method Built in [facility] Diagnostic Findings EKG performed 06/19/24: Sinus tachycardia at 101 bpm , nonspecific repolarization abnormalities on the lateral leads are slightly more prominent than prior tracing.
[2024-06-20] MEDS: FOLIC ACID 1 MG TAB PO SCH (08:42)
[2024-06-20] MEDS ORDERED: EMPAGLIFLOZIN 10 MG TAB PO SCH (09:00)
[2024-06-20] MEDS: METOPROLOL SUCC 25MG EXT REL TAB PO SCH (09:46)
--- NOTE | 2024-06-20 10:24 | Hospitalist Progress Note ---
Date of Service June 20, 2024 Assessment & Plan (1) Bacteremia: Plan: 69-year-old female with past medical history significant for nonischemic cardiomyopathy, status post AICD, history of thoracic outlet syndrome, osteoarthritis, degenerative disease, history of rheumatoid arthritis involving multiple sites with positive rheumatoid factor, history of breast cancer presents with ongoing abdominal pain and diarrhea and found to have diverticulitis and also bacteremia. Sepsis POA Bacteremia with E. coli Acute sigmoid diverticulitis Patient presented to the hospital with abdominal pain, chills and watery diarrhea. CT abdomen concerning for acute sigmoid diverticulitis; no free air or abscess Blood culture on admission shows 4 out of 4 E. coli. PCR positive for Bacteriodes fragilis and E.coli N.p.o. with sips of water. Continuing IV Zosyn Continue IV fluids Plan to repeat blood culture after 48 hours History of chronic systolic CHF Nonischemic cardiomyopathy Status post AICD EF less than 20% March 2023 Improved to 42% in October 2023 Continue digoxin and metoprolol Currently holding losartan, Jardiance and spironolactone for sepsis Hypertension- Holding losartan and spironolactone continue metoprolol Rheumatoid arthritis Holding leflunomide Holding Vicodin as needed for now Hyperlipidemia On statin DVT prophylaxis Lovenox Disposition Telemetry Full code. Time spent evaluating patient, direct bedside care, chart review, placing orders, interpretation of diagnostic studies, discussion with consultants, bob ent, and family members, as well as other required patient management activities is 50 minutes Please note the above document was generated using voice recognition software. It may contain grammatical, syntax or spelling errors. Any formal questions or concerns about the content, text or information contained within the body of this dictation should be directly addressed to the provider for clarification Admission and Anticipated Discharge Date Admission Date: June 19, 2024 Subjective Patient seen and examined at bedside. She is lying in the bed comfortably; reports pain in her left lower quadrant and suprapubic region. Continues to have watery diarrhea as well. No fever or chills. Review of Systems Review of Systems: All systems reviewed & are unremarkable except as noted in Subjective Physical Exam Physical Exam: General- Not in distress Head- atraumatic Eyes- PERRL. ENT- oropharynx clear Neck- supple, no JVD. Lungs- clear to auscultation no wheezing or crackles Heart- regular rhythm; no murmur, no gallop. Abdomen- Tenderness in the left lower quadrant present Extremities- trace pretibial edema, no erythema seen Neuro- alert, oriented PERRL, no facial palsy; no dysarthria; moves extremities Results & Data Results & Data Vital Signs (Past 12 Hours) Vital Signs Temp Pulse Pulse Resp BP BP Pulse Ox 06/20/24 09:08 72 06/20/24 07:53 37.1 C 74 18 95/53 L 98 06/20/24 03:41 36.9 C 79 18 92/53 L 98 06/20/24 00:00 37.9 C H 116 H 18 94/55 L 96 06/19/24 23:45 88 18 101/55 L 96 06/19/24 22:57 90 22 93/54 L 97 06/19/24 22:24 94 H 18 98/57 L 99 O2 Del Method 06/20/24 09:08 06/20/24 07:53 Room Air 06/20/24 03:41 Room Air 06/20/24 00:00 Room Air 06/19/24 23:45 Room Air 06/19/24 22:57 Room Air 06/19/24 22:24 Room Air
--- NOTE | 2024-06-20 11:18 | Surgery Consultation ---
Date of Consultation June 20, 2024 Assessment & Plan (1) Gram-negative bacteremia: (2) Diverticulitis: 69 yo female with increasing abdominal pain and fevers and chills in setting of intermittent diarrhea for past few months with e.coli bacteremia and ct scan with proximal acute diverticulitis without perforation or abscess. Leukocytosis 11k on presentation, 8 k today. Abdomen soft, mildly distended, tender in LLQ, no peritonitis or rigidity. No acute surgical intervention recommended at this time. Continue conservative management, IV abx, Iv fluids, NPO for bowel rest today, pain management and antiemetics as needed, encouraged ambulation. [facility] surgery team on for the weekend. Discussed with Dr. crockett who agrees with above. History of Present Illness Reason for Consultation: Diverticulitis, bacteremia Requesting Physician: Dr. Gutierrez Attending Physician: Chace Cannon MD History of Present Illness Elena is a 69 yo female with history of nonischemic cardiomyopathy, rheumatoid arthritis, sinus node dysfunction, breast cancer, congestive heart failure, who presented to ED with worsening abdominal pain and fevers in setting of intermittent diarrhea for past few months. States she saw PCP on Sunday and outpatient CT scan ordered and then developed increase in pain and fevers and presented to ED. States she has been having intermittent diarrhea for a few months. Colitis admission in 2023. Last colonoscopy was in 2022 at [facility]. States her pain is improved but still present, low abdominal pain. Denies nausea, vomiting, severe pain. Having loose bowel movements , 7 last night. No blood in stools. Passing a lot of gas. History of appendectomy at age 13. Allergies Allergy/AdvReac Type Severity Reaction Status Date / Time indomethacin AdvReac Unknown SEVERE SYLVESTER Verified 06/19/24 22:24 bupivacaine [From Marcaine] AdvReac strange Verified 06/19/24 22:24 reaction Home Medications Medication Instructions Recorded Confirmed Type empagliflozin 10 mg tablet 10 mg PO QAM 07/06/23 06/19/24 History (Jardiance) folic acid 1 mg tablet 2 mg PO QAM 07/06/23 06/19/24 History furosemide 20 mg tablet 20 mg PO DAILY PRN as directed 07/06/23 06/19/24 History losartan 25 mg tablet 25 mg PO DAILY 07/06/23 06/19/24 History metoprolol succinate 25 mg 37.5 mg PO QAM 07/06/23 06/19/24 History tablet,extended release 24 hr digoxin 125 mcg (0.125 mg) tablet 125 mcg PO QAM 06/19/24 06/19/24 History hydrocodone 5 mg-acetaminophen 325 1 tab PO Q6 PRN pain,mild 06/19/24 06/19/24 History mg tablet hydroxyzine HCl 25 mg tablet 25 mg PO HS PRN Sleep 06/19/24 06/19/24 History leflunomide 10 mg tablet 10 mg PO QAM 06/19/24 06/19/24 History rosuvastatin 10 mg tablet 10 mg PO HS 06/19/24 06/19/24 History spironolactone 25 mg tablet 25 mg PO QAM 06/19/24 06/19/24 History Patient History Social History Smoking Status: Unknown if ever smoked Tobacco Type: Cigarettes Hx Alcohol Use: Yes Alcohol type: wine Hx Substance Use: No Preferred Language: Samoan Communication Ability: Effective Thread Grinder Required: No Beliefs That Will Affect Care: None Current Living Situation: Spouse current occupation: Retired Other Information That Helps Us Care for You: No Feels Safe at Home: Yes Safety Concerns: Feels Safe At This Time Assistive Devices: Glasses Review of Systems Review of Systems: All systems reviewed & are unremarkable except as noted in HPI & below Physical Exam Constitutional: WD/WN, vitals as above + ill appearing, cooperative and comfortable; no acute distress Respiratory: normal respiratory effort; no respiratory distress, no labored breathing and no retractions Gastrointestinal (Abdomen): Inspection/Auscultation: abdomen normal to inspection; abdomen not distended Percussion/Palpation: + abdomen tender (LLQ /suprapubic) and abdomen soft; no guarding, abdomen not rigid and abdomen not firm Skin: no rashes, warm and dry Psychiatric: A+Ox3, euthymic affect Results & Data Vital Signs (Past 12 Hours) Vital Signs Temp Pulse Pulse Resp BP BP Pulse Ox 06/20/24 09:08 72 06/20/24 07:53 37.1 C 74 18 95/53 L 98 06/20/24 03:41 36.9 C 79 18 92/53 L 98 06/20/24 00:00 37.9 C H 116 H 18 94/55 L 96 06/19/24 23:45 88 18 101/55 L 96 O2 Del Method 06/20/24 09:08 06/20/24 07:53 Room Air 06/20/24 03:41 Room Air 06/20/24 00:00 Room Air 06/19/24 23:45 Room Air Laboratory Results 06/20/24 06/20/24 06/20/24 Range/Units Unknown 09:23 05:52 WBC 8.84 (4.8-10.8) K/ul RBC 3.91 L (4.20-5.40) M/uL Hgb 11.6 L (12.0-16.0) g/dl Hct 35.0 L (37.0-47.0) % MCV 89.5 (80.0-100.0) fL MCH 29.7 (25.0-34.0) pg MCHC 33.1 (32.0-36.0) g/dL RDW Std Deviation 43.2 (36.4-46.3) fL RDW Coeff of Laz 13.2 (11.5-14.5) % Plt Count 110 L (130-400) K/uL MPV 9.2 L (9.4-12.4) fL Immature Gran % (Auto) 0.3 % Neut % (Auto) 89.0 % Lymph % (Auto) 7.2 % [place] % (Auto) 2.8 % Eos % (Auto) 0.1 % Baso % (Auto) 0.6 % Neut # (Auto) 7.86 H (1.40-6.50) K/uL Lymph # (Auto) 0.64 L (1.20-3.40) K/uL [place] # (Auto) 0.25 (0.11-0.59) K/uL Eos # (Auto) 0.01 (0.00-0.50) K/uL Baso # (Auto) 0.05 (0.00-0.20) K/uL Immature Gran # (Auto) 0.03 (0.01-0.20) K/uL Toxic Vacuolation PT (9.0-12.0) Seconds INR (0.9-1.1) APTT (21-31) Seconds PTT Ratio Sodium 137 (136-145) mmol/L Potassium 4.1 (3.5-5.1) mmol/L Chloride 111 H (98-107) mmol/L Carbon Dioxide 24 (21-32) mmol/L Anion Gap 2 L (3-11) BUN 18 (6-23) mg/dl Creatinine 1.04 (0.6-1.2) mg/dl Est Cr Clr Drug Dosing 52.2 ml/min eGFR 58.54 BUN/Creatinine Ratio 17.3 (10-20) Glucose 86 (70-99(Fasting)) mg/dl Lactate (0.4-2.0) mmol/L Calcium 7.5 L (8.6-10.3) mg/dl Magnesium 1.9 (1.7-2.4) mg/dl Total Bilirubin (0.2-1.0) mg/dl AST (13-39) U/L ALT (7-52) U/L Alkaline Phosphatase (34-104) U/L Troponin I High Sens 18.8 H (0-14) pg/ml Total Protein (6.0-8.3) gm/dl Albumin (3.4-5.0) gm/dl Globulin (2.5-4.0) gm/dl Albumin/Globulin Ratio (0.9-2) Procalcitonin (0-0.5) ng/ml Urine Color Urine Appearance (Clear) Urine pH (4.5-7.5) Ur Specific [place] (1.000-1.030) Urine Protein (Negative) Urine Glucose (UA) (Negative) Urine Ketones (Negative) Urine Blood (Negative) Urine Nitrite (Negative) Urine Bilirubin (Negative) Urine Urobilinogen (Negative) Ur Leukocyte Esterase (Negative) Urine WBC (Auto) (0-5) /hpf Urine RBC (Auto) (0-2) /hpf U Hyaline Cast (Auto) (0-2) /lpf U Epithel Cells (Auto) (0-2) /hpf Urine Bacteria (Auto) (None Seen) Stl C. cayetanensis PCR Pending Stool Rotavirus A PCR Pending Stl Adenov F 40/41 PCR Pending Stool Astrovirus (PCR) Pending Stool Campylobacter PCR Pending Stl C. diff Tox B Gene Negative Cdiff Gene (Neg) Stool Cryptosporidium PCR Pending Stl E.coli Shiga Tox PCR Pending Stl Enterotoxigenic E PCR Pending Stool EAEC (PCR) Pending Stl E. histolytica PCR Pending Stool Giardia Lamblia PCR Pending Stool Salmonella PCR Pending Stool Sapovirus (PCR) Pending Stl P. shigelloides PCR Pending Stl Shigella/EIEC PCR Pending St Y.enterocolitica PCR Pending Stool Vibrio (PCR) Pending Stl Vibrio cholerae PCR Pending Stl Norovirus GI/GII PCR Pending Digoxin 0.4 L (0.8-2.0) ng/ml 06/19/24 06/19/24 Range/Units Unknown 19:03 WBC 11.87 H (4.8-10.8) K/ul RBC 4.37 (4.20-5.40) M/uL Hgb 12.6 (12.0-16.0) g/dl Hct 38.1 (37.0-47.0) % MCV 87.2 (80.0-100.0) fL MCH 28.8 (25.0-34.0) pg MCHC 33.1 (32.0-36.0) g/dL RDW Std Deviation 40.5 (36.4-46.3) fL RDW Coeff of Laz 12.9 (11.5-14.5) % Plt Count 136 (130-400) K/uL MPV 9.3 L (9.4-12.4) fL Immature Gran % (Auto) 0.3 % Neut % (Auto) 92.7 % Lymph % (Auto) 3.3 % [place] % (Auto) 3.0 % Eos % (Auto) 0.3 % Baso % (Auto) 0.4 % Neut # (Auto) 11.00 H (1.40-6.50) K/uL Lymph # (Auto) 0.39 L (1.20-3.40) K/uL [place] # (Auto) 0.36 (0.11-0.59) K/uL Eos # (Auto) 0.03 (0.00-0.50) K/uL Baso # (Auto) 0.05 (0.00-0.20) K/uL Immature Gran # (Auto) 0.04 (0.01-0.20) K/uL Toxic Vacuolation 3+ PT 10.8 (9.0-12.0) Seconds INR 1.0 (0.9-1.1) APTT 30 (21-31) Seconds PTT Ratio 1.1 Sodium 135 L (136-145) mmol/L Potassium 4.3 (3.5-5.1) mmol/L Chloride 105 (98-107) mmol/L Carbon Dioxide 23 (21-32) mmol/L Anion Gap 7 (3-11) BUN 20 (6-23) mg/dl Creatinine 1.05 (0.6-1.2) mg/dl Est Cr Clr Drug Dosing 51.7 ml/min eGFR 57.88 BUN/Creatinine Ratio 19.0 (10-20) Glucose 106 H (70-99(Fasting)) mg/dl Lactate 1.5 (0.4-2.0) mmol/L Calcium 8.5 L (8.6-10.3) mg/dl Magnesium 1.7 (1.7-2.4) mg/dl Total Bilirubin 1.4 H (0.2-1.0) mg/dl AST 44 H (13-39) U/L ALT 20 (7-52) U/L Alkaline Phosphatase 77 (34-104) U/L Troponin I High Sens 18.8 H (0-14) pg/ml Total Protein 6.4 (6.0-8.3) gm/dl Albumin 4.0 (3.4-5.0) gm/dl Globulin 2.4 L (2.5-4.0) gm/dl Albumin/Globulin Ratio 1.7 (0.9-2) Procalcitonin 25.00 H (0-0.5) ng/ml Urine Color Yellow Urine Appearance Clear (Clear) Urine pH 7.0 (4.5-7.5) Ur Specific [place] 1.043 H (1.000-1.030) Urine Protein 1+ H (Negative) Urine Glucose (UA) 3+ H (Negative) Urine Ketones 3+ H (Negative) Urine Blood Negative (Negative) Urine Nitrite Negative (Negative) Urine Bilirubin Negative (Negative) Urine Urobilinogen Negative (Negative) Ur Leukocyte Esterase Negative (Negative) Urine WBC (Auto) 0-5 (0-5) /hpf Urine RBC (Auto) 0-2 (0-2) /hpf U Hyaline Cast (Auto) 0-2 (0-2) /lpf U Epithel Cells (Auto) 0-2 (0-2) /hpf Urine Bacteria (Auto) None Seen (None Seen) Stl C. cayetanensis PCR Stool Rotavirus A PCR Stl Adenov F 40/41 PCR Stool Astrovirus (PCR) Stool Campylobacter PCR Stl C. diff Tox B Gene (Neg) Stool Cryptosporidium PCR Stl E.coli Shiga Tox PCR Stl Enterotoxigenic E PCR Stool EAEC (PCR) Stl E. histolytica PCR Stool Giardia Lamblia PCR Stool Salmonella PCR Stool Sapovirus (PCR) Stl P. shigelloides PCR Stl Shigella/EIEC PCR St Y.enterocolitica PCR Stool Vibrio (PCR) Stl Vibrio cholerae PCR Stl Norovirus GI/GII PCR Digoxin (0.8-2.0) ng/ml Diagnostic Findings CT SCAN OF THE ABDOMEN AND PELVIS WITH IV CONTRAST CLINICAL HISTORY: Abdominal pain, nausea, vomiting and diarrhea. COMPARISON STUDY: CT of the abdomen and pelvis June 16, 2023. TECHNIQUE: Following the IV administration of 94 cc of Optiray 320, CT scan of the abdomen and pelvis is performed from the lung bases to the proximal femora. Images are reviewed in the axial, sagittal, and coronal planes. IV contrast was administered without complication. A dose lowering technique was utilized adhering to the principles of ALARA. CT DOSE: 696.81 mGy.cm FINDINGS: Lung bases: The size of the heart is normal. There is no pericardial effusion. The lung bases are clear. Pacer/AICD leads are partially imaged. Liver: The liver morphology is normal and there are no hepatic lesions. There is no intrahepatic biliary ductal dilatation. The hepatic veins and portal veins are patent. Gallbladder: Unremarkable. Spleen: Normal in size and attenuation. Pancreas: There are no pancreatic lesions. No pancreatic ductal dilatation is present. Adrenal glands: Unremarkable. Kidneys: There are no renal lesions. There is no hydronephrosis. The kidneys enhance symmetrically. Abdominal vasculature: The caliber of the abdominal aorta is normal. Major vasculature is patent. Bowel: There is no evidence for a bowel obstruction. There is colonic diverticulosis. There is an inflamed diverticulum of the proximal sigmoid colon with moderate adjacent inflammation. No free air or abscess. Peritoneum: There is no intraperitoneal free air or abdominal ascites. Lymphadenopathy: None. Skeletal structures: No lytic or blastic lesions are seen. IMPRESSION: Acute diverticulitis of the proximal sigmoid colon. No free air or abscess. Personally reviewed CT scan images and concur with above findings.
[2024-06-20 11:30] LABS: Adenovirus F 40/41 PCR Not Detected (NotDetected); Astrovirus PCR Not Detected (NotDetected); Campylobacter PCR Not Detected (NotDetected); Cryptosporidium PCR Not Detected (NotDetected); Cyclospora cayetanensis PCR Not Detected (NotDetected); Entamoeba histolytica PCR Not Detected (NotDetected); Enteroaggregative E.coli(EAEC) Not Detected (NotDetected); Enteropathogenic E.coli (EPEC) Not Detected (NotDetected); Enterotoxigenic E.coli (ETEC) Not Detected (NotDetected); Giardia lamblia PCR Not Detected (NotDetected); Norovirus GI/GII PCR Not Detected (NotDetected); Plesiomonas shigelloides PCR Not Detected (NotDetected); Rotavirus A PCR Not Detected (NotDetected); Salmonella PCR Not Detected (NotDetected); Sapovirus PCR Not Detected (NotDetected); Shiga-like Toxin E.coli (STEC) Not Detected (NotDetected); Shigella/Enteroinvasive E.coli Not Detected (NotDetected); Vibrio cholerae PCR Not Detected (NotDetected); Vibrio species PCR Not Detected (NotDetected); Yersinia enterocolitica PCR Not Detected (NotDetected)
[2024-06-20] MEDS: DIGOXIN 0.125 MG TAB PO SCH (15:44)
[2024-06-20 19:23] LABS: Basophils # (auto) 0.04 K/uL (0.00-0.20); Basophils % (auto) 0.5 %; Eosinophils # (auto) 0.05 K/uL (0.00-0.50); Eosinophils % (auto) 0.7 %; Hematocrit (blood only) 37.1 % (37.0-47.0); Immature Granulocytes # (auto) 0.02 K/uL (0.01-0.20); Immature Granulocytes % (auto) 0.3 %; Lymphocytes # (auto) 0.77 K/uL (1.20-3.40); Lymphocytes % (auto) 10.1 %; Mean Corpuscular Hemoglobin 28.9 pg (25.0-34.0); Mean Corpuscular Hgb Conc 32.3 g/dL (32.0-36.0); Mean Corpuscular Volume 89.4 fL (80.0-100.0); Mean Platelet Volume 9.6 fL (9.4-12.4); Monocytes # (auto) 0.32 K/uL (0.11-0.59); Monocytes % (auto) 4.2 %; Neutrophils # (auto) 6.45 K/uL (1.40-6.50); Neutrophils % (auto) 84.2 %; Platelet Count 119 K/uL (130-400); RDW Coefficient of Variation 13.2 % (11.5-14.5); RDW Standard Deviation 43.7 fL (36.4-46.3); Red Blood Count 4.15 M/uL (4.20-5.40); White Blood Count 7.65 K/ul (4.8-10.8)
[2024-06-20] MEDS: OPTIRAY 320 125ml IV ONE (20:19)
[2024-06-20] MEDS: hydrOXYzine HCl 25 MG TAB PO PRN (20:22)
[2024-06-20] MEDS: ROSUVASTATIN CALCIUM 10 MG TAB PO SCH (20:22)
--- NOTE | 2024-06-20 21:54 | CT Scan Report ---
Exam(s): CTA ABDOMEN + PELVIS W/WO Contrast IV Amt: 119 ml opti 320 EXAM: CT Angiography Abdomen and Pelvis Without and With Intravenous Contrast CLINICAL HISTORY: Reason for exam: Lower gi bleed. TECHNIQUE: Axial computed tomographic angiography images of the abdomen and pelvis without and with intravenous contrast. CTDI is 12.79 mGy and DLP is 598. 25 mGy-cm. Automated exposure control was utilized for the study. A dose lowering technique was utilized adhering to the principles of ALARA. MIP reconstructed images were created and reviewed. CONTRAST: Patient received 119 ml opti 320 of IV contrast COMPARISON: CT performed yesterday FINDINGS: VASCULATURE: Aorta: No acute findings. No abdominal aortic aneurysm. No dissection. Celiac trunk and mesenteric arteries: No acute findings. No occlusion or significant stenosis. Renal arteries: No acute findings. No occlusion or significant stenosis. Iliac arteries: No acute findings. No occlusion or significant stenosis. Lung bases: Unremarkable. No mass. No consolidation. Pleural space: Trace pleural effusions. ABDOMEN: Liver: Unremarkable. No mass. Gallbladder and bile ducts: Unremarkable. No calcified stones. No ductal dilation. Pancreas: Unremarkable. No ductal dilation. No mass. Spleen: Unremarkable. No splenomegaly. Adrenals: Unremarkable. No mass. Kidneys and ureters: Unremarkable. No obstructing stones. No hydronephrosis. No solid mass. Stomach and bowel: No active GI bleed. Acute diverticulitis of the sigmoid colon. No perforation or abscess. No obstruction. PELVIS: Appendix: No findings to suggest acute appendicitis. Bladder: Unremarkable. No stones. No mass. Reproductive: Unremarkable as visualized. ABDOMEN and PELVIS: Intraperitoneal space: Small amount of free fluid in the pelvis. No abscess or free air. Bones/joints: No acute fracture. No dislocation. Soft tissues: Unremarkable. Lymph nodes: Unremarkable. No enlarged lymph nodes. IMPRESSION: 1. No active GI bleed. 2. Acute diverticulitis of the sigmoid colon. No perforation or abscess. Electronically signed by: Noé Matute MD 06/20/24 21:53 PM
--- NOTE | 2024-06-20 22:16 | Electrocardiogram Report ---
Test Reason : Blood Pressure : */* mmHG Vent. Rate : 101 BPM Atrial Rate : 101 BPM P-R Int : 152 ms QRS Dur : 72 ms QT Int : 316 ms P-R-T Axes : 69 -19 14 degrees QTcB Int : 409 ms Sinus tachycardia Low voltage QRS Nonspecific T wave abnormality Abnormal ECG When compared with ECG of 19-Jun-2024 05:40, Nonspecific T wave abnormality now evident in Inferior leads T wave inversion now evident in Lateral leads Confirmed by Dante Agosto ([id number]) on 06/20/2024 10:16:35 PM Referred By: Reagan Rich Confirmed By: Dante Agosto
[2024-06-21 06:19] LABS: Basophils # (auto) 0.02 K/uL (0.00-0.20); Basophils % (auto) 0.3 %; Eosinophils # (auto) 0.11 K/uL (0.00-0.50); Eosinophils % (auto) 1.7 %; Hematocrit (blood only) 37.3 % (37.0-47.0); Hemoglobin 12.1 g/dl (12.0-16.0); Immature Granulocytes # (auto) 0.02 K/uL (0.01-0.20); Immature Granulocytes % (auto) 0.3 %; Lymphocytes # (auto) 0.73 K/uL (1.20-3.40); Lymphocytes % (auto) 11.5 %; Mean Corpuscular Hgb Conc 32.4 g/dL (32.0-36.0); Mean Corpuscular Volume 89.4 fL (80.0-100.0); Mean Platelet Volume 9.8 fL (9.4-12.4); Monocytes % (auto) 7.9 %; Neutrophils # (auto) 4.96 K/uL (1.40-6.50); Neutrophils % (auto) 78.3 %; Platelet Count 122 K/uL (130-400); RDW Coefficient of Variation 13.2 % (11.5-14.5); RDW Standard Deviation 43.5 fL (36.4-46.3); Red Blood Count 4.17 M/uL (4.20-5.40); White Blood Count 6.34 K/ul (4.8-10.8)
[2024-06-21 06:33] LABS: BUN Creatinine Ratio 8.8 (10-20); Creatinine Clr Calc Pharmacy 53.2 ml/min; Potassium 4.1 mmol/L (3.5-5.1)
[2024-06-21] MEDS: ADVANCED PROBIOTIC 625 MG CAPSULE PO SCH (08:56)
--- NOTE | 2024-06-21 09:57 | Cardiology Progress Note ---
Date of Service June 21, 2024 Assessment & Plan (1) Diverticulitis: (2) Bacteremia: Plan: * Now on clear liquids * Antibiotic therapy as per Hospitalist * Tylenol PRN fever (3) NICM (nonischemic cardiomyopathy): Plan: * Chronic HFrEF due to non ischemic cardiomyopathy. Perhaps related to prior remote treatment for breast carcinoma * LVEF previously < 20% at diagnosis (March 2023), with moderate to severe MR. LVEF 42% at [facility] in 2023. LVEF 52% via TTE this admission. * Genetic testing negative * GDMT limited due to baseline hypotension, chronically with SBP 90s to low 100s * Dual chamber [employer] AICD in place. Increase metoprolol succinate back to home dose of 37.5 mg/day. Continue digoxin Continue rosuvastatin Continue to hold spironolactone (25 mg/day), Losartan (25 mg/day), Jardiance (10 mg/day), and PRN furosemide (20 mg PRN) (4) Rheumatoid arthritis: Plan: Hold leflunomide Admission and Anticipated Discharge Date Admission Date: June 19, 2024 Supervising Physician Co-Signing Physician Notes Attending attestation: Case reviewed with the advanced practitioner. I have personally performed a history and physical examination on the patient. I have reviewed the advanced practitioner's documentation on the date of service referenced in note, and I agree with, and take responsibility for the plan of care. Echocardiogram results reviewed with patient in detail. Atif Christianson, DO Subjective Patient seen and examined. Chart, medication, telemetry reviewed. Admitted with acute diverticulitis of the sigmoid colon. Imaging without perforation or abscess. + E. coli bacteremia on preliminary blood cultures Ongoing diarrhea, possibly bloody last night that was attributed by the patient to red Jell-O, back to light brown diarrhea this a.m. No chest pain, shortness of breath, cough, chest congestion, orthopnea, PND, peripheral edema, dizziness, subjective fevers or chills Telemetry: Sinus/atrial paced rhythm. Sinus throughout. June 20, 2024 TTE Interpretation Summary ([facility], Dr. Christianson): Normal LV wall thickness. No regional wall motion abnormalities noted. LV systolic function is low normal. EF 52% (biplane method). Trace mitral and tricuspid regurgitation. Grade I diastolic dysfunction. Compared to the previous study from March 2023, there has been interval improvement in LV systolic function. Mitral regurgitation previously noted to be moderate to severe. Review of Systems Review of Systems: Complete Review of Systems is as stated above, negative, or noncontributory. Physical Exam Physical Exam: General: A&Ox3. NAD. HENT: Normocephalic. Atraumatic. Eyes: PER. Conjunctiva pink, sclera clear. Neck: No JVD. No HJR. Heart: RRR. No murmur. No rub. Lungs: Clear to auscultation. Abdomen: +BS. Extremities: No clubbing, cyanosis, or edema. Limited neurological examination is without focal deficits. Pulses: Posterior tibial=2/4. Results & Data Vital Signs (Past 12 Hours) Vital Signs Temp Pulse Pulse Resp BP Pulse Ox O2 Del Method 06/21/24 08:01 36.8 C 82 20 112/70 95 Room Air 06/21/24 02:58 36.6 C 66 18 106/69 97 Room Air 06/20/24 23:09 37.2 C 76 20 112/70 93 Room Air 06/20/24 22:02 79 Laboratory Results CBC 06/20/24 06/21/24 Range/Units 18:56 05:45 WBC 7.65 6.34 (4.8-10.8) K/ul RBC 4.15 L 4.17 L (4.20-5.40) M/uL Hgb 12.0 12.1 (12.0-16.0) g/dl Hct 37.1 37.3 (37.0-47.0) % Plt Count 119 L 122 L (130-400) K/uL Neut # (Auto) 6.45 4.96 (1.40-6.50) K/uL Lymph # (Auto) 0.77 L 0.73 L (1.20-3.40) K/uL [place] # (Auto) 0.32 0.50 (0.11-0.59) K/uL Eos # (Auto) 0.05 0.11 (0.00-0.50) K/uL Baso # (Auto) 0.04 0.02 (0.00-0.20) K/uL Comprehensive Metabolic Panel 06/21/24 Range/Units 05:45 Sodium 138 (136-145) mmol/L Potassium 4.1 (3.5-5.1) mmol/L Chloride 113 H (98-107) mmol/L Carbon Dioxide 23 (21-32) mmol/L BUN 9 (6-23) mg/dl Creatinine 1.02 (0.6-1.2) mg/dl Glucose 86 (70-99(Fasting)) mg/dl Calcium 8.0 L (8.6-10.3) mg/dl Intake and Output 06/20/24 06/21/24 06/21/24 22:59 06:59 14:59 Intake Total 1400 / 1795.417 200 / 1795.417 100 / 100 Output Total Balance 1395 / 1784.417 196 / 1784.417 100 / 100 Intake: IV 1200 / 1495.417 100 / 1495.417 100 / 100 Acetaminophen 1,000 mg In 100 100 / 200 ml @ 400 mls/hr IV Q8H PRN Rx#: [id number] Piperacillin/Tazobactam 4.5 gm 100 / 295.417 100 / 295.417 100 / 100 In 100 ml @ 25 mls/hr IV Q8H MATT Rx#:[id number] Sodium Chloride 0.9% 1,000 ml @ 1000 / 1000 50 mls/hr IV .Q20H MATT Rx#: [id number] Oral 200 / 300 100 / 300 Output: # Bowel Movements Other: # Unmeasured Voids 1 1 Weight 65 kg Weight Measurement Method Built in [facility]
--- NOTE | 2024-06-21 09:58 | Gastrointestinal Consultation ---
Date of Consultation June 21, 2024 Assessment & Plan (1) Diverticulitis: CT scan suggestive of acute diverticulitis. The history though is atypical with symptoms on and off now for the last year. Diverticulitis and colitis can appear very similar if the inflammation is confined to the sigmoid colon. dejuan rrhea with urgency and incontinence and symptoms for a year certainly raise the possibility of inflammatory bowel disease. Patient does have rheumatoid arthritis. She has bacteremia which can occur with diverticulitis colitis or colon cancer. Patient had a colonoscopy in 2022 so colon cancer would appear less probable. With her bacteremias continue IV antibiotics for bacteremia and suggestion of acute diverticulitis. Patient will require a colonoscopy to visualize this area and firm up the diagnosis typically in 3 to 4 weeks. With acute diverticulitis; colitis and/or colon cancer always on the differential. The risks are proceeding earlier with endoscopic evaluation the risk perforation of an inflamed diverticulum.. Reviewed with patient Check a fecal calprotectin Her red stools not clearly bleeding. She believes they are related to red Jell- O. Diverticulitis and lower GI bleeding not a common association hemoglobin fairly stable. Recommend observation at this time. 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 Seen seen in this institution back in June 2019 for with diarrhea and some urgency. CT scan at that time suggested acute colitis of the descending colon. Patient was treated with oral antibiotics and discharged she did follow-up with GI postdischarge and stool studies were ordered. Because her symptoms had improved she never proceeded with these tests. Tells me she had a colonoscopy back in 2022. Did have diverticulosis at that time. Though otherwise normal. Patient takes Arava for her rheumatoid arthritis. This was a fairly recent introduction this is currently on hold. There are symptoms of diarrhea predated Arava can be associated with diarrhea. In the last year she has had multiple episodes of diarrhea going greater than 6 times per day with urgency and occasional incontinence. There is not been significant bleeding. Patient now admitted with continued diarrhea fevers chills and bacteremia. She grew E. coli from her blood. She has positive serology for E. coli Enterococcus and bacteria fragilis. She was ingesting red Jell-O and noted some pinkish discharge in the toilet water. She was not sure if this was red Jell-O or blood. She is had no significant drop in her hemoglobin in the last 2 days. Hovering in the 12 range. She was 14 on admission. Her white count is normal. She is afebrile. She notes her lower abdominal cramping and suprapubic discomfort. This is her typical discomfort she has no left hypogastric or splenic flexure discomfort. Family history is negative for colon cancer or inflammatory bowel disease. Her mother had rheumatoid arthritis. Allergies Allergy/AdvReac Type Severity Reaction Status Date / Time indomethacin AdvReac Unknown SEVERE SYLVESTER Verified 06/19/24 22:24 bupivacaine [From Marcaine] AdvReac strange Verified 06/19/24 22:24 reaction Home Medications Medication Instructions Recorded Confirmed Type empagliflozin 10 mg tablet 10 mg PO QAM 07/06/23 06/19/24 History (Jardiance) folic acid 1 mg tablet 2 mg PO QAM 07/06/23 06/19/24 History furosemide 20 mg tablet 20 mg PO DAILY PRN as directed 07/06/23 06/19/24 History losartan 25 mg tablet 25 mg PO DAILY 07/06/23 06/19/24 History metoprolol succinate 25 mg 37.5 mg PO QAM 07/06/23 06/19/24 History tablet,extended release 24 hr digoxin 125 mcg (0.125 mg) tablet 125 mcg PO QAM 06/19/24 06/19/24 History hydrocodone 5 mg-acetaminophen 325 1 tab PO Q6 PRN pain,mild 06/19/24 06/19/24 History mg tablet hydroxyzine HCl 25 mg tablet 25 mg PO HS PRN Sleep 06/19/24 06/19/24 History leflunomide 10 mg tablet 10 mg PO QAM 06/19/24 06/19/24 History rosuvastatin 10 mg tablet 10 mg PO HS 06/19/24 06/19/24 History spironolactone 25 mg tablet 25 mg PO QAM 06/19/24 06/19/24 History Patient History Social History Smoking Status: Unknown if ever smoked Tobacco Type: Cigarettes Hx Alcohol Use: Yes Alcohol type: wine Hx Substance Use: No Preferred Language: Yoruba Communication Ability: Effective Panel Laminator Required: No Beliefs That Will Affect Care: None Current Living Situation: Spouse current occupation: Retired Other Information That Helps Us Care for You: No Feels Safe at Home: Yes Safety Concerns: Feels Safe At This Time Assistive Devices: None Review of Systems Review of Systems: Fevers and chills as noted. Denies significant weight loss. Respiratory cardiovascular no increased cough chest pain or shortness of breath GI as mentioned history presenting illness Review of systems otherwise negative Physical Exam Physical Exam: Pleasant 69-year-old female no acute distress. The eyes reveal no obvious jaundice Chest heart exams per admitting H&P without change Abdomen nondistended benign. Some mild discomfort on palpation in the left lower quadrant and suprapubic area without guarding rebound or rigidity. Bowel sounds were normal. 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 Skin no obvious rash Results & Data Vital Signs (Past 12 Hours) Vital Signs Temp Pulse Pulse Resp BP Pulse Ox O2 Del Method 06/21/24 08:01 36.8 C 82 20 112/70 95 Room Air 06/21/24 02:58 36.6 C 66 18 106/69 97 Room Air 06/20/24 23:09 37.2 C 76 20 112/70 93 Room Air 06/20/24 22:02 79 Laboratory Results Normal white count hemoglobin 12 Diagnostic Findings Diverticulitis or suspicion of diverticulitis on CT scan no oral contrast PG Care Time/CCT Total # of Minutes Spent Total Time Spent with Patient: Total time spent is greater than 50% in coordination of care (as documented) at patient's floor/unit and/or counseling patient: Coding Level of Care Code 80791 INT INP/OBS CARE 255MIN Diagnoses Diverticulitis K57.92 Colitis K52.9 Gram-negative bacteremia R78.81 Rheumatoid arthritis M06.9
--- NOTE | 2024-06-21 11:36 | Hospitalist Progress Note ---
Date of Service June 21, 2024 Assessment & Plan (1) Bacteremia: Plan: 69-year-old female with past medical history significant for nonischemic cardiomyopathy, status post AICD, history of thoracic outlet syndrome, osteoarthritis, degenerative disease, history of rheumatoid arthritis involving multiple sites with positive rheumatoid factor, history of breast cancer presents with ongoing abdominal pain and diarrhea and found to have diverticulitis and also bacteremia. Sepsis POA Bacteremia with E. coli Acute sigmoid diverticulitis Patient presented to the hospital with abdominal pain, chills and watery diarrhea. CT abdomen concerning for acute sigmoid diverticulitis; no free air or abscess Blood culture on admission shows 4 out of 4 E. coli. PCR positive for Bacteriodes fragilis and E.coli Patient reported an episode of red stool; underwent CTA abdomen on 06/20 which did not show any acute finding. Patient reported eating red jelly which she reports resulted in red stool. Hemoglobin stable. Continue on IV Zosyn; diet advanced to full liquid diet. Will stop IV fluids Obtain blood culture tomorrow a.m. Will check fecal calprotectin as recommended by GI History of chronic systolic CHF Nonischemic cardiomyopathy Status post AICD EF less than 20% March 2023 Improved to 42% in October 2023 Repeat echocardiogram on 06/20 shows calculated EF of 52% with grade 1 diastolic dysfunction Continue digoxin and metoprolol; metoprolol dose decreased Currently holding losartan, Jardiance and spironolactone for sepsis Hypertension- Holding losartan and spironolactone continue metoprolol Rheumatoid arthritis Holding leflunomide Holding Vicodin as needed for now Hyperlipidemia On statin DVT prophylaxis Lovenox on hold for now Disposition Telemetry Full code. Time spent evaluating patient, direct bedside care, chart review, placing orders, interpretation of diagnostic studies, discussion with consultants, patient, and family members, as well as other required patient management activities is 50 minutes Please note the above document was generated using voice recognition software. It may contain grammatical, syntax or spelling errors. Any formal questions or concerns about the content, text or information contained within the body of this dictation should be directly addressed to the provider for clarification Admission and Anticipated Discharge Date Admission Date: June 19, 2024 Subjective Patient seen and examined at bedside. Last night she had episode of bright red bowel movement; repeat stat CBC was within normal limits and CT abdomen did not suggest any bleeding. Vital signs are stable and she reports that her abdominal pain has slightly improved Review of Systems Review of Systems: All systems reviewed & are unremarkable except as noted in Subjective Physical Exam Physical Exam: General- Not in distress Head- atraumatic Eyes- PERRL. ENT- oropharynx clear Neck- supple, no JVD. Lungs- clear to auscultation no wheezing or crackles Heart- regular rhythm; no murmur, no gallop. Abdomen- Tenderness in the left lower quadrant present Extremities- trace pretibial edema, no erythema seen Neuro- alert, oriented PERRL, no facial palsy; no dysarthria; moves extremities Results & Data Results & Data Vital Signs (Past 12 Hours) Vital Signs Temp Pulse Resp BP Pulse Ox O2 Del Method 06/21/24 08:01 36.8 C 82 20 112/70 95 Room Air 06/21/24 02:58 36.6 C 66 18 106/69 97 Room Air
--- NOTE | 2024-06-21 14:32 | Surgery Progress Note ---
Date of Service June 21, 2024 Assessment & Plan (1) Diverticulitis: Plan: Pt here w/ abdominal pain. CT scan showed concern for diverticulitis without perforation/abscess stool studies negative including cdiff GI on board thinks more of a colitis. she has been having diarrhea. a CTA was obtained today revealing no active GI bleed for workup of "red" tinged stools pain remains present in lower abdomen but improving orders in to start advancing diet per GI/medicine continue course of abx no plans for surgical intervention (2) Colitis: Admission and Anticipated Discharge Date Admission Date: June 19, 2024 Supervising Physician Co-Signing Physician Notes I have seen and examined this patient this am. I agree with this plan. Subjective patient feeling better than admission but still having lower abdominal discomfort. no n/v. some red tinged stool she thinks was related to eating red jello Physical Exam Physical Exam: awake/alert, no distress Gastrointestinal (Abdomen): Percussion/Palpation: + abdomen tender (ttp suprapubic and left lower abd) and abdomen soft Results & Data Vital Signs (Past 12 Hours) Vital Signs Temp Pulse Resp BP Pulse Ox O2 Del Method 06/21/24 11:53 98.8 F 65 18 110/70 96 Room Air 06/21/24 08:01 98.2 F 82 20 112/70 95 Room Air 06/21/24 02:58 97.9 F 66 18 106/69 97 Room Air PG Care Time/CCT Total # of Minutes Spent Total Time Spent with Patient: Total time spent is greater than 50% in coordination of care (as documented) at patient's floor/unit and/or counseling patient: Coding Level of Care Code 85577 SUB INP/OBS CARE 03/08MIN Diagnoses Diverticulitis K57.92 Colitis K52.9
[2024-06-22 07:08] LABS: Basophils # (auto) 0.03 K/uL (0.00-0.20); Basophils % (auto) 0.6 %; Eosinophils # (auto) 0.14 K/uL (0.00-0.50); Eosinophils % (auto) 2.8 %; Hematocrit (blood only) 37.1 % (37.0-47.0); Hemoglobin 12.5 g/dl (12.0-16.0); Immature Granulocytes # (auto) 0.01 K/uL (0.01-0.20); Immature Granulocytes % (auto) 0.2 %; Lymphocytes # (auto) 0.84 K/uL (1.20-3.40); Lymphocytes % (auto) 16.5 %; Mean Corpuscular Hemoglobin 29.6 pg (25.0-34.0); Mean Corpuscular Hgb Conc 33.7 g/dL (32.0-36.0); Mean Corpuscular Volume 87.7 fL (80.0-100.0); Mean Platelet Volume 9.9 fL (9.4-12.4); Monocytes % (auto) 7.9 %; Neutrophils # (auto) 3.67 K/uL (1.40-6.50); Platelet Count 141 K/uL (130-400); RDW Coefficient of Variation 13.2 % (11.5-14.5); RDW Standard Deviation 41.9 fL (36.4-46.3); Red Blood Count 4.23 M/uL (4.20-5.40); White Blood Count 5.09 K/ul (4.8-10.8)
[2024-06-22 07:30] LABS: BUN Creatinine Ratio 7.1 (10-20); Calcium 8.4 mg/dl (8.6-10.3); Creatinine Clr Calc Pharmacy 63.9 ml/min; Potassium 3.8 mmol/L (3.5-5.1)
[2024-06-22] MEDS: METOPROLOL SUCC 25MG EXT REL TAB PO SCH (08:41)
--- NOTE | 2024-06-22 09:19 | Cardiology Progress Note ---
Date of Service June 22, 2024 Assessment & Plan (1) Diverticulitis: (2) Bacteremia: Plan: * Antibiotic therapy as per Hospitalist * No overt cardiac contraindications to future outpatient colonoscopy. Continue metoprolol and digoxin without interruption. Hold Losartan day of scope. Standard pacemaker defibrillator precautions. (3) NICM (nonischemic cardiomyopathy): Plan: * Chronic HFrEF due to non ischemic cardiomyopathy. Perhaps related to prior remote treatment for breast carcinoma * LVEF previously < 20% at diagnosis (March 2023), with moderate to severe MR. * LVEF 42% at [facility] in 2023. * LVEF 52% via TTE this admission. * Genetic testing negative * GDMT limited due to baseline hypotension, chronically with SBP 90s to low 100s * Dual chamber [employer] AICD in place. Resume reduced dose Losartan, 12.5 mg in the evening Continue metoprolol succinate at 37.5 mg/day. Continue digoxin Continue rosuvastatin Continue to hold spironolactone (25 mg/day), furosemide (20 mg PRN), and Jardiance (10 mg/day) Increase activity as tolerated (4) Rheumatoid arthritis: Plan: Hold leflunomide Admission and Anticipated Discharge Date Admission Date: June 19, 2024 Supervising Physician Co-Signing Physician Notes Attending attestation: Case reviewed with the advanced practitioner. I have personally performed a history and physical examination on the patient. I have reviewed the advanced practitioner's documentation on the date of service referenced in note, and I agree with, and take responsibility for the plan of care. Patient without any subjective fevers. Still with loose stools but more formed today. Continue to hold Jardiance and spironolactone, reinitiating losartan at one half the previous dose. Given history of side effects with other medications for her rheumatoid arthritis, and ongoing arthritis symptoms, alternative therapies had been pursued over the last few months. She had previously been on methotrexate which was discontinued due to mouth sores. Leflunomide has controlled her arthritis well, but seems to perhaps be temporally associated with the onset of her diarrhea. This is on hold at present. Patient states PCP was going to reach out with regards to consideration of treatment with nonsteroidal anti-inflammatory medications for her arthritis. I think that as long as her volume status is controlled, this would be reasonable from a cardiac perspective in this patient with nonischemic cardiomyopathy with preserved ejection fraction. Atif Christianson DO Subjective Patient seen and examined. Chart, medication, telemetry reviewed. Admitted with acute diverticulitis of the sigmoid colon. Imaging without perforation or abscess. GI raised possibility of inflammatory bowel disease and plans colonoscopy down the road. + E. coli bacteremia Bowels are becoming more formed. No melena or hematochezia. No chest pain, shortness of breath, cough, chest congestion, orthopnea, PND, peripheral edema, dizziness, subjective fevers or chills Review of Systems Review of Systems: Complete Review of Systems is as stated above, negative, or noncontributory. Physical Exam Physical Exam: General: A&Ox3. NAD. HENT: Normocephalic. Atraumatic. Eyes: PER. Conjunctiva pink, sclera clear. Neck: No JVD. No HJR. Heart: RRR. No murmur. No rub. Lungs: Clear to auscultation. Abdomen: +BS. Extremities: No clubbing, cyanosis, or edema. Limited neurological examination is without focal deficits. Pulses: Posterior tibial=2/4. Results & Data Vital Signs (Past 12 Hours) Vital Signs Temp Pulse Pulse Resp BP Pulse Ox O2 Del Method 06/22/24 07:58 36.9 C 71 18 112/75 96 Room Air 06/22/24 03:02 36.8 C 65 18 111/71 94 Room Air 06/21/24 23:51 60 06/21/24 22:49 36.9 C 60 18 118/75 97 Room Air Laboratory Results CBC 06/22/24 Range/Units 06:41 WBC 5.09 (4.8-10.8) K/ul RBC 4.23 (4.20-5.40) M/uL Hgb 12.5 (12.0-16.0) g/dl Hct 37.1 (37.0-47.0) % Plt Count 141 (130-400) K/uL Neut # (Auto) 3.67 (1.40-6.50) K/uL Lymph # (Auto) 0.84 L (1.20-3.40) K/uL [place] # (Auto) 0.40 (0.11-0.59) K/uL Eos # (Auto) 0.14 (0.00-0.50) K/uL Baso # (Auto) 0.03 (0.00-0.20) K/uL Comprehensive Metabolic Panel 06/22/24 Range/Units 06:41 Sodium 138 (136-145) mmol/L Potassium 3.8 (3.5-5.1) mmol/L Chloride 111 H (98-107) mmol/L Carbon Dioxide 25 (21-32) mmol/L BUN 6 (6-23) mg/dl Creatinine 0.85 (0.6-1.2) mg/dl Glucose 97 (70-99(Fasting)) mg/dl Calcium 8.4 L (8.6-10.3) mg/dl Intake and Output 06/21/24 06/22/24 06/22/24 22:59 06:59 14:59 Intake Total 1500 / 2100 500 / 2100 Balance 1500 / 2100 500 / 2100 Intake: IV 1100 / 1400 200 / 1400 Acetaminophen 1,000 mg In 100 100 / 100 ml @ 400 mls/hr IV Q8H PRN Rx#: [id number] Piperacillin/Tazobactam 4.5 gm 100 / 300 100 / 300 In 100 ml @ 25 mls/hr IV Q8H MATT Rx#:[id number] Sodium Chloride 0.9% 1,000 ml @ 1000 / 1000 50 mls/hr IV .Q20H MATT Rx#: [id number] Oral 400 / 700 300 / 700 Other: # Unmeasured Voids 2 2 Weight 65.2 kg Weight Measurement Method Built in [facility] Diagnostic Findings Telemetry: Atrial paced in the 60s June 20, 2024 TTE Interpretation Summary ([facility], Dr. Christianson): Normal LV wall thickness. No regional wall motion abnormalities noted. LV systolic function is low normal. EF 52% (biplane method). Trace mitral and tricuspid regurgitation. Grade I diastolic dysfunction. Compared to the previous study from March 2023, there has been interval improvement in LV systolic function. Mitral regurgitation previously noted to be moderate to severe.
--- NOTE | 2024-06-22 11:20 | Surgery Progress Note ---
Date of Service June 22, 2024 Assessment & Plan (1) Colitis: Plan: Exact etiology unknown, suspected to be diverticulitis at presentation, but then questionably colitis. Stool studies so far have been (-). GI on board and will follow up a fecal calprotectin for which the patient has not yet been able to have collected awaiting another BM. Continue management per GI and medical service. There will be no surgical intervention at this time. Surgery will sign off. Please reconsult/message with questions or concerns. Admission and Anticipated Discharge Date Admission Date: June 19, 2024 Chaz Parker states she feels improved this morning. She says she is finally noticing her stool is becoming more solid. Still with some mild lower abdominal cramping off and on. No NV, F/C. Physical Exam Constitutional: no acute distress, not ill appearing, not in distress and not diaphoretic Respiratory: normal respiratory effort; no respiratory distress, no labored breathing and does not use accessory muscles Gastrointestinal (Abdomen): Inspection/Auscultation: abdomen normal to inspection; abdomen not distended Percussion/Palpation: + abdomen tender (mild TTP lower abdomen) and abdomen soft; no guarding Psychiatric: Orientation: alert and oriented x 3 Results & Data Vital Signs (Past 12 Hours) Vital Signs Temp Pulse Pulse Resp BP Pulse Ox O2 Del Method 06/22/24 07:58 36.9 C 71 18 112/75 96 Room Air 06/22/24 03:02 36.8 C 65 18 111/71 94 Room Air 06/21/24 23:51 60 PG Care Time/CCT Total # of Minutes Spent Total Time Spent with Patient: Total time spent is greater than 50% in coordination of care (as documented) at patient's floor/unit and/or counseling patient: Coding Level of Care Code 73027 SUB INP/OBS CARE 03/08MIN Diagnoses Colitis K52.9
--- NOTE | 2024-06-22 12:16 | Hospitalist Progress Note ---
Date of Service June 22, 2024 Assessment & Plan (1) Bacteremia: Plan: 69-year-old female with past medical history significant for nonischemic cardiomyopathy, status post AICD, history of thoracic outlet syndrome, osteoarthritis, degenerative disease, history of rheumatoid arthritis involving multiple sites with positive rheumatoid factor, history of breast cancer presents with ongoing abdominal pain and diarrhea and found to have diverticulitis and also bacteremia. Sepsis POA Bacteremia with E. coli and bacteriodes Acute sigmoid diverticulitis Patient presented to the hospital with abdominal pain, chills and watery diarrhea. CT abdomen concerning for acute sigmoid diverticulitis; no free air or abscess Blood culture on admission shows 4 out of 4 E. coli. PCR positive for Bacteriodes fragilis and E.coli Patient reported an episode of red stool; underwent CTA abdomen on 06/20 which did not show any acute finding. Patient reported eating red jelly which she reports resulted in red stool. Hemoglobin stable. Continue on IV Zosyn; Diet advanced to low fiber. Blood culture sent today; will follow-up Fecal calprotectin recommended by GI; awaiting collection. Patient will need colonoscopy in 6 to 8 weeks after discharge. She reports that she has follow-up with GI next week. History of chronic systolic CHF Nonischemic cardiomyopathy Status post AICD EF less than 20% March 2023 Improved to 42% in October 2023 Repeat echocardiogram on 06/20 shows calculated EF of 52% with grade 1 diastolic dysfunction Continue digoxin and metoprolol; metoprolol dose decreased Currently holding losartan, Jardiance and spironolactone for sepsis Hypertension- Holding losartan and spironolactone continue metoprolol Rheumatoid arthritis Holding leflunomide; Can we resume after completion of antibiotic course. Holding Vicodin as needed for now Hyperlipidemia On statin DVT prophylaxis Lovenox on hold for now Disposition Telemetry Full code. Time spent evaluating patient, direct bedside care, chart review, placing orders, interpretation of diagnostic studies, discussion with consultants, patient, and family members, as well as other required patient management activities is 50 minutes Please note the above document was generated using voice recognition software. It may contain grammatical, syntax or spelling errors. Any formal questions or concerns about the content, text or information contained within the body of this dictation should be directly addressed to the provider for clarification Admission and Anticipated Discharge Date Admission Date: June 19, 2024 Subjective Patient seen and examined at bedside. Reports that the pain in her abdomen has improved compared to previous days Reports feeling better overall; has been afebrile Review of Systems Review of Systems: All systems reviewed & are unremarkable except as noted in Subjective Physical Exam Physical Exam: General- Not in distress Head- atraumatic Eyes- PERRL. ENT- oropharynx clear Neck- supple, no JVD. Lungs- clear to auscultation no wheezing or crackles Heart- regular rhythm; no murmur, no gallop. Abdomen- Tenderness in the left lower quadrant present Extremities- trace pretibial edema, no erythema seen Neuro- alert, oriented PERRL, no facial palsy; no dysarthria; moves extremities Results & Data Results & Data Vital Signs (Past 12 Hours) Vital Signs Temp Pulse Resp BP Pulse Ox O2 Del Method 06/22/24 11:57 37.0 C 68 18 111/71 97 Room Air 06/22/24 07:58 36.9 C 71 18 112/75 96 Room Air 06/22/24 03:02 36.8 C 65 18 111/71 94 Room Air
[2024-06-22] MEDS: ACETAMINOPHEN 325 MG TAB PO PRN (19:29)
[2024-06-23 07:30] VITALS: BP 114/74; PULSE 63; RESP 17; TEMP 98.4; O2SAT 96
[2024-06-23 07:40] LABS: Basophils # (auto) 0.03 K/uL (0.00-0.20); Basophils % (auto) 0.7 %; Eosinophils # (auto) 0.13 K/uL (0.00-0.50); Eosinophils % (auto) 2.8 %; Hematocrit (blood only) 39.2 % (37.0-47.0); Hemoglobin 13.1 g/dl (12.0-16.0); Immature Granulocytes # (auto) 0.02 K/uL (0.01-0.20); Immature Granulocytes % (auto) 0.4 %; Lymphocytes # (auto) 1.09 K/uL (1.20-3.40); Lymphocytes % (auto) 23.7 %; Mean Corpuscular Hemoglobin 29.2 pg (25.0-34.0); Mean Corpuscular Hgb Conc 33.4 g/dL (32.0-36.0); Mean Corpuscular Volume 87.5 fL (80.0-100.0); Mean Platelet Volume 9.1 fL (9.4-12.4); Monocytes # (auto) 0.44 K/uL (0.11-0.59); Monocytes % (auto) 9.6 %; Neutrophils # (auto) 2.88 K/uL (1.40-6.50); Neutrophils % (auto) 62.8 %; Platelet Count 151 K/uL (130-400); RDW Standard Deviation 41.5 fL (36.4-46.3); Red Blood Count 4.48 M/uL (4.20-5.40); White Blood Count 4.59 K/ul (4.8-10.8)
[2024-06-23 07:56] LABS: BUN Creatinine Ratio 9.4 (10-20); Calcium 8.6 mg/dl (8.6-10.3); Creatinine Clr Calc Pharmacy 63.9 ml/min; Potassium 3.9 mmol/L (3.5-5.1)
--- NOTE | 2024-06-23 10:38 | Gastroenterology Progress Note ---
Date of Service June 23, 2024 Assessment & Plan (1) Diverticulitis: (2) Colitis: Plan Patient feels significantly improved. - continue with antibiotics. - she is going to follow up with her home GI at [facility] on . she will need to be set up for outpatient colonoscopy in 3-4 weeks to assess. Admission and Anticipated Discharge Date Admission Date: June 19, 2024 Subjective Patient is feeling much better. abdominal pain has improved. she tells me she is planning to go home today. she already has an appointment set up with her home GI for later this week at [facility]. Review of Systems Review of Systems: All systems reviewed & are unremarkable except as noted in HPI & below Physical Exam Constitutional: WD/WN, vitals as above Respiratory: normal respiratory effort, lungs clear to auscultation Cardiovascular: Rate/Rhythm: regular rate and regular rhythm Gastrointestinal (Abdomen): normal bowel sounds, soft, nontender, no hepatosplenomegaly Psychiatric: Orientation: alert and oriented x 3 Affect: euthymic affect Results & Data Results & Data Vital Signs (Past 12 Hours) Vital Signs Temp Pulse Pulse Resp BP Pulse Ox O2 Del Method 06/23/24 07:28 98.4 F 63 17 114/74 96 Room Air 06/23/24 03:11 97.9 F 60 18 121/81 97 Room Air 06/22/24 23:06 60 06/22/24 23:04 97.9 F 63 20 109/69 98 Room Air PG Care Time/CCT Total # of Minutes Spent Total Time Spent with Patient: Total time spent is greater than 50% in coordination of care (as documented) at patient's floor/unit and/or counseling patient: Coding Level of Care Code 36405 SUB INP/OBS CARE 03/08MIN Diagnoses Diverticulitis K57.92 Colitis K52.9
--- NOTE | 2024-06-23 11:04 | Discharge Summary ---
Date of Service June 23, 2024 Admission HPI Per Admitting Provider 69-year-old female with past medical history significant for nonischemic cardiomyopathy, status post AICD, history of thoracic outlet syndrome, osteoarthritis, degenerative disease, history of rheumatoid arthritis involving multiple sites with positive rheumatoid factor, history of breast cancer presents with ongoing abdominal pain and diarrhea and found to have diverticulitis and also bacteremia. Patient is having on and off abdominal pain and diarrhea going on for last several weeks. Went to see PCP and there was plan for CAT scan. But last night had severe abdominal pain and associated with fever and chills and nausea and vomiting and came to the ER in the morning. When she came to the ER in the morning she was somewhat confused. She was found to have diverticulitis. And she improved and was discharged on Augmentin. After going home again she started to have fever/chills and abdominal pain again and blood pressure was low and not feeling well and came to the ER. Her blood cultures came back positive for gram negative bacilli. In the ER her systolic blood pressure was in 80s, improved with the fluids. Currently having headache. Denies any chest pain. When the pain was severe she was feeling short of breath. Vision is okay. Has some cough. No runny nose. No sore throat. Micturating okay. Appetite is down today. Feeling weak. Patient says she is also having on and off low blood pressures at home for some time now. When the blood pressure drops she does not feel good and she drinks water and when the systolic blood pressure improves to 90s she feels better. She follows the [facility] for her heart and [facility]. Patient states digoxin was stopped but was again recently restarted. Past medical history. As mentioned above Past surgical history. Breast biopsy. Breast reconstruction. Colonoscopy. Meniscal repair bilateral. Injection of lumbosacral cervical spine. Ligation of oviducts. Left modified radical mastectomy. Dual-chamber pacemaker. Appendectomy. [place] lymph node biopsy left side. Social history. . Quit smoking 1989. Smoked 0.5 pack a day for 16 years. Alcohol drinks wine daily. No drug use. Family history. Paternal aunt had breast cancer. Paternal cousin had breast cancer. Mother had breast cancer. Rheumatoid arthritis. Paternal uncle had colon cancer. Father had neuropathy. Prostate cancer. Sister had seizures. Maternal uncle had stroke. Admission Exam Per Admitting Provider General- Not in distress Head- atraumatic Eyes- PERRL. ENT- oropharynx clear Neck- supple, no JVD. Lungs- clear to auscultation no wheezing or crackles Heart- regular rhythm; no murmur, no gallop. Abdomen- normal bowel sounds, soft, LLQ tenderness present Extremities- trace pretibial edema, no erythema seen Neuro- alert, oriented PERRL, no facial palsy; no dysarthria; moves extremities Principal Diagnosis Sepsis POA Bacteremia with E. coli and bacteriodes Acute sigmoid diverticulitis Discharge Exam General- Not in distress Head- atraumatic Eyes- PERRL. ENT- oropharynx clear Neck- supple, no JVD. Lungs- clear to auscultation no wheezing or crackles Heart- regular rhythm; no murmur, no gallop. Abdomen- Soft, nontender. Tenderness resolved Extremities- trace pretibial edema, no erythema seen Neuro- alert, oriented PERRL, no facial palsy; no dysarthria; moves extremities Discharge Data Allergies Allergy/AdvReac Type Severity Reaction Status Date / Time indomethacin AdvReac Unknown SEVERE SYLVESTER Verified 06/19/24 22:24 bupivacaine [From Marcaine] AdvReac strange Verified 06/19/24 22:24 reaction Consultations 06/19/24 22:30 ED Decision to Admit Stat 06/20/24 08:00 Consult Cardiology Routine Consult General Surgery Routine Ordered Studies 06/20/24 18:39 CTA abd pelvis wo/w con [CT angio abd pelvis wo/w con] Stat Hospital Course (1) Bacteremia: 69-year-old female with past medical history significant for nonischemic cardiomyopathy, status post AICD, history of thoracic outlet syndrome, osteoarthritis, degenerative disease, history of rheumatoid arthritis involving multiple sites with positive rheumatoid factor, history of breast cancer presents with ongoing abdominal pain and diarrhea and found to have diverticulitis and also bacteremia. Sepsis POA Bacteremia with E. coli and bacteriodes Acute sigmoid diverticulitis Patient presented to the hospital with abdominal pain, chills and watery diarrhea. CT abdomen concerning for acute sigmoid diverticulitis; no free air or abscess Blood culture on admission shows 4 out of 4 E. coli. PCR positive for Bacteriodes fragilis and E.coli Patient reported an episode of red stool; underwent CTA abdomen on 06/20 which did not show any acute finding. Patient reported eating red jelly which she reports resulted in red stool. Hemoglobin stable. During the hospitalization, patient was treated with IV antibiotic, bowel rest and IV fluids with gradual improvement in her abdominal pain. Her diet was gradually advanced to low fiber diet which she tolerated without any issues. Her repeat blood cultures were negative. Patient was discharged on Augmentin for 1 more week. Discussion was done regarding following low fiber diet. Patient has a follow-up coming up with GI later in the week in which she will di scussed about colonoscopy given her recent bout of diverticulitis and chronic diarrhea.Leflunomide was kept on hold for the time being given her infection. No other medication changes were done. Please note the above document was generated using voice recognition software. It may contain grammatical, syntax or spelling errors. Any formal questions or concerns about the content, text or information contained within the body of this dictation should be directly addressed to the provider for clarification Total Time Total Time Spent Total Time Spent (In Minutes): 45 Total Time Includes: Examination of the Patient, Discharge Planning, Medication Reconciliation, Communication With Other Providers and Other Discharge Plan Discharge Items Patient Disposition: Home - Self-Care Reason For Visit: BACTEREMIA,SEPSIS, DIVERTICULITIS Discharge Diagnosis: Sepsis POA Bacteremia with E. coli and bacteriodes Acute sigmoid diverticulitis Condition on Discharge: Fair Activity: Resume your previous activity Non-emergency contact: Primary Care Provider Call non-emergency contact if: you have any medication questions and your symptoms worsen Follow-up/Referrals: Patricia Williamson PA-C [Outside Practitioners] - (Date & Time 06/26/2024 1:30 PM Provider: Patricia Williamson PA-C Gastroenterology, [facility] ) Jian Vaz MD [Primary Care Provider] - (Date & Time 06/30/2024 11:00 AM Provider: Jian Vaz MD General Internal Medicine [facility] ) Diet: Regular Addtl Attending Provider Instructions: You were admitted to the hospital due to diverticulitis and bacteria in the blood causing sepsis. You are treated with antibiotic during the hospitalization. You are prescribed Augmentin to be taken twice a day for 7 days along with probiotic. Please follow low fiber diet for next 2 weeks and gradually add fiber Please follow-up with your primary care doctor and GI. You will need colonoscopy in 6 to 8 weeks time. Pending Studies at Discharge: No Stand-Alone Forms: My [facility], Smoking Cessation Medications and DC Order Prescriptions: New Advanced Probiotic 625 mg (10 billion cell) Capsule 2 cap PO DAILY Qty: 60 0RF amoxicillin-pot clavulanate 875-125 mg tablet 1 tab PO BID 7 Days Qty: 14 0RF Continued furosemide 20 mg tablet 20 mg PO DAILY PRN (Reason: as directed) metoprolol succinate 25 mg tablet extended release 24 hr 37.5 mg PO QAM folic acid 1 mg tablet 2 mg PO QAM Jardiance 10 mg tablet 10 mg PO QAM losartan 25 mg tablet 25 mg PO DAILY hydroxyzine HCl 25 mg tablet 25 mg PO HS PRN (Reason: Sleep) hydrocodone-acetaminophen 5-325 mg tablet 1 tab PO Q6 PRN (Reason: pain,mild) spironolactone 25 mg tablet 25 mg PO QAM rosuvastatin 10 mg tablet 10 mg PO HS digoxin 125 mcg (0.125 mg) tablet 125 mcg PO QAM Held leflunomide 10 mg tablet 10 mg PO QAM Hold Instructions: Resume on 06/30/24. until antibiotics are completed Discharge Orders: Discharge Order (Routine); Ordered 06/23/24 Ordered By: Chace Cannon Admission Data Admit Date/Time: 06/19/24 22:35 Attending Provider: Chace Cannon Admit Provider: Aston Gutierrez Primary Care Provider: Jian Vaz Other Providers: Atif Christianson; Rufus Pagan; Aston Gutierrez Other Interventions: Discharge Summary Assessment (RN) Last Done: 06/23/24 10:48
--- NOTE | 2024-06-23 11:40 | Cardiology Progress Note ---
Date of Service June 23, 2024 Assessment & Plan (1) NICM (nonischemic cardiomyopathy): (2) Hypotension: Plan Patient appears compensated from a heart failure perspective with echocardiogram demonstrating improvement of LV systolic function during hospitalization. GDMT limited due to baseline hypotension which acutely worsened during the current hospitalization. Blood pressure has improved overnight. Recommend restarting low-dose losartan, 12.5 mg today. She may restart spironolactone and Jardiance as outpatient with daily blood pressure monitoring. Follow-up with cardiology 2-4 weeks post discharge. No further inpatient cardiac testing or intervention recommended at this time. Dipesh Cuenca DO, [facility] Admission and Anticipated Discharge Date Admission Date: June 19, 2024 Subjective Patient seen and examined at the bedside. Feeling well from a cardiovascular perspective. No chest pain or shortness of breath. Telemetry reveals atrial paced rhythm and sinus rhythm in the 60s. No dysrhythmia. Losartan, Aldactone, and Jardiance on hold due to borderline hypotension. Tolerating other medications. Awaiting discharge. Review of Systems Review of Systems: All systems reviewed & are unremarkable except as noted in Subjective Physical Exam Constitutional: well nourished; no acute distress Respiratory: no respiratory distress, no labored breathing and no retractions Auscultation: no crackles, no rales, no rhonchi and no wheezes Cardiovascular: Rate/Rhythm: regular rate and regular rhythm Heart Sounds: normal S1 and normal S2; no murmur Vessels: no JVD Extremities: no edema Neurologic: CN's II-XI intact bilaterally and moves all extremities; no focal motor deficits Results & Data Vital Signs (Past 12 Hours) Vital Signs Temp Pulse Resp BP Pulse Ox O2 Del Method 06/23/24 10:48 36.9 C 63 17 114/74 96 06/23/24 07:28 36.9 C 63 17 114/74 96 Room Air 06/23/24 03:11 36.6 C 60 18 121/81 97 Room Air Laboratory Results CBC 06/23/24 Range/Units 07:19 WBC 4.59 L (4.8-10.8) K/ul RBC 4.48 (4.20-5.40) M/uL Hgb 13.1 (12.0-16.0) g/dl Hct 39.2 (37.0-47.0) % Plt Count 151 (130-400) K/uL Neut # (Auto) 2.88 (1.40-6.50) K/uL Lymph # (Auto) 1.09 L (1.20-3.40) K/uL [place] # (Auto) 0.44 (0.11-0.59) K/uL Eos # (Auto) 0.13 (0.00-0.50) K/uL Baso # (Auto) 0.03 (0.00-0.20) K/uL Comprehensive Metabolic Panel 06/23/24 Range/Units 07:19 Sodium 139 (136-145) mmol/L Potassium 3.9 (3.5-5.1) mmol/L Chloride 110 H (98-107) mmol/L Carbon Dioxide 26 (21-32) mmol/L BUN 8 (6-23) mg/dl Creatinine 0.85 (0.6-1.2) mg/dl Glucose 101 H (70-99(Fasting)) mg/dl Calcium 8.6 (8.6-10.3) mg/dl Intake and Output 06/22/24 06/23/24 06/23/24 22:59 06:59 14:59 Intake Total 500 / 940 100 / 940 100 / 100 Balance 500 / 940 100 / 940 100 / 100 Intake: IV 100 / 300 100 / 300 100 / 100 Piperacillin/Tazobactam 4.5 gm 100 / 300 100 / 300 100 / 100 In 100 ml @ 25 mls/hr IV Q8H [facility] Rx#:[id number] Oral 400 / 640 Other: # Unmeasured Voids 2 Weight 68.8 kg 68.8 kg Weight Measurement Method Built in [facility] Patient Weight 06/24/24 06:59 Weight 68.8 kg (2) Hypotension Hypotension type: idiopathic hypotension Qualified Code(s): I95.0 - Idiopathic hypotension
== END 2024-06-23 11:10 | disposition home or self-care (01) | DRG 872 ==
LOC: ED 18:47 → 2S 22:35